=== PATIENT | male | born 1955 | race Caucasian/White ===

== ENCOUNTER 2017-02-20 19:20 | Inpatient (IN) | payer BC ==
[~2017-02-20] VITALS: Ht 170.2 cm; Wt 116.8 kg
[~2017-02-20 19:20] MED LIST: ASPI81TA28 PO; DILT-117 PO; LISI-729 PO; LPT10 PO; PANT40TA PO; RIVA1TAB4 PO; ZNTT/150 PO
[2017-02-20] MEDS ORDERED: SODIUM CHLORIDE 0.9% 1000ML 1,000 ML IV STA (19:43)
--- NOTE | 2017-02-20 19:47 | EMERGENCY ROOM VISIT NOTE ---
History Report prepared by Thao: Jimmie Castellano Under the Supervision of: Dr. Juan Wong D.O. 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 The patient's states that the patient had been experiencing shortness of breath for the past two weeks. This shortness of breath became progressively worse today. Tonight, the patient sat down in his chair and became unresponsive. called EMS who performed CPR upon arrival to scene. Per EMS staff, the patient was cardioverted with 50 joules into atrial fibrillation then to sinus rhythm. Patients only complaints now are shortness of breath and chest pain. He denies leg swelling. Patient has a history of atrial fibrillation. 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 A total of 10 systems reviewed and were otherwise negative. Past Medical & Surgical Medical Problems: (1) Arrhythmia (2) Atrial fibrillation (3) COPD (chronic obstructive pulmonary disease) (4) LOC (loss of consciousness) Family History Heart disease Social History Smoking Status: Current Every Day Smoker Marital Status: Housing Status: lives with family Occupation Status: employed Current/Historical Medications Scheduled Aspirin (Aspirin Ec), 81 MG PO QAM Diltiazem Hcl Ext Rel (Tiazac), 300 MG PO QAM Lisinopril (Zestril), 5 MG PO QAM Rivaroxaban (Xarelto), 20 MG PO QAM Allergies Coded Allergies: Penicillins (Verified Adverse Reaction, Mild, HIVES, 02/20/17) Physical Exam Vital Signs Date Time Temp Pulse Resp B/P Pulse Ox O2 Delivery O2 Flow Rate FiO2 02/20/17 22:15 104 139/89 02/20/17 22:10 96 97 02/20/17 22:00 135/90 02/20/17 21:55 97 95 02/20/17 21:45 121/91 02/20/17 21:40 97 100 Room Air 02/20/17 21:30 138/96 02/20/17 21:25 100 91 02/20/17 21:15 130/92 02/20/17 21:10 100 94 02/20/17 21:05 100 24 148/96 94 Nasal Cannula 4.0 02/20/17 21:00 100 133/97 90 Nasal Cannula 2.0 02/20/17 20:59 98 02/20/17 20:57 88 Room Air 02/20/17 20:55 99 134/81 98 02/20/17 20:50 100 132/80 99 02/20/17 20:45 101 124/80 99 02/20/17 20:40 102 133/81 99 02/20/17 20:35 102 138/94 99 02/20/17 20:30 103 137/94 99 02/20/17 20:25 107 133/91 99 02/20/17 20:20 107 24 121/85 98 Non-Rebreather 15.0 02/20/17 20:15 105 117/72 98 02/20/17 20:10 106 108/67 98 02/20/17 20:05 109 123/94 98 02/20/17 20:00 111 109/65 98 02/20/17 19:55 110 22 132/90 98 Non-Rebreather 15.0 02/20/17 19:51 145/79 02/20/17 19:50 110 98 02/20/17 19:45 110 105/80 98 02/20/17 19:40 103 108/81 98 02/20/17 19:35 98 Non-Rebreather 15.0 02/20/17 19:35 102 134/82 98 02/20/17 19:35 98 Non-Rebreather 02/20/17 19:34 118/80 02/20/17 19:34 102 26 118/80 98 Non-Rebreather 15.0 02/20/17 19:30 101 93 02/20/17 19:30 84 Nasal Cannula 4.0 02/20/17 19:25 99 81 02/20/17 19:23 115/79 02/20/17 19:22 102 02/20/17 19:20 36.8 102 26 115/79 83 Room Air Physical Exam GENERAL: Patient is awake, alert, mildly anxious appearing. Does not appear to be experiencing severe pain. EYES: The conjunctivae are clear. The pupils are round and reactive. EARS, NOSE, MOUTH AND THROAT: The nose is without any evidence of any deformity. Mucous membranes are moist tongue is midline NECK: The neck is nontender and supple. RESPIRATORY: Diminished breath sounds throughout with scattered rhonchi, no definite rales appreciated. Mild tachypnea appreciated. No conversational dyspnea noted. CARDIOVASCULAR: Irregular rhythm noted to auscultation. No definite murmur noted. GASTROINTESTINAL: The abdomen is soft. Bowel sounds are present in all quadrants. Abdomen is nontender MUSCULOSKELETAL/EXTREMITIES: There is no evidence of gross deformity full range of motion is noted in the hips and shoulders SKIN: Pedal edema noted bilaterally. There is no obvious evidence of any rash. There are no petechiae, pallor or cyanosis noted. NEUROLOGIC: Patient is awake alert and oriented x3. Medical Decision & Procedures ER Provider Diagnostic Interpretation: X-ray results as stated below per interpretation by me and the radiologist. SINGLE VIEW CHEST CLINICAL HISTORY: Atypical chest pain. FINDINGS: 2 AP, portable, upright chest radiographs are compared to chest x-ray and chest CT dated 04/22/2009. The examination is degraded by portable technique, apical positioning, and patient rotation. A cardiac pads projects over the left lung base. The heart is enlarged and there is atherosclerotic calcification of the thoracic aorta. The pulmonary vasculature is noncongested. Advanced emphysema and chronic interstitial thickening are identified. Bibasilar atelectasis is observed. There is no airspace consolidation or large pleural effusion. No pneumothorax is seen. The skeletal structures are osteopenic. The bony thorax is grossly intact. IMPRESSION: Cardiomegaly and advanced emphysema. No acute cardiopulmonary abnormality is seen. Electronically signed by: Grady Rutledge M.D. 02/20/2017 8:07 PM Dictated Date/Time: 02/20/2017 8:05 PM Laboratory Results 02/20/17 19:29 Red Blood Count 4.93, Mean Corpuscular Volume 93.1, Mean Corpuscular Hemoglobin 32.0, Mean Corpuscular Hemoglobin Concent 34.4, Mean Platelet Volume 10.4, Neutrophils (%) (Auto) 69.7, Lymphocytes (%) (Auto) 21.0, Monocytes (%) (Auto) 5.2, Eosinophils (%) (Auto) 2.4, Basophils (%) (Auto) 0.3, Neutrophils # (Auto) 7.47, Lymphocytes # (Auto) 2.25, Monocytes # (Auto) 0.56, Eosinophils # (Auto) 0.26, Basophils # (Auto) 0.03 02/20/17 19:29 Test 02/20/17 19:29 02/20/17 19:35 02/20/17 19:39 White Blood Count 10.72 K/uL (4.8-10.8) Red Blood Count 4.93 M/uL (4.7-6.1) Hemoglobin 15.8 g/dL (14.0-18.0) Hematocrit 45.9 % (42-52) Mean Corpuscular Volume 93.1 fL (80-100) Mean Corpuscular Hemoglobin 32.0 pg (25-34) Mean Corpuscular Hemoglobin Concent 34.4 g/dl (32-36) Platelet Count 238 K/uL (130-400) Mean Platelet Volume 10.4 fL (7.4-10.4) Neutrophils (%) (Auto) 69.7 % Lymphocytes (%) (Auto) 21.0 % Monocytes (%) (Auto) 5.2 % Eosinophils (%) (Auto) 2.4 % Basophils (%) (Auto) 0.3 % Neutrophils # (Auto) 7.47 K/uL (1.4-6.5) Lymphocytes # (Auto) 2.25 K/uL (1.2-3.4) Monocytes # (Auto) 0.56 K/uL (0.11-0.59) Eosinophils # (Auto) 0.26 K/uL (0-0.5) Basophils # (Auto) 0.03 K/uL (0-0.2) RDW Standard Deviation 46.9 fL (36.4-46.3) RDW Coefficient of Variation 13.8 % (11.5-14.5) Immature Granulocyte % (Auto) 1.4 % Immature Granulocyte # (Auto) 0.15 K/uL (0.00-0.02) Prothrombin Time 11.4 SECONDS (9.0-12.0) Prothromb Time International Ratio 1.1 (0.9-1.1) Activated Partial Thromboplast Time 25.3 SECONDS (21.0-31.0) Partial Thromboplastin Ratio 1.0 Est Creatinine Clear Calc Drug Dose 70.4 ml/min Estimated GFR () 63.3 Estimated GFR (Non- 54.6 BUN/Creatinine Ratio 15.0 (10-20) Calcium Level 8.8 mg/dl (8.5-10.1) Magnesium Level 2.1 mg/dl (1.8-2.4) Total Bilirubin 0.6 mg/dl (0.2-1) Direct Bilirubin 0.2 mg/dl (0-0.2) Aspartate Amino Transf (AST/SGOT) 125 U/L (15-37) Alanine Aminotransferase (ALT/SGPT) 113 U/L (12-78) Alkaline Phosphatase 106 U/L (45-117) Total Creatine Kinase 70 U/L (39-308) Creatine Kinase MB 1.3 ng/ml (0.5-3.6) Creatine Kinase MB Ratio 1.9 (0-3.0) Pro-B-Type Natriuretic Peptide 508 pg/ml (0-900) Total Protein 6.8 gm/dl (6.4-8.2) Albumin 3.4 gm/dl (3.4-5.0) Lipase 112 U/L (73-393) Thyroid Stimulating Hormone (TSH) 5.840 uIu/ml (0.300-4.500) Free Thyroxine 0.89 ng/dl (0.80-1.60) Bedside Lactic Acid Venous 4.59 mmol/L (0.90-1.70) Bedside Hemoglobin 16.7 g/dl (14.0-18.0) Bedside Hematocrit 49 % (42-52) Bedside Sodium 144 mEq/L (135-144) Bedside Potassium 3.4 mEq/L (3.3-5.0) Bedside Chloride 101 mEq/L (101-112) Bedside Total CO2 25 mEq/l (24-31) Anion Gap 22.0 mmol/L (16-25) Bedside Blood Urea Nitrogen 22 mg/dl (7-18) Bedside Creatinine 1.2 mg/dl (0.6-1.3) Bedside Glucose (other) 177 mg/dl (70-99) Bedside Ionized Calcium (Yas) 1.17 mmol/l (1.12-1.32) Laboratory results per my review. Medications Administered Medications (Trade) Dose Ordered Sig/Hilton Route Start Time Stop Time Status Last Admin Dose Admin Sodium Chloride (Nss 1000ml) 1,000 ml @ 999 mls/hr Q1H1M STAT IV 4/14/17 19:43 02/20/17 20:43 DC 02/20/17 19:47 999 MLS/HR Morphine Sulfate (MoRPHine SULFATE INJ) 4 mg Q15M PRN IV 02/20/17 21:30 02/20/17 23:00 DC 02/20/17 21:30 4 MG Ondansetron HCl (Zofran Inj) 4 mg NOW STAT IV 02/20/17 21:24 02/20/17 21:25 DC 02/20/17 21:29 4 MG Procedure Prehospital EKG: Wide complex tachycardia rate of 263. Diffuse ST segment abnormalities. Second EKG status post cardioversion: Atrial Fibrillation rate of 100, RBBB pattern noted. ECG Indication: other (Cardiac Arrest) Rate (beats per minute): 100 Rhythm: normal sinus Findings: no ectopy, other (RBBB pattern noted) Comparison ECG Date: no prior available ED Course 1938: The patient was evaluated in room A1. A complete history and physical examination were performed. 1942: Ordered Sodium Chloride 1,000 ml @ 999 mls/h IV. 2051: Reevaluated the patient. He is resting more comfortably. 2123: Ordered Zofran Injection 4 mg IV. 2129: Ordered Morphine Sulfate 4 mg IV. 2131: I discussed the patient's case with Dr. Brock ([facility] [place]). He will evaluate the patient for further management and care. 2199: I discussed the patient's case with Dr. Solis ([facility] [place] [facility]iology). He states to continue with discussed treatment plan. Medical Decision Differential diagnosis: Etiologies such as cardiac ischemia, aortic dissection, pulmonary embolism, electrolyte abnormality, acidosis, tension pneumothorax, hypothermia, hypovolemia, intracranial event, as well as others were entertained. Nursing notes reviewed. Additional history is obtained from the prehospital personnel. The patient is a 61-year-old male who presented to the emergency department for an evaluation after having a cardiac arrest. The patient was experiencing shortness of breath and difficulty with exertional dyspnea over the last few weeks. His symptoms became acutely worse over the last 24 hours. He was walking upstairs and had an episode where he became very short of breath. Ultimately he had a cardiac arrest. CPR was started. The patient was found to be in a wide- complex tachycardia but he has a history of atrial fibrillation. For this reason he was defibrillated using 50 joules. It is unclear if he had a pulse at this time but he was cardioverted into an atrial fibrillation and then went into a sinus rhythm spontaneously. The patient was treated with IV fluids in the emergency department. I discussed the patient's laboratory and radiographic studies with him. 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 At this time no new antidysrhythmic's will be started. Consults Time Called: 2055 Consulting Physician: Dr. Brock ([facility] [place]) Returned Call: 2129 I discussed the patient's case with Dr. Brock ([facility] [place]). He will evaluate the patient for further management and care. Additional Consults: Time Called: 2149 Consulted Physician: Dr. Solis ([facility] [place] [facility]) Returned Call: 2199 Additional Comments: I discussed the patient's case with Dr. Solis ([facility] [place] [facility]). He states to continue with discussed treatment plan. Impression Primary Impression: Cardiac arrest Additional Impressions: COPD (chronic obstructive pulmonary disease) Hypoxia Chest pain Wide-complex tachycardia Arrhythmia Scribe Attestation The scribe's documentation has been prepared under my direction and personally reviewed by me in its entirety. I confirm that the note above accurately reflects all work, treatment, procedures, and medical decision making performed by me. Departure Information Dispostion Being Evaluated By Hospitalist Referrals Ashish Morales D.O.Int.Med. (PCP) Patient Instructions My [facility] Health Problem Qualifiers Additional Impressions: COPD (chronic obstructive pulmonary disease) COPD type: unspecified COPD Qualified Codes: J44.9 - Chronic obstructive pulmonary disease, unspecified Chest pain Chest pain type: unspecified Qualified Codes: R07.9 - Chest pain, unspecified Arrhythmia Arrhythmia type: unspecified cardiac arrhythmia Qualified Codes: I49.9 - Cardiac arrhythmia, unspecified
[2017-02-20 19:54] LABS: ISTAT CREATININE 1.2 mg/dl (0.6-1.3); ISTAT HEMOGLOBIN 16.7 g/dl (14.0-18.0); ISTAT IONIZED CALCIUM 1.17 mmol/l (1.12-1.32)
[2017-02-20 19:57] LABS: BASO % 0.3 %; BASO ABS # 0.03 K/uL (0-0.2); COMPLETE YES; EOS % 2.4 %; HEMATOCRIT 45.9 % (42-52); IG% 1.4 %; LYMPH ABS # 2.25 K/uL (1.2-3.4); MEAN CELL VOLUME 93.1 fL (80-100); MEAN CORPUSCULAR HGB CONC 34.4 g/dl (32-36); MEAN PLATELET VOLUME 10.4 fL (7.4-10.4); MONO % 5.2 %; NEUT % 69.7 %; PLATELET COUNT 238 K/uL (130-400); RED BLOOD COUNT 4.93 M/uL (4.7-6.1); WHITE BLOOD COUNT 10.72 K/uL (4.8-10.8)
[2017-02-20 20:06] LABS: INR 1.1 (0.9-1.1); PROTHROMBIN TIME (PATIENT) 11.4 SECONDS (9.0-12.0)
--- NOTE | 2017-02-20 20:10 | DIAGNOSTIC IMAGING REPORT ---
SINGLE VIEW CHEST CLINICAL HISTORY: Atypical chest pain. FINDINGS: 2 AP, portable, upright chest radiographs are compared to chest x-ray and chest CT dated 04/22/2009. The examination is degraded by portable technique, apical positioning, and patient rotation. A cardiac pads projects over the left lung base. The heart is enlarged and there is atherosclerotic calcification of the thoracic aorta. The pulmonary vasculature is noncongested. Advanced emphysema and chronic interstitial thickening are identified. Bibasilar atelectasis is observed. There is no airspace consolidation or large pleural effusion. No pneumothorax is seen. The skeletal structures are osteopenic. The bony thorax is grossly intact. IMPRESSION: Cardiomegaly and advanced emphysema. No acute cardiopulmonary abnormality is seen. Electronically signed by: Grady Rutledge M.D. 02/20/2017 8:07 PM Dictated Date/Time: 02/20/2017 8:05 PM
[2017-02-20 20:16] LABS: CALCIUM 8.8 mg/dl (8.5-10.1); CREATININE 1.4 mg/dl (0.60-1.40); MAGNESIUM 2.1 mg/dl (1.8-2.4); POTASSIUM 3.4 mmol/L (3.5-5.1)
[2017-02-20 20:30] LABS: CKMB/CK RATIO 1.9 (0-3.0); THYROID STIMULATING HORMONE 5.84 uIu/ml (0.300-4.500)
[2017-02-20] MEDS ORDERED: ONDANSETRON INJ 2 MG/ML 2 ML VIAL IV STA (21:24)
[2017-02-20] MEDS ORDERED: MoRPHine SULFATE 4 MG/ML 1 ML CARP\\VIAL IV PRN (21:30)
[2017-02-20] MEDS ORDERED: LORAZEPAM 0.5 MG TAB PO PRN (22:15)
[2017-02-20] MEDS ORDERED: ACETAMINOPHEN 325 MG TAB PO PRN (22:15)
[2017-02-20] MEDS ORDERED: POTASSIUM CHLR 20 MEQ / WTR 20 MEQ in PREMIXED WATER 100 ML IV SCH (22:30)
--- NOTE | 2017-02-20 23:03 | History and Physical ---
History & Physical Date & Time of Service: Feb 20, 2017 at 22:33 Chief Complaint: Cardiac Primary Care Physician: Ashish Morales D.O.Int.Med. History of Present Illness Source: patient 61 y/o M Hx AF, COPD, obese, HTN. Pt states he has been SOB x 2 weeks which is most pronounced with exertion. He had not c/o CP, fevers or a productive cough. He had ascended some stairs this evening, developed palpitations and light headedness and was reported to be pale and diaphoretic by his . EMS was contacted. He lost consciousness in the interim and was pulseless when they arrived at the house. CPR was started and he regained a pulse after a few minutes. An EKG was obtained showing a wide complex tachycardia at a rate of 250 was recorded. EMS felt that this may have been aberrant conduction and proceeded to shock the pt with 50 joules. He reverted to a sinus rhythm and was transferred to the hospital in stable condition. He recalls being shocked and denies current CP. His SOB persists at rest however he has not displayed hypoxia. Initial labs are consistent with a period of cardiac arrest as LFTs, creatinine, lactic acid and troponin are elevated without evidence of infection or dehydration. While in the ER he has exhibited periodic rapid AF without concurrent symptoms. 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 Smoking Status: Current Every Day Smoker Marital Status: Occupational Status: employed Allergies Coded Allergies: Penicillins (Verified Adverse Reaction, Mild, HIVES, 02/20/17) Home Medications Scheduled Aspirin (Aspirin Ec), 81 MG PO QAM Diltiazem Hcl Ext Rel (Tiazac), 300 MG PO QAM Lisinopril (Zestril), 5 MG PO QAM Rivaroxaban (Xarelto), 20 MG PO QAM Review of Systems Constitutional: No chills, No fever, No sweats Eyes: No eye pain, No worsening of vision ENT: No hearing loss, No nasal symptoms, No unusual epistaxis Respiratory: + dyspnea at rest, + dyspnea on exertion, + shortness of breath, + wheezing, No cough, No sputum Cardiovascular: + edema, + palpitations, No PND, No chest pain, No claudication , No orthopnea Abdomen: No nausea, No pain, No vomiting Musculoskeletal: No joint pain, No muscle pain Genitourinary - Male: No dysuria, No hematuria, No urinary frequency, No urinary urgency Neurologic: + problem reported (LOC as above), + weakness, No memory loss, No paralysis Psychiatric: No depression symptoms Endocrine: + fatigue Hematologic / Lymphatic: No abnormal bleeding/bruising Integumentary: No rash Physical Exam Vital Signs Date Time Temp Pulse Resp B/P Pulse Ox O2 Delivery O2 Flow Rate FiO2 02/20/17 21:05 100 24 148/96 94 Nasal Cannula 4.0 02/20/17 21:00 100 133/97 90 Nasal Cannula 2.0 02/20/17 20:59 98 02/20/17 20:57 88 Room Air 02/20/17 20:55 99 134/81 98 02/20/17 20:50 100 132/80 99 02/20/17 20:45 101 124/80 99 02/20/17 20:40 102 133/81 99 02/20/17 20:35 102 138/94 99 02/20/17 20:30 103 137/94 99 02/20/17 20:25 107 133/91 99 02/20/17 20:20 107 24 121/85 98 Non-Rebreather 15.0 02/20/17 20:15 105 117/72 98 02/20/17 20:10 106 108/67 98 02/20/17 20:05 109 123/94 98 02/20/17 20:00 111 109/65 98 02/20/17 19:55 110 22 132/90 98 Non-Rebreather 15.0 02/20/17 19:51 145/79 02/20/17 19:50 110 98 02/20/17 19:45 110 105/80 98 02/20/17 19:40 103 108/81 98 02/20/17 19:35 98 Non-Rebreather 15.0 02/20/17 19:35 102 134/82 98 02/20/17 19:35 98 Non-Rebreather 02/20/17 19:34 118/80 02/20/17 19:34 102 26 118/80 98 Non-Rebreather 15.0 02/20/17 19:30 101 93 02/20/17 19:30 84 Nasal Cannula 4.0 02/20/17 19:25 99 81 02/20/17 19:23 115/79 02/20/17 19:22 102 02/20/17 19:20 36.8 102 26 115/79 83 Room Air General Appearance: WD/WN, no apparent distress, + pertinent finding (Slightly disheveled, humorous middle-aged male) Head: normocephalic, atraumatic Eyes: normal inspection, PERRL, EOMI ENT: normal ENT inspection, hearing grossly normal Neck: supple, + pertinent finding (exam limited due to habitus) Respiratory/Chest: chest non-tender, + pertinent finding (Very poor b/l air entry - minimal b/l end expiratory wheezing - no crackles audible) Cardiovascular: regular rate, rhythm, + pertinent finding (very faint heart sounds - borderline tachy - minimal edema present) Abdomen/GI: normal bowel sounds, non tender, soft Back: normal inspection, no CVA tenderness Extremities/Musculoskelatal: no calf tenderness, + pedal edema Neurologic/Psych: ui ux developer II-XII nml as tested, no motor/sensory deficits, alert, normal mood/affect, normal reflexes, oriented x 3 Skin: normal color, warm/dry, no rash Diagnostics Laboratory Results Results Past 24 Hours Test 02/20/17 19:29 02/20/17 19:35 02/20/17 19:39 Range/Units White Blood Count 10.72 4.8-10.8 K/uL Red Blood Count 4.93 4.7-6.1 M/uL Hemoglobin 15.8 14.0-18.0 g/dL Hematocrit 45.9 42-52 % Mean Corpuscular Volume 93.1 80-100 fL Mean Corpuscular Hemoglobin 32.0 25-34 pg Mean Corpuscular Hemoglobin Concent 34.4 32-36 g/dl Platelet Count 238 130-400 K/uL Mean Platelet Volume 10.4 7.4-10.4 fL Neutrophils (%) (Auto) 69.7 % Lymphocytes (%) (Auto) 21.0 % Monocytes (%) (Auto) 5.2 % Eosinophils (%) (Auto) 2.4 % Basophils (%) (Auto) 0.3 % Neutrophils # (Auto) 7.47 1.4-6.5 K/uL Lymphocytes # (Auto) 2.25 1.2-3.4 K/uL Monocytes # (Auto) 0.56 0.11-0.59 K/uL Eosinophils # (Auto) 0.26 0-0.5 K/uL Basophils # (Auto) 0.03 0-0.2 K/uL RDW Standard Deviation 46.9 36.4-46.3 fL RDW Coefficient of Variation 13.8 11.5-14.5 % Immature Granulocyte % (Auto) 1.4 % Immature Granulocyte # (Auto) 0.15 0.00-0.02 K/uL Prothrombin Time 11.4 9.0-12.0 SECONDS Prothromb Time International Ratio 1.1 0.9-1.1 Activated Partial Thromboplast Time 25.3 21.0-31.0 SECONDS Partial Thromboplastin Ratio 1.0 Sodium Level 145 136-145 mmol/L Potassium Level 3.4 3.5-5.1 mmol/L Chloride Level 106 98-107 mmol/L Carbon Dioxide Level 29 21-32 mmol/L Anion Gap 10.0 22.0 16-25 mmol/L Blood Urea Nitrogen 21 7-18 mg/dl Creatinine 1.40 0.60-1.40 mg/dl Est Creatinine Clear Calc Drug Dose 70.4 ml/min Estimated GFR () 63.3 Estimated GFR (Non- 54.6 BUN/Creatinine Ratio 15.0 10-20 Random Glucose 184 70-99 mg/dl Calcium Level 8.8 8.5-10.1 mg/dl Magnesium Level 2.1 1.8-2.4 mg/dl Total Bilirubin 0.6 0.2-1 mg/dl Direct Bilirubin 0.2 0-0.2 mg/dl Aspartate Amino Transf (AST/SGOT) 125 15-37 U/L Alanine Aminotransferase (ALT/SGPT) 113 12-78 U/L Alkaline Phosphatase 106 45-117 U/L Total Creatine Kinase 70 39-308 U/L Creatine Kinase MB 1.3 0.5-3.6 ng/ml Creatine Kinase MB Ratio 1.9 0-3.0 Troponin I 0.064 0-0.045 ng/ml Pro-B-Type Natriuretic Peptide 508 0-900 pg/ml Total Protein 6.8 6.4-8.2 gm/dl Albumin 3.4 3.4-5.0 gm/dl Lipase 112 73-393 U/L Thyroid Stimulating Hormone (TSH) 5.840 0.300-4.500 uIu/ml Free Thyroxine 0.89 0.80-1.60 ng/dl Bedside Lactic Acid Venous 4.59 0.90-1.70 mmol/L Bedside Hemoglobin 16.7 14.0-18.0 g/dl Bedside Hematocrit 49 42-52 % Bedside Sodium 144 135-144 mEq/L Bedside Potassium 3.4 3.3-5.0 mEq/L Bedside Chloride 101 101-112 mEq/L Bedside Total CO2 25 24-31 mEq/l Bedside Blood Urea Nitrogen 22 7-18 mg/dl Bedside Creatinine 1.2 0.6-1.3 mg/dl Bedside Glucose (other) 177 70-99 mg/dl Bedside Ionized Calcium (Yas) 1.17 1.12-1.32 mmol/l Diagnostic Radiology Cardiomegaly and advanced emphysema. No acute cardiopulmonary abnormality is seen. EKG 1st EKG - wide complex tachycardia at ~ 250/min 2nd EKG - sinus, RBBB, inf Q wvs - no evidence of acute ischemia 3rd EKG - unchanged from initial Impression Assessment and Plan 61 y/o M Hx AF, COPD, obese, HTN. Pt states he has been SOB x 2 weeks which is most pronounced with exertion. He had not c/o CP, fevers or a productive cough. He had ascended some stairs this evening, developed palpitations and light headedness and was reported to be pale and diaphoretic by his . EMS was contacted. He lost consciousness in the interim and was pulseless when they arrived at the house. CPR was started and he regained a pulse after a few minutes. An EKG was obtained showing a wide complex tachycardia at a rate of 250 was recorded. EMS felt that this may have been aberrant conduction and proceeded to shock the pt with 50 joules. He reverted to a sinus rhythm and was transferred to the hospital in stable condition. He recalls being shocked and denies current CP. His SOB persists at rest however he has not displayed hypoxia. Initial labs are consistent with a period of cardiac arrest as LFTs, creatinine, lactic acid and troponin are elevated without evidence of infection or dehydration. While in the ER he has exhibited periodic rapid AF without concurrent symptoms. 1) Cardiac arrest - Pt currently stable - will be transferred to the ICU - discussed case with cardio and we will provide Amio loading dose and drip. Defib pads applied. Echo is pending and he may need further evaluation with a cath and placement of an ICD. Serial troponins ordered although we will not provide additional anticoagulation due to Xarelto use. 2) AF - paroxysmal - pt is on Xarelto but skipped his dose today - this may be serendipitous as he required CPR. We have placed him on Amio and will hold his AM Cardizem in light of this. 3) COPD - advanced on CXR - we will keep him on 02 - he has not exhibited desaturation however this is the most likely cause of his persistent SOB. We will avoid breathing treatments as possible initially due to proarrhythmic qualities although he will need full treatment prior to D/C. He is comfortable currently with supplemental 02. 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 Y/N: Yes Risk Level: Moderate Given or contraindicated: Other Anticoagulation
[2017-02-20 23:12] VITALS: BP 136/96; PULSE 95; TEMP 36.8; O2SAT 90; Ht 170.2 cm; Wt 116.8 kg
[2017-02-20] MEDS ORDERED: AMIODARONE IV BOLUS / DRIP IV STA (23:13)
[2017-02-20] MEDS ORDERED: AMIODARONE / D5W 200 ML IV SCH (23:30)
[2017-02-20] MEDS: POTASSIUM CHLR 10MEQ / WTR IV SCH (23:31)
[2017-02-20] MEDS ORDERED: AMIODARONE / D5W 100 ML IV SCH (23:45)
[2017-02-21] VITALS (40 sets, daily range): BP systolic 117–161; BP diastolic 73–95; PULSE 65–98; TEMP 36.2–37.3; O2SAT 84–95
[2017-02-21] MEDS: POTASSIUM CHLR 10MEQ / WTR IV SCH ×3 (00:37→02:58)
[2017-02-21] MEDS: MoRPHine SULFATE 2 MG/ML CARP IV PRN ×3 (02:08→11:26)
[2017-02-21 05:48] LABS: BASO % 0.1 %; BASO ABS # 0.02 K/uL (0-0.2); COMPLETE YES; EOS % 0.1 %; HEMATOCRIT 47.2 % (42-52); IG% 0.8 %; LYMPH ABS # 1.31 K/uL (1.2-3.4); MEAN CELL VOLUME 97.3 fL (80-100); MEAN CORPUSCULAR HEMOGLOBIN 32.6 pg (25-34); MEAN CORPUSCULAR HGB CONC 33.5 g/dl (32-36); MEAN PLATELET VOLUME 10.1 fL (7.4-10.4); MONO % 7.3 %; NEUT % 82.7 %; PLATELET COUNT 245 K/uL (130-400); RED BLOOD COUNT 4.85 M/uL (4.7-6.1); WHITE BLOOD COUNT 14.56 K/uL (4.8-10.8)
[2017-02-21 06:11] LABS: BUN/CREATININE RATIO 19.8 (10-20); CALCIUM 8.4 mg/dl (8.5-10.1); CREATININE 0.99 mg/dl (0.60-1.40); MAGNESIUM 2.2 mg/dl (1.8-2.4); POTASSIUM 5.5 mmol/L (3.5-5.1)
[2017-02-21] MEDS: AMIODARONE / D5W 200 ML IV SCH ×2 (06:14→17:08)
[2017-02-21] MEDS: ALBUT/IPRATROP 3MG/0.5MG NEB 3 ML VIAL INH SCH ×4 (07:52→19:32)
--- NOTE | 2017-02-21 08:50 | Cardiology Consultation ---
Cardiology Consultation Date of Consultation: Feb 21, 2017. Requesting Physician: Dr. Brock Reason for Consultation: Cardiac arrhythmia Pt evaluation today including: conversation w/ patient, physical exam, lab review, review of studies, conversation w/ outside solar sales consultant, review of inpatient medication list History of Present Illness This is a 61-year-old male who has a history of shortness of breath for several weeks, he has a background history of long-standing lung disease but apparently does not see physicians (according to him today although he seems to be a poor historian). It sounds as though he has a history of atrial fibrillation, or at least he recognized the term at sounds like that may go back for 5 or 6 years. He is supposed to be taking diltiazem and Xarelto but I don't know if he does, he doesn't seem to be very confident that he was taking medications. His symptoms of shortness of breath got much worse on 02/20/2017 and rescue was contacted. When they arrived they found him to be very tachycardic. Review of rhythm strips from rescue shows that the initial rhythm was a wide complex tachycardia at nearly 300 bpm, it is very wide but is suggestive of aberrancy (he has underlying right bundle branch block), although it certainly could be a ventricular arrhythmia. A 50 J shock was delivered during this arrhythmia which converted to ventricular fibrillation, a second 360 J shock was used to convert the ventricular fibrillation to a period of severe bradycardia followed by return of sinus rhythm. In the emergency room he was in sinus rhythm and then developed an episode of supraventricular tachycardia at around 20-20, this lasted approximately 5 minutes at a heart rate of around 145 bpm although slightly irregular. Does not appear to be atrial fibrillation. The mechanism is somewhat unclear, likely atrial flutter with 21 AV conduction but I can't determine that precisely. At the time of my evaluation he appears to be doing well, he does answer questions but does not elaborate. It is little bit difficult to obtain a history. He is awake and alert however. He has no specific complaints today. Past Medical/Surgical History (1) Atrial fibrillation (2) COPD (chronic obstructive pulmonary disease) Family History Heart disease Social History Smoking Status: Current Every Day Smoker History of Alcohol Use: Yes (1-2 per day can of beer ) Review of Systems Constitutional: No fever, No weakness, No weight loss Respiratory: + see HPI, + shortness of breath, No cough, No dyspnea on exertion , No wheezing Cardiac: + see HPI, No PND, No chest pain, No edema, No orthopnea, No palpitations Abdomen: No GI bleeding, No diarrhea, No nausea, No pain, No vomiting Male : No nocturia more than once/night, No sexual dysfunction, No slowing stream, No urinary frequency Neurologic: No balance problems, No numbness/tingling, No paralysis, No weakness Heme: No abnormal bleeding/bruising, No clotting problems Endo: No fatigue Skin: No problem reported All Other Systems: Reviewed and Negative Allergies Coded Allergies: Penicillins (Verified Adverse Reaction, Mild, HIVES, 02/20/17) Medications Current Inpatient Medications Medications (Trade) Dose Ordered Sig/[place] Route Start Time Stop Time Status Last Admin Dose Admin Acetaminophen (Tylenol Tab) 650 mg Q4H PRN PO 02/20/17 22:15 03/22/17 22:14 Lorazepam (Ativan Tab) 0.5 mg Q4H PRN PO 02/20/17 22:15 03/22/17 22:14 Aspirin (Ecotrin Tab) 81 mg QAM PO 02/21/17 09:00 03/23/17 08:59 Morphine Sulfate (MoRPHine SULFATE INJ) 2 mg Q2H PRN IV 02/20/17 22:15 03/06/17 22:14 02/21/17 04:20 2 MG Lisinopril (Zestril Tab) 5 mg QAM PO 02/21/17 09:00 03/23/17 08:59 Diltiazem HCl 300 mg 300 mg QAM PO 02/21/17 09:00 03/23/17 08:59 Amiodarone HCL/ Dextrose (Nexterone / D5w) 200 ml @ 16.7 mls/hr [id number] IV 02/21/17 05:30 03/23/17 05:29 02/21/17 06:14 16.7 MLS/HR Albuterol/ Ipratropium (Duoneb) 3 ml QIDR INH 02/21/17 08:00 03/23/17 07:59 02/21/17 07:52 3 ML Physical Exam Vital Signs Past 12 Hours Date Time Temp Pulse Resp B/P Pulse Ox O2 Delivery O2 Flow Rate FiO2 02/21/17 07:53 87 22 89 Venturi Mask 15.0 50 4/15/17 06:00 87 22 146/85 91 02/21/17 05:00 90 20 146/92 93 02/21/17 04:00 36.2 88 24 135/90 95 02/21/17 04:00 92 Nasal Cannula 5.0 02/21/17 03:30 89 24 139/90 92 02/21/17 03:00 87 23 145/89 92 02/21/17 02:00 88 23 126/80 91 02/21/17 01:30 90 24 123/83 91 02/21/17 01:00 88 21 126/87 92 02/21/17 00:00 92 Nasal Cannula 5.0 02/21/17 00:00 87 22 127/82 93 02/20/17 23:12 36.8 95 17 136/96 90 Nasal Cannula 5.0 02/20/17 22:44 94 22 135/89 98 02/20/17 22:30 94 22 135/89 100 Room Air 02/20/17 22:25 140 02/20/17 22:15 104 139/89 02/20/17 22:10 96 97 02/20/17 22:00 135/90 02/20/17 21:55 97 95 02/20/17 21:45 121/91 02/20/17 21:40 97 100 Room Air 02/20/17 21:30 138/96 02/20/17 21:25 100 91 02/20/17 21:15 130/92 02/20/17 21:10 100 94 02/20/17 21:05 100 24 148/96 94 Nasal Cannula 4.0 02/20/17 21:00 100 133/97 90 Nasal Cannula 2.0 02/20/17 20:59 98 02/20/17 20:57 88 Room Air 02/20/17 20:55 99 134/81 98 02/20/17 20:50 100 132/80 99 02/20/17 20:45 101 124/80 99 02/20/17 20:40 102 133/81 99 02/20/17 20:35 102 138/94 99 02/20/17 20:30 103 137/94 99 02/20/17 20:25 107 133/91 99 02/20/17 20:20 107 24 121/85 98 Non-Rebreather 15.0 02/20/17 20:15 105 117/72 98 02/20/17 20:10 106 108/67 98 Constitutional: General Apperance: heathly-appearing Level of Distress: NAD Psychiatric: Mental Status: active & alert Head: normocephalic Eyes: EOM: EOMI ENMT: normal ENT inspection, hearing grossly normal Neck: supple, no masses Lungs: Respiratory effort: no dyspnea, good air movement Auscultation: decreased breath sounds, expiratory wheezing Cardiovascular: Heart Auscultation: RRR, no murmurs, no rubs, no gallops Peripheral Pulses: Bruits: none appreciated Abdomen: Bowel Sounds: normal Inspection & Palpation: soft, no tenderness, guarding & rebound, no masses Musculoskeletal: normal strength (5/5 throughout) Extremities: no edema Neurologic: Cranial Nerves: grossly intact Sensation: grossly intact Data Laboratory Results: Last 24 Hours Test 02/20/17 19:29 02/20/17 19:35 02/20/17 19:39 02/20/17 23:13 White Blood Count 10.72 K/uL Red Blood Count 4.93 M/uL Hemoglobin 15.8 g/dL Hematocrit 45.9 % Mean Corpuscular Volume 93.1 fL Mean Corpuscular Hemoglobin 32.0 pg Mean Corpuscular Hemoglobin Concent 34.4 g/dl Platelet Count 238 K/uL Mean Platelet Volume 10.4 fL Neutrophils (%) (Auto) 69.7 % Lymphocytes (%) (Auto) 21.0 % Monocytes (%) (Auto) 5.2 % Eosinophils (%) (Auto) 2.4 % Basophils (%) (Auto) 0.3 % Neutrophils # (Auto) 7.47 K/uL Lymphocytes # (Auto) 2.25 K/uL Monocytes # (Auto) 0.56 K/uL Eosinophils # (Auto) 0.26 K/uL Basophils # (Auto) 0.03 K/uL RDW Standard Deviation 46.9 fL RDW Coefficient of Variation 13.8 % Immature Granulocyte % (Auto) 1.4 % Immature Granulocyte # (Auto) 0.15 K/uL Prothrombin Time 11.4 SECONDS Prothromb Time International Ratio 1.1 Activated Partial Thromboplast Time 25.3 SECONDS Partial Thromboplastin Ratio 1.0 Sodium Level 145 mmol/L Potassium Level 3.4 mmol/L Chloride Level 106 mmol/L Carbon Dioxide Level 29 mmol/L Anion Gap 10.0 mmol/L 22.0 mmol/L Blood Urea Nitrogen 21 mg/dl Creatinine 1.40 mg/dl Est Creatinine Clear Calc Drug Dose 70.4 ml/min Estimated GFR () 63.3 Estimated GFR (Non- 54.6 BUN/Creatinine Ratio 15.0 Random Glucose 184 mg/dl Calcium Level 8.8 mg/dl Magnesium Level 2.1 mg/dl Total Bilirubin 0.6 mg/dl Direct Bilirubin 0.2 mg/dl Aspartate Amino Transf (AST/SGOT) 125 U/L Alanine Aminotransferase (ALT/SGPT) 113 U/L Alkaline Phosphatase 106 U/L Total Creatine Kinase 70 U/L Creatine Kinase MB 1.3 ng/ml Creatine Kinase MB Ratio 1.9 Troponin I 0.064 ng/ml 0.628 ng/ml Pro-B-Type Natriuretic Peptide 508 pg/ml Total Protein 6.8 gm/dl Albumin 3.4 gm/dl Lipase 112 U/L Thyroid Stimulating Hormone (TSH) 5.840 uIu/ml Free Thyroxine 0.89 ng/dl Bedside Lactic Acid Venous 4.59 mmol/L Bedside Hemoglobin 16.7 g/dl Bedside Hematocrit 49 % Bedside Sodium 144 mEq/L Bedside Potassium 3.4 mEq/L Bedside Chloride 101 mEq/L Bedside Total CO2 25 mEq/l Bedside Blood Urea Nitrogen 22 mg/dl Bedside Creatinine 1.2 mg/dl Bedside Glucose (other) 177 mg/dl Bedside Ionized Calcium (Yas) 1.17 mmol/l Test 02/21/17 05:28 02/21/17 08:03 White Blood Count 14.56 K/uL Red Blood Count 4.85 M/uL Hemoglobin 15.8 g/dL Hematocrit 47.2 % Mean Corpuscular Volume 97.3 fL Mean Corpuscular Hemoglobin 32.6 pg Mean Corpuscular Hemoglobin Concent 33.5 g/dl Platelet Count 245 K/uL Mean Platelet Volume 10.1 fL Neutrophils (%) (Auto) 82.7 % Lymphocytes (%) (Auto) 9.0 % Monocytes (%) (Auto) 7.3 % Eosinophils (%) (Auto) 0.1 % Basophils (%) (Auto) 0.1 % Neutrophils # (Auto) 12.04 K/uL Lymphocytes # (Auto) 1.31 K/uL Monocytes # (Auto) 1.07 K/uL Eosinophils # (Auto) 0.01 K/uL Basophils # (Auto) 0.02 K/uL RDW Standard Deviation 50.2 fL RDW Coefficient of Variation 14.1 % Immature Granulocyte % (Auto) 0.8 % Immature Granulocyte # (Auto) 0.11 K/uL Sodium Level 143 mmol/L Potassium Level 5.5 mmol/L Chloride Level 106 mmol/L Carbon Dioxide Level 36 mmol/L Anion Gap 1.0 mmol/L Blood Urea Nitrogen 20 mg/dl Creatinine 0.99 mg/dl Est Creatinine Clear Calc Drug Dose 97.4 ml/min Estimated GFR () 96.2 Estimated GFR (Non- 83.0 BUN/Creatinine Ratio 19.8 Random Glucose 134 mg/dl Calcium Level 8.4 mg/dl Magnesium Level 2.2 mg/dl Troponin I 0.611 ng/ml Imaging: No acute findings EKG: Sinus tachycardia with right bundle branch block, no acute changes Telemetry reviewed: Predominantly sinus rhythm and sinus tachycardia, one episode of supraventricular arrhythmia as noted in the history of present illness lasting about 5 minutes. Assessment & Plan #1. Wide complex arrhythmia: There is a good recording of his wide complex tachycardia prior to cardioversion, that shows what is probably a right bundle branch block pattern but the rate is close to 300 bpm. The complex is actually very similar to his twelve-lead following cardioversion, I suspect it is atrial flutter with one-to-one conduction at that point. He does have a history of atrial fibrillation and very possibly atrial flutter as well. I'm not convinced he was taking his medications and he was feeling very short of breath which could result in a high catecholamine drive and rapid AV conduction. He was treated for SVT at that point (although it is a very wide complex and could be ventricular tachycardia I think it was appropriately identified as supraventricular in origin). Unfortunately a 50 J shock was used which converted him to ventricular fibrillation, that was subsequently inverted with a 360 J shock to initially sinus bradycardia and then sinus rhythm. I believe this is all consistent with his history and I think it primarily represents undertreated atrial arrhythmias. I would recommend continuing amiodarone for now , however we will probably want to switch him to his diltiazem and possibly digoxin to help control his arrhythmia. #2. COPD: On exam he has considerable expiratory wheezing and outflow obstruction, he was probably suffering from an exacerbation of his COPD which triggered this sequence of events. #3. Elevated troponin: His enzyme trend suggests demand ischemia not an acute coronary event. Thank you for allowing me to participate in his care.
[2017-02-21] MEDS ORDERED: PERFLUTREN LIPID MICROSPHERE (DEFINITY) IV ONE (09:11)
[2017-02-21] MEDS: ASPIRIN 81 MG ECTAB PO SCH (09:16)
[2017-02-21] MEDS: DILTIAZEM HCL 300 MG CAPCR PO SCH (09:17)
[2017-02-21] MEDS: LISINOPRIL 5 MG TAB PO SCH (09:17)
--- NOTE | 2017-02-21 10:22 | Critical Care Consultation ---
Critical Care Consultation Date of Consultation: Feb 21, 2017. Attending Physician: Constantin Marquez MD, PhD Reason for Consultation: ICU Mx History of Present Illness Mr Chavarria is a 61 yo M with COPD & atrial fibrillation, who is questionably noncompliant with his medications, who presents to the ICU after a presumed cardiac arrest in the field. Currently, the patient is awake and alert and would not provide much of a history. On review of records, it seems he had a syncopal event at home, EMS was called, he had unsynchronized cardioversion with 50J for a wide complex tachycardia. This then caused ventricular fibrillation, and he was shocked again with 360J, and went back into NSR. Apparently while in the ED he had periodic rapid AFib without concurrent symptoms, so was started on an amiodarone drip. He had a mild troponin elevation and these decreased when trended down. He currently smokes 1PPD and is not interested in quitting. He has mild chest discomfort currently. Past Medical/Surgical History PMHx: - Atrial fibrillation - COPD - Hypertension - Hyperlipidemia - Smoking use - Obesity PSHx: None Family History Heart disease Social History Smoking Status: Current Every Day Smoker (1 pack per day, 40 y) Marital Status: Housing Status: lives with family Occupation Status: employed Allergies Coded Allergies: Penicillins (Verified Adverse Reaction, Mild, HIVES, 02/20/17) Home Medications Scheduled Aspirin (Aspirin Ec), 81 MG PO QAM Diltiazem Hcl Ext Rel (Tiazac), 300 MG PO QAM Lisinopril (Zestril), 5 MG PO QAM Rivaroxaban (Xarelto), 20 MG PO QAM Current Inpatient Medications Current Inpatient Medications Medications (Trade) Dose Ordered Sig/H[place] Route Start Time Stop Time Status Last Admin Dose Admin Acetaminophen (Tylenol Tab) 650 mg Q4H PRN PO 02/20/17 22:15 03/22/17 22:14 Lorazepam (Ativan Tab) 0.5 mg Q4H PRN PO 02/20/17 22:15 03/22/17 22:14 Aspirin (Ecotrin Tab) 81 mg QAM PO 02/21/17 09:00 03/23/17 08:59 02/21/17 09:16 81 MG Morphine Sulfate (MoRPHine SULFATE INJ) 2 mg Q2H PRN IV 02/20/17 22:15 03/06/17 22:14 02/21/17 04:20 2 MG Lisinopril (Zestril Tab) 5 mg QAM PO 02/21/17 09:00 03/23/17 08:59 02/21/17 09:17 5 MG Diltiazem HCl 300 mg 300 mg QAM PO 02/21/17 09:00 03/23/17 08:59 02/21/17 09:17 300 MG Amiodarone HCL/ Dextrose (Nexterone / D5w) 200 ml @ 16.7 mls/hr [id number] IV 02/21/17 05:30 03/23/17 05:29 02/21/17 06:14 16.7 MLS/HR Albuterol/ Ipratropium (Duoneb) 3 ml QIDR INH 02/21/17 08:00 03/23/17 07:59 02/21/17 07:52 3 ML Review of Systems See HPI for pertinent positives & negatives. A total of 10 systems reviewed and were otherwise negative. Physical Exam Date Time Temp Pulse Resp B/P Pulse Ox O2 Delivery O2 Flow Rate FiO2 02/21/17 09:26 36.9 82 22 131/81 92 Nasal Cannula 50 Venturi Mask 02/21/17 07:53 87 22 89 Venturi Mask 15.0 50 02/21/17 07:30 Venturi Mask 50 02/21/17 07:30 36.9 98 22 127/78 88 Nasal Cannula 50 Venturi Mask 02/21/17 06:00 87 22 146/85 91 02/21/17 05:00 90 20 146/92 93 02/21/17 04:00 36.2 88 24 135/90 95 02/21/17 04:00 92 Nasal Cannula 5.0 02/21/17 03:30 89 24 139/90 92 02/21/17 03:00 87 23 145/89 92 02/21/17 02:00 88 23 126/80 91 02/21/17 01:30 90 24 123/83 91 02/21/17 01:00 88 21 126/87 92 02/21/17 00:00 92 Nasal Cannula 5.0 02/21/17 00:00 87 22 127/82 93 02/20/17 23:12 36.8 95 17 136/96 90 Nasal Cannula 5.0 02/20/17 22:44 94 22 135/89 98 02/20/17 22:30 94 22 135/89 100 Room Air 02/20/17 22:25 140 02/20/17 22:15 104 139/89 02/20/17 22:10 96 97 02/20/17 22:00 135/90 02/20/17 21:55 97 95 02/20/17 21:45 121/91 02/20/17 21:40 97 100 Room Air 02/20/17 21:30 138/96 02/20/17 21:25 100 91 02/20/17 21:15 130/92 02/20/17 21:10 100 94 02/20/17 21:05 100 24 148/96 94 Nasal Cannula 4.0 02/20/17 21:00 100 133/97 90 Nasal Cannula 2.0 02/20/17 20:59 98 02/20/17 20:57 88 Room Air 02/20/17 20:55 99 134/81 98 02/20/17 20:50 100 132/80 99 02/20/17 20:45 101 124/80 99 02/20/17 20:40 102 133/81 99 02/20/17 20:35 102 138/94 99 02/20/17 20:30 103 137/94 99 02/20/17 20:25 107 133/91 99 02/20/17 20:20 107 24 121/85 98 Non-Rebreather 15.0 02/20/17 20:15 105 117/72 98 02/20/17 20:10 106 108/67 98 02/20/17 20:05 109 123/94 98 02/20/17 20:00 111 109/65 98 02/20/17 19:55 110 22 132/90 98 Non-Rebreather 15.0 02/20/17 19:51 145/79 02/20/17 19:50 110 98 02/20/17 19:45 110 105/80 98 02/20/17 19:40 103 108/81 98 02/20/17 19:35 98 Non-Rebreather 15.0 02/20/17 19:35 102 134/82 98 02/20/17 19:35 98 Non-Rebreather 02/20/17 19:34 118/80 02/20/17 19:34 102 26 118/80 98 Non-Rebreather 15.0 02/20/17 19:30 101 93 02/20/17 19:30 84 Nasal Cannula 4.0 02/20/17 19:25 99 81 02/20/17 19:23 115/79 02/20/17 19:22 102 02/20/17 19:20 36.8 102 26 115/79 83 Room Air GENERAL: Awake, alert, well-appearing, in no acute distress HENT: Normocephalic, atraumatic. Oropharynx unremarkable. EYES: Normal conjunctiva. Sclera non-icteric. NECK: Supple. No nuchal rigidity. FROM. No JVD. RESPIRATORY: Clear to auscultation. CARDIAC: Regular rate, normal rhythm. Extremities warm and well perfused. Pulses equal. ABDOMEN: Soft, non-distended. No tenderness to palpation. No rebound or guarding. No masses. MUSCULOSKELETAL: Chest examination reveals mild tenderness. The back is symmetrical on inspection without obvious abnormality. There is no CVA tenderness to palpation. No joint edema. LOWER EXTREMITIES: Calves are equal size bilaterally and non-tender. No edema. No discoloration. NEURO: RASS 0. CAM negative. SKIN: No rash or jaundice noted. Laboratory Results Last 24 Hours Test 02/20/17 19:29 02/20/17 19:35 02/20/17 19:39 02/20/17 23:13 White Blood Count 10.72 K/uL Red Blood Count 4.93 M/uL Hemoglobin 15.8 g/dL Hematocrit 45.9 % Mean Corpuscular Volume 93.1 fL Mean Corpuscular Hemoglobin 32.0 pg Mean Corpuscular Hemoglobin Concent 34.4 g/dl Platelet Count 238 K/uL Mean Platelet Volume 10.4 fL Neutrophils (%) (Auto) 69.7 % Lymphocytes (%) (Auto) 21.0 % Monocytes (%) (Auto) 5.2 % Eosinophils (%) (Auto) 2.4 % Basophils (%) (Auto) 0.3 % Neutrophils # (Auto) 7.47 K/uL Lymphocytes # (Auto) 2.25 K/uL Monocytes # (Auto) 0.56 K/uL Eosinophils # (Auto) 0.26 K/uL Basophils # (Auto) 0.03 K/uL RDW Standard Deviation 46.9 fL RDW Coefficient of Variation 13.8 % Immature Granulocyte % (Auto) 1.4 % Immature Granulocyte # (Auto) 0.15 K/uL Prothrombin Time 11.4 SECONDS Prothromb Time International Ratio 1.1 Activated Partial Thromboplast Time 25.3 SECONDS Partial Thromboplastin Ratio 1.0 Sodium Level 145 mmol/L Potassium Level 3.4 mmol/L Chloride Level 106 mmol/L Carbon Dioxide Level 29 mmol/L Anion Gap 10.0 mmol/L 22.0 mmol/L Blood Urea Nitrogen 21 mg/dl Creatinine 1.40 mg/dl Est Creatinine Clear Calc Drug Dose 70.4 ml/min Estimated GFR () 63.3 Estimated GFR (Non- 54.6 BUN/Creatinine Ratio 15.0 Random Glucose 184 mg/dl Calcium Level 8.8 mg/dl Magnesium Level 2.1 mg/dl Total Bilirubin 0.6 mg/dl Direct Bilirubin 0.2 mg/dl Aspartate Amino Transf (AST/SGOT) 125 U/L Alanine Aminotransferase (ALT/SGPT) 113 U/L Alkaline Phosphatase 106 U/L Total Creatine Kinase 70 U/L Creatine Kinase MB 1.3 ng/ml Creatine Kinase MB Ratio 1.9 Troponin I 0.064 ng/ml 0.628 ng/ml Pro-B-Type Natriuretic Peptide 508 pg/ml Total Protein 6.8 gm/dl Albumin 3.4 gm/dl Lipase 112 U/L Thyroid Stimulating Hormone (TSH) 5.840 uIu/ml Free Thyroxine 0.89 ng/dl Bedside Lactic Acid Venous 4.59 mmol/L Bedside Hemoglobin 16.7 g/dl Bedside Hematocrit 49 % Bedside Sodium 144 mEq/L Bedside Potassium 3.4 mEq/L Bedside Chloride 101 mEq/L Bedside Total CO2 25 mEq/l Bedside Blood Urea Nitrogen 22 mg/dl Bedside Creatinine 1.2 mg/dl Bedside Glucose (other) 177 mg/dl Bedside Ionized Calcium (Yas) 1.17 mmol/l Test 02/21/17 05:28 02/21/17 08:19 White Blood Count 14.56 K/uL Red Blood Count 4.85 M/uL Hemoglobin 15.8 g/dL Hematocrit 47.2 % Mean Corpuscular Volume 97.3 fL Mean Corpuscular Hemoglobin 32.6 pg Mean Corpuscular Hemoglobin Concent 33.5 g/dl Platelet Count 245 K/uL Mean Platelet Volume 10.1 fL Neutrophils (%) (Auto) 82.7 % Lymphocytes (%) (Auto) 9.0 % Monocytes (%) (Auto) 7.3 % Eosinophils (%) (Auto) 0.1 % Basophils (%) (Auto) 0.1 % Neutrophils # (Auto) 12.04 K/uL Lymphocytes # (Auto) 1.31 K/uL Monocytes # (Auto) 1.07 K/uL Eosinophils # (Auto) 0.01 K/uL Basophils # (Auto) 0.02 K/uL RDW Standard Deviation 50.2 fL RDW Coefficient of Variation 14.1 % Immature Granulocyte % (Auto) 0.8 % Immature Granulocyte # (Auto) 0.11 K/uL Sodium Level 143 mmol/L Potassium Level 5.5 mmol/L 5.3 mmol/L Chloride Level 106 mmol/L Carbon Dioxide Level 36 mmol/L Anion Gap 1.0 mmol/L Blood Urea Nitrogen 20 mg/dl Creatinine 0.99 mg/dl Est Creatinine Clear Calc Drug Dose 97.4 ml/min Estimated GFR () 96.2 Estimated GFR (Non- 83.0 BUN/Creatinine Ratio 19.8 Random Glucose 134 mg/dl Calcium Level 8.4 mg/dl Magnesium Level 2.2 mg/dl Troponin I 0.611 ng/ml Diagnostic Results CT OF THE CHEST WITH IV CONTRAST CLINICAL HISTORY: Rib fracture. COMPARISON STUDY: CT April 22, 2009 and chest radiograph performed earlier today. TECHNIQUE: Following IV administration of 116 mL of [id number]-[id number], helical axial images of the chest were obtained. Images were viewed in the axial, sagittal and coronal planes. IV contrast was administered without complication. CT DOSE: 1124.07 mGy.cm FINDINGS: There is an acute nondisplaced fracture of the anterior left third rib and a minimally displaced acute fracture of the anterior left fourth rib. There is no pneumothorax. There are trace bilateral pleural effusions. There is extensive right lower lobe airspace opacity with volume loss. There is mild left lower lobe airspace opacity. There is moderate emphysema. Moderate cardiomegaly is noted. There is no thoracic lymphadenopathy. There is no evidence of traumatic injury to the thoracic aorta. There is a nondisplaced acute fracture through the mid aspect of the sternum. No abnormalities are identified within visual portions of the upper abdomen. No acute thoracic spine fracture is identified. IMPRESSION: 1. Acute minimally displaced fracture of the anterior left fourth rib and acute nondisplaced left third rib fracture. No pneumothorax. 2. Acute nondisplaced sternal fracture. 3. Extensive right lower lobe airspace opacity with volume loss. This may reflect pneumonia or atelectasis. Mild left basilar opacity favors atelectasis. 4. Moderate emphysema. 5. Moderate cardiomegaly. Electronically signed by: Barrington Olsen M.D. 02/21/2017 3:16 PM Assessment & Plan PROBLEM LIST: 1. Wide complex tachycardia 2. Atrial fibrillation with RVR 3. COPD exacerbation 4. Elevated troponin, now decreasing 5. 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: GCS: 14 Focal Signs: None Restraints: Bilateral soft wrist Neurologic prophylaxis: Not indicated Respiratory: On Nasal cannula / venturi mask Duoneb q6h Started on methylprednisolone 125mg q8h Cardiovascular: CV drips: Amiodarone Restarted diltiazem today Continued Lisinopril mg daily Rhythm: Sinus, RBBB EKG: HR 944, QTc 447 ECHO: 02/21: Normal biventricular systolic function, EF 55-60% Fluids/Renal: IV Fluids: Net Urine: +1301mL Ortez: Present GI/Nutrition: Feeding: Advance diet as tolerated Prophylaxis: On PPI Bowel movements: None Stool softeners: None Endocrine: Last 24 hour glucose: 119. Will check an HbA1c Insulin protocol: No; Drip: No Hematology: Hemoglobin 15.8, Hct 47.2 DVT prophylaxis: Heparin 5000 3 times a day Infectious Disease/Immunology: Tmax: 37.0 CV Lines: None Antimicrobials: None Cultures: MRSA negative Resident Physician Supervision Note: Dr. Billings was resident physician during care of patient. I separately evaluated patient and did history and exam. I discussed the case with the resident and generally agree with the findings and plan. I discussed the case with Dr. Leary together, it appears the patient likely had a respiratory event leading to atrial fibrillation with rapid ventricular response with a a Wilkinson C. On the patient's EKG he has a pre-existing right bundle branch block. We suspect that the patient appeared to be in extremis and was cardioverted with 50 J and likely had an R on T phenomenon and proceeded into ventricular fibrillation. He was given one round of epinephrine and CPR and was shocked out of the ventricular fibrillation. At this time it appears he has a COPD exacerbation, he also has chest wall pain likely secondary from the CPR. We'll be obtaining a contrasted CT scan to exclude rib fracture I have advised the patient that he needs to cough and deep breathe, this is a set up for pneumonia if he is splinting and not taking deep breaths. I have personally spent 60 minutes of critical care time in the direct management of this patient. This is a life/limb threatening event. This includes time spent evaluating patient, direct bedside care, chart review, placing orders, interpretation of diagnostic studies, discussion with consultants, patient, and family members, as well as other required patient management activities. This time is exclusive of all separately billable procedures, and teaching time and separate from and in addition to any other critical care service time. CT scan results were reviewed the patient has 2 rib fractures of the third and fourth anterior left ribs, we have already applied lidocaine patches to the area. He'll be given an incentive spirometer. We started him on Zithromax for empiric coverage of a COPD exacerbation. Patient is stable for downgraded out of the ICU to telemetry status. I have personally spent 45 minutes of critical care time in the direct management of this patient. This is a life/limb threatening event. This includes time spent evaluating patient, direct bedside care, chart review, placing orders, interpretation of diagnostic studies, discussion with consultants, patient, and family members, as well as other required patient management activities. This time is exclusive of all separately billable procedures, and teaching time and separate from and in addition to any other critical care service time. Documented By: Yosi Lundberg DO Resident Tracking Resident Involvement: Resident Care Provided Care Provided: Adult Hospital Medicine (ICU)
[2017-02-21] MEDS ORDERED: METHYLPREDNISOLONE 125 MG VIAL IV SCH (10:30)
[2017-02-21] MEDS ORDERED: METHYLPREDNISOLONE IV 125 MG in SYRINGE 0 ML IV STA (11:14)
[2017-02-21] MEDS ORDERED: KETAMINE HCL INJ 50 MG/ML 10 ML VIAL IV STA (11:25)
[2017-02-21] MEDS ORDERED: PANTOprazole SOD 40 MG TAB PO STA (11:28)
--- NOTE | 2017-02-21 11:31 | Progress Note ---
Subjective Date of Service: Feb 21, 2017. Subjective Pt evaluation today including: conversation w/ patient, conversation w/ family , physical exam, chart review, lab review, review of studies, conversation w/ surgery consultant, review of inpatient medication list on Venturi mask, FiO2 50%, temp patient continue have mild respiratory distress , spoke broken sentence, has diffuse wheezing bull lungs Problem List Medical Problems: (1) Cardiac arrest Status: Acute (2) Chest pain Status: Acute (3) COPD (chronic obstructive pulmonary disease) Status: Chronic (4) Hypoxia Status: Acute (5) Wide-complex tachycardia Status: Acute Review of Systems Constitutional: + problem reported (wheezing cough and difficulty breathing), No chills, No fatigue, No fever, No sweats, No weakness, No weight loss Eyes: No diplopia, No discharge, No eye pain, No redness, No worsening of vision ENT: No dental problems, No hearing loss, No nasal symptoms, No sore throat, No tinnitus, No trouble swallowing, No unusual epistaxis Respiratory: + dyspnea on exertion, + see HPI, + shortness of breath, + wheezing Cardiac: No PND, No chest pain, No claudication, No edema, No orthopnea, No palpitations Abdomen: No constipation, No diarrhea, No nausea, No pain, No vomiting Musculoskeletal: No calf pain, No joint pain, No muscle pain, No swelling Male : No dysuria, No hematuria, No incontinence, No nocturia more than once/ night, No slowing stream, No urinary frequency Neurologic: No balance problems, No memory loss, No numbness/tingling, No paralysis, No vertigo, No weakness Psychiatric: No anhedonism, No anxiety, No depression symptoms, No insomnia, No substance abuse Heme: No abnormal bleeding/bruising, No clotting problems, No night sweats, No swollen lymph nodes Endo: No excessive thirst, No excessive urination, No fatigue Skin: No bleeding, No color change, No itch, No new/changing skin lesions, No rash Objective Vital Signs Date Time Temp Pulse Resp B/P Pulse Ox O2 Delivery O2 Flow Rate FiO2 02/21/17 09:26 36.9 82 22 131/81 92 Nasal Cannula 50 Venturi Mask 02/21/17 07:53 87 22 89 Venturi Mask 15.0 50 02/21/17 07:30 Venturi Mask 50 02/21/17 07:30 36.9 98 22 127/78 88 Nasal Cannula 50 Venturi Mask 02/21/17 06:00 87 22 146/85 91 02/21/17 05:00 90 20 146/92 93 02/21/17 04:00 36.2 88 24 135/90 95 02/21/17 04:00 92 Nasal Cannula 5.0 02/21/17 03:30 89 24 139/90 92 02/21/17 03:00 87 23 145/89 92 02/21/17 02:00 88 23 126/80 91 02/21/17 01:30 90 24 123/83 91 02/21/17 01:00 88 21 126/87 92 02/21/17 00:00 92 Nasal Cannula 5.0 02/21/17 00:00 87 22 127/82 93 02/20/17 23:12 36.8 95 17 136/96 90 Nasal Cannula 5.0 02/20/17 22:44 94 22 135/89 98 02/20/17 22:30 94 22 135/89 100 Room Air 02/20/17 22:25 140 02/20/17 22:15 104 139/89 02/20/17 22:10 96 97 02/20/17 22:00 135/90 02/20/17 21:55 97 95 02/20/17 21:45 121/91 02/20/17 21:40 97 100 Room Air 02/20/17 21:30 138/96 02/20/17 21:25 100 91 02/20/17 21:15 130/92 02/20/17 21:10 100 94 02/20/17 21:05 100 24 148/96 94 Nasal Cannula 4.0 02/20/17 21:00 100 133/97 90 Nasal Cannula 2.0 02/20/17 20:59 98 02/20/17 20:57 88 Room Air 02/20/17 20:55 99 134/81 98 02/20/17 20:50 100 132/80 99 02/20/17 20:45 101 124/80 99 02/20/17 20:40 102 133/81 99 02/20/17 20:35 102 138/94 99 02/20/17 20:30 103 137/94 99 02/20/17 20:25 107 133/91 99 02/20/17 20:20 107 24 121/85 98 Non-Rebreather 15.0 02/20/17 20:15 105 117/72 98 02/20/17 20:10 106 108/67 98 02/20/17 20:05 109 123/94 98 02/20/17 20:00 111 109/65 98 02/20/17 19:55 110 22 132/90 98 Non-Rebreather 15.0 02/20/17 19:51 145/79 02/20/17 19:50 110 98 02/20/17 19:45 110 105/80 98 02/20/17 19:40 103 108/81 98 02/20/17 19:35 98 Non-Rebreather 15.0 02/20/17 19:35 102 134/82 98 02/20/17 19:35 98 Non-Rebreather 02/20/17 19:34 118/80 02/20/17 19:34 102 26 118/80 98 Non-Rebreather 15.0 02/20/17 19:30 101 93 02/20/17 19:30 84 Nasal Cannula 4.0 02/20/17 19:25 99 81 02/20/17 19:23 115/79 02/20/17 19:22 102 02/20/17 19:20 36.8 102 26 115/79 83 Room Air Physical Exam General Appearance: WD/WN, no apparent distress, + obese Eyes: normal inspection, PERRL, EOMI, sclerae normal ENT: normal ENT inspection, hearing grossly normal, pharynx normal Neck: supple, no adenopathy, thyroid normal, no JVD, no carotid bruits, trachea midline Respiratory/Chest: chest non-tender, normal breath sounds, no respiratory distress, no accessory muscle use, + decreased breath sounds, + wheezing ( diffuse bilateral) Cardiovascular: regular rate, rhythm, no gallop, no JVD, no murmur, + pertinent finding (mild edema trace) Abdomen: normal bowel sounds, non tender, soft, no organomegaly, no pulsatile mass Extremities: normal range of motion, non-tender, normal inspection, no pedal edema, no calf tenderness, normal capillary refill, pelvis stable Neurologic/Psychiatric: residential treatment counselor II-XII nml as tested, no motor/sensory deficits, alert, normal mood/affect, oriented x 3 Skin: normal color, warm/dry, no rash Lymphatic: no adenopathy Laboratory Results Last 24 Hours Test 02/20/17 19:29 02/20/17 19:35 02/20/17 19:39 02/20/17 23:13 White Blood Count 10.72 K/uL Red Blood Count 4.93 M/uL Hemoglobin 15.8 g/dL Hematocrit 45.9 % Mean Corpuscular Volume 93.1 fL Mean Corpuscular Hemoglobin 32.0 pg Mean Corpuscular Hemoglobin Concent 34.4 g/dl Platelet Count 238 K/uL Mean Platelet Volume 10.4 fL Neutrophils (%) (Auto) 69.7 % Lymphocytes (%) (Auto) 21.0 % Monocytes (%) (Auto) 5.2 % Eosinophils (%) (Auto) 2.4 % Basophils (%) (Auto) 0.3 % Neutrophils # (Auto) 7.47 K/uL Lymphocytes # (Auto) 2.25 K/uL Monocytes # (Auto) 0.56 K/uL Eosinophils # (Auto) 0.26 K/uL Basophils # (Auto) 0.03 K/uL RDW Standard Deviation 46.9 fL RDW Coefficient of Variation 13.8 % Immature Granulocyte % (Auto) 1.4 % Immature Granulocyte # (Auto) 0.15 K/uL Prothrombin Time 11.4 SECONDS Prothromb Time International Ratio 1.1 Activated Partial Thromboplast Time 25.3 SECONDS Partial Thromboplastin Ratio 1.0 Sodium Level 145 mmol/L Potassium Level 3.4 mmol/L Chloride Level 106 mmol/L Carbon Dioxide Level 29 mmol/L Anion Gap 10.0 mmol/L 22.0 mmol/L Blood Urea Nitrogen 21 mg/dl Creatinine 1.40 mg/dl Est Creatinine Clear Calc Drug Dose 70.4 ml/min Estimated GFR () 63.3 Estimated GFR (Non- 54.6 BUN/Creatinine Ratio 15.0 Random Glucose 184 mg/dl Calcium Level 8.8 mg/dl Magnesium Level 2.1 mg/dl Total Bilirubin 0.6 mg/dl Direct Bilirubin 0.2 mg/dl Aspartate Amino Transf (AST/SGOT) 125 U/L Alanine Aminotransferase (ALT/SGPT) 113 U/L Alkaline Phosphatase 106 U/L Total Creatine Kinase 70 U/L Creatine Kinase MB 1.3 ng/ml Creatine Kinase MB Ratio 1.9 Troponin I 0.064 ng/ml 0.628 ng/ml Pro-B-Type Natriuretic Peptide 508 pg/ml Total Protein 6.8 gm/dl Albumin 3.4 gm/dl Lipase 112 U/L Thyroid Stimulating Hormone (TSH) 5.840 uIu/ml Free Thyroxine 0.89 ng/dl Bedside Lactic Acid Venous 4.59 mmol/L Bedside Hemoglobin 16.7 g/dl Bedside Hematocrit 49 % Bedside Sodium 144 mEq/L Bedside Potassium 3.4 mEq/L Bedside Chloride 101 mEq/L Bedside Total CO2 25 mEq/l Bedside Blood Urea Nitrogen 22 mg/dl Bedside Creatinine 1.2 mg/dl Bedside Glucose (other) 177 mg/dl Bedside Ionized Calcium (Yas) 1.17 mmol/l Test 02/21/17 05:28 02/21/17 08:19 02/21/17 10:56 White Blood Count 14.56 K/uL Red Blood Count 4.85 M/uL Hemoglobin 15.8 g/dL Hematocrit 47.2 % Mean Corpuscular Volume 97.3 fL Mean Corpuscular Hemoglobin 32.6 pg Mean Corpuscular Hemoglobin Concent 33.5 g/dl Platelet Count 245 K/uL Mean Platelet Volume 10.1 fL Neutrophils (%) (Auto) 82.7 % Lymphocytes (%) (Auto) 9.0 % Monocytes (%) (Auto) 7.3 % Eosinophils (%) (Auto) 0.1 % Basophils (%) (Auto) 0.1 % Neutrophils # (Auto) 12.04 K/uL Lymphocytes # (Auto) 1.31 K/uL Monocytes # (Auto) 1.07 K/uL Eosinophils # (Auto) 0.01 K/uL Basophils # (Auto) 0.02 K/uL RDW Standard Deviation 50.2 fL RDW Coefficient of Variation 14.1 % Immature Granulocyte % (Auto) 0.8 % Immature Granulocyte # (Auto) 0.11 K/uL Sodium Level 143 mmol/L Potassium Level 5.5 mmol/L 5.3 mmol/L Chloride Level 106 mmol/L Carbon Dioxide Level 36 mmol/L Anion Gap 1.0 mmol/L Blood Urea Nitrogen 20 mg/dl Creatinine 0.99 mg/dl Est Creatinine Clear Calc Drug Dose 97.4 ml/min Estimated GFR () 96.2 Estimated GFR (Non- 83.0 BUN/Creatinine Ratio 19.8 Random Glucose 134 mg/dl Calcium Level 8.4 mg/dl Magnesium Level 2.2 mg/dl Troponin I 0.611 ng/ml Bedside Glucose 119 mg/dl Assessment and Plan 61-year-old male admitted on 02/20/2017 because of A. fib,. arrhythmia, CPR and shock , acute respiratory distress with COPD exacerbation per report patient has shortness of breath for several weeks, with a background history of long-standing lung disease and continued tobacco abuse disorder one pack per day Has history of atrial fibrillation, he was having shortness of breath, he was found very tachycardic., Per report by welder gas tungsten arc, he was having wide complex tachycardia at nearly 300 bpm, A 50 J shock was delivered during this arrhythmia which converted to ventricular fibrillation, a second 360 J shock was used to convert the ventricular fibrillation to a period of severe bradycardia followed by return of sinus rhythm. In the emergency room he was in sinus rhythm and then developed an episode of supraventricular tachycardia at around 20-20, this lasted approximately 5 minutes at a heart rate of around 145 bpm although slightly irregular. Does not appear to be atrial fibrillation. The mechanism is somewhat unclear, likely atrial flutter with 2:1 AV conduction Episodes of complex tachycardia, S/P shocks prior to admission, currently is A. fib rate controlled, continue telemetry cardiology input appreciated Mild elevated troponin likely from shock will trend cont Amio loading dose and drip. Xarelto is on hold Echo is pending Acute respiratory distress with COPD exacerbation Significant history of tobacco abuse disorder Treated Solu-Medrol 125 mg one dose now and the milligram every 8 hour Continue nebulizer treatment, supportive care Nicotine patch is ordered Continue oxygen support, talk to stone grader Was hypokinemia upon admission, then hyperkalemia at 5.5 to 5.3 Repeat potassium level Has consult above quit smoking Full code VT prophylaxis is on Xarelto Protonix for GI prophylaxis Discussed with nurse, stone grader Continued [facility] stay due to: multiple IV medications needed Discharge planning: uncertain
[2017-02-21] MEDS ORDERED: NURSING VERBAL MED ORDER ONE (11:45)
[2017-02-21] MEDS ORDERED: METHYLPREDNISOLONE 125 MG in SYRINGE 0 ML IV SCH (12:00)
--- NOTE | 2017-02-21 12:06 | DIAGNOSTIC IMAGING REPORT ---
CHEST ONE VIEW PORTABLE HISTORY: Atypical chest pain COMPARISON: Chest 02/20/2017. FINDINGS: The heart remains mildly enlarged. Patchy density within the right medial lung base has progressed. No pneumothorax. No evidence for pulmonary edema. Slight prominence of interstitial markings. IMPRESSION: 1. Progressive patchy density within the right medial lung base. This could represent atelectasis or pneumonia. 2. Stable mild cardiomegaly. Electronically signed by: Benigno Ordoñez M.D. 02/21/2017 12:03 PM Dictated Date/Time: 02/21/2017 12:02 PM
[2017-02-21] MEDS ORDERED: LIDODERM (LIDOCAINE) PATCH 5% TD ONE (12:30)
[2017-02-21] MEDS ORDERED: LACTATED RINGER'S 1000ML 1,000 ML IV SCH (13:00)
--- NOTE | 2017-02-21 13:42 | ECHOCARDIOGRAM REPORT ---
*NOTICE TO RECEIVING [employer] This information is strictly Confidential and protected under [place] law. [place] law prohibits you from making any further disclosure of this information unless further disclosure is expressly permitted by the written consent of the person to whom it pertains or is authorized by law. A general authorization for the release of medical or other information is not sufficient for this purpose. Hospital accepts no responsibility if the information is made available to any other person, INCLUDING THE PATIENT. Interpretation Summary * Name: JAMILA URIBE Study Date: 02/21/2017 09:00 AM BP: 135/90 mmHg * [facility]\S\1 HR: 83 * : 1955 (M/d/yyyy) Gender: Male Height: 67 in * Age: 61 yrs Ethnicity: CA Weight: 263 lb * Ordering Physician: Hayden Brock * Performed By: Mechelle Shelton * * Reason For Study: PALPITATIONS, CARDIAC ARREST * BSA: 2.3 m2 * Normal biventricular systolic function. * Mild concentric left ventricular hypertrophy. * Normal chmaber dimensions. * No significant valvular abnormalities. * The study was technically difficult. Procedure Details * A complete two-dimensional transthoracic echocardiogram was performed (2D, M-mode, Doppler and color flow Doppler). * The study was technically difficult. * Limited views were obtained. * There were technical limitations due to patient'sinability to cooperate * A contrast injection of Definity was performed to improve assessment of LV function. * Contrast was injected into an intravenous site in the left arm. * One vial of Definity ultrasound contrast was diluted in normal saline to a total volume of 10 ml. A total of '3' ml of solution was administered during imaging. * Lot # [id number] of Definity utilized for procedure. * Expiration date 02/24. * The attending nurse who injected the contrast agent was JOCELINE AU RN. Left Ventricle * The left ventricle is normal in size. * There is mild concentric left ventricular hypertrophy. * Ejection Fraction = 55-60%. * Left ventricular systolic function is normal. * The left ventricular wall motion is normal. Right Ventricle * The right ventricle is normal in size and function. * The right ventricular systolic function is normal as assessed by tricuspid annular plane systolic excursion (TAPSE) (normal >1.5 cm). Atria * The left atrial size is normal. * Right atrial size is normal. Mitral Valve * The mitral valve is grossly normal. * There is no mitral valve stenosis. * Significant mitral regurgitation is absent. Tricuspid Valve * The tricuspid valve is not well visualized. * Tricuspid stenosis is absent. * Significant tricuspid regurgitation is absent. Aortic Valve * The aortic valve is not well visualized. * Aortic stenosis is absent. * There is no significant aortic regurgitation. Pulmonic Valve * The pulmonic valve is not well visualized. * There is no pulmonic valvular stenosis. * There is no significant pulmonary regurgitation. Great Vessels * Borderline aortic root dilatation. Pericardium/Pleural * There is no pericardial effusion. Great Vessels * Normal inferior vena cava diameter and respiratory variation suggests normal central venous pressure. MMode 2D Measurements and Calculations IVSd 1.2 cm IVSs 2.1 cm LVIDd 5.1 cm LVIDs 3.5 cm LVPWd 1.2 cm LVPWs 2.6 cm IVS/LVPW 0.94 FS 32.1 % EDV(Teich) 126.2 ml ESV(Teich) 50.5 ml EF(Teich) 60.0 % EDV(cubed) 136.0 ml ESV(cubed) 42.5 ml EF(cubed) 68.8 % % IVS thick 82.3 % % LVPW thick 109.1 % LV mass(C)d 247.5 grams LV mass(C)dI 108.9 grams/m\S\2 LV mass(C)s 430.3 grams LV mass(C)sI 189.4 grams/m\S\2 CO(Teich) 6.3 l/min CI(Teich) 2.8 l/min/m\S\2 SV(Teich) 75.7 ml SI(Teich) 33.3 ml/m\S\2 CO(cubed) 7.8 l/min CI(cubed) 3.4 l/min/m\S\2 SV(cubed) 93.5 ml SI(cubed) 41.1 ml/m\S\2 Ao root diam 4.0 cm Ao root area 12.7 cm\S\2 ACS 1.4 cm LA dimension 3.6 cm LA/Ao 0.89 LVOT diam 2.2 cm LVOT area 3.7 cm\S\2 LVAd ap4 42.4 cm\S\2 LVLd ap4 9.8 cm EDV(MOD-sp4) 147.0 ml LVAs ap4 27.0 cm\S\2 LVLs ap4 9.3 cm ESV(MOD-sp4) 65.0 ml EF(MOD-sp4) 55.8 % LVAd ap2 30.2 cm\S\2 LVLd ap2 9.3 cm EDV(MOD-sp2) 78.0 ml LVAs ap2 18.9 cm\S\2 LVLs ap2 8.2 cm ESV(MOD-sp2) 35.0 ml EF(MOD-sp2) 55.1 % CO(MOD-sp4) 6.8 l/min CI(MOD-sp4) 3.0 l/min/m\S\2 SV(MOD-sp4) 82.0 ml SI(MOD-sp4) 36.1 ml/m\S\2 CO(MOD-sp2) 3.6 l/min CI(MOD-sp2) 1.6 l/min/m\S\2 SV(MOD-sp2) 43.0 ml SI(MOD-sp2) 18.9 ml/m\S\2 Doppler Measurements and Calculations MV E max kathy 87.9 cm/sec MV dec time 0.25 sec Ao V2 max 92.3 cm/sec Ao max PG 3.4 mmHg Ao max PG (full) 1.1 mmHg JARROD(V,A) 3.1 cm\S\2 JARROD(V,D) 3.1 cm\S\2 LV V1 max PG 2.3 mmHg LV V1 max 76.0 cm/sec PA V2 max 48.4 cm/sec PA max PG 0.94 mmHg
[2017-02-21] MEDS ORDERED: OPTIRAY 320 IV PRN (15:00)
--- NOTE | 2017-02-21 15:18 | DIAGNOSTIC IMAGING REPORT ---
CT OF THE CHEST WITH IV CONTRAST CLINICAL HISTORY: Rib fracture. COMPARISON STUDY: CT April 22, 2009 and chest radiograph performed earlier today. TECHNIQUE: Following IV administration of 116 mL of Optiray-320, helical axial images of the chest were obtained. Images were viewed in the axial, sagittal and coronal planes. IV contrast was administered without complication. CT DOSE: 1124.07 mGy.cm FINDINGS: There is an acute nondisplaced fracture of the anterior left third rib and a minimally displaced acute fracture of the anterior left fourth rib. There is no pneumothorax. There are trace bilateral pleural effusions. There is extensive right lower lobe airspace opacity with volume loss. There is mild left lower lobe airspace opacity. There is moderate emphysema. Moderate cardiomegaly is noted. There is no thoracic lymphadenopathy. There is no evidence of traumatic injury to the thoracic aorta. There is a nondisplaced acute fracture through the mid aspect of the sternum. No abnormalities are identified within visual portions of the upper abdomen. No acute thoracic spine fracture is identified. IMPRESSION: 1. Acute minimally displaced fracture of the anterior left fourth rib and acute nondisplaced left third rib fracture. No pneumothorax. 2. Acute nondisplaced sternal fracture. 3. Extensive right lower lobe airspace opacity with volume loss. This may reflect pneumonia or atelectasis. Mild left basilar opacity favors atelectasis. 4. Moderate emphysema. 5. Moderate cardiomegaly. Electronically signed by: Barrington Olsen M.D. 02/21/2017 3:16 PM Dictated Date/Time: 02/21/2017 3:07 PM
[2017-02-21] MEDS ORDERED: AZITHROMYCIN 250 MG TAB PO ONE (16:00)
[2017-02-21] MEDS: OXYCODONE/ACETAMINOPHEN 5-325 TAB PO PRN ×2 (16:22→19:59)
[2017-02-21] MEDS: METHYLPREDNISOLONE IV 80 MG in SYRINGE 0 ML IV SCH (20:01)
[2017-02-21] MEDS: HEPARIN SOD 5000 UNIT/0.5 ML CARP SQ SCH (20:04)
[2017-02-21] MEDS ORDERED: AMIODARONE / D5W 100 ML IV SCH (23:15)
[2017-02-22] VITALS (14 sets, daily range): BP systolic 126–150; BP diastolic 68–90; PULSE 56–85; TEMP 36.4–36.9; O2SAT 86–93
[2017-02-22] MEDS: METHYLPREDNISOLONE IV 80 MG in SYRINGE 0 ML IV SCH ×3 (04:01→20:24)
[2017-02-22] MEDS: AMIODARONE / D5W 200 ML IV SCH (04:01)
[2017-02-22] MEDS: HEPARIN SOD 5000 UNIT/0.5 ML CARP SQ SCH ×3 (05:32→20:28)
[2017-02-22 06:24] LABS: COMPLETE YES; HEMATOCRIT 44.3 % (42-52); IG% 0.6 %; LYMPH % 4.5 %; LYMPH ABS # 0.65 K/uL (1.2-3.4); MEAN CELL VOLUME 96.1 fL (80-100); MEAN CORPUSCULAR HEMOGLOBIN 30.8 pg (25-34); MEAN CORPUSCULAR HGB CONC 32.1 g/dl (32-36); MEAN PLATELET VOLUME 9.9 fL (7.4-10.4); MONO % 2.5 %; NEUT % 92.4 %; PLATELET COUNT 207 K/uL (130-400); RED BLOOD COUNT 4.61 M/uL (4.7-6.1); WHITE BLOOD COUNT 14.38 K/uL (4.8-10.8)
[2017-02-22 06:55] LABS: BUN/CREATININE RATIO 20.6 (10-20); CALCIUM 8.7 mg/dl (8.5-10.1); CREATININE 0.86 mg/dl (0.60-1.40); MAGNESIUM 2.1 mg/dl (1.8-2.4); POTASSIUM 5.2 mmol/L (3.5-5.1)
[2017-02-22] MEDS: ALBUT/IPRATROP 3MG/0.5MG NEB 3 ML VIAL INH SCH ×4 (07:11→19:43)
[2017-02-22] MEDS: LIDODERM (LIDOCAINE) PATCH 5% TD SCH (07:48)
[2017-02-22] MEDS: PANTOprazole SOD 40 MG TAB PO SCH (07:51)
[2017-02-22] MEDS: AZITHROMYCIN 250 MG TAB PO SCH (07:51)
[2017-02-22] MEDS: DILTIAZEM HCL 300 MG CAPCR PO SCH (07:51)
[2017-02-22] MEDS: LISINOPRIL 5 MG TAB PO SCH (07:53)
[2017-02-22] MEDS: NICOTINE 14 MG/24 HR TDSY TD SCH (07:54)
[2017-02-22] MEDS: ASPIRIN 81 MG ECTAB PO SCH (07:54)
--- NOTE | 2017-02-22 11:05 | Cardiology Follow-Up ---
Subjective Date of Service: Feb 22, 2017. Pt evaluation today including: conversation w/ patient, conversation w/ family , physical exam, lab review, review of studies, review of inpatient medication list History of Present Illness This is a 61-year-old male who has a history of shortness of breath for several weeks, he has a background history of long-standing lung disease but apparently does not see physicians (according to him today although he seems to be a poor historian). It sounds as though he has a history of atrial fibrillation, or at least he recognized the term at sounds like that may go back for 5 or 6 years. He is supposed to be taking diltiazem and Xarelto but I don't know if he does, he doesn't seem to be very confident that he was taking medications. His symptoms of shortness of breath got much worse on 02/20/2017 and rescue was contacted. When they arrived they found him to be very tachycardic. Review of rhythm strips from rescue shows that the initial rhythm was a wide complex tachycardia at nearly 300 bpm, it is very wide but is suggestive of aberrancy (he has underlying right bundle branch block), although it certainly could be a ventricular arrhythmia. A 50 J shock was delivered during this arrhythmia which converted to ventricular fibrillation, a second 360 J shock was used to convert the ventricular fibrillation to a period of severe bradycardia followed by return of sinus rhythm. In the emergency room he was in sinus rhythm and then developed an episode of supraventricular tachycardia at around 20-20, this lasted approximately 5 minutes at a heart rate of around 145 bpm although slightly irregular. Does not appear to be atrial fibrillation. The mechanism is somewhat unclear, likely atrial flutter with 21 AV conduction but I can't determine that precisely. He is awake and alert and sitting at bedside. He has no specific complaints today. Social History Smoking Status: Current Every Day Smoker (1 pack per day, 40 y) History of Alcohol Use: Yes (1-2 per day can of beer ) Review of Systems Respiratory: + dyspnea on exertion, + see HPI, + shortness of breath, + wheezing Cardiac: No PND, No chest pain, No claudication, No edema, No orthopnea, No palpitations Medications Cardiovascular; Item Value Date Time Aspirin 81 mg 02/21/17 0900 (Ecotrin Tab) QAM/PO 02/22/17 0754 Lisinopril 5 mg 02/21/17 0900 (Zestril Tab) QAM/PO 02/22/17 0753 Diltiazem HCl 300 mg 02/21/17 09 (Cardizem Cd Cap) QAM/PO 02/22/17 0751 Objective Vital Signs Past 12 Hours Date Time Temp Pulse Resp B/P Pulse Ox O2 Delivery O2 Flow Rate FiO2 02/22/17 08:47 67 92 02/22/17 08:00 93 Non-Rebreather 15.0 02/22/17 07:33 36.5 61 28 150/81 90 Non-Rebreather 15.0 100 02/22/17 07:11 56 20 87 Venturi Mask 15.0 02/22/17 04:02 36.6 67 22 143/82 86 Venturi Mask 15.0 02/22/17 04:00 Venturi Mask 02/22/17 00:01 Venturi Mask 02/21/17 23:17 36.5 79 21 134/82 92 Venturi Mask 15.0 Last Recorded Weight-Kilograms: 116.500 Intake & Output 8-Hour Column 02/21/17 02/22/17 02/22/17 16:00 00:00 08:00 Intake Total 1056 ml 1093 ml 442 ml Output Total 0 ml 1100 ml 400 ml Balance 1056 ml -7 ml 42 ml 24-Hour Column 02/22/17 08:00 Intake Total 2591 ml Output Total 1500 ml Balance 1091 ml Physical Exam Constitutional: General Apperance: heathly-appearing Level of Distress: NAD Lungs: Respiratory effort: no dyspnea, good air movement Auscultation: decreased breath sounds, expiratory wheezing Cardiovascular: Heart Auscultation: RRR, no murmurs, no rubs, no gallops Peripheral Pulses: Bruits: none appreciated Extremities: no edema Data Laboratory Results: Last 24 Hours Test 02/21/17 15:02 02/21/17 15:12 02/22/17 05:57 Bedside Glucose 124 mg/dl White Blood Count 14.38 K/uL Red Blood Count 4.61 M/uL Hemoglobin 14.2 g/dL Hematocrit 44.3 % Mean Corpuscular Volume 96.1 fL Mean Corpuscular Hemoglobin 30.8 pg Mean Corpuscular Hemoglobin Concent 32.1 g/dl Platelet Count 207 K/uL Mean Platelet Volume 9.9 fL Neutrophils (%) (Auto) 92.4 % Lymphocytes (%) (Auto) 4.5 % Monocytes (%) (Auto) 2.5 % Eosinophils (%) (Auto) 0.0 % Basophils (%) (Auto) 0.0 % Neutrophils # (Auto) 13.29 K/uL Lymphocytes # (Auto) 0.65 K/uL Monocytes # (Auto) 0.36 K/uL Eosinophils # (Auto) 0.00 K/uL Basophils # (Auto) 0.00 K/uL RDW Standard Deviation 48.3 fL RDW Coefficient of Variation 13.7 % Immature Granulocyte % (Auto) 0.6 % Immature Granulocyte # (Auto) 0.08 K/uL Sodium Level 139 mmol/L Potassium Level 5.2 mmol/L Chloride Level 105 mmol/L Carbon Dioxide Level 30 mmol/L Anion Gap 4.0 mmol/L Blood Urea Nitrogen 18 mg/dl Creatinine 0.86 mg/dl Est Creatinine Clear Calc Drug Dose 112.9 ml/min Estimated GFR () 110.0 Estimated GFR (Non- 94.9 BUN/Creatinine Ratio 20.6 Random Glucose 176 mg/dl Calcium Level 8.7 mg/dl Magnesium Level 2.1 mg/dl Telemetry reviewed: Sinus rhythm, one very brief run of what appears to be aberrancy, no atrial arrhythmia. Assessment and Plan #1. Wide complex arrhythmia: There is a good recording of his wide complex tachycardia prior to cardioversion, that shows what is probably a right bundle branch block pattern but the rate is close to 300 bpm. The complex is actually very similar to his twelve-lead following cardioversion, I suspect it is atrial flutter with one-to-one conduction at that point. He does have a history of atrial fibrillation and very possibly atrial flutter as well. I'm not convinced he was taking his medications and he was feeling very short of breath which could result in a high catecholamine drive and rapid AV conduction. He was treated for SVT at that point (although it is a very wide complex and could be ventricular tachycardia I think it was appropriately identified as supraventricular in origin). Unfortunately a 50 J shock was used which converted him to ventricular fibrillation, that was subsequently inverted with a 360 J shock to initially sinus bradycardia and then sinus rhythm. I believe this is all consistent with his history and I think it primarily represents undertreated atrial arrhythmias. He is on diltiazem, although for his size he is on a relatively low dose. Additionally I might use something little longer acting like digoxin in case he misses a dose or 2. I will start that. #2. COPD: On exam he has considerable expiratory wheezing and outflow obstruction, he was probably suffering from an exacerbation of his COPD which triggered this sequence of events. #3. Elevated troponin: His enzyme trend suggests demand ischemia not an acute coronary event. Thank you for allowing me to participate in his care.
--- NOTE | 2017-02-22 16:03 | Progress Note ---
Subjective Date of Service: Feb 22, 2017. Subjective Pt evaluation today including: conversation w/ patient, physical exam, chart review, lab review, review of studies, conversation w/ security consultant, review of inpatient medication list Sitting up in chair, conversational, pleasant, complaining about ribs pain and sternal pain from shock and CPR, the pain is better controlled Problem List Medical Problems: (1) Cardiac arrest Status: Acute (2) Chest pain Status: Acute (3) COPD (chronic obstructive pulmonary disease) Status: Chronic (4) Hypoxia Status: Acute (5) Wide-complex tachycardia Status: Acute Review of Systems Constitutional: No chills, No fatigue, No fever, No problem reported, No sweats , No weakness, No weight loss Eyes: No diplopia, No discharge, No eye pain, No redness, No worsening of vision ENT: No dental problems, No hearing loss, No nasal symptoms, No sore throat, No tinnitus, No trouble swallowing, No unusual epistaxis Respiratory: + cough, + shortness of breath, + wheezing, No dyspnea at rest, No dyspnea on exertion, No hemoptysis, No sputum Cardiac: No PND, No chest pain, No claudication, No edema, No orthopnea, No palpitations Abdomen: No constipation, No diarrhea, No nausea, No pain, No vomiting Musculoskeletal: No calf pain, No joint pain, No muscle pain, No swelling Male : No dysuria, No hematuria, No incontinence, No nocturia more than once/ night, No slowing stream, No urinary frequency Neurologic: No balance problems, No memory loss, No numbness/tingling, No paralysis, No vertigo, No weakness Psychiatric: No anhedonism, No anxiety, No depression symptoms, No insomnia, No substance abuse Heme: No abnormal bleeding/bruising, No clotting problems, No night sweats, No swollen lymph nodes Endo: No excessive thirst, No excessive urination, No fatigue Skin: No bleeding, No color change, No itch, No new/changing skin lesions, No rash Objective Vital Signs Date Time Temp Pulse Resp B/P Pulse Ox O2 Delivery O2 Flow Rate FiO2 02/22/17 15:38 36.7 72 20 126/68 90 Nasal Cannula 6.0 02/22/17 15:20 69 20 92 Nasal Cannula 6.0 02/22/17 12:00 90 Nasal Cannula 6.0 02/22/17 11:57 60 20 89 Venturi Mask 15.0 50 02/22/17 11:32 36.4 64 28 147/90 88 High Flow Oxygen 15.0 50 02/22/17 08:47 67 92 02/22/17 08:00 93 Non-Rebreather 15.0 02/22/17 07:33 36.5 61 28 150/81 90 Non-Rebreather 15.0 100 02/22/17 07:11 56 20 87 Venturi Mask 15.0 02/22/17 04:02 36.6 67 22 143/82 86 Venturi Mask 15.0 02/22/17 04:00 Venturi Mask 02/22/17 00:01 Venturi Mask 02/21/17 23:17 36.5 79 21 134/82 92 Venturi Mask 15.0 02/21/17 20:00 Venturi Mask 02/21/17 19:50 36.9 65 24 151/81 92 Venturi Mask 15.0 02/21/17 19:32 80 20 84 Nasal Cannula 6.0 02/21/17 17:00 37.0 82 22 147/89 92 Venturi Mask 15.0 50 02/21/17 16:56 37.3 81 22 91 15.0 02/21/17 16:30 81 22 151/85 91 02/21/17 16:01 85 21 159/86 89 02/21/17 16:00 Venturi Mask 50 02/21/17 16:00 37.3 86 24 145/86 90 Venturi Mask 50 02/21/17 16:00 83 21 88 Physical Exam General Appearance: WD/WN, no apparent distress Eyes: normal inspection, PERRL, EOMI, sclerae normal ENT: normal ENT inspection, hearing grossly normal, pharynx normal Neck: supple, no adenopathy, thyroid normal, no JVD, no carotid bruits, trachea midline Respiratory/Chest: chest non-tender, normal breath sounds, no respiratory distress, no accessory muscle use, + decreased breath sounds Cardiovascular: regular rate, rhythm, no gallop, no JVD, no murmur, + irregularly irregular Abdomen: normal bowel sounds, non tender, soft, no organomegaly, no pulsatile mass Extremities: normal range of motion, non-tender, normal inspection, no pedal edema, no calf tenderness, normal capillary refill, pelvis stable, + swelling ( trace edema) Neurologic/Psychiatric: security and compliance project manager II-XII nml as tested, no motor/sensory deficits, alert, normal mood/affect, oriented x 3 Skin: normal color, warm/dry, no rash Lymphatic: no adenopathy Laboratory Results Last 24 Hours Test 02/22/17 05:57 White Blood Count 14.38 K/uL Red Blood Count 4.61 M/uL Hemoglobin 14.2 g/dL Hematocrit 44.3 % Mean Corpuscular Volume 96.1 fL Mean Corpuscular Hemoglobin 30.8 pg Mean Corpuscular Hemoglobin Concent 32.1 g/dl Platelet Count 207 K/uL Mean Platelet Volume 9.9 fL Neutrophils (%) (Auto) 92.4 % Lymphocytes (%) (Auto) 4.5 % Monocytes (%) (Auto) 2.5 % Eosinophils (%) (Auto) 0.0 % Basophils (%) (Auto) 0.0 % Neutrophils # (Auto) 13.29 K/uL Lymphocytes # (Auto) 0.65 K/uL Monocytes # (Auto) 0.36 K/uL Eosinophils # (Auto) 0.00 K/uL Basophils # (Auto) 0.00 K/uL RDW Standard Deviation 48.3 fL RDW Coefficient of Variation 13.7 % Immature Granulocyte % (Auto) 0.6 % Immature Granulocyte # (Auto) 0.08 K/uL Sodium Level 139 mmol/L Potassium Level 5.2 mmol/L Chloride Level 105 mmol/L Carbon Dioxide Level 30 mmol/L Anion Gap 4.0 mmol/L Blood Urea Nitrogen 18 mg/dl Creatinine 0.86 mg/dl Est Creatinine Clear Calc Drug Dose 112.9 ml/min Estimated GFR () 110.0 Estimated GFR (Non- 94.9 BUN/Creatinine Ratio 20.6 Random Glucose 176 mg/dl Calcium Level 8.7 mg/dl Magnesium Level 2.1 mg/dl Assessment and Plan 61-year-old male admitted on 02/20/2017 because of A. fib,. arrhythmia, CPR and shock , acute respiratory distress with COPD exacerbation , was on ICU, and transferred to telemetry on 02/21/2017 per report patient has shortness of breath for several weeks, with a background history of long-standing lung disease and continued tobacco abuse disorder one pack per day Has history of atrial fibrillation, he was having shortness of breath, he was found very tachycardic., Per report by health diagnostics teacher, he was having wide complex tachycardia at nearly 300 bpm, A 50 J shock was delivered during this arrhythmia which converted to ventricular fibrillation, a second 360 J shock was used to convert the ventricular fibrillation to a period of severe bradycardia followed by return of sinus rhythm. In the emergency room he was in sinus rhythm and then developed an episode of supraventricular tachycardia at around 20-20, this lasted approximately 5 minutes at a heart rate of around 145 bpm although slightly irregular. Does not appear to be atrial fibrillation. Per health diagnostics teacher , The mechanism of the wide complex tachycardia is somewhat unclear, likely atrial flutter with 2:1 AV conduction. Episodes of wide complex tachycardia, S/P shocks prior to admission, currently is A. fib rate controlled, continue telemetry cardiology input appreciated, continue Cardizem and digoxin Mild elevated troponin likely from shock , likely atypical Was on Amio loading dose and drip, which was discontinued Restart Xarelto, because there is no obvious contraindication, and A. fib need stroke prevention Echo was done on this admission reported see below * Normal biventricular systolic function. * Mild concentric left ventricular hypertrophy. * Normal chmaber dimensions. * No significant valvular abnormalities. * The study was technically difficult. Acute respiratory distress with COPD exacerbation Significant history of tobacco abuse disorder Treated Solu-Medrol 125 mg one dose now and the milligram every 8 hour Significant improving, continue oral antibiotics and current care Continue nebulizer treatment, supportive care Nicotine patch is ordered Continue oxygen support, talk to mailing section clerk Was hypokinemia upon admission, then hyperkalemia at 5.5 to 5.3 Repeat potassium level Has consult above quit smoking Cardiology input appreciated Full code VT prophylaxis is on Xarelto Protonix for GI prophylaxis Discussed with nurse, mailing section clerk, continue treat COPD exacerbation, optimize medication for their A. fib, PTOT and discharge plan in 1-2 days Continued [facility] stay due to: multiple IV medications needed Discharge planning: uncertain
[2017-02-22] MEDS: DIGOXIN 0.25 MG TAB PO SCH (16:15)
[2017-02-23] VITALS (10 sets, daily range): BP systolic 144–175; BP diastolic 81–101; PULSE 65–87; TEMP 36.4–36.5; O2SAT 89–93
[2017-02-23] MEDS: OXYCODONE/ACETAMINOPHEN 5-325 TAB PO PRN ×2 (01:15→09:17)
[2017-02-23] MEDS: METHYLPREDNISOLONE IV 80 MG in SYRINGE 0 ML IV SCH ×2 (04:21→11:42)
[2017-02-23] MEDS: ALBUT/IPRATROP 3MG/0.5MG NEB 3 ML VIAL INH SCH ×4 (07:13→19:34)
[2017-02-23 07:37] LABS: BASO % 0.1 %; BASO ABS # 0.01 K/uL (0-0.2); COMPLETE YES; EOS % 0.1 %; HEMATOCRIT 42.4 % (42-52); IG% 0.4 %; LYMPH % 5.2 %; MEAN CELL VOLUME 94.9 fL (80-100); MEAN CORPUSCULAR HGB CONC 33.7 g/dl (32-36); MEAN PLATELET VOLUME 10.1 fL (7.4-10.4); NEUT % 93.2 %; PLATELET COUNT 209 K/uL (130-400); RED BLOOD COUNT 4.47 M/uL (4.7-6.1)
[2017-02-23 07:56] LABS: BUN/CREATININE RATIO 30.1 (10-20); CALCIUM 8.8 mg/dl (8.5-10.1); CREATININE 0.97 mg/dl (0.60-1.40); MAGNESIUM 2.3 mg/dl (1.8-2.4); POTASSIUM 5.3 mmol/L (3.5-5.1)
[2017-02-23 08:11] LABS: ESTIMATED AVERAGE GLUCOSE 114 mg/dl; HA1C FLAG Normal (Normal)
[2017-02-23] MEDS: NICOTINE 14 MG/24 HR TDSY TD SCH (09:00)
[2017-02-23] MEDS ORDERED: ASPIRIN 81 MG ECTAB PO SCH (09:00)
[2017-02-23] MEDS: AZITHROMYCIN 250 MG TAB PO SCH (09:09)
[2017-02-23] MEDS: LISINOPRIL 5 MG TAB PO SCH (09:09)
[2017-02-23] MEDS: PANTOprazole SOD 40 MG TAB PO SCH (09:09)
[2017-02-23] MEDS: RIVAROXABAN 20 MG TAB PO SCH (09:09)
[2017-02-23] MEDS: DILTIAZEM HCL 300 MG CAPCR PO SCH (09:10)
[2017-02-23] MEDS: ASPIRIN 81 MG ECTAB PO SCH (09:10)
[2017-02-23] MEDS: LIDODERM (LIDOCAINE) PATCH 5% TD SCH (09:13)
--- NOTE | 2017-02-23 12:51 | Progress Note ---
Subjective Date of Service: Feb 23, 2017. Subjective Pt evaluation today including: conversation w/ patient, conversation w/ family Pt is feeling improved with O2, but still SOB at times with ambulation. Has pain related to rib fractures, but no other chest pain. No further lightheadedness or palpitations. Pt denies fever, abd pain, n/v/c/d, LE pain or swelling. Tolerating PO without issue. ROS as noted above, otherwise neg. Problem List Medical Problems: (1) Cardiac arrest Status: Acute (2) Chest pain Status: Acute (3) COPD (chronic obstructive pulmonary disease) Status: Chronic (4) Hypoxia Status: Acute (5) Wide-complex tachycardia Status: Acute Objective Vital Signs Date Time Temp Pulse Resp B/P Pulse Ox O2 Delivery O2 Flow Rate FiO2 02/23/17 12:00 Nasal Cannula 6.0 02/23/17 11:58 36.5 75 26 175/101 89 Nasal Cannula 6.0 02/23/17 11:39 87 18 90 Nasal Cannula 6.0 02/23/17 08:00 Nasal Cannula 6.0 02/23/17 07:31 36.4 65 22 157/83 93 Nasal Cannula 6.0 02/23/17 07:13 71 18 93 Nasal Cannula 6.0 02/23/17 04:23 Nasal Cannula 5.0 02/23/17 03:14 36.5 71 20 159/91 93 Nasal Cannula 6.0 02/23/17 00:48 Nasal Cannula 5.0 02/22/17 23:25 36.6 67 20 143/75 91 Nasal Cannula 6.0 02/22/17 20:37 Nasal Cannula 5.0 02/22/17 19:50 36.9 85 22 138/77 93 Nasal Cannula 6.0 02/22/17 19:44 71 18 92 Nasal Cannula 6.0 02/22/17 16:15 71 02/22/17 16:00 92 Nasal Cannula 5.0 02/22/17 15:38 36.7 72 20 126/68 90 Nasal Cannula 6.0 02/22/17 15:20 69 20 92 Nasal Cannula 6.0 Physical Exam General Appearance: no apparent distress, + obese Respiratory/Chest: no respiratory distress, + decreased breath sounds, + wheezing (scant) Cardiovascular: regular rate, rhythm, no edema Abdomen: non tender, soft Extremities: non-tender, no pedal edema Neurologic/Psychiatric: alert, oriented x 3 Skin: normal color, warm/dry Laboratory Results Last 24 Hours Test 02/23/17 07:20 White Blood Count 19.20 K/uL Red Blood Count 4.47 M/uL Hemoglobin 14.3 g/dL Hematocrit 42.4 % Mean Corpuscular Volume 94.9 fL Mean Corpuscular Hemoglobin 32.0 pg Mean Corpuscular Hemoglobin Concent 33.7 g/dl Platelet Count 209 K/uL Mean Platelet Volume 10.1 fL Neutrophils (%) (Auto) 93.2 % Lymphocytes (%) (Auto) 5.2 % Monocytes (%) (Auto) 1.0 % Eosinophils (%) (Auto) 0.1 % Basophils (%) (Auto) 0.1 % Neutrophils # (Auto) 17.92 K/uL Lymphocytes # (Auto) 1.00 K/uL Monocytes # (Auto) 0.19 K/uL Eosinophils # (Auto) 0.01 K/uL Basophils # (Auto) 0.01 K/uL RDW Standard Deviation 47.7 fL RDW Coefficient of Variation 13.7 % Immature Granulocyte % (Auto) 0.4 % Immature Granulocyte # (Auto) 0.07 K/uL Sodium Level 142 mmol/L Potassium Level 5.3 mmol/L Chloride Level 105 mmol/L Carbon Dioxide Level 33 mmol/L Anion Gap 4.0 mmol/L Blood Urea Nitrogen 29 mg/dl Creatinine 0.97 mg/dl Est Creatinine Clear Calc Drug Dose 100.2 ml/min Estimated GFR () 98.6 Estimated GFR (Non- 85.1 BUN/Creatinine Ratio 30.1 Random Glucose 129 mg/dl Calcium Level 8.8 mg/dl Magnesium Level 2.3 mg/dl Assessment and Plan 61 y/o Madmitted on 02/20/2017 for A. fib, arrhythmia, s/p CPR, acute respiratory distress with COPD exacerbation. Initially admitted to the ICU and stable on tele since transfer. per report patient has shortness of breath for several weeks, with a background history of long-standing lung disease and continued tobacco abuse disorder at one pack per day Has history of atrial fibrillation, he was having shortness of breath, he was found very tachycardic and with LOC., Per report by motorcycle racer, he was having wide complex tachycardia at nearly 300 bpm, A 50 J shock was delivered during this arrhythmia which converted to ventricular fibrillation, a second 360 J shock was used to convert the ventricular fibrillation to a period of severe bradycardia followed by return of sinus rhythm. In the emergency room he was in sinus rhythm and then developed an episode of supraventricular tachycardia that lasted approximately 5 minutes at a heart rate of around 145 bpm although slightly irregular. Does not appear to be atrial fibrillation. Per motorcycle racer, mechanism of the wide complex tachycardia is somewhat unclear , likely atrial flutter with 2:1 AV conduction. Episodes of wide complex tachycardia, S/P CPR and shocks prior to admission, currently is A. fib rate controlled, continue telemetry cardiology input appreciated, continue Cardizem and digoxin Mild elevated troponin likely from shock and CPR, likely atypical Was on Amio loading dose and drip, which was discontinued Restart Xarelto for stroke prevention, no obvious contraindication Echo was done on this admission reported see below * Normal biventricular systolic function. * Mild concentric left ventricular hypertrophy. * Normal chmaber dimensions. * No significant valvular abnormalities. * The study was technically difficult. Acute respiratory distress with COPD exacerbation Significant history of tobacco abuse disorder Steroid taper, decreased 02/23 Significant improving, continue oral antibiotics and current care Continue nebulizer treatment, supportive care Nicotine patch is ordered Continue oxygen support, may need home O2 on d/c Was hypokinemia upon admission, then hyperkalemia at 5.5 to 5.3 Repeat potassium level Has consult above quit smoking Cardiology input appreciated Rib fractures: L 4th, R 3rd, sternal fracture likely the result of CPR, PRN pain meds Full code VT prophylaxis is on Xarelto Protonix for GI prophylaxis Continued [facility] stay due to: multiple IV medications needed Discharge planning: uncertain
[2017-02-23] MEDS: DIGOXIN 0.25 MG TAB PO SCH (15:21)
[2017-02-23] MEDS ORDERED: HYDROCHLOROTHIAZIDE 25 MG TAB PO STA (16:25)
--- NOTE | 2017-02-23 16:38 | CARDIOLOGY PROGRESS NOTE ---
DATE: 02/23/2017 TIME: 1557 a.m. SUBJECTIVE: Mr. Chavarria states that his breathing is better than usual as he is now on oxygen. He does not use oxygen at home; however, he appears to be very interested in obtaining such if he qualifies. He has chest discomfort from CPR along his sternum when he takes a deep breath, coughs, or if he palpates that area. He otherwise denies angina. He denies syncope, near syncope, or palpitations. He has chronic but stable mild lower extremity edema. He reports that upon presentation, he was very short of breath after walking up a flight of stairs and could not catch his breath. This prompted him to ask his to call 911. They then found him to be in the arrhythmia as Dr. Solis as outlined. OBJECTIVE: VITAL SIGNS: Temperature 36.5 degrees, heart rate 75 beats per minute, respiration rate 26, blood pressure 175/101 mmHg, oxygen saturation is 89% on 6 liters per nasal cannula. Weight 116.9 kg. I's and O's positive 345 mL yesterday. GENERAL: No acute distress. NECK: Thick. CARDIAC: Distant heart sounds. Normal S1, S2. No audible murmurs, rubs, or gallops were auscultated. No ventricular heave. LUNGS: Decreased breath sounds throughout, otherwise clear. ABDOMEN: Soft, nontender, nondistended. Normoactive bowel sounds. EXTREMITIES: Trace bilateral lower extremity edema. No cyanosis. PSYCHIATRIC: Affect appears appropriate. MEDICATIONS: Include aspirin 81 mg daily, digoxin 0.25 mg daily, diltiazem 300 mg daily, lisinopril 5 mg daily, azithromycin 250 mg p.o. daily, methylprednisolone 60 mg IV b.i.d., Protonix 40 mg daily, and Xarelto 20 mg daily. DATA: Telemetry personally reviewed. Sinus rhythm. No further atrial arrhythmia. LABORATORY DATA: White blood cell count is 19.2, hemoglobin 14.3, platelets 209. Sodium 142, potassium 5.3, BUN 29, creatinine 0.97, magnesium 2.3. Peak troponin 0.628. TSH 5.84. Telemetry personally reviewed. Sinus rhythm. CT scan of the chest 02/21/2017 - acute minimally displaced fracture of the anterior left 4th rib and acute nondisplaced left 3rd rib fracture. Acute nondisplaced sternal fracture. Extensive right lower lobe airspace opacity with volume loss. Mild left basilar opacity. Moderate emphysema. Cardiomegaly. Echocardiogram report reviewed, normal biventricular systolic function reported. Mild LVH. No significant valvular abnormalities. ASSESSMENT AND PLAN: 1. Wide complex tachycardia: Rhythm strips were reviewed by electrophysiology. It is felt that this represented atrial flutter, possibly with 1:1 conduction, possibly due to his pulmonary issues with underlying atrial arrhythmias. Attempts at cardioversion lead to ventricular fibrillation. He is in sinus rhythm now. Electrophysiology has recommended diltiazem and digoxin. Monitor digoxin level periodically. 2. Atrial fibrillation: He has a history of atrial fibrillation but has been in sinus rhythm ever since cardioversion/defibrillation. Continue anticoagulation for stroke risk reduction if no contraindications. Continue rate-controlling medications as per electrophysiology. 3. Elevated troponin: Likely secondary to demand ischemia in the setting of acute respiratory distress and the arrhythmia requiring cardiopulmonary resuscitation. Consider outpatient stress testing. He is currently being treated for pneumonia and chronic obstructive pulmonary disease exacerbation. No urgent indication for cardiac catheterization. He denies any angina. 4. Hypertension: Blood pressure remains elevated. Continue diltiazem and lisinopril for now. Monitor potassium levels closely. He became hyperkalemic after the initiation of lisinopril. HCTZ will be initiated at this time. Would not further titrate lisinopril given his potassium levels. If his potassium levels do not improve, would recommend discontinuation of BETTY inhibitor and replace with another antihypertensive agent. 5. Disposition: Cardiology will continue to follow. The patient's care has been communicated with Dr. Edwards of the primary hospitalist service.
[2017-02-23] MEDS: METHYLPREDNISOLONE IV 60 MG in SYRINGE 0 ML IV SCH (21:14)
[2017-02-24] VITALS (10 sets, daily range): BP systolic 146–179; BP diastolic 79–94; PULSE 68–92; TEMP 36.4–36.9; O2SAT 87–93
[2017-02-24] MEDS: MoRPHine SULFATE 2 MG/ML CARP IV PRN ×2 (02:55→05:10)
--- NOTE | 2017-02-24 06:56 | Clinical Documentation Query ---
Dr. TANNER ADELFO : CLINICAL DOCUMENTATION QUERY Patient is a 61 year old male admitted s/p cardiac arrest. Cardioversion was attempted in the field for a wide complex tachycardia which resulted in ventricular fibrillation which was subsequently defibrillated with 360J shock, ultimately converting back to a sinus rhythm. CPR was performed. Patient was admitted to ICU, has been seen in consultation by cardiology, and has been further evaluated by echocardiogram and treated with Digoxin, Xarelto, Lisinopril, and Cardizem. As appropriate, consider explicit documentation as suggested below so as to avoid police aide uncertainty at time of discharge. Thank you. In your clinical opinion is this patient being managed for: ( x ) Postprocedural ventricular fibrillation s/p cardioversion requiring defibrillation and CPR, a complication of care ( ) Other explanation of clinical findings (Please Explain) ( ) Unable to determine (Please Define) ( ) Need to Discuss ( ) Not Agree The medical record reflects the following clinical findings, treatment, and risk factors. Clinical Indicators: Ventricular fibrillation sustained s/p cardioversion attempt, requiring CPR and defibrillation. Treatment: CPR, defibrillation Risk Factors: Cardioversion Please clarify and document your clinical opinion in the progress notes and discharge summary. Terms such as "probable", "suspected", "likely", "questionable", "possible", or "still to be ruled out" are acceptable. IF IN AGREEMENT, YOU MUST DOCUMENT ABOVE DIAGNOSTIC STATEMENT IN DAILY PROGRESS NOTES AND DISCHARGE SUMMARY. This document is not part of the patient's record. Thank You, Yosi Ruiz, NAHID [phone]
--- NOTE | 2017-02-24 07:43 | DIAGNOSTIC IMAGING REPORT ---
CHEST ONE VIEW PORTABLE CLINICAL HISTORY: hemoptysis dyspnea COMPARISON STUDY: 02/21/2017 FINDINGS: Improving parenchymal infiltrate medial right base. Minimal residual. Mild stable cardiomegaly. Lungs appear clear other than that noted. IMPRESSION: Improving/near completely resolved infiltrate medial right base. Electronically signed by: Ivan Huertas M.D. 02/24/2017 7:41 AM Dictated Date/Time: 02/24/2017 7:40 AM
[2017-02-24 07:46] LABS: BASO % 0.1 %; BASO ABS # 0.01 K/uL (0-0.2); COMPLETE YES; HEMATOCRIT 42.8 % (42-52); IG% 0.4 %; LYMPH ABS # 0.85 K/uL (1.2-3.4); MEAN CELL VOLUME 94.3 fL (80-100); MEAN CORPUSCULAR HEMOGLOBIN 31.7 pg (25-34); MEAN CORPUSCULAR HGB CONC 33.6 g/dl (32-36); MEAN PLATELET VOLUME 10.4 fL (7.4-10.4); MONO % 0.9 %; NEUT % 93.6 %; PLATELET COUNT 219 K/uL (130-400); RED BLOOD COUNT 4.54 M/uL (4.7-6.1); WHITE BLOOD COUNT 16.85 K/uL (4.8-10.8)
[2017-02-24] MEDS: ALBUT/IPRATROP 3MG/0.5MG NEB 3 ML VIAL INH SCH ×4 (08:02→20:41)
[2017-02-24 08:06] LABS: BUN/CREATININE RATIO 30.6 (10-20); CALCIUM 8.9 mg/dl (8.5-10.1); CREATININE 0.95 mg/dl (0.60-1.40); MAGNESIUM 2.2 mg/dl (1.8-2.4); POTASSIUM 4.7 mmol/L (3.5-5.1)
[2017-02-24] MEDS: ASPIRIN 81 MG ECTAB PO SCH (08:42)
[2017-02-24] MEDS: HYDROCHLOROTHIAZIDE 25 MG TAB PO SCH (08:42)
[2017-02-24] MEDS: LIDODERM (LIDOCAINE) PATCH 5% TD SCH (08:42)
[2017-02-24] MEDS: METHYLPREDNISOLONE IV 60 MG in SYRINGE 0 ML IV SCH ×2 (08:42→20:45)
[2017-02-24] MEDS: LISINOPRIL 5 MG TAB PO SCH (08:43)
[2017-02-24] MEDS: DILTIAZEM HCL 300 MG CAPCR PO SCH (08:43)
[2017-02-24] MEDS: AZITHROMYCIN 250 MG TAB PO SCH (08:43)
[2017-02-24] MEDS: RIVAROXABAN 20 MG TAB PO SCH (08:43)
[2017-02-24] MEDS: PANTOprazole SOD 40 MG TAB PO SCH (08:43)
[2017-02-24] MEDS: NICOTINE 14 MG/24 HR TDSY TD SCH (08:44)
--- NOTE | 2017-02-24 14:10 | Progress Note ---
Subjective Date of Service: Feb 24, 2017. Subjective Pt evaluation today including: conversation w/ patient Pt is still SOB, but improved. He has been coughing up mucous that has dark red blood in it. He states that he has been coughing up blood for about 2 weeks and that this is much less than he was bringing up prior. Still with chest wall pain that is specific to his fractures. No other chest pain. Pt denies fever, abd pain, n/v/c/d, LE pain or swelling. ROS as noted above, otherwise neg. Problem List Medical Problems: (1) Cardiac arrest Status: Acute (2) Chest pain Status: Acute (3) COPD (chronic obstructive pulmonary disease) Status: Chronic (4) Hypoxia Status: Acute (5) Wide-complex tachycardia Status: Acute Objective Vital Signs Date Time Temp Pulse Resp B/P Pulse Ox O2 Delivery O2 Flow Rate FiO2 02/24/17 12:14 36.4 73 28 172/93 93 Nasal Cannula 6.0 02/24/17 12:00 Nasal Cannula 5.5 02/24/17 11:20 92 20 88 Nasal Cannula 5.0 02/24/17 08:03 71 20 88 Nasal Cannula 5.0 02/24/17 08:00 Nasal Cannula 5.5 02/24/17 07:45 36.5 70 22 179/94 88 Nasal Cannula 6.0 02/24/17 04:00 Nasal Cannula 5.5 02/24/17 04:00 36.5 75 24 161/85 91 Nasal Cannula 5.5 02/23/17 23:40 Nasal Cannula 5.5 02/23/17 23:28 36.4 71 22 163/86 91 Nasal Cannula 5.5 02/23/17 20:00 Nasal Cannula 6.0 02/23/17 19:34 84 18 93 Nasal Cannula 5.0 02/23/17 18:55 36.5 72 20 153/81 92 Nasal Cannula 5.0 02/23/17 16:31 85 18 93 Nasal Cannula 6.0 02/23/17 16:09 36.5 69 20 144/83 91 Nasal Cannula 5.0 02/23/17 16:00 Nasal Cannula 6.0 02/23/17 15:21 73 Physical Exam Comments: General Appearance: no apparent distress, + obese, spitting into a cup with thick mucous that has dark tinged blood in it Respiratory/Chest: no respiratory distress, + decreased breath sounds-- improving, + wheezing (scant) Cardiovascular: regular rate, rhythm, no edema Abdomen: non tender, soft Extremities: non-tender, no pedal edema Neurologic/Psychiatric: alert, oriented x 3 Skin: normal color, warm/dry Laboratory Results Last 24 Hours Test 02/24/17 07:25 White Blood Count 16.85 K/uL Red Blood Count 4.54 M/uL Hemoglobin 14.4 g/dL Hematocrit 42.8 % Mean Corpuscular Volume 94.3 fL Mean Corpuscular Hemoglobin 31.7 pg Mean Corpuscular Hemoglobin Concent 33.6 g/dl Platelet Count 219 K/uL Mean Platelet Volume 10.4 fL Neutrophils (%) (Auto) 93.6 % Lymphocytes (%) (Auto) 5.0 % Monocytes (%) (Auto) 0.9 % Eosinophils (%) (Auto) 0.0 % Basophils (%) (Auto) 0.1 % Neutrophils # (Auto) 15.77 K/uL Lymphocytes # (Auto) 0.85 K/uL Monocytes # (Auto) 0.15 K/uL Eosinophils # (Auto) 0.00 K/uL Basophils # (Auto) 0.01 K/uL RDW Standard Deviation 47.8 fL RDW Coefficient of Variation 13.9 % Immature Granulocyte % (Auto) 0.4 % Immature Granulocyte # (Auto) 0.07 K/uL Sodium Level 141 mmol/L Potassium Level 4.7 mmol/L Chloride Level 103 mmol/L Carbon Dioxide Level 35 mmol/L Anion Gap 3.0 mmol/L Blood Urea Nitrogen 29 mg/dl Creatinine 0.95 mg/dl Est Creatinine Clear Calc Drug Dose 102.6 ml/min Estimated GFR () 101.1 Estimated GFR (Non- 87.3 BUN/Creatinine Ratio 30.6 Random Glucose 129 mg/dl Calcium Level 8.9 mg/dl Magnesium Level 2.2 mg/dl Assessment and Plan 61 y/o M admitted on 02/20/2017 for A. fib, arrhythmia, s/p CPR, acute respiratory distress with COPD exacerbation. Initially admitted to the ICU and stable on tele since transfer. per report patient has shortness of breath for several weeks, with a background history of long-standing lung disease and continued tobacco abuse disorder at one pack per day Has history of atrial fibrillation, he was having shortness of breath, he was found very tachycardic and with LOC., Per report by program planner, he was having wide complex tachycardia at nearly 300 bpm, A 50 J shock was delivered during this arrhythmia which converted to ventricular fibrillation, a second 360 J shock was used to convert the ventricular fibrillation to a period of severe bradycardia followed by return of sinus rhythm. In the emergency room he was in sinus rhythm and then developed an episode of supraventricular tachycardia that lasted approximately 5 minutes at a heart rate of around 145 bpm although slightly irregular. Does not appear to be atrial fibrillation. Per program planner, mechanism of the wide complex tachycardia is somewhat unclear , likely atrial flutter with 2:1 AV conduction. V fib s/p cardioversion requiring defibrillation and CPR Episodes of wide complex tachycardia, S/P CPR and shocks prior to admission, currently is A. fib rate controlled, continue telemetry cardiology input appreciated, continue Cardizem and digoxin Mild elevated troponin likely from shock and CPR, likely atypical Was on Amio loading dose and drip, which was discontinued Restart Xarelto for stroke prevention, need to monitor given blood in sputum Discussed risks of xarelto continuation vs d/c and pt states "I would rather than have a stroke". Hb is stable and given reported decrease in hemoptysis , can monitor on xarelto for now. Echo was done on this admission reported see below * Normal biventricular systolic function. * Mild concentric left ventricular hypertrophy. * Normal chmaber dimensions. * No significant valvular abnormalities. * The study was technically difficult. Acute respiratory distress with COPD exacerbation Significant history of tobacco abuse disorder Steroid taper, decreased 02/23 Significant improving, continue oral antibiotics and current care Continue nebulizer treatment, supportive care Nicotine patch is ordered Continue oxygen support, may need home O2 on d/c Repeat CXR noted for mostly resolved RML PNA Was hypokinemia upon admission, then hyperkalemia at 5.5 to 5.3 Repeat potassium level Tobacco use: nicotine patch PRN Cardiology input appreciated Rib fractures: L 4th, R 3rd, sternal fracture likely the result of CPR, PRN pain meds Full code VT prophylaxis is on Xarelto Protonix for GI prophylaxis Continued [facility] stay due to: multiple IV medications needed Discharge planning: uncertain
[2017-02-24] MEDS: DIGOXIN 0.25 MG TAB PO SCH (15:36)
--- NOTE | 2017-02-24 17:31 | CARDIOLOGY PROGRESS NOTE ---
DATE: 02/24/2017 TIME: 16:51 p.m. SUBJECTIVE: Mr. Chavarria states that his breathing is stable. He now today mentions that he has been having hemoptysis for approximately 2 weeks. He believes it is improving, but continues to have hemoptysis. Dr. Edwards personally contacted me earlier today about this as well. He denies angina but does have chest pain from CPR/chest compressions. He denies edema, melena, hematochezia, or syncope. He denies palpitations. OBJECTIVE: VITAL SIGNS: Temperature is 36.9 degrees, heart rate 82 beats per minute, respiration rate 20, blood pressure 151/80 mmHg, oxygen saturation 91% on 6 liters per nasal cannula. I's and O's negative 1.5 liters today. Weight is 117.5 kg. I's and O's yesterday positive 10 mL. GENERAL: No acute distress. He is alert. NECK: Thick and bearded, cannot assess JVD. CARDIAC EXAM: No ventricular heaves. Soft S1 and S2. Distant heart sounds. No audible murmurs, rubs or gallops. LUNGS: Decreased breath sounds throughout, otherwise clear. ABDOMEN: Soft, nontender, nondistended. Normoactive bowel sounds. EXTREMITIES: Trace bilateral lower extremity edema. No cyanosis. Telemetry personally reviewed. He had a short run of atrial fibrillation, only a few seconds, yesterday but otherwise sinus rhythm. MEDICATIONS: Include aspirin 81 mg daily, digoxin 0.25 mg daily, azithromycin 250 mg daily, diltiazem 300 mg daily, lisinopril 5 mg daily, methylprednisolone 60 mg IV b.i.d., Protonix 40 mg daily, Xarelto 20 mg daily. LABORATORY DATA: White blood cell count is 16.85, hemoglobin 14.4, platelets 219. Sodium 141, potassium 4.7, BUN 29, creatinine 0.95, magnesium 2.2. Chest x-ray performed today report reviewed. Improving infiltrate medial right base as per radiology. ASSESSMENT AND PLAN: 1. Paroxysmal atrial fibrillation: Remain in sinus rhythm. Continue rate control strategy as outlined by electrophysiology. He is on anticoagulation therapy. If hemoptysis fails to resolve or worsens, would recommend pulmonology consultation and may need to hold Xarelto. He is informed Dr. Edwards earlier today that he would rather than have a stroke and his hemoglobin is stable and he believes overall things are improving so therefore can continue anticoagulation for now. 2. Wide-complex tachycardia: Electrophysiology believes that this was atrial flutter, possibly with 1:1 conduction. This may have been due to his acute respiratory issues. No further events while hospitalized. Continue to monitor. 3. Elevated troponin: Likely secondary to demand ischemia given acute respiratory distress and tachycardia. Outpatient stress testing can be performed once he improves. 4. Hypertension: He is diuresing well today. May need to further adjust medications. HCTZ was started yesterday afternoon. Could potentially further titrate lisinopril now that potassium has improved on HCTZ, but will have to monitor closely. 5. Disposition: Cardiology will continue to follow.
[2017-02-24] MEDS: OXYCODONE/ACETAMINOPHEN 5-325 TAB PO PRN (20:48)
[2017-02-25] VITALS (14 sets, daily range): BP systolic 132–169; BP diastolic 76–105; PULSE 61–79; TEMP 36.4–36.5; O2SAT 87–95
[2017-02-25] MEDS: OXYCODONE/ACETAMINOPHEN 5-325 TAB PO PRN ×4 (03:09→21:18)
[2017-02-25 06:28] LABS: BASO % 0.1 %; BASO ABS # 0.01 K/uL (0-0.2); COMPLETE YES; HEMATOCRIT 44.5 % (42-52); IG% 0.9 %; LYMPH % 2.6 %; MEAN CELL VOLUME 96.7 fL (80-100); MEAN CORPUSCULAR HEMOGLOBIN 31.7 pg (25-34); MEAN CORPUSCULAR HGB CONC 32.8 g/dl (32-36); MEAN PLATELET VOLUME 10.4 fL (7.4-10.4); MONO % 4.2 %; NEUT % 92.2 %; PLATELET COUNT 219 K/uL (130-400); WHITE BLOOD COUNT 15.26 K/uL (4.8-10.8)
[2017-02-25] MEDS: MoRPHine SULFATE 2 MG/ML CARP IV PRN (06:33)
[2017-02-25 07:35] LABS: BUN/CREATININE RATIO 33.5 (10-20); CALCIUM 8.9 mg/dl (8.5-10.1); CREATININE 0.95 mg/dl (0.60-1.40); MAGNESIUM 2.2 mg/dl (1.8-2.4); POTASSIUM 4.4 mmol/L (3.5-5.1)
[2017-02-25] MEDS: ALBUT/IPRATROP 3MG/0.5MG NEB 3 ML VIAL INH SCH ×2 (07:42→11:30)
[2017-02-25] MEDS: AZITHROMYCIN 250 MG TAB PO SCH (07:54)
[2017-02-25] MEDS: ASPIRIN 81 MG ECTAB PO SCH (07:55)
[2017-02-25] MEDS: PANTOprazole SOD 40 MG TAB PO SCH (07:55)
[2017-02-25] MEDS: HYDROCHLOROTHIAZIDE 25 MG TAB PO SCH (07:55)
[2017-02-25] MEDS: LIDODERM (LIDOCAINE) PATCH 5% TD SCH (07:55)
[2017-02-25] MEDS: LISINOPRIL 5 MG TAB PO SCH (07:55)
[2017-02-25] MEDS: RIVAROXABAN 20 MG TAB PO SCH (07:56)
[2017-02-25] MEDS: DILTIAZEM HCL 300 MG CAPCR PO SCH (07:56)
[2017-02-25] MEDS: NICOTINE 14 MG/24 HR TDSY TD SCH (07:56)
[2017-02-25] MEDS: METHYLPREDNISOLONE IV 60 MG in SYRINGE 0 ML IV SCH ×2 (09:46→21:19)
--- NOTE | 2017-02-25 13:28 | Progress Note ---
Subjective Date of Service: Feb 25, 2017. Subjective Pt evaluation today including: conversation w/ patient Pt is feeling overall improved, however still with desats with any activity or even with prolonged conversation. Nursing states unable to wean off of 6L O2 via NC. There has been little blood in his mucous today. Ongoing chest pain related to fractures. Tolerating PO, but getting SOB with prolonged eating. Pt denies fever, abd pain, n/v/c/d, LE pain or swelling. ROS as noted above, otherwise neg. 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 He also states that he is not going to return to smoking on d/c. "If I do, I'm ." Pt states he quit cold turkey in the past, but resumed later "because it didn't seem to bother me". Problem List Medical Problems: (1) Cardiac arrest Status: Acute (2) Chest pain Status: Acute (3) COPD (chronic obstructive pulmonary disease) Status: Chronic (4) Hypoxia Status: Acute (5) Wide-complex tachycardia Status: Acute Objective Vital Signs Date Time Temp Pulse Resp B/P Pulse Ox O2 Delivery O2 Flow Rate FiO2 02/25/17 12:00 90 Nasal Cannula 6.0 02/25/17 11:44 75 18 94 Nasal Cannula 4.0 02/25/17 11:35 77 14 93 Nasal Cannula 6.0 02/25/17 11:22 36.5 79 22 149/87 87 Nasal Cannula 4.0 02/25/17 08:00 90 Nasal Cannula 6.0 02/25/17 07:42 77 20 93 Nasal Cannula 6.0 02/25/17 07:36 36.5 61 22 157/90 89 Nasal Cannula 6.0 02/25/17 03:00 36.5 66 22 169/105 91 Nasal Cannula 6.0 02/25/17 03:00 91 Nasal Cannula 6.0 02/25/17 00:00 93 Nasal Cannula 6.0 02/24/17 23:29 36.5 72 20 169/92 93 Nasal Cannula 6.0 02/24/17 20:41 68 20 92 Nasal Cannula 6.0 02/24/17 20:00 Nasal Cannula 6.0 02/24/17 19:40 36.8 73 20 146/79 89 Nasal Cannula 6.0 02/24/17 16:00 Nasal Cannula 6.0 02/24/17 15:56 82 20 91 Nasal Cannula 6.0 02/24/17 15:41 36.9 77 22 151/80 87 Nasal Cannula 6.0 02/24/17 15:36 81 Physical Exam Comments: General Appearance: no apparent distress, + obese Respiratory/Chest: no respiratory distress, + decreased breath sounds-- improving, wheezing--resolved Cardiovascular: regular rate, rhythm, no edema Abdomen: non tender, soft Extremities: non-tender, no pedal edema Neurologic/Psychiatric: alert, oriented x 3 Skin: normal color, warm/dry Laboratory Results Last 24 Hours Test 02/25/17 06:09 White Blood Count 15.26 K/uL Red Blood Count 4.60 M/uL Hemoglobin 14.6 g/dL Hematocrit 44.5 % Mean Corpuscular Volume 96.7 fL Mean Corpuscular Hemoglobin 31.7 pg Mean Corpuscular Hemoglobin Concent 32.8 g/dl Platelet Count 219 K/uL Mean Platelet Volume 10.4 fL Neutrophils (%) (Auto) 92.2 % Lymphocytes (%) (Auto) 2.6 % Monocytes (%) (Auto) 4.2 % Eosinophils (%) (Auto) 0.0 % Basophils (%) (Auto) 0.1 % Neutrophils # (Auto) 14.08 K/uL Lymphocytes # (Auto) 0.40 K/uL Monocytes # (Auto) 0.64 K/uL Eosinophils # (Auto) 0.00 K/uL Basophils # (Auto) 0.01 K/uL RDW Standard Deviation 49.6 fL RDW Coefficient of Variation 14.0 % Immature Granulocyte % (Auto) 0.9 % Immature Granulocyte # (Auto) 0.13 K/uL Sodium Level 141 mmol/L Potassium Level 4.4 mmol/L Chloride Level 101 mmol/L Carbon Dioxide Level 35 mmol/L Anion Gap 5.0 mmol/L Blood Urea Nitrogen 32 mg/dl Creatinine 0.95 mg/dl Est Creatinine Clear Calc Drug Dose 102.3 ml/min Estimated GFR () 101.1 Estimated GFR (Non- 87.3 BUN/Creatinine Ratio 33.5 Random Glucose 138 mg/dl Calcium Level 8.9 mg/dl Magnesium Level 2.2 mg/dl Assessment and Plan 61 y/o M admitted on 02/20/2017 for A. fib, arrhythmia, s/p CPR, acute respiratory distress with COPD exacerbation. Initially admitted to the ICU and stable on tele since transfer. per report patient has shortness of breath for several weeks, with a background history of long-standing lung disease and continued tobacco abuse disorder at one pack per day Has history of atrial fibrillation, he was having shortness of breath, he was found very tachycardic and with LOC., Per report by physician coding specialist, he was having wide complex tachycardia at nearly 300 bpm, A 50 J shock was delivered during this arrhythmia which converted to ventricular fibrillation, a second 360 J shock was used to convert the ventricular fibrillation to a period of severe bradycardia followed by return of sinus rhythm. In the emergency room he was in sinus rhythm and then developed an episode of supraventricular tachycardia that lasted approximately 5 minutes at a heart rate of around 145 bpm although slightly irregular. Does not appear to be atrial fibrillation. Per physician coding specialist, mechanism of the wide complex tachycardia is somewhat unclear , likely atrial flutter with 2:1 AV conduction. Postprocedureal V fib s/p cardioversion requiring defibrillation and CPR Episodes of wide complex tachycardia, S/P CPR and shocks prior to admission, currently is A. fib rate controlled cardiology feels afib is stable on current meds Mild elevated troponin likely from shock and CPR, likely atypical Continue Xarelto for stroke prevention, need to monitor given blood in sputum Discussed risks of xarelto continuation vs d/c and pt states "I would rather than have a stroke". Hb is stable and given reported decrease in hemoptysis, can monitor on xarelto for now. Echo was done on this admission reported see below * Normal biventricular systolic function. * Mild concentric left ventricular hypertrophy. * Normal chmaber dimensions. * No significant valvular abnormalities. * The study was technically difficult. 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 Steroid taper, decreased 02/23 Initially with significant improvement, however now unable to wean from 6L O2 and having desats with conversation continue oral antibiotics Continue nebulizer treatment, supportive care Nicotine patch is ordered Continue oxygen support, may need home O2 on d/c Repeat CXR noted for mostly resolved RML PNA and CT chest without contrast on admission without other obvious lung path CT chest with contrast pending and t/c pulm eval Was hypokalemic upon admission, then became hyperkalemia, now WNL Monitor Tobacco use: nicotine patch PRN Cardiology input appreciated Rib fractures: L 4th, R 3rd, sternal fracture likely the result of CPR, PRN pain meds Full code VT prophylaxis is on Xarelto Stable for transfer to floor Continued [facility] stay due to: multiple IV medications needed Discharge planning: uncertain
[2017-02-25] MEDS ORDERED: OPTIRAY 320 IV PRN (13:30)
[2017-02-25] MEDS ORDERED: ALBUT/IPRATROP 3MG/0.5MG NEB 3 ML VIAL INH PRN (14:00)
--- NOTE | 2017-02-25 14:24 | DIAGNOSTIC IMAGING REPORT ---
CT SCAN OF THE CHEST WITH IV CONTRAST CLINICAL HISTORY: Hypoxia. Arrhythmia. COMPARISON STUDY: Chest CT scans dated 02/21/2017 and 04/22/2009. TECHNIQUE: Following the IV administration of 119 cc of Optiray 320, CT scan of the thorax was performed from the thoracic inlet to the upper abdomen. Images are reviewed in the axial, sagittal, and coronal planes. IV contrast was administered without complication. The examination is degraded by streak artifact the patient's arms which could not be elevated above the chest. The Examination is also degraded by motion artifact. CT DOSE: 1431.34 mGy.cm FINDINGS: Thyroid: Imaged portions of the thyroid gland are normal in size and attenuation. Thoracic aorta: There is mild atherosclerotic calcification of the thoracic aorta , which is normal in caliber and demonstrates standard 3-vessel arch anatomy. No dissection is seen. Pulmonary vasculature: The pulmonary trunk is normal in caliber. There are no filling defects identified in the central pulmonary vessels to indicate pulmonary embolus. Note that this examination was not protocoled for evaluation of the pulmonary arteries. Heart: The heart is enlarged and without pericardial effusion. Lungs and pleural spaces: Evaluation of the lung parenchyma is degraded by respiratory motion artifact. Advanced emphysema is again noted. Segmental atelectasis is present at both lung bases. Patchy airspace consolidation is identified in the right middle lobe. The upper lobes appear clear. No pleural effusion is identified. The trachea and central airways are clear. No pneumothorax is seen. Mediastinum: There is no mediastinal lymphadenopathy. Lexie: Clear. Axillae: There is no axillary lymphadenopathy. Upper abdomen: Partially visualized upper abdominal viscera is within normal limits. Skeletal structures: No lytic or blastic bony lesions are seen. Again seen are acute left anterior second through fourth rib fractures, as well as a nondistracted sternal fracture is again noted. There is chronic posttraumatic deformity of the distal left clavicle. IMPRESSION: 1. Streak and motion artifact degraded examination. 2. Cardiomegaly and advanced emphysema. 3. Segmental atelectasis is present at both lung bases. This has modestly improved from 02/21/2017. 4. Mild patchy airspace consolidation is identified in the right middle lobe. This could represent a mild infectious/inflammatory pneumonitis and clinical correlation will be required. A 3 month follow-up chest CT is recommended to document resolution. 4. No pleural effusion is identified. 5. Again seen are acute left-sided rib fractures findings sternal fracture as detailed above. 6. Additional findings as above. Electronically signed by: Grady Ruteldge M.D. 02/25/2017 2:22 PM Dictated Date/Time: 02/25/2017 2:09 PM
[2017-02-25] MEDS: IPRATROPIUM BROMIDE/ALBUTEROL respimat INH INH SCH ×3 (14:43→21:17)
--- NOTE | 2017-02-25 15:16 | CARDIOLOGY PROGRESS NOTE ---
DATE: 02/25/2017 TIME: 1453 p.m. SUBJECTIVE: Breathing feels a little bit better but not significantly improved and not yet back to baseline. He is still sore from chest compressions, but no angina. Denies syncope, near syncope, palpitations or edema. He has not had any melena or hematochezia. Hemoptysis continues to improve and was very mild today. OBJECTIVE: VITAL SIGNS: Temperature 36.5 degrees, heart rate 75 beats per minute, respiration rate 18, blood pressure 132/76 mmHg, oxygen saturation is 91% on 6 liters per nasal cannula. I's and O's negative 925 mL yesterday. Weight is 116.8 kg. GENERAL: No acute distress. He is alert. NECK: Thick. CARDIAC: No ventricular heave. Regular, normal S1, S2. No audible murmurs, rubs or gallops. LUNGS: Decreased breath sounds throughout, otherwise clear. ABDOMEN: Obese, soft, nontender, nondistended, normoactive bowel sounds, no bruits noted. EXTREMITIES: Trace bilateral lower extremity edema. No cyanosis. PSYCHIATRIC: Affect appears appropriate. MEDICATIONS: Include aspirin 81 mg daily, digoxin 0.25 mg daily, azithromycin 250 mg daily, HCTZ 25 mg daily, lisinopril 5 mg daily, methylprednisolone 60 mg IV b.i.d., Protonix 40 mg daily, Xarelto 20 mg daily. LABORATORY AND IMAGING DATA: Sodium 141, potassium 4.4, BUN 32, creatinine 0.95, magnesium 2.2. White blood cell count is 15.26, hemoglobin 14.6, platelets 219. Telemetry was personally reviewed before he moved off the telemetry unit. He remained in sinus rhythm. CT scan of the chest report from today reviewed. Advanced emphysema. Cardiomegaly. Improved segmental atelectasis. Mild patchy airspace consolidation in the right middle lobe. Left-sided rib fractures, sternal fracture. Chart reviewed. ASSESSMENT AND PLAN: 1. Paroxysmal atrial fibrillation: Remain in sinus rhythm. Continue rate control strategy which has been outlined by Dr. Solis. Digoxin level ordered to be done before his next dose. Continue anticoagulation if no contraindications. His hemoptysis is improving and may be related to his pulmonary issues. 2. Wide complex tachycardia: Dr. Solis believes possible atrial flutter with 1:1 conduction. He is recommended rate control strategy. Continue current regimen. Keep digoxin level less than 1. 3. Elevated troponin: Likely secondary to demand ischemia given his tachycardia and acute respiratory distress. Outpatient stress testing can be performed after he recovers from acute illness. 4. Hypertension: Most recent blood pressure was better; however, he has been otherwise hypertensive. If blood pressure does not remain well controlled like his last value, can further titrate medications. 5. Disposition: Please call for any further concerns from a cardiology perspective. Cardiology will sign off at this time. He can follow up in the office in the outpatient setting for continued management of his paroxysmal atrial arrhythmia. ABI
[2017-02-25] MEDS: DIGOXIN 0.25 MG TAB PO SCH (18:04)
[2017-02-26] MEDS: MoRPHine SULFATE 2 MG/ML CARP IV PRN ×4 (00:06→18:27)
[2017-02-26] MEDS: OXYCODONE/ACETAMINOPHEN 5-325 TAB PO PRN ×2 (05:59→20:21)
[2017-02-26 08:00] VITALS: O2SAT 95
[2017-02-26 08:01] VITALS: BP 157/90; PULSE 62; TEMP 36.6; O2SAT 94
[2017-02-26] MEDS: ASPIRIN 81 MG ECTAB PO SCH (08:10)
[2017-02-26] MEDS: AZITHROMYCIN 250 MG TAB PO SCH (08:11)
[2017-02-26] MEDS: LISINOPRIL 5 MG TAB PO SCH (08:11)
[2017-02-26] MEDS: PANTOprazole SOD 40 MG TAB PO SCH (08:12)
[2017-02-26] MEDS: IPRATROPIUM BROMIDE/ALBUTEROL respimat INH INH SCH ×4 (08:12→20:26)
[2017-02-26] MEDS: HYDROCHLOROTHIAZIDE 25 MG TAB PO SCH (08:12)
[2017-02-26] MEDS: DILTIAZEM HCL 300 MG CAPCR PO SCH (08:13)
[2017-02-26] MEDS: RIVAROXABAN 20 MG TAB PO SCH (08:13)
[2017-02-26] MEDS: NICOTINE 14 MG/24 HR TDSY TD SCH (08:14)
[2017-02-26] MEDS: LIDODERM (LIDOCAINE) PATCH 5% TD SCH (08:14)
--- NOTE | 2017-02-26 10:42 | Progress Note ---
Subjective Date of Service: Feb 26, 2017. Subjective Pt evaluation today including: conversation w/ patient Pt is feeling better today. No SOB at rest, but has not been OOB much. Still with ongoing rib pain 2/2 fractures. Tolerating PO well. Sputum is more brown now, no further red blood noted. Pt states he was a bit constipated yesterday afternoon. He had prunes in butter and did have a small bowel movement. Would like to hold off on further bowel support for now as he feels like he will have another soon. Pt denies fever, abd pain, n/v, LE pain or swelling. ROS as noted above, otherwise neg. Problem List Medical Problems: (1) Cardiac arrest Status: Acute (2) Chest pain Status: Acute (3) COPD (chronic obstructive pulmonary disease) Status: Chronic (4) Hypoxia Status: Acute (5) Wide-complex tachycardia Status: Acute Objective Vital Signs Date Time Temp Pulse Resp B/P Pulse Ox O2 Delivery O2 Flow Rate FiO2 02/26/17 08:01 36.6 62 20 157/90 94 5.0 02/26/17 00:00 Nasal Cannula 6.0 02/25/17 23:14 36.5 64 20 163/92 94 Nasal Cannula 5.0 02/25/17 18:04 88 02/25/17 16:28 95 Nasal Cannula 6.0 02/25/17 15:13 36.4 62 16 147/85 95 Nasal Cannula 6.0 02/25/17 14:18 36.5 75 18 90 6.0 02/25/17 14:15 36.5 66 20 132/76 91 6.0 02/25/17 12:00 90 Nasal Cannula 6.0 02/25/17 11:44 75 18 94 Nasal Cannula 4.0 02/25/17 11:35 77 14 93 Nasal Cannula 6.0 02/25/17 11:22 36.5 79 22 149/87 87 Nasal Cannula 4.0 Physical Exam Comments: General Appearance: no apparent distress, + obese Respiratory/Chest: no respiratory distress, + decreased breath sounds-- improving, wheezing--resolved Cardiovascular: regular rate, rhythm, no edema Abdomen: non tender, soft Extremities: non-tender, no pedal edema Neurologic/Psychiatric: alert, oriented x 3 Skin: normal color, warm/dry Laboratory Results Last 24 Hours Test 02/25/17 15:07 02/26/17 07:43 Digoxin Level 0.6 ng/ml Bedside Glucose 115 mg/dl Assessment and Plan 61 y/o M admitted on 02/20/2017 for A. fib, arrhythmia, s/p CPR, acute respiratory distress with COPD exacerbation. Initially admitted to the ICU and stable on tele since transfer. 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 In the emergency room he was in sinus rhythm and then developed an episode of supraventricular tachycardia that lasted approximately 5 minutes at a heart rate of around 145 bpm although slightly irregular. Does not appear to be atrial fibrillation. Per assembler [employer], mechanism of the wide complex tachycardia is somewhat unclear , likely atrial flutter with 2:1 AV conduction. Postprocedureal V fib s/p cardioversion requiring defibrillation and CPR Episodes of wide complex tachycardia, S/P CPR and shocks prior to admission, currently is A. fib rate controlled cardiology feels afib is stable on current meds Mild elevated troponin likely from shock and CPR, likely atypical Continue Xarelto for stroke prevention, need to monitor given blood in sputum Discussed risks of xarelto continuation if there is bleeding vs d/c and pt states "I would rather than have a stroke". Hb is stable and given reported decrease in hemoptysis, can monitor on xarelto for now. Echo was done on this admission reported see below * Normal biventricular systolic function. * Mild concentric left ventricular hypertrophy. * Normal chmaber dimensions. * No significant valvular abnormalities. * The study was technically difficult. 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 Steroid taper, decreased 02/23 Initially with significant improvement, however now unable to wean from 6L O2 and having desats with conversation continue oral antibiotics Continue nebulizer treatment, supportive care Nicotine patch is ordered Continue oxygen support, may need home O2 on d/c Repeat CXR noted for mostly resolved RML PNA and CT chest without contrast on admission without other obvious lung path CT chest with contrast noted for RML PNA, will continue weaning efforts and have pulm eliz Was hypokalemic upon admission, then became hyperkalemia, now WNL Monitor Tobacco use: nicotine patch PRN Rib fractures: L 4th, R 3rd, sternal fracture likely the result of CPR, PRN pain meds Full code VT prophylaxis is on Xarelto Continued [facility] stay due to: multiple IV medications needed Discharge planning: uncertain
[2017-02-26] MEDS: METHYLPREDNISOLONE IV 60 MG in SYRINGE 0 ML IV SCH (10:51)
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
[2017-02-26 14:20] LABS: ALLEN TEST POS (POS); ARTERIAL BLD GAS O2 SATURATION 84.8 % (90-95); ARTERIAL BLOOD GAS BASE EXCESS 9.5 mEq/L (-9-1.8); ARTERIAL BLOOD GAS HCO3 37 mmol/L (19-24); ARTERIAL BLOOD GAS PO2 52 mm/Hg (80-95); ARTERIAL BLOOD GAS pH 7.41 (7.35-7.45); O2 ADMINISTRATION RA
[2017-02-26 15:22] VITALS: BP 150/92; PULSE 62; TEMP 36.5; O2SAT 95
[2017-02-26] MEDS: DIGOXIN 0.25 MG TAB PO SCH (15:51)
[2017-02-26 16:00] VITALS: O2SAT 91
[2017-02-26] MEDS: METHYLPREDNISOLONE IV 30 MG in SYRINGE 0 ML IV SCH (20:25)
[2017-02-26 23:17] VITALS: BP 173/98; PULSE 68; TEMP 36.5; O2SAT 88
[2017-02-27] VITALS (7 sets, daily range): BP systolic 138–161; BP diastolic 80–93; PULSE 58–67; TEMP 36.3–36.4; O2SAT 9–95
[2017-02-27] MEDS: OXYCODONE/ACETAMINOPHEN 5-325 TAB PO PRN ×5 (04:28→22:34)
[2017-02-27] MEDS: PANTOprazole SOD 40 MG TAB PO SCH (08:39)
[2017-02-27] MEDS: HYDROCHLOROTHIAZIDE 25 MG TAB PO SCH (08:39)
[2017-02-27] MEDS: LIDODERM (LIDOCAINE) PATCH 5% TD SCH (08:39)
[2017-02-27] MEDS: ASPIRIN 81 MG ECTAB PO SCH (08:39)
[2017-02-27] MEDS: DILTIAZEM HCL 300 MG CAPCR PO SCH (08:40)
[2017-02-27] MEDS: LISINOPRIL 5 MG TAB PO SCH (08:40)
[2017-02-27] MEDS: RIVAROXABAN 20 MG TAB PO SCH (08:40)
[2017-02-27] MEDS: NICOTINE 14 MG/24 HR TDSY TD SCH (08:41)
[2017-02-27] MEDS: AZITHROMYCIN 250 MG TAB PO SCH (08:41)
[2017-02-27] MEDS: IPRATROPIUM BROMIDE/ALBUTEROL respimat INH INH SCH ×4 (08:42→22:33)
[2017-02-27] MEDS: METHYLPREDNISOLONE IV 30 MG in SYRINGE 0 ML IV SCH (11:28)
--- NOTE | 2017-02-27 11:53 | PULMONARY PROGRESS NOTE ---
DATE: 02/27/2017 TIME: 11:30 a.m. SUBJECTIVE: The patient feels better. He is not complaining of shortness of breath. He has not had any hemoptysis since yesterday. His cough is decreased. The patient did have an overnight pulse oximetry study done. This is severely abnormal showing saturations as low as 71% and there is a significant amount of a night less than 88%. He actually has more than 1 hour with saturations less than 80% and this is despite being on 2-liter nasal cannula. The patient also had an arterial blood gas done. This showed a pH of 7.41 with a pCO2 of 59 and a pO2 of 52 on room air. Thus, it appears the patient would qualify for home BiPAP. OBJECTIVE: GENERAL: The patient appears comfortable. He was cooperative, alert and oriented. Temperature 36.4. EARS, NOSE, THROAT: Unchanged. VITAL SIGNS: Heart rate was 62 per minute. Blood pressure 138/92. LUNGS: Lung monique revealed diminished breath sounds. No active wheezing was heard. ABDOMEN: Obese. It was soft and nontender. EXTREMITIES: Reveal +2 edema. IMPRESSIONS: 1. Respiratory failure with hypoxia and hypercarbia. 2. Chronic obstructive pulmonary disease/emphysema. 3. Hemoptysis. 4. Right middle lobe and right lower lobe consolidation. 5. Obstructive sleep apnea. 6. Status post cardiac arrest. COMMENTS: I strongly suspect the patient has severe sleep apnea. His blood gases and overnight pulse ox appear to qualify him for a home BiPAP. This would help us because we would not need to delay and set up a sleep study. I have spoken with the patient and his about this. The patient admits to being somewhat claustrophobic. We are going to give him a trial for a couple of hours this afternoon. If he indeed does qualify, I am happy to write the prescription for the BiPAP and I will follow up with him. I am going to change his steroids to oral. I would continue with his other medicines.
[2017-02-27] MEDS: MoRPHine SULFATE 2 MG/ML CARP IV PRN (16:05)
[2017-02-27] MEDS: DIGOXIN 0.25 MG TAB PO SCH (16:08)
--- NOTE | 2017-02-27 23:27 | Progress Note ---
Subjective Date of Service: Feb 27, 2017. Subjective Pt evaluation today including: conversation w/ patient, physical exam, chart review, lab review, review of studies (overnight oximetry study), conversation w / care consultant (pulmonary (Dr. Garcia)) Pain: left chest wall, pleuritic PO Intake: normal Voiding: no voiding problems finally had bowel movement today he overall feels good; anxious to get home denies any significant cough willing to try the BIPAP for suspected MARTÍNEZ Problem List Medical Problems: (1) Cardiac arrest Status: Acute (2) Chest pain Status: Acute (3) COPD (chronic obstructive pulmonary disease) Status: Chronic (4) Hypoxia Status: Acute (5) Wide-complex tachycardia Status: Acute Review of Systems Constitutional: No fever Respiratory: No cough, No sputum Cardiac: + chest pain, + see HPI, No orthopnea Abdomen: No pain Objective Vital Signs Date Time Temp Pulse Resp B/P Pulse Ox O2 Delivery O2 Flow Rate FiO2 02/27/17 22:59 58 94 2.0 02/27/17 22:52 36.4 60 16 161/93 94 Room Air 02/27/17 16:08 63 02/27/17 16:00 9 Room Air 2.0 02/27/17 15:06 36.3 67 16 139/88 90 Nasal Cannula 2.0 02/27/17 08:11 36.4 62 16 138/92 95 Nasal Cannula 2.0 02/27/17 08:00 Nasal Cannula 2.0 02/27/17 04:00 144/80 02/27/17 00:00 88 Nasal Cannula 2.0 02/26/17 23:17 36.5 68 20 173/98 88 Nasal Cannula 2.0 Physical Exam General Appearance: no apparent distress, + obese ENT: pharynx normal Neck: no JVD Respiratory/Chest: no respiratory distress, no accessory muscle use, + wheezing , + pertinent finding (chest tender over anterior upper chest w/ palpation) Cardiovascular: regular rate, rhythm, no gallop, no murmur Abdomen: normal bowel sounds, non tender, soft, no organomegaly Extremities: + pedal edema (trace b/l ) Neurologic/Psychiatric: alert, normal mood/affect, oriented x 3 Laboratory Results Last 24 Hours Test 02/27/17 07:49 Bedside Glucose 112 mg/dl Assessment and Plan 61yo male: 1. acute hypoxic & hypercarbic respiratory failure - likely 2nd to underlying/ undiagnosed COPD. Cont steroids but wean to PO prednisone. Cont nebs and supportive care. Quit smoking. 2. suspected MARTÍNEZ - begin BIPAP 12/[address] Garcia. He qualifies for home BIPAP based on overnight oximetry study and his ABG showing CO2 retention. He will need a formal sleep study after discharge. 3. PAF - in NSR. Cont AV theresa agents along with xarelto. 4. wide-complex tachycardia - was thought to have been a. flutter. Same management as in #3. 5. HTN - controlled w/ current regimen of meds. 6. s/p cardiac arrest 7. rib fractures, sternal fracture - pain control. was 2nd to #6 above. 8. +troponin - 2nd to myocardial demand ischemia at admission. ECHO w/o wall motion abnormalities. 9. abnormal AST/ALT - repeat in AM. 10. DVT proph - xarelto. 11. acute kidney injury - likely 2nd to cardiac arrest. Resolved. 12. tobacco dependence - counseled to quit; he seems motivated spoke with social work - preparations being made for home BIPAP as well as home o2 will need formal two-step prior to d/c home d/c home - hopefully Thursday Discharge planning: home
[2017-02-28] MEDS: OXYCODONE/ACETAMINOPHEN 5-325 TAB PO PRN ×3 (02:27→10:53)
[2017-02-28] MEDS: MoRPHine SULFATE 2 MG/ML CARP IV PRN ×3 (02:28→10:49)
[2017-02-28 07:22] LABS: BUN/CREATININE RATIO 31.2 (10-20); CALCIUM 8.5 mg/dl (8.5-10.1); CREATININE 0.99 mg/dl (0.60-1.40); POTASSIUM 4.2 mmol/L (3.5-5.1)
[2017-02-28 07:41] VITALS: BP 151/95; PULSE 63; TEMP 36.3; O2SAT 93
[2017-02-28] MEDS: IPRATROPIUM BROMIDE/ALBUTEROL respimat INH INH SCH ×2 (07:54→12:19)
[2017-02-28] MEDS: PANTOprazole SOD 40 MG TAB PO SCH (07:55)
[2017-02-28] MEDS: ASPIRIN 81 MG ECTAB PO SCH (07:55)
[2017-02-28] MEDS: HYDROCHLOROTHIAZIDE 25 MG TAB PO SCH (07:55)
[2017-02-28] MEDS: LISINOPRIL 5 MG TAB PO SCH (07:55)
[2017-02-28] MEDS: LIDODERM (LIDOCAINE) PATCH 5% TD SCH (07:58)
[2017-02-28] MEDS: NICOTINE 14 MG/24 HR TDSY TD SCH (07:58)
[2017-02-28] MEDS: RIVAROXABAN 20 MG TAB PO SCH (07:59)
[2017-02-28 08:00] VITALS: O2SAT 93
[2017-02-28] MEDS: DILTIAZEM HCL 300 MG CAPCR PO SCH (08:01)
--- NOTE | 2017-02-28 09:10 | PULMONARY PROGRESS NOTE ---
DATE: 02/28/2017 DATE: 02/28/2017. TIME: 8:35 a.m. SUBJECTIVE: The patient states he feels great. He is not having shortness of breath. The only chest pain is that related to his fractures of the sternum and the ribs. He did wear BiPAP yesterday afternoon for an hour without difficulty. He then put it on last night approximately 10:40 p.m. He states he fell asleep readily. However, he awakened about 1:00 a.m. with severe shortness of breath and panic. He took his CPAP mask off and would not put it back on. OBJECTIVE: GENERAL: The patient appears comfortable. He was in no distress. VITAL SIGNS: Temperature is 36.3. EARS, NOSE, THROAT EXAMINATION: Unchanged. HEART: Heart rate is 63 per minute. Blood pressure is 151/95. LUNGS: Panchal were clear to auscultation. The breath sounds were diminished, perhaps related to obesity. Oxygen saturation was 93% on 2 liters. ABDOMEN: Obese and nontender. EXTREMITIES: Remain edematous at +1 to +2. IMPRESSIONS: 1. Respiratory failure with hypoxia and hypercarbia. 2. Chronic obstructive pulmonary disease/emphysema. 3. Hemoptysis -- none for 48 hours. 4. Right middle and lower lobe consolidation. 5. Obstructive sleep apnea. 6. Rib fractures on the left 3rd and 4th ribs as well as the sternum. 7. Status post cardiac arrest. Arrangements are being made for the patient to have a home BiPAP. I believe he will also need home oxygen. The patient states the machine is being obtained from [facility]. He needs a followup with me in approximately 6-8 weeks. He will likely ultimately need a sleep study. I am just hopeful that he will tolerate the BiPAP and stay with it and not give up. I invited him to call me to be seen sooner if he was having problems with BiPAP. It was noted that his ALT today was elevated at 194. This will likely need followup.
[2017-02-28] MEDS ORDERED: IPRASOL4 INH (12:27)
[2017-02-28] MEDS ORDERED: LDDP5 TD (12:27)
[2017-02-28] MEDS ORDERED: NEBMAC (12:27)
[2017-02-28] MEDS ORDERED: IPRA1AER2 INH (12:27)
[2017-02-28] MEDS ORDERED: LISI10TA PO (12:27)
[2017-02-28] MEDS ORDERED: RXC5 PO (12:27)
[2017-02-28] MEDS ORDERED: HYDR25TA5 PO (12:27)
[2017-02-28] MEDS ORDERED: LNX25 PO (12:27)
[2017-02-28] MEDS ORDERED: PRED10TA PO (12:27)
--- NOTE | 2017-02-28 12:49 | Discharge Instructions ---
Discharge Instructions Date of Service Feb 28, 2017. Admission Reason for Admission: loss of consciousness, cardiac arrest and CPR given Discharge Discharge Diagnosis / Problem: 1. COPD. 2. abnormal heart rhythm -- NOW BACK IN NORMAL RHYTHM Discharge Goals Goal(s): Learn about illness, Diagnostic testing, Therapeutic intervention Activity Recommendations Activity Limitations: as noted below Lifting Limitations: no more than 10 pounds Exercise/Sports Limitations: until after follow-up appointment May Resume Sexual Activity: after follow-up appointment Shower/Bathe: no limitations Driving or Machine Use: can resume driving when you are no longer taking oxycodone for pain and you have minimal to NO pain in the left chest/breastbone with moving your arms . Instructions / Follow-Up Instructions / Follow-Up From Dr. Cisneros - 1. The medical team suspects you have COPD from the years of smoking. At this time the following are recommended: * nasal cannula oxygen 2 liters at rest and with sleep; 4 liters with activity * do not smoke when on oxygen and do NOT let any one smoke in your home due to risk of fire * BIPAP (the mask that goes over your mouth/nose) - with long naps and at bedtime as tolerated * prednisone taper - start this TOMORROW on 03/01/17; take for 7 days; take the prednisone with food * combivent inhaler 1 puff four times a day for your breathing * duonebs - this is the same medication that is in the combivent inhaler but it is given via your nebulizer machine * the duonebs can be used every 4 hours as needed for cough, wheezing, and/or shortness of breath * the nebulizer machine will be delivered to your home from [facility] * the duoneb medication can be obtained from [facility] 2. Please stop smoking if possible! 3. For your heart conditions and high blood pressure - * please start digoxin 0.25mg once daily; new prescription sent to [facility] * please INCREASE your lisinopril 10mg once daily; new prescription sent to [facility] * please start hydrochlorothiazide ("HCTZ") 25mg once daily; take this every morning; new prescription sent to [facility] Your other heart medications (xarelto, etc) have not changed. 4. rib fractures on the left and sternum ("Breastbone") fracture - these will take about 6 weeks to heal. You may take the following for pain - * oxycodone 5mg every 4 hours as needed * pain pills can cause drowsiness; do not drive alcohol or drive while taking pain pills * pain pills can cause constipation; you may need a stool softener while taking them * lidoderm patches - up to 3 may be applied to the chest wall for 12 hours and removed for 12 hours 5. You likely had a right-sided pneumonia. You completed your antibiotics in the hospital for it. 6. Return to [facility] with any of the following - * worsening breathing, shortness of breath, etc despite your oxygen * worsening cough * pain not controlled with your pain medications * blood in your stool 7. Follow-up appointments - * see Dr. Morales within 5 days. Please call his office Thursday to schedule this appointment. * see Dr. Shemar Garcia - lung doctor - within 2 months. See below for office information, phone #, etc. Current Hospital Diet Patient's current hospital diet: AHA Diet (Heart Healthy) Discharge Diet Recommended Diet: AHA Diet (Heart Healthy) Procedures Procedures Performed: CAT scan of your lungs (twice) -- right-sided pneumonia, left-sided rib fractures, and breastbone fractures. Pending Studies Studies pending at discharge: no Laboratory Results Hemoglobin A1c Test 02/21/17 15:02 Range/Units Estimated Average Glucose 114 mg/dl Hemoglobin A1c 5.6 4.5-5.6 % Medical Emergencies . Who to Call and When: Medical Emergencies: If at any time you feel your situation is an emergency, please call 911 immediately. . Non-Emergent Contact Non-Emergency issues call your: Primary Care Provider Call Non-Emergent contact if: temperature is above 100.5, your pain is not controlled, your pain is worsening, your pain is unusual for you, your pain is concerning you, you have any medication questions . . "Provider Documentation" section prepared by Mathew Cisneros. . VTE Core Measure Inpt VTE Proph given/why not?: Other Anticoagulation
[2017-02-28 13:39] VITALS: BP 151/95; PULSE 63; TEMP 36.3; O2SAT 93
--- NOTE | 2017-02-28 23:22 | Discharge Summary ---
Discharge Summary Date of Service Feb 28, 2017. Discharge Summary Admission Date: Feb 20, 2017 at 22:20 Discharge Date: Feb 28, 2017 Discharge Disposition: Home Principal Diagnosis: s/p cardiac arrest Problems/Secondary Diagnoses: 1. acute/chronic hypoxic/hypercarbic respiratory failure 2. COPD with exacerbation 3. suspected MARTÍNEZ 4. HTN 5. atrial fibrillation/flutter 6. morbid obesity with BMI 40 7. chronic tobacco dependence 8. abnormal LFTs, likely 2nd to cardiac arrest - need repeat AST/ALT as outpatient to ensure normalization 9. acute kidney injury - resolved 10. positive troponin likely due to myocardial demand ischemia 11. multiple left-sided rib fractures 12. sternal fracture 13. RBBB 14. possible RML pneumonia vs other process - needs follow-up CT scan in 2 months to ensure resolution Procedures: 1. echocardiogram: * Normal biventricular systolic function. EF 55-60%. * Mild concentric left ventricular hypertrophy. * Normal chmaber dimensions. * No significant valvular abnormalities. * The study was technically difficult. 2. Chest CT #1: IMPRESSION: 1. Acute minimally displaced fracture of the anterior left fourth rib and acute nondisplaced left third rib fracture. No pneumothorax. 2. Acute nondisplaced sternal fracture. 3. Extensive right lower lobe airspace opacity with volume loss. This may reflect pneumonia or atelectasis. Mild left basilar opacity favors atelectasis. 4. Moderate emphysema. 5. Moderate cardiomegaly. 3. Chest CT #2: IMPRESSION: 1. Streak and motion artifact degraded examination. 2. Cardiomegaly and advanced emphysema. 3. Segmental atelectasis is present at both lung bases. This has modestly improved from 02/21/2017. 4. Mild patchy airspace consolidation is identified in the right middle lobe. This could represent a mild infectious/inflammatory pneumonitis and clinical correlation will be required. A 3 month follow-up chest CT is recommended to document resolution. 5. No pleural effusion is identified. 6. Again seen are acute left-sided rib fractures findings sternal fracture as detailed above. 4. overnight oximetry study showing significant nocturnal hypoxia/desaturation events Consultations: 1. critical care - Yosi Lundberg DO 2. cardiology - Gagandeep Solis MD 3. pulmonary - Shemar Garcia DO 4. PT, OT Medication Reconciliation New Medications: Nebulizer Machine (Home Use) (Nebulizer Machine (Home Use) ) Mis 1 EA N/A UD, #1 0 Refills Oxycodone HCl (Oxycodone HCl) 5 Mg Tab 5 MG PO Q4H PRN for Pain, #20 0 Refills Digoxin (Digoxin) 0.25 Mg Tab 0.25 MG PO DAILY@16, #30 TAB 5 Refills for your heart Hydrochlorothiazide (Hydrochlorothiazide) 25 Mg Tab 25 MG PO QAM, #30 TAB 5 Refills for high blood pressure Ipratropium-Albuterol (Combivent Respimat) 1 Aer Aer 1 PUFFS INH QID, #1 INHALER 5 Refills Ipratropium-Albuterol (Duoneb) 3 Ml Nebu 3 ML INH Q4H PRN for SOB/wheezing/cough, #1 BOX 2 Refills Lidocaine (Lidocaine) 1 Patch Tdsy 3 PATCH TD QAM, #60 PATCH 0 Refills apply up to 3 patches at sites of pain on chest wall, leave on for 12 hrs, remove for 12 hrs Prednisone Tab (Prednisone) 10 Mg Tab 10 MG PO DIRECTED, #12 TAB 0 Refills start 03/01/17: take 3 tabs day #1, 2 tabs days 2-4, 1 tab days 5-7. Changed Medications: Lisinopril (Prinivil) 10 Mg Tab 1 TAB PO DAILY for 30 Days, #30 TAB 5 Refills (Changed from: Lisinopril (Zestril ) 5 Mg Tab 5 Mg PO QAM) Continued Medications: Aspirin (Aspirin Ec) 81 Mg Tab 81 MG PO QAM Diltiazem Hcl Ext Rel (Tiazac) 300 Mg Capcr 300 MG PO QAM, CAP Rivaroxaban (Xarelto) 20 Mg Tab 20 MG PO QAM, TAB Referrals At Discharge Follow up Referrals: Bleach Machine Operator Referral - Please Call For Appointment with Shemar Garcia, DO Discharge Exam Physical Exam: General Appearance: no apparent distress, + obese ENT: pharynx normal Neck: no JVD Respiratory/Chest: no respiratory distress, no accessory muscle use, + wheezing (mild, b/l ), + pertinent finding (tender to left upper chest with palpation (rib fractures)) Cardiovascular: regular rate, rhythm, no gallop, no murmur, normal peripheral pulses Abdomen / GI: normal bowel sounds, non tender, soft, no organomegaly Extremities: + pedal edema (1+ b/l ) Neurologic/Psychiatric: alert, oriented x 3 Skin: no rash Hospital Course HISTORY OF PRESENT ILLNESS: Mr. Chavarria is a 61yo male with history of atrial fibrillation, COPD, obesity, HTN, and tobacco dependence. Patient stated he had been SOB x 2 weeks which was most pronounced with exertion. He had no recent chest pain, fevers or a productive cough. He had ascended some stairs on the evening of admission, developed palpitations and lightheadedness and was reported to be pale and diaphoretic by his . EMS was contacted. He lost consciousness in the interim and was pulseless when they arrived at the house. CPR was started and he regained a pulse after a few minutes. An EKG was obtained showing a wide complex tachycardia at a rate of 250-300 BPM. EMS felt that this may have been aberrant conduction and proceeded to shock the patient with 50 joules. The rhythm then converted to ventricular fibrillation and a second 360 J shock was used to convert the ventricular fibrillation to a period of severe bradycardia followed by return of sinus rhythm. In the emergency room he was in sinus rhythm and then developed an episode of supraventricular tachycardia thought to be either a. fib or a. flutter. Initial labs were consistent with a period of cardiac arrest as LFTs, creatinine , lactic acid and troponin were elevated without evidence of infection or dehydration. HOSPITAL COURSE: 1. s/p cardiac arrest as noted in the history of present illness - At time of admission he was briefly treated in the ICU. He was seen by Dr. Gagandeep Solis, cardiology, who felt that the underlying wide complex tachycardia he had had that prompted cardioversion at his home was likely a. flutter with 1:1 conduction. Ventricular tachycardia was possible but felt to be less likely. He was initially maintained on amiodarone, but ultimately transitioned over to digoxin and diltiazem. He remained in NSR for the remainder of his stay. His xarelto was continued. Unfortunately the patient suffered multiple left-sided rib fractures and a sternal fracture from his pre-hospital CPR. His pain at time of discharge was under good control, however. Follow-up with [facility] is advised due to the complexity of his hospitalization. 2. acute hypoxic & hypercarbic respiratory failure, now with chronic respiratory failure - the patient was treated for COPD exacerbation with steroids, narrow-spectrum antibiotics, nebulizer treatments, and supportive care. His pulmonary symptoms improved while here and he was transitioned over to oral prednisone. A 7-day taper of such will be used after discharge. He was seen in consult by Dr. Shemar Garcia, pulmonary, who will follow the patient in clinic. The patient underwent two CT scans of the chest demonstrating a RML infiltrate, rib fractures, emphysema, and a sternal fracture. The exact etiology of the RML infiltrate was unclear. He had intermittent hemoptysis while hospitalized but this fully resolved before discharge. Both radiology and pulmonary recommended a repeat CT chest in 2 months to ensure the RML process fully resolves. If this abnormality persists or worsens then bronchoscopy may be needed. The patient's two-step oxygen test demonstrated a need for home O2; he will employ 2 liters [place] O2 at rest and 4 liters with activity. He was counseled to quit smoking and to now allow any smoking around his home oxygen. Prescriptions for nebulizer supplies, a machine, and duonebs were given at discharge. 3. suspected MARTÍNEZ - nocturnal O2 study and ABG were highly suggestive of MARTÍNEZ. His also reported significant snoring and visible apneas. He will discharge home on BIPAP / with 2 liters of O2 blended. He will need a formal sleep study after discharge to ensure adequate pressures. 4. tobacco dependence - he was counseled by numerous physicians to quit smoking. 5. HTN - controlled with HCTZ, diltiazem, and lisinopril. 6. +troponin - 2nd to myocardial demand ischemia in the setting of his COPD exacerbation and cardiac arrest. ECHO showed no wall motion abnormalities. Type 1 UT / ACS was NOT suspected. 7. abnormal AST/ALT - these improved while hospitalized. The high LFTs were thought to be from his cardiac arrest. Repeat transaminases after discharge are recommended to ensure normalization. 8. acute kidney injury - creatinine at presentation was 1.4, improving to 0.9 at discharge. JESSICA was 2nd to cardiac arrest. The patient was seen by PT/OT and felt to be appropriate for discharge to his home. Total Time Spent: Greater than 30 minutes This includes examination of the patient, discharge planning, medication reconciliation, and communication with other providers. Discharge Instructions Please refer to the electronic Patient Visit Report (Discharge Instructions) for additional information. Follow-Up 1. see Dr. Morales, PCP, within [address] Shemar Garcia, pulmonary, within 3-4 weeks 3. recommend follow-up with [facility] cardiology - Dr. Solis or one of his associates - in 1-2 weeks Additional Copies To Shemar Garcia, DO; Ashish Morales D.O.Int.Med.; Gagandeep Solis M.D.
--- NOTE | 2017-04-28 10:47 | EDITING REQUIRED CODING QUERY ---
CODING QUERY To promote full compliance with coding requirements relating to patient care, provider participation is requested in all cases of advanced practice nurse uncertainty. Please assist us with the question(s) below: Coding Question(s): Clarification is needed as to whether the Ventricular fibrillation s/p cardioversion requiring defibrillation and CPR was: __x___Postprocedural ventricular fibrillation s/p cardioversion requiring defibrillation and CPR was a complication of care---MANUFACTURING JOB TITLES at [facility] post-procedure ventricular fibrillation s/p cardioversion requiring defibrillation and CPR was not a complication of care other please specifiy unable to determine Physician's Response(s): Thank you She Moore CCS Principal Diagnosis: "_that condition established after study, to be chiefly responsible for occasioning the admission of the patient to the hospital for care." Co-Existing Principal Diagnosis: "_when two or more diagnoses equally meet the criteria for principal diagnosis as determined by the circumstances of admission, diagnostic work up, and/or therapy provided, and the Alphabetic Index, Tabular List, or another coding guideline does not provide sequencing direction, any one of the diagnoses may be sequenced first." "When the physician has documented what appears to be a current diagnosis in the body of the record, but has not included the diagnosis in the final diagnostic statement, the physician should be asked whether the diagnosis should be added." (Source Coding [facility] 2 QTR90. p3-4)
== END 2017-02-28 14:10 | disposition home or self-care (01) | DRG 308 ==
LOC: ENRESERVTM → ENRESERVDT → EDBD 19:20 → C.ED 19:21 → C.MSICU 22:20 → C.2T 02-21 16:54 → C.MS2W 02-25 14:07
PROVIDERS: ADMIT Internal Medicine; ATTEND Internal Medicine
DX: I48.92 Unspecified atrial flutter (principal); J96.21 Acute and chronic respiratory failure with hypoxia; J18.9 Pneumonia, unspecified organism; J96.22 Acute and chronic respiratory failure with hypercapnia; I97.89 Other postprocedural complications and disorders of the circulatory system, not elsewhere classified; J44.1 Chronic obstructive pulmonary disease with (acute) exacerbation; N17.9 Acute kidney failure, unspecified; R04.2 Hemoptysis; Z68.41 Body mass index [BMI] 40.0-44.9, adult; I24.8 Other forms of acute ischemic heart disease; S22.42XA Multiple fractures of ribs, left side, initial encounter for closed fracture; S22.20XA Unspecified fracture of sternum, initial encounter for closed fracture; I48.0 Paroxysmal atrial fibrillation; I46.9 Cardiac arrest, cause unspecified; I49.01 Ventricular fibrillation; I47.1 Supraventricular tachycardia; I47.2 Ventricular tachycardia; E87.5 Hyperkalemia; G47.33 Obstructive sleep apnea (adult) (pediatric); I45.10 Unspecified right bundle-branch block; E66.01 Morbid (severe) obesity due to excess calories; F17.210 Nicotine dependence, cigarettes, uncomplicated; E87.6 Hypokalemia; E78.5 Hyperlipidemia, unspecified; R60.0 Localized edema; R79.89 Other specified abnormal findings of blood chemistry; R94.5 Abnormal results of liver function studies; I10 Essential (primary) hypertension; R55 Syncope and collapse; R07.9 Chest pain, unspecified; Z79.82 Long term (current) use of aspirin; Z99.81 Dependence on supplemental oxygen; Z79.899 Other long term (current) drug therapy; Z82.49 Family history of ischemic heart disease and other diseases of the circulatory system; Z79.01 Long term (current) use of anticoagulants; X58.XXXA Exposure to other specified factors, initial encounter; Y84.8 Other medical procedures as the cause of abnormal reaction of the patient, or of later complication, without mention of misadventure at the time of the procedure; Y92.009 Unspecified place in unspecified non-institutional (private) residence as the place of occurrence of the external cause

== ENCOUNTER → 2017-03-09 | Outpatient (CLI) | payer BC ==
[~2017-03-09] MED LIST changes: +HYDR25TA5 PO; +IPRA1AER2 INH; +IPRASOL4 INH; +LDDP5 TD; -LISI-729 PO; +LISI10TA PO; +LNX25 PO; -LPT10 PO; +NEBMAC; -PANT40TA PO; +PRED10TA PO; +RXC5 PO; -ZNTT/150 PO
[2017-03-09 17:04] LABS: BASO % 0.1 %; BASO ABS # 0.02 K/uL (0-0.2); COMPLETE YES; EOS % 1.2 %; HEMATOCRIT 43.5 % (42-52); IG% 1.4 %; LYMPH % 11.9 %; LYMPH ABS # 1.81 K/uL (1.2-3.4); MEAN CELL VOLUME 97.5 fL (80-100); MEAN CORPUSCULAR HEMOGLOBIN 32.1 pg (25-34); MEAN CORPUSCULAR HGB CONC 32.9 g/dl (32-36); MEAN PLATELET VOLUME 9.9 fL (7.4-10.4); MONO % 9.5 %; NEUT % 75.9 %; PLATELET COUNT 242 K/uL (130-400); RED BLOOD COUNT 4.46 M/uL (4.7-6.1); WHITE BLOOD COUNT 15.26 K/uL (4.8-10.8)
[2017-03-09 17:11] LABS: ALT/SGPT 56 U/L (12-78); AST/SGOT 15 U/L (15-37); BLOOD UREA NITROGEN 25 mg/dl (7-18); BUN/CREATININE RATIO 17.8 (10-20); CALCIUM 8.9 mg/dl (8.5-10.1); CARBON DIOXIDE 33 mmol/L (21-32); CHLORIDE 101 mmol/L (98-107); GLUCOSE 89 mg/dl (70-99); POTASSIUM 4.3 mmol/L (3.5-5.1); SODIUM 140 mmol/L (136-145)
[2017-03-09 17:22] LABS: ALB/GLOB RATIO 0.8 (0.9-2); ALKALINE PHOSPHATASE 105 U/L (45-117)
== END | disposition home or self-care (01) ==
LOC: C.LABBC 13:46
PROVIDERS: ATTEND Physician Assistant
DX: R94.5 Abnormal results of liver function studies (principal); D72.829 Elevated white blood cell count, unspecified

== ENCOUNTER → 2017-03-16 | Outpatient (CLI) | payer BC ==
--- NOTE | 2017-03-16 10:08 | DIAGNOSTIC IMAGING REPORT ---
CHEST 2 VIEWS ROUTINE CLINICAL HISTORY: Cough COMPARISON STUDY: 02/24/2017 FINDINGS: The cardiac and mediastinal contours are normal. There is no evidence of focal pulmonary consolidation. There is no evidence of failure. No pleural effusions are visualized.[ There is minor basilar atelectatic change. IMPRESSION: No active disease in the chest. Electronically signed by: Med Almanzar M.D. 03/16/2017 10:06 AM Dictated Date/Time: 03/16/2017 10:05 AM
== END | disposition home or self-care (01) ==
LOC: C.RAD1850 09:29
PROVIDERS: ATTEND Physician Assistant Medical
DX: R05 Cough (principal)

== ENCOUNTER → 2017-03-24 | Outpatient (CLI) | payer BC ==
[~2017-03-24] MED LIST changes: +OPTIRAY 320 IV PRN
--- NOTE | 2017-03-24 08:50 | DIAGNOSTIC IMAGING REPORT ---
CHEST CT WITH CONTRAST CT DOSE: 865.15 mGy.cm HISTORY: Abnormal CT exam R93.8 Abnormal chest [id number] TECHNIQUE: Multiaxial CT images of the chest were performed following the intravenous administration of contrast. COMPARISON: 02/25/2017 FINDINGS: Lungs are now considered clear. Emphysematous changes unaltered. Healing fracture left second rib. Healing fracture left third and fourth ribs. Remaining osseous structures are unremarkable. IMPRESSION: 1. Lungs are now considered clear. 2. Several upper left healing rib fractures. 3. Emphysematous change. Electronically signed by: Ivan Huertas M.D. 03/24/2017 8:49 AM Dictated Date/Time: 03/24/2017 8:47 AM
== END | disposition home or self-care (01) ==
LOC: C.CTS 08:04
PROVIDERS: ATTEND Physician Assistant Medical
DX: R93.8 Abnormal findings on diagnostic imaging of other specified body structures (principal); S22.42XD Multiple fractures of ribs, left side, subsequent encounter for fracture with routine healing; X58.XXXD Exposure to other specified factors, subsequent encounter

== ENCOUNTER → 2017-04-08 | Outpatient (CLI) | payer BC ==
[~2017-04-08] MED LIST changes: -OPTIRAY 320 IV PRN
--- NOTE | 2017-04-09 06:20 | SPLIT NIGHT TECHNICIAN REPORT ---
[facility] Split Night Polysomnogram - Airplane Flight Attendant Report Study date: 04/08/2017 Referring Physician: Arlin Juares PA-C Name: JAMILA CHAVARRIA Airplane Flight Attendant: Yolanda Mera [facility]. Date of : 1955 Height: 61 years, Height 5' 7" Sex: Male Weight: 253 lbs Age: 61 Neck Circum: 19.5 in BMI: Medications: 39.62 ASPIRIN 81 MG, DIGOXIN 250 MCG, DILTIAZEM 300 MG, DOXYCYCLINE 100 MG, HYDROCHLOROTHIAZIDE 25 MG, IPRATROPIUM-ALBUTEROL, LIDOCAINE EX PATCH, LISINOPRIL 10 MG, OXYCODONE 5 MG, PREDNISONE 10 MG, SYMBICORT, XARELTO 20 MG Patient History 61 yr-old male here for a baseline/split study. He has a history of COPD and respiratory failure. HE was placed on BiPAP in the hospital and sent home with a BiPAP machine. He is having trouble tolerating the pressure. He stated that he does not like the feeling of BiPAP when it changes pressures. The test was started on room air. ETCO2 testing is included in this study. Room 1 Parameters Monitored NPSG: E1-M2, E2-M1, Fp1-M2, Fp2-M1, F3-M2, F4-M2, F4-M1, C3-M2, C4-M2, C4-M1, O1-M2, O2-M2, O2-M1, T3-M2, T4-M1, P3-M2, P4-M1, CHIN1, CHIN2, HR, EKG, Legs, PFLOW, SNOR, FLOW, CFLOW, Tidal Volume, THOR, ABDO, SpO2, PLTH, CPRESS, ETCO2 Wave, ETCO2, pH SLEEP SUMMARY DATA DIAGNOSTIC TREATMENT Lights Out: 10:16:08 PM 12:48:08 AM Lights On: 12:39:38 AM 5:47:08 AM Total Recording Time (TRT): 143.5 min. 299.0 min. Total Sleep Time (TST): 133.0 min. 284.5 min. NREM Time: 104.0 min. 169.0 min. REM Time: 29.0 min. 115.5 min. Sleep Period Time (SPT): 141.0 min. 296.0 min. Sleep Efficiency (SE): 93 % 95 % Sleep Latency: 2.5 min. 3.0 min. Arousal Index: 24.8 7.4 PAP Treatment Levels: 4, 6, 8, 9 * Optimal Pressure(s) SLEEP STAGING DATA DIAGNOSTIC TREATMENT Duration (min) TST % Duration (min) TST % Stage Wake: 10.5 min. -- 14.5 min. -- WASO: 8.0 min. -- 11.5 min. -- NREM: 104.0 min. 78 % 169.0 min. 59 % Stage N1: 14.5 min. 11 % 16.0 min. 6 % Stage N2: 89.5 min. 67 % 137.5 min. 48 % Stage N3: 0.0 min. 0 % 15.5 min. 5 % REM: 29.0 min. 22 % 115.5 min. 41 % POSITIONAL DATA Event Count Index Event Count Index Supine: 2 80.0 21 30.4 Supine NREM: 2 80.0 21 30.4 Supine REM: N/A N/A N/A N/A Non-Supine: 115 50.6 38 9.2 Non-Supine NREM: 84 46.8 34 15.5 Non-Supine REM: 31 64.1 4 2.1 AROUSAL SUMMARY DATA: Event Count Index Event Count Index Apnea Arousals: 23 18.0 2 7.6 Hypopnea Arousals: 17 7.7 3 0.6 Snore Arousals: 11 5.0 7 1.5 PLM Arousals: 1 0.5 10 2.1 Non-Specific Arousals: 3 1.4 7 1.5 Total Arousals: 55 24.8 35 7.4 MYOCLONUS (PLM) Event Count Index Event Count Index PLM: 18 8.1 34 7.2 PLM AROUSAL: 1 0.5 10 2.1 PLM W/O AROUSAL 18 8.1 24 5.1 PLM W/RESP EVENT 0 0.0 2 0.0 MYOCLONUS (PLM) Event Count Index Event Count Index LM: 2 25.3 45 9.5 LM AROUSAL: 2 0.9 5 1.1 LM W/O AROUSAL LM W/RESP EVENT LM NON SPECIFIC 52 23.5 61 12.9 HEART RATE DATA DIAGNOSTIC TREATMENT Sleep (bpm): 67 71 REM (bpm): 86 86 NREM (bpm): 86 88 Tachycardia Count: 0 0 Tachycardia Duration: 0.00 0 Bradycardia Count: 0 0 Bradycardia Duration: 0.00 0 DIAGNOSTIC PORTION TREATMENT PORTION RESPIRATORY DATA Event Count Index Event Count Index AHI: -- 51.0 -- 12.0 RDI: -- 52.8 -- 12 Obstructive Apnea: 29 13.1 0 0.0 Central Apnea: 4 1.8 35 7.4 Mixed Apnea: 7 3.2 1 0.2 Hypopnea: 73 32.9 21 4.4 RERA: 4 1.8 2 0.4 Total Apneas: 40 18.0 36 7.6 RESPIRATORY DATA REM NREM SLEEP REM NREM SLEEP Supine Position: Obstructive Apneas: N/A 1 1 N/A 0 0 Central Apneas: N/A 0 0 N/A 8 8 Mixed Apneas: N/A 1 1 N/A 0 0 Hypopneas: N/A 0 0 N/A 11 11 RERA N/A 0 0 N/A 2 2 Total Supine Events: N/A 2 2 N/A 21 21 Supine AHI: N/A 80.0 80.0 N/A 30.4 30.4 Supine RDI: N/A 80.0 80.0 N/A 33.6 33.6 REM NREM SLEEP REM NREM SLEEP Non-Supine Position: Obstructive Apneas: 16 12 28 0 0 0 Central Apneas: 0 4 4 0 27 27 Mixed Apneas: 1 5 6 0 1 1 Hypopneas: 14 59 73 4 6 10 RERA 0 4 4 0 0 0 Total Supine Events: 31 84 115 4 34 38 Supine AHI: 64.1 46.8 50.6 2.1 15.5 9.2 Supine RDI: 64.1 49.2 52.5 2.1 15.5 9.2 OXYGEN DESTAURATION DATA: Event Count Index Event Count Index REM Desaturations: 29 60.0 4 2.1 NREM Desaturations: 91 52.5 60 21.3 SNORE DATA DIAGNOSTIC TREATMENT Snore Time: 23.9 12:51:08 AM Snore TST%: 7 5 Snore Arousal Count: 11 7 Snore Arousal Index: 5.0 1.5 Desaturation Event Summary: Minimum %SpO2 Event Count Mean/Min/Max Duration(sec.) Desaturation Index % Time In Bed > 90 120 23.2 / 9.5 / 60.0 197.2 8.3 86 - 90 140 25.8 / 8.0 / 60.0 29.5 64.7 81 - 85 9 28.1 / 10.0 / 44.3 5.0 24.4 76 - 80 1 37.5 / 37.5 / 37.5 6.0 2.3 71 - 75 0 N/A 0.0 0.3 66 - 70 0 N/A 0.0 0.0 61 - 65 0 N/A 0.0 0.0 56 - 60 0 N/A 0.0 0.0 51 - 55 0 N/A 0.0 0.0 < 50 0 N/A 0.0 0.0 OXYGEN SATURATION DATA DIAGNOSTIC TREATMENT SpO2 Mean Sleep: 86 % 87 % SpO2 Mean REM: 86 % 86 % SpO2 Mean NREM: 86 % 88 % SpO2 Minimum Sleep: 72 % 74 % SpO2 Minimum REM: 72 % 74 % SpO2 Minimum NREM: 73 % 83 % Time Below 90% (TST): 108.9 246.2 Time Below 88% (TST): 85.0 170.7 Total REM NREM Awake <50% 0.0 min. 0.0 min. 0.0 min. 0.0 min. 51 - 60% 0.0 min. 0.0 min. 0.0 min. 0.0 min. 61 - 70% 0.1 min. 0.0 min. 0.0 min. 0.1 min. 71 - 80% 11.2 min. 8.5 min. 2.6 min. 0.2 min. 81 - 90% 392.3 min. 130.6 min. 245.1 min. 16.6 min. 91 - 100% 36.5 min. 5.3 min. 24.9 min. 6.3 min. Average 87 86 87 89 Minimum SpO2 66 72 73 66 Desaturation Event Index 26.7 13.7 33.2 33.6 # Desat. Events below 89% 176 33 134 9 Time(%) with Saturation below 89% 72.3 28.5 41.4 2.4 Time(min.) with Saturation below 89% 318.1 125.5 182.2 10.4 Recording Airplane Flight Attendant Comments: Mr. Chavarria slept in the left and supine positions. No cardiac arrhythmias were noted. No bruxism noted. Snoring was noted and scored as a 3 on a scale of 1 through 5. (0=no snoring, 5=snoring loud enough to be heard through a closed door or down the rodriguez way) At 12:47 am, he met specific Split-Night criteria during the diagnostic portion of this study. CPAP was initiated at +4 CMH2O and up-titrated to a level of +9 CMH2O, Cflex 3. A Simplus full face mask size medium from [employer] was used during titration. He did not wake up to use the restroom during the night. Mr. Chavarria stated that he slept a little better than usual. The final report will be interpreted and signed by a sleep physician. The completed physician report will then be placed in the patient medical record. Therapy Event: Therapy (cm H20) 0 4 6 8 9 Total Time at Pressure (min.) 143.5 49.8 61.0 111.2 77.0 TST at Pressure (min.) 133.0 46.8 57.0 110.2 70.5 # Periods 1 1 1 1 1 Sleep Onset (min.) 2.5 3.0 0.0 0.0 1.5 REM Onset (min.) 11.0 35.5 0.0 47.7 67.5 Sleep Efficiency % 92 94 93 99 91 Wakefulness (%) 7.3 6.0 6.6 0.9 8.4 Wakefulness (min.) 10.5 3.0 4.0 1.0 6.5 NREM 1 (%) 10.1 5.0 8.2 1.3 9.1 NREM 1 (min.) 14.5 2.5 5.0 1.5 7.0 NREM 2 (%) 62.4 57.2 24.3 39.7 65.0 NREM 2 (min.) 89.5 28.5 14.8 44.2 50.0 NREM 3 (%) 0.0 3.0 0.0 9.0 5.2 NREM 3 (min.) 0.0 1.5 0.0 10.0 4.0 REM (%) 20.2 28.8 60.9 49.0 12.3 REM (min.) 29.0 14.3 37.2 54.5 9.5 # Arousals 55 4 13 4 14 Arousal Index 24.8 5.1 13.7 2.2 11.9 # Snore 1,005 96 82 404 71 Snore Index 453.4 123.0 86.3 220.0 60.4 AHI 51.0 10.3 20.0 4.9 17.9 AHI Supine 80.0 N/A 99.0 6.5 N/A AHI Non-Supine 50.6 10.3 3.8 4.4 17.9 NREM AHI 47.3 11.1 54.4 8.6 20.7 REM AHI 64.1 8.4 1.6 1.1 0.0 RDI 52.8 10.3 21.0 5.4 17.9 # Obstructive 29 0 0 0 0 # Central Ap 4 6 7 6 16 # Mixed 7 0 0 0 1 # Hypopneas 73 2 12 3 4 RERAS 4 0 1 1 0 Total Respiratory Events 117 8 20 10 21 Time Below SpO2 89.00% (min.) 97.1 45.2 46.1 73.7 45.5 Mean NREM SpO2 (%) 86 86 89 88 88 Mean REM SpO2 (%) 86 82 85 87 87 Mean Sleep SpO2 (%) 86 85 87 88 88 Min NREM SpO2 (%) 73 83 85 85 85 Min REM SpO2 (%) 72 74 81 83 85 Position Supine (min.) 1.5 0.0 9.7 27.9 0.0 Position Non-supine (min.) 131.5 46.8 47.3 82.3 70.5 LM Index Sleep 33.4 10.3 24.2 11.4 23.0 LM Index NREM 28.8 1.8 36.3 11.9 25.6 LM Index REM 49.7 29.3 17.8 11.0 6.3 Mean Heart Rate (bpm) 67 72 74 69 69 Min Heart Rate (bpm) 45 56 58 57 57
--- NOTE | 2017-04-12 19:58 | POLYSOMNOGRAPH REPORT ---
CLINICAL DATA: The patient is a 61-year-old male, who recently was hospitalized with respiratory failure and COPD exacerbation. He had very poor arterial blood gases. He was felt to likely have obstructive sleep apnea. He qualified for home BiPAP at the time of discharge. He is not tolerating BiPAP well. He is not wearing it. He comes to the sleep disorder center for a diagnostic sleep study to determine if he has sleep apnea. A split study was performed. The patient has a BMI of 39.62. SLEEP ARCHITECTURE: During the diagnostic portion of the study, the sleep period time was 141 minutes and the total sleep time was 133 minutes. The sleep efficiency was normal at 93%. The sleep latency was 2.5 minutes. Sleep consisted of stage N1 11%, stage N2 67%, stage N3 0%, and stage, REM 22%. During the therapeutic portion of the study, he was treated with nasal CPAP. The sleep period time was 296 minutes. The total sleep time was 284.5 minutes. Sleep efficiency was normal at 95%. Sleep latency was 3 minutes. Sleep consisted of stage N1 6%, stage N2 48%, stage N3 5%, and stage REM 41%. AROUSAL DATA: During the diagnostic portion of the study, the patient had 55 arousals for an index of 24.8. He had 23 apnea arousals, 17 hypopnea arousals, and 11 snoring arousals, 1 PLM arousal, 3 nonspecific arousal. During the therapeutic portion of the study, the patient had 35 arousals for an index of 7.4. He had 2 apnea arousals, 3 hypopnea arousals, 7 snoring arousals, 10 PLM arousals, and 7 nonspecific arousals. EKG: The cardiac rhythm was normal sinus. The cardiac rates ranged from 67-88 beats per minute. There were relatively small number of extrasystoles. PERIODIC LIMB MOVEMENTS DATA: During the diagnostic portion of the study, the patient had 18 periodic limb movements for an index of 8.1. The PLM arousal index was only 0.5. During the therapeutic portion, he had 24 PLMs for an index of 5.1. The PLM arousal index was 2.1. RESPIRATORY DATA: During the diagnostic portion of the study, the patient had a total of 113 respiratory events including 29 obstructive apneas, 4 central apneas, 7 mixed apneas, and 73 hypopneas. Hypopneas were scored according to the 4% desaturation rule. The apnea hypopnea index was severely elevated at 51, and was compatible with severe obstructive sleep apnea. During the treatment portion of the study, the patient had a total of 57 respiratory events including 35 central apneas, 1 mixed apnea, and 21 hypopneas. The apnea hypopnea index was 12.0. The majority of the events were central apneas. OXIMETRY DATA: During the diagnostic portion of the study, the mean saturation was 86% with a minimum saturation of 72%. He had a total of 85 minutes with saturations less than 88%. During the treatment portion of the study, the mean saturation was 87%. The minimum saturation was 74%. He had 170.7 minutes with saturations less than 88%. SOLAR PROCESS ENGINEER COMMENTS: Mr. Chavarria slept in the left and supine positions. No bruxism noted. Snoring was noted and scored as a 3 on a scale of 1 through 5. At 12:47 a.m., he met specific split night criteria during the diagnostic portion of the study. CPAP was initiated at 4 cm and up titrated to a level of 9 cm with C-Flex 3. A Simplus full face mask, size medium made by [employer] was used during the titration. The patient stated he slept a little better than usual. IMPRESSIONS: 1. Obstructive sleep apnea-severe. 2. Complex sleep apnea noted during CPAP titration. 3. Recent history of respiratory failure. COMMENTS: The patient had severe sleep apnea as noted. He was treated with nasal CPAP and generally did well. There was significant improvement in the sleep architecture. He had REM rebound. The arousal index was much improved. He remained hypoxic; however. He developed a moderate number of central apneas, particularly at the final pressure of 9 cm. He then, however, went quite a few minutes without any further centrals. He does have some degree of complex sleep apnea. In light of this, it is difficult to determine at present, an optimum pressure for him. RECOMMENDATIONS: 1. The patient will be started on auto CPAP with a minimum pressure of 6 and a maximum of 15. 2. He is to have an overnight pulse oximetry study done wearing auto CPAP in approximately 1 week. This will help verify his needs for nocturnal oxygen to be instilled into the CPAP. 3. The patient is strongly advised to initiate a weight reduction program in light of his significant elevation a BMI of 39.62. 4. If possible, the patient should avoid sleeping in the supine position. 5. The patient will need to be seen between day 31 and day 90 and he will need compliance data.
== END | disposition home or self-care (01) ==
LOC: C.NEUR 20:00
PROVIDERS: ATTEND Physician Assistant Medical
DX: G47.34 Idiopathic sleep related nonobstructive alveolar hypoventilation (principal); J44.9 Chronic obstructive pulmonary disease, unspecified; R04.2 Hemoptysis; R93.8 Abnormal findings on diagnostic imaging of other specified body structures; S22.49XA Multiple fractures of ribs, unspecified side, initial encounter for closed fracture; X58.XXXA Exposure to other specified factors, initial encounter

== ENCOUNTER → 2017-04-20 | Outpatient (CLI) | payer BC ==
[2017-04-20 10:17] LABS: CHOLESTEROL/HDL RATIO 6.3
== END | disposition home or self-care (01) ==
LOC: C.LAB1850 09:02
PROVIDERS: ATTEND Physician Assistant
DX: E78.5 Hyperlipidemia, unspecified (principal)

== ENCOUNTER → 2017-04-27 | Outpatient (CLI) | payer BC ==
[2017-04-27 11:34] LABS: ALT/SGPT 34 U/L (12-78); AST/SGOT 16 U/L (15-37); BLOOD UREA NITROGEN 20 mg/dl (7-18); BUN/CREATININE RATIO 21.4 (10-20); CALCIUM 8.7 mg/dl (8.5-10.1); CARBON DIOXIDE 29 mmol/L (21-32); CHLORIDE 107 mmol/L (98-107); CREATININE 0.94 mg/dl (0.60-1.40); GLUCOSE 114 mg/dl (70-99); POTASSIUM 3.9 mmol/L (3.5-5.1); SODIUM 142 mmol/L (136-145)
[2017-04-27 11:37] LABS: ALB/GLOB RATIO 0.9 (0.9-2); ALKALINE PHOSPHATASE 100 U/L (45-117)
[2017-04-27 11:59] LABS: BASO % 0.5 %; BASO ABS # 0.05 K/uL (0-0.2); EOS % 2.6 %; HEMATOCRIT 41.4 % (42-52); IG% 0.8 %; LYMPH % 22.7 %; MEAN CELL VOLUME 92.8 fL (80-100); MEAN CORPUSCULAR HEMOGLOBIN 30.9 pg (25-34); MEAN CORPUSCULAR HGB CONC 33.3 g/dl (32-36); MEAN PLATELET VOLUME 9.9 fL (7.4-10.4); MONO % 5.8 %; NEUT % 67.6 %; PLATELET COUNT 357 K/uL (130-400); RED BLOOD COUNT 4.46 M/uL (4.7-6.1); WHITE BLOOD COUNT 9.25 K/uL (4.8-10.8)
[2017-04-27 13:32] LABS: COMPLETE YES
[2017-04-27 16:58] LABS: LYME DISEASE AB IGG NEG (NEG); LYME DISEASE AB IGM NEG (NEG)
== END | disposition home or self-care (01) ==
LOC: C.LABBC 08:58
PROVIDERS: ATTEND Family Medicine
DX: M79.1 Myalgia (principal); D72.829 Elevated white blood cell count, unspecified; I25.10 Atherosclerotic heart disease of native coronary artery without angina pectoris

== ENCOUNTER → 2017-05-01 | Outpatient (CLI) | payer BC ==
[~2017-05-01] MED LIST changes: +REGADENOSON 0.4 MG/5 ML SYR ONE
--- NOTE | 2017-05-02 01:22 | MYOCARDIAL PERFUSION SCAN ---
ONE-DAY NUCLEAR MEDICINE TECHNETIUM-99M CARDIOLITE MYOCARDIAL PERFUSION SCAN STUDY REQUESTED BY: Felicita Alford PA-C. PRIMARY CARE PHYSICIAN: Dr. Ashish Morales. EKG: Baseline EKG showed right bundle-branch block at a ventricular rate of 62. There were no significant ST abnormalities. STRESS EKG: Heart rate lópez from 64 to 78, representing 48% maximum predicted heart rate. Blood pressure lópez from 145/73 to 161/80. There were no Lexiscan-induced ST changes or arrhythmias. TECHNIQUE: For the stress portion of the study, 33 mCi of technetium-99m Cardiolite IV was injected at 11:15 on 05/01/2017. Thirty minutes following the injection, imaging of the heart was performed in multiple projections. For the rest portion of the study, 10.8 mCi of technetium-99m Cardiolite was injected IV at 9:40 a.m. One hour following the injection, imaging of the heart was performed in the same projections. FINDINGS: Rotating raw images were reviewed in detail. There was mild vertical motion in the rest images. There was notable diaphragmatic attenuation in both stress and rest images. There was minimal gut uptake impacting the inferior imaging border of the heart. There was no significant extracardiac pathologic uptake. The short axis, long axis, and vertical long axis images were reviewed in detail. There was no visual TID. There was a subtle, mild, primarily fixed perfusion defect in the base to the mid inferior wall which I suspect is likely artifact in the setting of diaphragm. There was also questionable mild apical thinning. Otherwise, there was normal perfusion throughout. LV size was borderline with end-diastolic volume of 136 mL. EF was 59% with no regional wall motion abnormalities. IMPRESSION: 1. Essentially normal myocardial perfusion scan with no significant Lexiscan-induced ischemia/infarct. 2. Borderline left ventricular size with normal left ventricular function, EF 59%, no regional wall motion abnormalities. 3. Nondiagnostic Lexiscan EKG due to inability to achieve target heart rate.
== END | disposition home or self-care (01) ==
LOC: C.NUCL 09:14
PROVIDERS: ATTEND Physician Assistant
DX: E78.5 Hyperlipidemia, unspecified (principal); I10 Essential (primary) hypertension; R74.8 Abnormal levels of other serum enzymes

== ENCOUNTER → 2017-09-23 | Outpatient (CLI) | payer BC ==
[~2017-09-23] MED LIST changes: -REGADENOSON 0.4 MG/5 ML SYR ONE
[2017-09-23 14:37] LABS: HEMATOCRIT 43.6 % (42-52); MEAN CELL VOLUME 91.8 fL (80-100); MEAN CORPUSCULAR HEMOGLOBIN 31.6 pg (25-34); MEAN CORPUSCULAR HGB CONC 34.4 g/dl (32-36); MEAN PLATELET VOLUME 10.1 fL (7.4-10.4); PLATELET COUNT 268 K/uL (130-400); RED BLOOD COUNT 4.75 M/uL (4.7-6.1); WHITE BLOOD COUNT 11.28 K/uL (4.8-10.8)
[2017-09-23 15:03] LABS: ALT/SGPT 40 U/L (12-78); AST/SGOT 17 U/L (15-37); BLOOD UREA NITROGEN 19 mg/dl (7-18); BUN/CREATININE RATIO 16.2 (10-20); CALCIUM 8.9 mg/dl (8.5-10.1); CARBON DIOXIDE 25 mmol/L (21-32); CHLORIDE 106 mmol/L (98-107); CREATININE 1.16 mg/dl (0.60-1.40); GLUCOSE 95 mg/dl (70-99); POTASSIUM 3.5 mmol/L (3.5-5.1); SODIUM 139 mmol/L (136-145)
[2017-09-23 15:05] LABS: ALKALINE PHOSPHATASE 96 U/L (45-117)
== END | disposition home or self-care (01) ==
LOC: C.LAB1850 13:53
PROVIDERS: ATTEND Physician Assistant
DX: I48.91 Unspecified atrial fibrillation (principal)

== ENCOUNTER 2018-11-28 | Inpatient (IN) ==
[2018-11-28] MEDS ORDERED: ALBUT/IPRATROP 3MG/0.5MG NEB 3 ML VIAL NEB ONE (00:08)
[2018-11-28] MEDS ORDERED: SODIUM CHLORIDE 0.9% 1000ML 1,000 ML IV ONE (00:09)
[2018-11-28 00:27] LABS: Basophils # (auto) 0.02 K/uL (0-0.2); Basophils % (auto) 0.1 %; Hematocrit (blood only) 46.5 % (42-52); Hemoglobin 16.6 g/dL (14.0-18.0); Immature Granulocytes # (auto) 0.04 K/uL (0.00-0.02); Immature Granulocytes % (auto) 0.3 %; Lymphocytes # (auto) 1.79 K/uL (1.2-3.4); Lymphocytes % (auto) 13.3 %; Mean Corpuscular Hgb Conc 35.7 g/dL (32-36); Mean Corpuscular Volume 90.6 fL (80-100); Mean Platelet Volume 10.7 fL (7.4-10.4); Monocytes # (auto) 0.95 K/uL (0.11-0.59); Monocytes % (auto) 7.1 %; Neutrophils # (auto) 10.66 K/uL (1.4-6.5); Neutrophils % (auto) 79.2 %; Platelet Count 237 K/uL (130-400); RDW Coefficient of Variation 13.6 % (11.5-14.5); RDW Standard Deviation 45.3 fL (36.4-46.3); Red Blood Count 5.13 M/uL (4.7-6.1); White Blood Count 13.46 K/uL (4.8-10.8)
[2018-11-28 00:34] LABS: Albumin Level 3.6 gm/dl (3.4-5.0); BUN Creatinine Ratio 23.7 (10-20); Calcium 8.6 mg/dl (8.5-10.1); Creatinine Clr Calc Pharmacy 80.8 ml/min; Est GFR (African American) 79.2; Est GFR (Non-African American) 68.3; Magnesium 1.5 mg/dl (1.8-2.4); Potassium 3.3 mmol/L (3.5-5.1)
[2018-11-28] MEDS ORDERED: MAGNESIUM SULFATE / D5W 1 GM/100 ML BAG IV ONE (00:36)
[2018-11-28 00:37] LABS: Albumin Globulin Ratio 0.9 (0.9-2); Bilirubin,Total 0.6 mg/dl (0.2-1); Globulin 4.1 gm/dl (2.5-4.0); INR 1.2 (0.9-1.1); Partial Thromboplastin Ratio 1.2; Partial Thromboplastin Time 32.2 Seconds (21.0-31.0); Total Protein 7.7 gm/dl (6.4-8.2)
--- NOTE | 2018-11-28 00:42 | Emergency Department Note ---
History of Present Illness General Chief complaint: Shortness of Breath/Dyspnea Stated complaint: sob History of Present Illness This 63-year-old presents to the ER complaining of cough and shortness of breath with flu symptoms Location: Generalized Quality: Aching Severity: Moderate Duration: 1 week Timing: A week ago Context: Symptoms got much worse and patient came in Modifying factors: better with nebulizer; worse with activity Patient saw the family doctor the other day was placed on steroids and Tamiflu. Symptoms are gotten worse. He tested positive for flu. He is on oxygen at night. Patient denies chest pain, abdominal pain, vomiting, diarrhea, leg swelling. No history of CHF. Home Medications Home Medications Medication Instructions Recorded Confirmed Type chlorthalidone 25 mg PO DAILY 07/25/18 11/28/18 History digoxin 0.25 mcg PO PM 07/25/18 07/25/18 History diltiazem HCl 300 mg PO DAILY 07/25/18 07/25/18 History ipratropium-albuterol 3 ml INHALATION BID 07/25/18 11/28/18 History lisinopril 10 mg PO DAILY 07/25/18 07/25/18 History lovastatin 10 mg PO DAILY 07/25/18 07/25/18 History mometasone-formoterol 2 puff INHALATION BID 07/25/18 11/28/18 History rivaroxaban 20 mg PO PM 07/25/18 07/25/18 History oseltamivir 75 mg PO DAILY 11/28/18 11/28/18 History prednisone 20 mg PO DAILY 11/28/18 11/28/18 History Allergies Allergy/AdvReac Type Severity Reaction Status Date / Time Penicillins Allergy Mild HIVES Verified 11/28/18 00:45 Past Med/Surg History Medical History Atrial fibrillation (Chronic) Arrhythmia COPD (chronic obstructive pulmonary disease) HTN (hypertension) Hemorrhoids Hyperlipidemia Kidney stones Family History Father Heart attack Social History Current Living Situation: Spouse Feels Safe at Home: Yes Smoking Status: Former smoker Cigarettes per Day: 1 cig per day on some days, other days none Hx Alcohol Use: Yes (occasional beer. Last use was about 2 weeks ago) Alcohol type: beer Alcohol Intake Frequency: 0-2 drinks per day Hx Substance Use: No Beliefs That Will Affect Care: None Preferred Language: Wallisian Review of Systems All systems reviewed & are unremarkable except as noted in HPI & below Physical Exam Vital Signs Vital Signs - 24 hr 11/28/18 00:04 11/28/18 00:10 11/28/18 00:28 Temperature 37.5 C Temperature Source Oral Sepsis Recent Fever Within 48 Hours Yes Sepsis Action Taken by Nursing Adv Provider Notified Pulse Rate 114 H Pulse Rate [Right Radial] 110 H Respiratory Rate 28 H 26 H Respiratory Effort / Characteristics Labored Respiratory Depth Shallow Respiratory Pattern Regular Blood Pressure 135/85 Blood Pressure [Right Arm] Blood Pressure Mean 101 Blood Pressure Mean [Right Arm] Blood Pressure Position Lying Blood Pressure Position [Right Arm] Pulse Oximetry 96 96 96 Oxygen Delivery Method Non-rebreather Non-rebreather Non-rebreather Oxygen Flow Rate 15 15 15 11/28/18 01:11 Temperature Temperature Source Sepsis Recent Fever Within 48 Hours Sepsis Action Taken by Nursing Pulse Rate Pulse Rate [Right Radial] 117 H Respiratory Rate 22 Respiratory Effort / Characteristics Non-Labored Spontaneous Respiratory Depth Normal Respiratory Pattern Regular Blood Pressure Blood Pressure [Right Arm] 107/68 Blood Pressure Mean Blood Pressure Mean [Right Arm] 81 Blood Pressure Position Blood Pressure Position [Right Arm] Sitting Pulse Oximetry 95 Oxygen Delivery Method Nebulizer Oxygen Flow Rate 7 VITALS: Vitals are noted on the nurse's note and reviewed by myself. Vital signs hypoxic. GENERAL: White male on nonrebreather working to breathe, in acute distress. SKIN: The skin was without rashes, erythema, edema, or bruising. There is no tenting of the skin. Capillary reflex less than 2 seconds. HEAD: Normocephalic atraumatic. EARS: External auditory canals clear, tympanic membranes pearly anne without erythema or effusion bilaterally. EYES: Pupils equal round and reactive to light and accommodation. Conjunctivae without injection, sclerae without icterus. Extraocular movements intact. NOSE: Patent, turbinates without inflammation or discharge. No sinus tenderness. MOUTH: Mucous membranes mildly. Pharynx without erythema or exudate. Uvula midline. Airway patent. Tongue does not deviate. NECK: Supple without nuchal rigidity. No lymphadenopathy. No thyromegaly. Cervical spine is nontender. No JVD. HEART: Tachycardic irregularly irregular LUNGS: Diffuse inspiratory and end expiratory wheezes, + retractions + accessory muscle use. ABDOMEN: Positive bowel sounds x 4. Normal tympanic percussion. Soft, nontender, without masses or organomegaly. Reich sign negative. No guarding or rebound tenderness. No CVA tenderness MUSCULOSKELETAL: No muscle atrophy, erythema, or edema noted. NEURO: Patient was alert and oriented to person place and time. Normal sensation to light and sharp touch. No focal neurological deficits. Course Administered Medications Levofloxacin/Dextrose (Levaquin/D5w) 750 mg in 150 mls @ 100 mls/hr IV NOW STA Stop: 11/28/18 02:13 Last Admin: 11/28/18 01:01 Dose: 100 mls/hr Discontinued Medications Albuterol (Duoneb) 12 ml NEB ONE ONE Stop: 11/28/18 00:09 Last Admin: 11/28/18 00:24 Dose: 12 ml Sodium Chloride (Nss 1000ml) 1,000 mls @ 999 mls/hr IV .Q1H1M ONE Stop: 11/28/18 01:09 Last Infusion: 11/28/18 01:22 Dose: Admin: 11/28/18 00:26 Dose: 999 mls/hr Magnesium Sulfate/Dextrose (Magnesium Sulfate / D5w) 1 gm in 100 mls @ 100 mls/ hr IV ONE ONE Stop: 11/28/18 01:35 Last Admin: 11/28/18 01:01 Dose: 100 mls/hr Medical Decision Making Medical Records Attestation: I reviewed the patient's medical records. Home Medications Current Medication List: was personally reviewed by me Laboratory Data Attestation: I reviewed the patient's lab results. Result diagrams: 11/27/18 23:37 11/27/18 23:37 Lab Results 11/27/18 11/27/18 11/27/18 Range/Units 23:37 23:37 23:37 WBC 13.46 H (4.8-10.8) K/uL RBC 5.13 (4.7-6.1) M/uL Hgb 16.6 (14.0-18.0) g/dL Hct 46.5 (42-52) % MCV 90.6 (80-100) fL MCH 32.4 (25-34) pg MCHC 35.7 (32-36) g/dL RDW Std Deviation 45.3 (36.4-46.3) fL RDW Coeff of Dimple 13.6 (11.5-14.5) % Plt Count 237 (130-400) K/uL MPV 10.7 H (7.4-10.4) fL Immature Gran % (Auto) 0.3 % Neut % (Auto) 79.2 % Lymph % (Auto) 13.3 % [place] % (Auto) 7.1 % Eos % (Auto) 0.0 % Baso % (Auto) 0.1 % Immature Gran # (Auto) 0.04 H (0.00-0.02) K/uL Neut # (Auto) 10.66 H (1.4-6.5) K/uL Lymph # (Auto) 1.79 (1.2-3.4) K/uL [place] # (Auto) 0.95 H (0.11-0.59) K/uL Eos # (Auto) 0.00 (0-0.5) K/uL Baso # (Auto) 0.02 (0-0.2) K/uL PT 12.0 (9.0-12.0) Seconds INR 1.2 H (0.9-1.1) APTT 32.2 H (21.0-31.0) Seconds PTT Ratio 1.2 ABG pH (7.35-7.45) ABG pCO2 (35-46) mmHg ABG pO2 (80-95) mm/Hg ABG HCO3 (19-24) mmol/L ABG O2 Saturation (90-95) % ABG Base Excess (-9-1.8) mEq/L Bao Test (Pos) Barometric Pressure mm/Hg Oxygen Given Sodium 134 L (136-145) mmol/L Potassium 3.3 L (3.5-5.1) mmol/L Chloride 100 (98-107) mmol/L Carbon Dioxide 24 (21-32) mmol/L Anion Gap 11.0 (3-11) BUN 27 H (7-18) mg/dl Creatinine 1.15 (0.6-1.4) mg/dl Est Cr Clr Drug Dosing 80.8 ml/min Est GFR ( Amer) 79.2 Est GFR (Non-Af Amer) 68.3 BUN/Creatinine Ratio 23.7 H (10-20) Glucose 101 H (70-99) mg/dl POC Lactic Acid Wenceslao (0.90-1.70) mmol/L Lactate (0.4-2.0) mmol/L Calcium 8.6 (8.5-10.1) mg/dl Magnesium 1.5 L (1.8-2.4) mg/dl Total Bilirubin 0.6 (0.2-1) mg/dl AST 55 H (15-37) U/L ALT 107 H (12-78) U/L Alkaline Phosphatase 94 (45-117) U/L POC Troponin I (0-0.045) ng/ml Total Protein 7.7 (6.4-8.2) gm/dl Albumin 3.6 (3.4-5.0) gm/dl Globulin 4.1 H (2.5-4.0) gm/dl Albumin/Globulin Ratio 0.9 (0.9-2) Digoxin (0.8-2.0) ng/ml Influenza Type A (PCR) (Neg) Influenza Type B (PCR) (Neg) 11/27/18 11/28/18 11/28/18 Range/Units 23:37 00:22 00:25 WBC (4.8-10.8) K/uL RBC (4.7-6.1) M/uL Hgb (14.0-18.0) g/dL Hct (42-52) % MCV (80-100) fL MCH (25-34) pg MCHC (32-36) g/dL RDW Std Deviation (36.4-46.3) fL RDW Coeff of Dimple (11.5-14.5) % Plt Count (130-400) K/uL MPV (7.4-10.4) fL Immature Gran % (Auto) % Neut % (Auto) % Lymph % (Auto) % [place] % (Auto) % Eos % (Auto) % Baso % (Auto) % Immature Gran # (Auto) (0.00-0.02) K/uL Neut # (Auto) (1.4-6.5) K/uL Lymph # (Auto) (1.2-3.4) K/uL [place] # (Auto) (0.11-0.59) K/uL Eos # (Auto) (0-0.5) K/uL Baso # (Auto) (0-0.2) K/uL PT (9.0-12.0) Seconds INR (0.9-1.1) APTT (21.0-31.0) Seconds PTT Ratio ABG pH (7.35-7.45) ABG pCO2 (35-46) mmHg ABG pO2 (80-95) mm/Hg ABG HCO3 (19-24) mmol/L ABG O2 Saturation (90-95) % ABG Base Excess (-9-1.8) mEq/L Bao Test (Pos) Barometric Pressure mm/Hg Oxygen Given Sodium (136-145) mmol/L Potassium (3.5-5.1) mmol/L Chloride (98-107) mmol/L Carbon Dioxide (21-32) mmol/L Anion Gap (3-11) BUN (7-18) mg/dl Creatinine (0.6-1.4) mg/dl Est Cr Clr Drug Dosing ml/min Est GFR ( Amer) Est GFR (Non-Af Amer) BUN/Creatinine Ratio (10-20) Glucose (70-99) mg/dl POC Lactic Acid Wenceslao 1.48 (0.90-1.70) mmol/L Lactate (0.4-2.0) mmol/L Calcium (8.5-10.1) mg/dl Magnesium (1.8-2.4) mg/dl Total Bilirubin (0.2-1) mg/dl AST (15-37) U/L ALT (12-78) U/L Alkaline Phosphatase (45-117) U/L POC Troponin I (0-0.045) ng/ml Total Protein (6.4-8.2) gm/dl Albumin (3.4-5.0) gm/dl Globulin (2.5-4.0) gm/dl Albumin/Globulin Ratio (0.9-2) Digoxin 0.8 (0.8-2.0) ng/ml Influenza Type A (PCR) Pos for Influ A A* (Neg) Influenza Type B (PCR) Neg for Influ B (Neg) 11/28/18 11/28/18 11/28/18 Range/Units 00:27 00:36 00:36 WBC (4.8-10.8) K/uL RBC (4.7-6.1) M/uL Hgb (14.0-18.0) g/dL Hct (42-52) % MCV (80-100) fL MCH (25-34) pg MCHC (32-36) g/dL RDW Std Deviation (36.4-46.3) fL RDW Coeff of Dimple (11.5-14.5) % Plt Count (130-400) K/uL MPV (7.4-10.4) fL Immature Gran % (Auto) % Neut % (Auto) % Lymph % (Auto) % [place] % (Auto) % Eos % (Auto) % Baso % (Auto) % Immature Gran # (Auto) (0.00-0.02) K/uL Neut # (Auto) (1.4-6.5) K/uL Lymph # (Auto) (1.2-3.4) K/uL [place] # (Auto) (0.11-0.59) K/uL Eos # (Auto) (0-0.5) K/uL Baso # (Auto) (0-0.2) K/uL PT (9.0-12.0) Seconds INR (0.9-1.1) APTT (21.0-31.0) Seconds PTT Ratio ABG pH 7.47 H (7.35-7.45) ABG pCO2 36 (35-46) mmHg ABG pO2 98 H (80-95) mm/Hg ABG HCO3 25 H (19-24) mmol/L ABG O2 Saturation 97.8 H (90-95) % ABG Base Excess 1.7 (-9-1.8) mEq/L Bao Test POS (Pos) Barometric Pressure 721.0 mm/Hg Oxygen Given 15 L Sodium (136-145) mmol/L Potassium (3.5-5.1) mmol/L Chloride (98-107) mmol/L Carbon Dioxide (21-32) mmol/L Anion Gap (3-11) BUN (7-18) mg/dl Creatinine (0.6-1.4) mg/dl Est Cr Clr Drug Dosing ml/min Est GFR ( Amer) Est GFR (Non-Af Amer) BUN/Creatinine Ratio (10-20) Glucose (70-99) mg/dl POC Lactic Acid Wenceslao (0.90-1.70) mmol/L Lactate 1.0 (0.4-2.0) mmol/L Calcium (8.5-10.1) mg/dl Magnesium (1.8-2.4) mg/dl Total Bilirubin (0.2-1) mg/dl AST (15-37) U/L ALT (12-78) U/L Alkaline Phosphatase (45-117) U/L POC Troponin I 0.05 H (0-0.045) ng/ml Total Protein (6.4-8.2) gm/dl Albumin (3.4-5.0) gm/dl Globulin (2.5-4.0) gm/dl Albumin/Globulin Ratio (0.9-2) Digoxin (0.8-2.0) ng/ml Influenza Type A (PCR) (Neg) Influenza Type B (PCR) (Neg) MDM Narrative Prior records/ancillary studies reviewed. Triage Nursing notes reviewed. Additional history obtained from the EMS. The patient's history was concerning for respiratory difficulties. Differential diagnosis: Etiologies such as infections, reactive airway disease, pneumonia, pneumothorax , COPD, CHF, cardiac ischemia, pulmonary embolism, musculoskeletal, gastrointestinal, as well as others were entertained. Physical examination: As above. ER treatment provided: Hour-long nebulizer. EMS are to give the patient Solu-Medrol and nebulizer. IV fluids, magnesium IV On reassessment the patient felt better. Diagnostic interpretation by me: The electrocardiogram was negative irregularly irregular with a right bundle branch block with no acute ST-T wave changes with ventricular rate of 113. Impression atrial fibrillation with RVR with a right bundle branch block. Unchanged from prior. The labs revealed positive flu a Hypomagnesia Imaging studies: Chest x-ray concerning for right lower lobe pneumonia per my interpretation without free air or pneumothorax. Consultation: A consultation was placed with Dr. Gardner, hospitalist. The case was discussed and diagnostics were reviewed. The patient was evaluated in the ER for further treatment. This appears to be consistent with pneumonia with influenza A with hypoxemia and COPD exacerbation. Medicine was consulted. Patient is agreeable treatment plan of admission. He is given antibiotics. He has been on Tamiflu. He was given steroids in the field. He was hydrated as above. He is agreeable treatment plan of admission. By the evaluation outlined above emergent etiologies such as CHF, cardiac ischemia, pulmonary embolism, reactive airway disease, pneumonia, pneumothorax, musculoskeletal, serious bacterial infections , as well as others were deemed relatively unlikely. Curb score is 2. Patient is hypoxic on room air. CURB Score: Confusion: 0 Urea (BUN > 19): 1 Respiratory Rate (>30/min): 1 Blood Pressure: Diastolic <60 or Systolic <90 0 Age (>= 65) 0 Total (0-1 low risk, 2-5 high risk): 2 The pt informed about the findings as listed above. All questions were answered and pleased with the treatment. Case reviewed with my attending The chart was completed utilizing [employer] Speech voice recognition software. Grammatical errors, random word insertions, pronoun errors, and incomplete sentences are an occassional consequence of this system due to software limitations, ambient noise, and hardware issues. Any formal questions or concerns about the content, text, or information contained within the body of this dictation should be directly addressed to the physician desk assistant for clarification. Impression & Plan Pneumonia, Influenza, Hypoxemia, COPD with acute exacerbation Discharge Plan Visit Data Chief Complaint: Shortness of Breath/Dyspnea Stated Complaint: sob ED Provider: Oly Mack ED Midlevel Provider: Imani Ruiz Discharge Problem: Pneumonia, Influenza, Hypoxemia, COPD with acute exacerbation Patient Disposition: Admitted As Inpatient Condition: Fair Forms Stand Alone Forms: My [facility] Prescriptions Prescriptions: No Action ipratropium-albuterol 0.5 mg-3 mg(2.5 mg base)/3 mL solution for nebulization 3 ml Inhalation BID RF: 0 diltiazem HCl 300 mg capsule,extended release 24 hr 300 mg PO DAILY RF: 0 chlorthalidone 25 mg tablet 25 mg PO DAILY RF: 0 digoxin 250 mcg tablet 0.25 mcg PO PM RF: 0 lovastatin 10 mg tablet 10 mg PO DAILY RF: 0 lisinopril 10 mg tablet 10 mg PO DAILY RF: 0 mometasone-formoterol 200-5 mcg/actuation HFA aerosol inhaler 2 puff Inhalation BID RF: 0 rivaroxaban 20 mg tablet 20 mg PO PM RF: 0 prednisone 20 mg Tablet 20 mg PO DAILY RF: 0 oseltamivir 75 mg Capsule 75 mg PO DAILY RF: 0 Referrals Referrals: Felicita Hernández CRNP [Primary Care Provider] -
[2018-11-28] MEDS ORDERED: LEVOFLOXACIN/D5W 750 MG/150 ML BAG IV STA (00:44)
[2018-11-28 00:53] LABS: HCO3 ABG 25 mmol/L (19-24); Oxygen Saturation ABG 97.8 % (90-95); PCO2 ABG 36 mmHg (35-46); PO2 ABG 98 mm/Hg (80-95); pH ABG 7.47 (7.35-7.45)
[2018-11-28 00:57] LABS: Allen Test POS (Pos)
[2018-11-28 01:07] LABS: Influenza B virus by PCR Neg for Influ B (Neg)
[2018-11-28] MEDS ORDERED: dilTIAZem HCl 5 MG/ML 5 ML VIAL IV STA (02:01)
[2018-11-28] MEDS ORDERED: methylPREDNISolone 125 MG/2 ML VIAL IV STA (02:05)
--- NOTE | 2018-11-28 02:10 | History & Physical Report ---
Date of Service November 28, 2018 Assessment & Plan (1) COPD with acute exacerbation: Valentin Chavarria is a 63 y.o male with history of COPD, HTN, A-fib, Pneumonia found to have hypoxia on admission, being admitted for treatment of Pneumonia and COPD exacerbation. 1. Community Acquired Pneumonia -History of recurrent pneumonia with last infection > 1 year ago -Cough and sputum production on clinical findings -portable CXR with interstitial infiltrates in right lower lobe -WBC 13.46 -O2 saturation improved to > 92% since arrival to ED and patient is sitting near edge of bed with productive cough -sputum gm stain/culture pending -Blood cultures obtained -CXR A/P ordered for AM --Levaquin started for CAP, due to allergy to penicillins with not start Ceftriaxone. Patient is expected to improve with assistance of antibiotic treatment 2. COPD Exacerbation -Secondary to CAP infection -Mild/Moderate exacerbation with sputum production and increased O2 needs -Baseline of 4L O2 per NC at night now requiring 7L O2 per NC -Goal sat of 88-92% - CXR shows moderate flattening of diaphragm -AB.47/36/98/25/97.8 indicating mild respiratory alkalosis -Patient is currently working harder to breath and is dyspneic -125mg Methlyprednisolone given en route, will continue with 40mg Methylpred IV TID x 4 days and switch to PO prednisone -Will plan to admit to PCU and provide pulmonary treatment with duonebs, xopenex as needed, and humidified O2. 3. A-fib Tachycardia secondary to nebulized treatments -A-fib findings on PE and EKG -diltiazem IVP given with plan to continue home regimen of Diltiazem -Continue tele monitoring -Continue home regimen of Xarelto and Digoxin 4. HTN -BP is 106-130s/60s-80s -Continue home regimen of Chlorthalidone and Lisinopril 5. Influenza A positive -On day 4/5 of Tamiflu -Complete course of Tamiflu 6. Hypomagnesemia -Likely secondary to loose stools -Mag of 1.5 given 1gm of Mag for replacement -f/u on Mag levels 7. Hypokalemia -likely secondary to mild respiratory alkalosis -K+ of 3.3, given 40meq K+ -F/u on K+ levels, should improve as respiratory status improves FEN/GI Fluids: 0.9Ns at 150cc/hr Electrolytes: monitor and replace Nutrition: NPO until respiratory status improves Activity: bed rest GI PPX: Protonix DVT PPX: Xarelto Code: Full Code Dispo: Inpatient admission in PCU with tele. Dispo to home when at baseline. (2) Pneumonia: (3) Influenza: (4) Hypoxemia: (5) Atrial fibrillation: History of Present Illness Chief Complaint: "I couldn't catch my breath." Primary Care Provider: BASILIO Almaraz Valentin Chavarria is a 63 y.o male with history of COPD, HTN, A-fib, Pneumonia who presents to the ED with complaint that he could not catch his breath. History per patient. He reports symptoms of shortness of breath with activity and rest that have been present x 1 week with worsening of sob on 11/26 and 11/27. States that he should have come to the ED on 11/26 and that he had pneumonia twice in the past. Has been administering nebulizer treatments throughout the day but not finding any relief. Associated symptoms of cough, congestion, subjective fever/chills, muscle/joint aches x 1week with influenza positive testing on . Mucinex taken TID for congestion but did not improve symptoms. Has completed day 4/5 of Tamiflu. Congestion has resolved over the past couple of days and states that since he has been in the ED his cough has become productive. Additionally reports decreased PO intake, nausea, and loose stools on 11/27. History of COPD: normally is on 4L O2 per NC at night. Intermittent cough that is not usually productive. Sick contacts: with Influenza ED Course: Methyl pred given en route, Hypoxic on arrival to ED, given duoneb, Levaquin, and Magnesium. IVF 1L fluid bolus. PMHx: 1.COPD 2. A-fib 3.HTN FHx: Father age 54 due to [place] Social Hx: Unemployed. Lives with in [place]. History of 60pack year with smoking cessation in September of 2018. Denies drug use. Rarely will have a beer. Allergies Allergy/AdvReac Type Severity Reaction Status Date / Time Penicillins Allergy Mild HIVES Verified 11/28/18 00:45 Home Medications Home Medications Medication Instructions Recorded Confirmed Type chlorthalidone 25 mg PO DAILY 07/25/18 11/28/18 History digoxin 0.25 mcg PO PM 07/25/18 07/25/18 History diltiazem HCl 300 mg PO DAILY 07/25/18 07/25/18 History ipratropium-albuterol 3 ml INHALATION BID 07/25/18 11/28/18 History lisinopril 10 mg PO DAILY 07/25/18 07/25/18 History lovastatin 10 mg PO DAILY 07/25/18 07/25/18 History mometasone-formoterol 2 puff INHALATION BID 07/25/18 11/28/18 History rivaroxaban 20 mg PO PM 07/25/18 07/25/18 History oseltamivir 75 mg PO BID 11/28/18 11/28/18 History prednisone 20 mg PO DAILY 11/28/18 11/28/18 History Past Med/Surg History Medical History Atrial fibrillation (Chronic) Arrhythmia COPD (chronic obstructive pulmonary disease) HTN (hypertension) Hemorrhoids Hyperlipidemia Kidney stones Family History Father Heart attack Social History Current Living Situation: Spouse Other Information That Helps Us Care for You: No Feels Safe at Home: Yes Safety Concerns: Feels Safe At This Time Smoking Status: Former smoker Do You Dip or Chew Tobacco: No Hx Alcohol Use: No Hx Substance Use: No Beliefs That Will Affect Care: None Communication Ability: Effective Dispatcher Relay Required: No Review of Systems Constitutional: + fever, + chills, + body aches and + fatigue Eyes: no discharge and no worsening vision Ear, Nose, Mouth, Throat: no dizziness, no sinus pain/pressure, no sore throat and no pain with swallowing Respiratory: + cough, + sputum production (thick and brown) and + wheezing; no chest congestion, no dyspnea and no pain with cough Cardiovascular: + dyspnea on exertion; no chest pain, no chest pain at rest, no palpitations and no syncope Gastrointestinal: + nausea; no heartburn, no vomiting and no constipation Genitourinary (Male): no dysuria and no hematuria Musculoskeletal: no back pain and no neck pain Integumentary: no rash and no lesions Neurologic: no tingling, no numbness and no paresthesia Psychiatric: no depression Physical Exam 2 Vital Signs (Past 24 Hours): Last Vital Signs Temp 37.5 C 11/28/18 00:10 Pulse 117 H 11/28/18 01:11 Resp 22 11/28/18 01:11 BP 107/68 11/28/18 01:11 Pulse Ox 95 11/28/18 01:11 Constitutional: well developed, + acute distress, + ill appearing, + morbidly obese and cooperative; not diaphoretic Eyes: + anicteric sclerae, PERRL and EOM intact bilaterally ENMT: external ear and nose normal. Absent upper and lower teeth. pharynx mild erythema, tonsils 1+ without exudates Neck: supple, nttp, negative LAD Respiratory: + respiratory distress, + labored breathing, + uses accessory muscles, + cough (with production of brown thick sputum), able to speak in complete sentences, + tachypneic and + pursed lip breathing Auscultation: + diminished lung sounds (left base), + rhonchi (bilateral upper lobes) and + wheezes (expiratory wheezes bilateral upper and lower lung monique); no rales Cardiovascular: Rate/Rhythm: + tachycardic Heart Sounds: no murmur Vessels: normal peripheral pulses and dorsalis pedis pulses present irregular rhythm Gastrointestinal (Abdomen): normal bowel sounds, soft, nontender, no hepatosplenomegaly Inspection/Auscultation: no abdominal edema Musculoskeletal: no cyanosis or clubbing, extremities motor strength 5/5 Skin: no rashes, warm and dry normal turgor; no rashes hemosiderin deposition on anterior surface of bilateral lower leg Neurologic: PERRL, EOMI, accommodation nl, no face palsy, no dysarthria CN' s II-XI intact bilaterally Psychiatric: A+Ox3, euthymic affect Results & Data Laboratory Results WBC 13.46 INR 1.2 blood gas: 7.47/36/98/25 Na 134 K+ 3.3 Lactate 1.0 Mg 1.5 Trop 0.005 Influenza A positive Diagnostic Findings CXR: interstitial infiltrates right lung base, no effusion or consolidation identified Medications Administered Methyl prednisolone en route Magnesium 1 gm Duoneb NS IVF ECG Additional Comments: A fib with RVR Rate of 113 Code Status & VTE Plan Code Status Full code VTE Prophylaxis Plan VTE Prophylaxis will be ordered: No Supervising Physician Co-Signing Physician Notes Patient seen and examined, chart reviewed, case discussed with Dr. Morin and I agree with her assessment and plan as documented above. Briefly, patient is a 63yo male with history of COPD on 4L O2 qHS, AF on Xarelto, HTN presenting with progressive dyspnea. Patient was diagnosed with influenza on 11/24/18 and started on Tamiflu and steroid taper. he reports 1 week of progressively worsening SOB with acute worsening today. Minimal relief with home inhalers. Denies fevers, chills. He has a productive cough. On exam he is afebrile, tachycardic, BP stable, tachypneic saturating 96% on 15L O2 (was 87% on room air on arrival). Gen: appears uncomfortable, in mild respiratory distress Skin: warm, dry, intact HEENT: NC/AT, PERRL, dry MM, neck supple, no JVD Heart: +S1/S2, irregularly irregular, no m/r/g, distant heart sounds Lungs: diminished breath sounds, faint end-expiratory wheezing Abd: obese, soft, NT/ND, no masses Ext: no edema, clubbing or cyanosis Labs and images reviewed. WBC=13.46, Ub=213, K=3.3, VBG=7.47/36/48 on 15L. CXR with possible infiltrate. EKG with RBBB, AF at 113bpm. No ischemia Assessment/Plan: Hypoxic respiratory failure secondary to acute exacerbation of COPD, influenza -Admit to PCU -Supplemental O2 as needed, goal saturation 88-92% -Levaquin for possible PNA -Nebs scheduled and PRN -IV Solumedrol -Continue Tamiflu to completion (1 additional day) -Continue Diltiazem, digoxin, Xarelto - will give bolus of digoxin Remainder of plan as above _ (1) Atrial fibrillation Atrial fibrillation type: chronic Qualified Code(s): I48.2 - Chronic atrial fibrillation (2) Pneumonia Aspiration pneumonia type: Laterality: right Lung location: lower lobe of lung Pneumonia type: due to influenza A virus Qualified Code(s): J11.00 - Influenza due to unidentified influenza virus with unspecified type of pneumonia
[2018-11-28] MEDS ORDERED: POLYETHYLENE (MIRALAX) 17 GM PACK PO PRN (03:37)
[2018-11-28] MEDS ORDERED: ACETAMINOPHEN 325 MG TAB PO PRN (03:37)
[2018-11-28] MEDS ORDERED: ONDANSETRON INJ 2 MG/ML 2 ML VIAL IV PRN (03:37)
[2018-11-28] MEDS ORDERED: MAGNESIUM HYDROXIDE SUSP 30 ML UDC PO PRN (03:37)
[2018-11-28] MEDS ORDERED: ALUMINUM/MAGNESIUM SUSP 30 ML UDC PO PRN (03:37)
[2018-11-28] MEDS ORDERED: LEVALBUTEROL 1.25MG/0.5ML NEB NEB PRN (03:37)
[2018-11-28 04:48] LABS: BUN Creatinine Ratio 21.1 (10-20); Calcium 8.2 mg/dl (8.5-10.1); Creatinine Clr Calc Pharmacy 80.8 ml/min; Est GFR (African American) 79.2; Est GFR (Non-African American) 68.3; Potassium 3.2 mmol/L (3.5-5.1)
[2018-11-28] MEDS: methylPREDNISolone 40 MG in SYRINGE 0 ML IV SCH ×3 (04:52→20:17)
[2018-11-28] MEDS: POTASSIUM CHLORIDE / WTR 10 MEQ/100 ML PLCT IV SCH ×4 (04:53→09:07)
[2018-11-28] MEDS: SODIUM CHLORIDE 0.9% 1000ML 1,000 ML IV SCH ×4 (04:54→23:54)
[2018-11-28] MEDS: ALBUT/IPRATROP 3MG/0.5MG NEB 3 ML VIAL INH SCH ×6 (04:58→23:07)
[2018-11-28] MEDS ORDERED: PNEUMOCOCCAL ADMINISTRATION CHARGE ONE (07:45)
[2018-11-28] MEDS ORDERED: PNEUMOCOCCAL POLYSACCHARIDES 25 MCG/0.5 ML VIAL/SYR IM ONE (07:45)
[2018-11-28] MEDS: CHLORTHALIDONE 25 MG TAB PO SCH (07:51)
[2018-11-28] MEDS: OSELTAMIVIR PHOSPHATE 75 MG CAP PO SCH ×2 (07:52→20:17)
[2018-11-28] MEDS: dilTIAZem HCL 300 MG CAPCR PO SCH (07:52)
[2018-11-28] MEDS: LOVASTATIN 20 MG TAB PO SCH (07:53)
[2018-11-28] MEDS: LISINOPRIL 10 MG TAB PO SCH (07:53)
--- NOTE | 2018-11-28 07:59 | XRay Report ---
XR chest 1V portable HISTORY: Sepsis COMPARISON: Chest 11/24/2018. FINDINGS: Emphysema. No pneumothorax. Old, healed left clavicle and left rib fractures. The heart is normal in size. There are new patchy bibasilar airspace opacities. The upper lung zones remain clear. No pleural effusions. IMPRESSION: There are new patchy bibasilar airspace opacities. This likely represents a pneumonia and could be se condary to aspiration. Electronically signed by: Benigno Ordoñez M.D. 11/28/2018 7:58 AM
[2018-11-28] MEDS ORDERED: POTASSIUM CHLORIDE 20 MEQ TABCR PO ONE ×2 (08:30)
[2018-11-28] MEDS ORDERED: OSELTAMIVIR PHOSPHATE 75 MG CAP PO SCH (09:00)
--- NOTE | 2018-11-28 09:41 | Family Medicine Progress Note ---
Date of Service November 28, 2018 Assessment & Plan (1) Pneumonia: Valentin Chavarria is a 63 y.o male with history of COPD, HTN, A-fib, Pneumonia found to have hypoxia on admission, being admitted for treatment of Pneumonia and COPD exacerbation. 1. Community Acquired Pneumonia -History of recurrent pneumonia with last infection > 1 year ago -CXR 11/28: There are new patchy bibasilar airspace opacities. This likely represents a pneumonia and could be secondary to aspiration. -WBC 13.46 on admission -Initially started on Levaquin on admission --> Switch to Azithromycin and Rocephin -At home only uses 4L of oxygen with sleep, and baseline during the day is SpO2 95-97% on RA, currently requiring 3.5L at rest -Supplemental Oxygen to Maintain SpO2 > 90% -Sputum Culture pending -Blood cultures pending 2. COPD Exacerbation -Secondary to CAP infection, antibiotics as above -Mild/Moderate exacerbation with sputum production and increased O2 needs -AB.47/36/98/25/97.8 indicating mild respiratory alkalosis -125mg Methlyprednisolone given en route -40mg Methylpred IV TID -Spiriva added this morning (not on home medication list) -Duonebs, Xopenex, and Humidified O2 PRN 3. A-fib -Diltiazem IVP given with plan to continue home regimen of Diltiazem -Monitor on Telemetry -Continue home Xarelto -Continue home Digoxin 4. HTN -Continue home Chlorthalidone and Lisinopril 5. Influenza A positive -On day 4/ of Tamiflu --> Will receive 3 more doses to complete course 6. Hypomagnesemia -Likely secondary to loose stools -Mag of 1.5 given 1gm of Mag for replacement -Repeat Mg level at 4pm with repeat Trop 7. Hypokalemia -likely secondary to mild respiratory alkalosis -K+ of 3.2 this am after 40 meq IV K --> Ordered another 40meq of PO Klor-Con -Monitor with daily BMP 8. Elevated Troponin - Initial 0.05 --> Repeat at 8am was 0.400 - Repeat Trop at 4pm - Most likely secondary to demand ischemia 2/2 COPD exac/hypoxia and tachycardia DVT - Xarelto Code Status - Full Resuscitation (2) Influenza: (3) COPD with acute exacerbation: (4) Atrial fibrillation: (5) Hypokalemia: (6) DVT prophylaxis: Supervising Physician Co-Signing Physician Notes I personally examined the patient and verified all solorio points of history and exam, discussed case, and agree with decision making with Dr Coyle. He is feeling much better than whenever he came in, breathing better. Vitals noted, in general he is awake alert oriented x3 pleasant no acute distress. HEENT normocephalic atraumatic mucous membranes are moist. Lungs are unlabored no accessory muscle use good effort. Skin shows no rashes, no pallor, no icterus. Mental status is intact Acute hypoxiathis appears to be flu with a superimposed pneumonia all contributing to a COPD exacerbationcontinue Tamiflu, Zithromax, Rocephin, steroids, nebs, supportive care. For his baseline COPD we will add Spiriva so he is got a long-acting anticholinergic Elevated troponinappears to be demand ischemia from above. Continue to follow Subjective Patient is resting comfortably in bed this morning in no acute distress. He states that he is feeling significantly better this morning and denies any significant shortness of breath. He usually does not require oxygen at rest and approximately 4L at bedtimes. Currently on 3.5L at rest. Review of Systems See HPI for pertinent positives and negatives. A total of ten systems were reviewed and were otherwise negative. Physical Exam 2 Vital Signs (Past 24 Hours): Last Vital Signs Temp 36.4 C L 11/28/18 07:40 Pulse 90 11/28/18 07:40 Resp 18 11/28/18 07:40 BP 111/72 11/28/18 07:40 Pulse Ox 95 11/28/18 07:40 GENERAL: Awake, al ert, in no distres s HENT: Normocepha lic, atraumatic. EYES: Normal conju nctiva. Sclera non -icteric. NECK: Goldman pple. RESPIRATORY : Crackles at the bases bilaterally and rhonchi on the right lower lobe CARDIAC: Irregular ly irregular heart rate. Extremities warm and well per fused. Pulses equa l. ABDOMEN: Soft, non-distended. No tenderness to palp ation. RECTAL: Def erred. MUSCULOSKEL ETAL: Chest examin ation reveals no t enderness. The pily k is symmetrical o n inspection witho ut obvious abnorma lity. LOWER EXTR EMITIES: Calves ar e equal size bilat erally and non-ten silvana. No edema. No discoloration. NE URO: Normal sensor ium. No sensory or motor deficits no amadou. SKIN: No gaviota h or jaundice note d. Resident Activity Tracking Resident Involvement: Resident Care Provided Care Provided: [facility] Medicine _ (1) Atrial fibrillation Atrial fibrillation type: chronic Qualified Code(s): I48.2 - Chronic atrial fibrillation (2) Pneumonia Aspiration pneumonia type: Laterality: right Lung location: lower lobe of lung Pneumonia type: due to influenza A virus Qualified Code(s): J11.00 - Influenza due to unidentified influenza virus with unspecified type of pneumonia
[2018-11-28] MEDS: cefTRIAXone SODIUM 1,000 MG in DEXTROSE 5% 50 ML IV SCH (09:59)
[2018-11-28] MEDS ORDERED: AZITHROMYCIN 250 MG TAB PO ONE (10:00)
[2018-11-28] MEDS: TIOTROPIUM BROMIDE 5 PUFF/90 MCG INH INH SCH (10:00)
[2018-11-28] MEDS ORDERED: DIGOXIN 0.25 MG TAB PO SCH (16:00)
[2018-11-28 17:26] LABS: Magnesium 2.1 mg/dl (1.8-2.4); Troponin I 0.312 ng/ml (0-0.045)
[2018-11-28] MEDS ORDERED: RIVAROXABAN 20 MG TAB PO SCH (21:00)
[2018-11-29] MEDS ORDERED: LEVOFLOXACIN/D5W 750 MG/150 ML BAG IV SCH (01:00)
[2018-11-29] MEDS: ALBUT/IPRATROP 3MG/0.5MG NEB 3 ML VIAL INH SCH ×3 (03:47→11:14)
[2018-11-29] MEDS: methylPREDNISolone 40 MG in SYRINGE 0 ML IV SCH ×2 (04:29→13:54)
[2018-11-29] MEDS: SODIUM CHLORIDE 0.9% 1000ML 1,000 ML IV SCH (06:26)
[2018-11-29 07:55] LABS: Basophils # (auto) 0.01 K/uL (0-0.2); Basophils % (auto) 0.1 %; Hematocrit (blood only) 41.4 % (42-52); Hemoglobin 13.8 g/dL (14.0-18.0); Immature Granulocytes # (auto) 0.07 K/uL (0.00-0.02); Immature Granulocytes % (auto) 0.4 %; Lymphocytes # (auto) 0.99 K/uL (1.2-3.4); Lymphocytes % (auto) 5.6 %; Mean Corpuscular Volume 92.2 fL (80-100); Monocytes # (auto) 0.53 K/uL (0.11-0.59); Neutrophils % (auto) 90.9 %; Platelet Count 204 K/uL (130-400); RDW Standard Deviation 47.6 fL (36.4-46.3); Red Blood Count 4.49 M/uL (4.7-6.1)
[2018-11-29 07:57] LABS: Mean Corpuscular Hgb Conc 33.3 g/dL (32-36)
[2018-11-29 08:18] LABS: BUN Creatinine Ratio 16.9 (10-20); Calcium 8.1 mg/dl (8.5-10.1); Creatinine Clr Calc Pharmacy 82.5 ml/min; Est GFR (African American) 80.9; Est GFR (Non-African American) 69.8; Potassium 3.5 mmol/L (3.5-5.1)
[2018-11-29] MEDS ORDERED: AZITHROMYCIN 250 MG TAB PO SCH (09:00)
[2018-11-29] MEDS ORDERED: methylPREDNISolone 125 MG/2 ML VIAL IV SCH (09:00)
[2018-11-29] MEDS ORDERED: PERFLUTREN LIPID MICROSPHERE (DEFINITY) IV ONE (09:10)
[2018-11-29] MEDS: LOVASTATIN 20 MG TAB PO SCH (09:39)
[2018-11-29] MEDS: CHLORTHALIDONE 25 MG TAB PO SCH (09:39)
[2018-11-29] MEDS: dilTIAZem HCL 300 MG CAPCR PO SCH (09:39)
[2018-11-29] MEDS: LISINOPRIL 10 MG TAB PO SCH (09:39)
[2018-11-29] MEDS: cefTRIAXone SODIUM 1,000 MG in DEXTROSE 5% 50 ML IV SCH (09:39)
[2018-11-29] MEDS: OSELTAMIVIR PHOSPHATE 75 MG CAP PO SCH (09:40)
[2018-11-29] MEDS: TIOTROPIUM BROMIDE 5 PUFF/90 MCG INH INH SCH (09:40)
[2018-11-29 09:54] LABS: Appearance Urine Clear (Clear); Bilirubin Urine Negative (Negative); Color Urine Yellow; Glucose Urine UA Negative (Negative); Ketones Urine Negative (Negative); Leukocyte Esterase Urine Negative (Negative); Nitrite Urine Negative (Negative); Protein Urine Negative (Negative); Specific Gravity Urine 1.016 (1.000-1.030); Urobilinogen Urine Negative (Negative)
--- NOTE | 2018-11-29 13:42 | Discharge Summary ---
Date of Service November 29, 2018 Admission HPI Per Admitting Provider Valentin Chavarria is a 63 y.o male with history of COPD, HTN, A-fib, Pneumonia who presents to the ED with complaint that he could not catch his breath. History per patient. He reports symptoms of shortness of breath with activity and rest that have been present x 1 week with worsening of sob on 11/26 and 11/27. States that he should have come to the ED on 11/26 and that he had pneumonia twice in the past. Has been administering nebulizer treatments throughout the day but not finding any relief. Associated symptoms of cough, congestion, subjective fever/chills, muscle/joint aches x 1week with influenza positive testing on . Mucinex taken TID for congestion but did not improve symptoms. Has completed day 4/ of Tamiflu. Congestion has resolved over the past couple of days and states that since he has been in the ED his cough has become productive. Additionally reports decreased PO intake, nausea, and loose stools on 11/27. History of COPD: normally is on 4L O2 per NC at night. Intermittent cough that is not usually productive. Sick contacts: with Influenza ED Course: Methyl pred given en route, Hypoxic on arrival to ED, given duoneb, Levaquin, and Magnesium. IVF 1L fluid bolus. PMHx: 1.COPD 2. A-fib 3.HTN FHx: Father age 54 due to PR Social Hx: Unemployed. Lives with in [place]. History of 60pack year with smoking cessation in September of 2018. Denies drug use. Rarely will have a beer. Principal Diagnosis Pneumonia Discharge Exam Constitutional well developed, + acute distress, + ill appearing, + morbidly obese and cooperative; not diaphoretic Eyes + anicteric sclerae, PERRL and EOM intact bilaterally Respiratory + labored breathing, + cough (with production of brown thick sputum) and able to speak in complete sentences Auscultation: + diminished lung sounds (left base), + rhonchi (bilateral upper lobes) and + wheezes (expiratory wheezes bilateral upper and lower lung monique) ; no rales Cardiovascular Rate/Rhythm: + tachycardic Heart Sounds: no murmur Vessels: normal peripheral pulses and dorsalis pedis pulses present Gastrointestinal (Abdomen) normal bowel sounds, soft, nontender, no hepatosplenomegaly Inspection/Auscultation: no abdominal edema Musculoskeletal no cyanosis or clubbing, extremities motor strength 5/5 Skin no rashes, warm and dry normal turgor; no rashes Neurologic PERRL, EOMI, accommodation nl, no face palsy, no dysarthria CN's II-XI intact bilaterally Psychiatric A+Ox3, euthymic affect Discharge Data Allergies Allergy/AdvReac Type Severity Reaction Status Date / Time Penicillins Allergy Mild HIVES Verified 11/28/18 00:45 Consultations 11/28/18 00:49 ED Decision to Admit Stat 11/28/18 03:37 Consult Case Management - Discharge Planning Routine Hospital Course (1) Pneumonia: Valentin Chavarria is a 63 y.o male with history of COPD, HTN, A-fib, Pneumonia found to have hypoxia on admission, admitted for treatment of Pneumonia and COPD exacerbation. 1. Community Acquired Pneumonia -History of recurrent pneumonia with last infection > 1 year ago -CXR 11/28: patchy bibasilar airspace opacities. Likely represents a pneumonia and could be secondary to aspiration. -WBC 13.46 on admission -Initially started on Levaquin on admission --> Switch to Azithromycin and Rocephin -Will be DC'd on 3 days of azith and 8 days of cefdinir. -At home only uses 4L of oxygen with sleep, and baseline during the day is SpO2 95-97% on RA, was able to perform ambulatory testing without oxygen. -Sputum Culture showed no growth -Blood cultures NGTD 2. COPD Exacerbation -Secondary to CAP infection, antibiotics as above -Mild/Moderate exacerbation with sputum production and increased O2 needs -AB.47/36/98/25/97.8 indicating mild respiratory alkalosis -125mg Methlyprednisolone given en route -40mg Methylpred IV TID, converted to 12 day taper starting with 60mg, decreasing by 10mg q2days -Spiriva added to regimen -Continue home meds 3. A-fib -Home cardizem continued -Monitor on Telemetry -Continue home Xarelto -Continue home Digoxin 4. HTN -Continue home Chlorthalidone and Lisinopril -Monitory BMP on PCP f/u 5. Influenza A positive -Completed tamiflu course in hospital 6. Hypomagnesemia -Likely secondary to loose stools -Mag of 1.5, given 1gm of Mag for replacement 7. Hypokalemia -likely secondary to mild respiratory alkalosis -K+ of 3.2 this am after 40 meq IV K --> Ordered another 40meq of PO Klor-Con, K of 3.5 on DC -Monitor BMP 8. Elevated Troponin - Initial 0.05 --> Repeat at 8am was 0.400-->downtrended to 0.3 - Most likely secondary to demand ischemia 2/2 Afib/ Tachycardia DVTProphylaxis - Xarelto Code Status - Full Resuscitation (2) Influenza: (3) COPD with acute exacerbation: (4) Atrial fibrillation: (5) Hypokalemia: (6) DVT prophylaxis: Total Time Total Time Spent Total Time Spent (In Minutes): <30 Discharge Plan Discharge Items Patient Disposition: Home - Self-Care Reason For Visit: COPD EXACERBATION, PNEUMONIA, A-FIB Discharge Diagnosis: Pneumonia Condition: Fair Discharge Goals: Improve disease control, Improve function, Increase independence and Therapeutic intervention Activity: Per 'Additional Instructions' section Non-emergency contact: Primary Care Provider Call non-emergency contact if: you have any medication questions, your symptoms worsen and your temperature is above 101.5 Follow-up/Referrals: Felicita Hernández CRNP [Primary Care Provider] - 12/03/18 11:00 am (Please, follow up with Felicita RICHMOND on ThursdayDecember 03 at 11:00 am. *If you need to change this appointment, call her office at [phone].) Diet: Heart Healthy Add Provider Instructions: During this admission, you were evaluated and treated for shortness of breath. You were found to have a pneumonia which likely exacerbated your COPD. Going home, you should continue with a course of antibiotics. --THREE more days of AZITHROMYCIN --EIGHT days of CEFDINIR, twice daily You will also need a tapered course of prednisone going home --Take 60 mg x 2 days, 50 x 2 days, 40x 2 days, 30 x 2 days, 20 x 2 days, and 10 x 2 days. --This will take 12 days to complete. You are also being sent a prescription for potassium supplement. Take one daily. Your PCP will recheck your level at your follow up appointment and determine if you need to continue to take the supplement. Continue taking your home meds as usual. You are being started on a new inhaler going home for your COPD. Take this in addition to your usual medications. Please follow up with your PCP within the next week as noted in your paperwork. You will need to have your INR checked per your usual schedule and will need some labwork when you visit your PCP to check your electrolytes. Prescriptions: New azithromycin 250 mg tablet 250 mg PO DAILY 3 Days Qty: 3 RF: 0 tiotropium bromide [Spiriva with HandiHaler] 18 mcg Capsule, W/Inhalation Device 1 puff Inhalation QAM 30 Days Qty: 30 RF: 0 prednisone 10 mg tablet 10 mg PO DAILY Qty: 42 RF: 0 cefdinir 300 mg capsule 300 mg PO BID 8 Days Qty: 16 RF: 0 potassium chloride 10 mEq capsule, extended release 10 meq PO DAILY Qty: 7 RF: 0 Continue ipratropium-albuterol 0.5 mg-3 mg(2.5 mg base)/3 mL solution for nebulization 3 ml Inhalation BID RF: 0 diltiazem HCl 300 mg capsule,extended release 24 hr 300 mg PO DAILY RF: 0 chlorthalidone 25 mg tablet 25 mg PO DAILY RF: 0 digoxin 250 mcg tablet 0.25 mcg PO PM RF: 0 lovastatin 10 mg tablet 10 mg PO DAILY RF: 0 lisinopril 10 mg tablet 10 mg PO DAILY RF: 0 mometasone-formoterol 200-5 mcg/actuation HFA aerosol inhaler 2 puff Inhalation BID RF: 0 rivaroxaban 20 mg tablet 20 mg PO PM RF: 0 Discontinued prednisone 20 mg Tablet 20 mg PO DAILY RF: 0 oseltamivir 75 mg Capsule 75 mg PO BID RF: 0 Visit Report Forms: My [facility] Portal Stand-Alone Forms: My [facility] Discharge Orders: Discharge Order (Routine); Ordered 11/29/18 Ordered By: Yesica Holcomb Admission Data Admit Date/Time: 11/28/18 02:01 Attending Provider: Otis Rausch Admit Provider: Raphael Morin Primary Care Provider: Felicita Hernández I Other Providers: Kavita Gardner Service: Telemetry Other Interventions: Discharge Summary Assessment (RN) Last Done: 11/29/18 13:58 DC Date/Time DO NOT enter until pt leaves facility: 11/29/18 14:38 Supervising Physician Co-Signing Physician Notes I personally examined the patient and verified all solorio points of history and exam, discussed case, and agree with decision making with Dr Velazquez. Feeling better, breathing well on room air, surprisingly 93% with 2 step pulse ox, and wants to go home. Vitals noted, in general he is awake alert oriented x3 pleasant no acute distress. HEENT normal cephalic atraumatic mucous members are moist. Breathing is unlabored no accessory muscles diminished air entry but does little to no adventitious sounds COPD exacerbation caused by flu complicated by superimposed community-acquired bacterial pneumoniahe is improving nicely, his hypoxia is actually improved faster than expected. He is safe to go home. He is finished his Tamiflu. Finish out a course of antibiotics for the pneumonia tapering steroids. For his COPD will add Spiriva as a long-acting anticholinergic. Close PCP follow- up. Resident Activity Tracking Resident Involvement: Resident Care Provided Care Provided: Adult Hospital Medicine
--- NOTE | 2018-12-01 16:08 | Coding Query ---
CODING QUERY To promote full compliance with coding requirements relating to patient care, provider participation is requested in all cases of redeye gunner uncertainty. Please assist us with the question(s) below: Coding Question(s): Patient admitted with positive Influenza A, COPD exacerbation. Progress notes / Discharge Summary mention pneumonia: aspiration , Influenza Pneumonia and Community Acquired Pneumonia. Please check below the type of Pneumonia that was treated during this Inpatient stay. Thank you ! Rory Machado [facility] Physician's Response(s): Aspiration Pneumonia Influenza A Pneumonia ___x___ Community Acquired Pneumonia vs less likely aspiration but cannot be 100% ruled out Cannot Clinically Correlate Other: Please document Principal Diagnosis: "that condition established after study, to be chiefly responsible for occasioning the admission of the patient to the hospital for care." Co-Existing Principal Diagnosis: "when two or more diagnoses equally meet the criteria for principal diagnosis as determined by the circumstances of admission , diagnostic work up, and/or therapy provided, and the Alphabetic Index, Tabular List, or another coding guideline does not provide sequencing direction , any one of the diagnoses may be sequenced first." "When the physician has documented what appears to be a current diagnosis in the body of the record, but has not included the diagnosis in the final diagnostic statement, the physician should be asked whether the diagnosis should be added." (Source Coding [facility] 2 QTR90. p3-4) ABI
== END 2018-11-29 14:38 | disposition home or self-care (01) | DRG 194 ==
LOC: ED → SUATTDRO 02:01 → 2S 02:01

== ENCOUNTER 2018-12-07 07:14 | Inpatient (IN) ==
[2018-12-07] MEDS ORDERED: METOPROLOL TARTRATE 1 MG/ML VIAL IV PRN (07:35)
[2018-12-07 07:43] LABS: Hemoglobin 15.3 g/dL (14.0-18.0); Mean Corpuscular Hgb Conc 33.3 g/dL (32-36); Mean Corpuscular Volume 94.1 fL (80-100); Mean Platelet Volume 9.5 fL (7.4-10.4); Platelet Count 368 K/uL (130-400); RDW Coefficient of Variation 14.5 % (11.5-14.5); RDW Standard Deviation 49.6 fL (36.4-46.3); Red Blood Count 4.89 M/uL (4.7-6.1); White Blood Count 26.04 K/uL (4.8-10.8)
--- NOTE | 2018-12-07 07:45 | XRay Report ---
XR chest 1V portable CLINICAL HISTORY: hemoptysis COMPARISON STUDY: 11/28/2018 FINDINGS: The patient is hyperinflated. There are old rib deformities. There is been resolution of pr eviously described basilar airspace opacities. There is a new very subtle right upper lung zone airsp ely opacity. IMPRESSION: 1. New very subtle right upper lung zone airspace opacity 2. Resolution of the previous described basilar airspace opacities 3. Emphysema Electronically signed by: Med Almanzar M.D. 12/07/2018 7:44 AM
--- NOTE | 2018-12-07 07:48 | Emergency Department Note ---
History of Present Illness General Chief complaint: Respiratory Problems Stated complaint: CAN'T BREATHE,BLOOD IN LUNGS Time Seen by Provider: 12/07/18 07:24 History of Present Illness Maximum Pain Intensity: 5 This is a 63-year-old male who presents to the emergency department via private vehicle with complaints of "cannot breathe, blood in lungs". The patient notes that he was recently admitted on here on November 28 and was discharged. This was for COPD exacerbation and he was feeling better. He notes that yesterday he began with a little gurgling in the chest and when he coughed there was some blood. He notes it came out of his mouth and nose but then subsided. He was doing well until about 2 AM this evening when he awoke and was gurgling again and when he coughed there was blood coming from his mouth and nose. He notes that he had a scope performed 3 years ago and he has no bleeding ulcers that he is aware of. No abdominal pain. He can eat without difficulty. He notes that when he breathes he continues to feel his gurgling in his chest. At this time he denies any chest pain. He notes that he is anxious. He stopped taking the Xarelto yesterday. He takes this for A. fib. Home Medications Home Medications Medication Instructions Recorded Confirmed Type chlorthalidone 25 mg PO DAILY 07/25/18 12/07/18 History digoxin 0.25 mcg PO PM 07/25/18 12/07/18 History diltiazem HCl 300 mg PO DAILY 07/25/18 12/07/18 History ipratropium-albuterol 3 ml INHALATION BID 07/25/18 12/07/18 History lisinopril 10 mg PO DAILY 07/25/18 12/07/18 History lovastatin 10 mg PO DAILY 07/25/18 12/07/18 History mometasone-formoterol 2 puff INHALATION BID 07/25/18 12/07/18 History rivaroxaban 20 mg PO PM 07/25/18 12/07/18 History potassium chloride 10 meq PO DAILY #7 cap 11/29/18 12/07/18 Rx prednisone 10 mg PO DAILY #42 tab 11/29/18 12/07/18 Rx tiotropium bromide [Spiriva with 1 puff INHALATION QAM 30 Days #30 11/29/18 Rx HandiHaler] inha Allergies Allergy/AdvReac Type Severity Reaction Status Date / Time Penicillins Allergy Mild HIVES Verified 12/07/18 07:38 Past Med/Surg History Medical History Atrial fibrillation (Chronic) Arrhythmia COPD (chronic obstructive pulmonary disease) HTN (hypertension) Hemorrhoids Hyperlipidemia Kidney stones Family History Father Heart attack Social History Current Living Situation: Spouse Feels Safe at Home: Yes Smoking Status: Former smoker Cigarettes per Day: 1 cig per day on some days, other days none Hx Alcohol Use: No Hx Substance Use: No Beliefs That Will Affect Care: None Preferred Language: Belarusian Review of Systems A total of 10 systems reviewed and were otherwise negative Physical Exam Vital Signs Vital Signs - 24 hr 12/07/18 07:17 12/07/18 07:32 12/07/18 07:36 Temperature 36.6 C Temperature Source Oral Sepsis Recent Fever Within 48 Hours No Sepsis New/Unexplained Change in Mental Status No Sepsis Action Taken by Nursing No Action Required Pulse Rate 102 H 117 H Pulse Rate [Right Finger] Pulse Rhythm Regular Pulse Rhythm [Right Finger] Pulse Strength [Right Finger] Respiratory Rate 32 H 26 H Respiratory Depth Normal Blood Pressure 142/89 H Blood Pressure [Right Arm] Blood Pressure Mean 106 Blood Pressure Mean [Right Arm] Blood Pressure Position [Right Arm] Pulse Oximetry 92 92 97 Oxygen Delivery Method Room Air Oxymask Oxymask Oxygen Flow Rate 0 15 Fraction of Inspired Oxygen 12/07/18 07:45 12/07/18 07:52 12/07/18 08:04 Temperature Temperature Source Sepsis Recent Fever Within 48 Hours Sepsis New/Unexplained Change in Mental Status Sepsis Action Taken by Nursing Pulse Rate 108 H Pulse Rate [Right Finger] 102 H 91 H Pulse Rhythm Pulse Rhythm [Right Finger] Regular Regular Pulse Strength [Right Finger] Normal Normal Respiratory Rate 17 16 Respiratory Depth Normal Blood Pressure 142/90 H Blood Pressure [Right Arm] 154/111 H 103/89 Blood Pressure Mean Blood Pressure Mean [Right Arm] 125 93 Blood Pressure Position [Right Arm] Sitting Sitting Pulse Oximetry 95 97 Oxygen Delivery Method Oxymask Room Air Oxygen Flow Rate 15 Fraction of Inspired Oxygen 12/07/18 09:02 12/07/18 09:09 12/07/18 09:37 Temperature Temperature Source Sepsis Recent Fever Within 48 Hours Sepsis New/Unexplained Change in Mental Status Sepsis Action Taken by Nursing Pulse Rate 100 H 97 H 113 H Pulse Rate [Right Finger] 108 H Pulse Rhythm Pulse Rhythm [Right Finger] Pulse Strength [Right Finger] Respiratory Rate 20 18 27 H Respiratory Depth Blood Pressure 118/79 137/90 Blood Pressure [Right Arm] 137/90 Blood Pressure Mean 92 105 Blood Pressure Mean [Right Arm] 105 Blood Pressure Position [Right Arm] Pulse Oximetry 97 97 92 Oxygen Delivery Method Nasal Cannula Oxygen Flow Rate 5 Fraction of Inspired Oxygen 12/07/18 09:51 12/07/18 09:56 12/07/18 10:01 Temperature Temperature Source Sepsis Recent Fever Within 48 Hours Sepsis New/Unexplained Change in Mental Status Sepsis Action Taken by Nursing Pulse Rate 111 H 117 H 106 H Pulse Rate [Right Finger] Pulse Rhythm Pulse Rhythm [Right Finger] Pulse Strength [Right Finger] Respiratory Rate 23 24 30 H Respiratory Depth Blood Pressure 126/101 H 155/112 H 150/86 H Blood Pressure [Right Arm] Blood Pressure Mean 109 126 107 Blood Pressure Mean [Right Arm] Blood Pressure Position [Right Arm] Pulse Oximetry 94 97 93 Oxygen Delivery Method Oxygen Flow Rate Fraction of Inspired Oxygen 12/07/18 10:06 12/07/18 10:09 12/07/18 10:12 Temperature Temperature Source Sepsis Recent Fever Within 48 Hours Sepsis New/Unexplained Change in Mental Status Sepsis Action Taken by Nursing Pulse Rate 107 H 103 H 111 H Pulse Rate [Right Finger] Pulse Rhythm Pulse Rhythm [Right Finger] Pulse Strength [Right Finger] Respiratory Rate 30 H 22 33 H Respiratory Depth Blood Pressure 176/82 H 157/109 H Blood Pressure [Right Arm] Blood Pressure Mean 113 125 Blood Pressure Mean [Right Arm] Blood Pressure Position [Right Arm] Pulse Oximetry 95 97 95 Oxygen Delivery Method Oxygen Flow Rate Fraction of Inspired Oxygen 12/07/18 10:16 12/07/18 10:21 12/07/18 10:27 Temperature Temperature Source Sepsis Recent Fever Within 48 Hours Sepsis New/Unexplained Change in Mental Status Sepsis Action Taken by Nursing Pulse Rate 111 H 104 H 112 H Pulse Rate [Right Finger] Pulse Rhythm Pulse Rhythm [Right Finger] Pulse Strength [Right Finger] Respiratory Rate 21 31 H 28 H Respiratory Depth Blood Pressure 128/92 155/87 H 141/100 H Blood Pressure [Right Arm] Blood Pressure Mean 104 109 113 Blood Pressure Mean [Right Arm] Blood Pressure Position [Right Arm] Pulse Oximetry 88 L 96 94 Oxygen Delivery Method Oxygen Flow Rate Fraction of Inspired Oxygen 12/07/18 10:31 12/07/18 10:39 12/07/18 10:41 Temperature Temperature Source Sepsis Recent Fever Within 48 Hours Sepsis New/Unexplained Change in Mental Status Sepsis Action Taken by Nursing Pulse Rate 116 H 96 H 91 H Pulse Rate [Right Finger] Pulse Rhythm Pulse Rhythm [Right Finger] Pulse Strength [Right Finger] Respiratory Rate 23 Respiratory Depth Blood Pressure 133/91 141/77 H 134/99 Blood Pressure [Right Arm] Blood Pressure Mean 105 98 110 Blood Pressure Mean [Right Arm] Blood Pressure Position [Right Arm] Pulse Oximetry 96 95 82 L Oxygen Delivery Method Oxygen Flow Rate Fraction of Inspired Oxygen 12/07/18 10:47 12/07/18 10:51 12/07/18 10:55 Temperature Temperature Source Sepsis Recent Fever Within 48 Hours Sepsis New/Unexplained Change in Mental Status Sepsis Action Taken by Nursing Pulse Rate 89 97 H 100 H Pulse Rate [Right Finger] Pulse Rhythm Pulse Rhythm [Right Finger] Pulse Strength [Right Finger] Respiratory Rate 14 Respiratory Depth Blood Pressure 159/91 H 134/83 Blood Pressure [Right Arm] Blood Pressure Mean 113 100 Blood Pressure Mean [Right Arm] Blood Pressure Position [Right Arm] Pulse Oximetry 91 92 98 Oxygen Delivery Method Oxygen Flow Rate Fraction of Inspired Oxygen 100 12/07/18 10:57 12/07/18 11:01 12/07/18 11:06 Temperature Temperature Source Sepsis Recent Fever Within 48 Hours Sepsis New/Unexplained Change in Mental Status Sepsis Action Taken by Nursing Pulse Rate 104 H 110 H 115 H Pulse Rate [Right Finger] Pulse Rhythm Pulse Rhythm [Right Finger] Pulse Strength [Right Finger] Respiratory Rate Respiratory Depth Blood Pressure 159/118 H 171/97 H 159/99 H Blood Pressure [Right Arm] Blood Pressure Mean 131 121 119 Blood Pressure Mean [Right Arm] Blood Pressure Position [Right Arm] Pulse Oximetry 95 97 98 Oxygen Delivery Method Oxygen Flow Rate Fraction of Inspired Oxygen 12/07/18 11:11 12/07/18 11:16 12/07/18 11:18 Temperature Temperature Source Sepsis Recent Fever Within 48 Hours Sepsis New/Unexplained Change in Mental Status Sepsis Action Taken by Nursing Pulse Rate 108 H 104 H 97 H Pulse Rate [Right Finger] Pulse Rhythm Pulse Rhythm [Right Finger] Pulse Strength [Right Finger] Respiratory Rate Respiratory Depth Blood Pressure 137/101 H 148/72 H Blood Pressure [Right Arm] Blood Pressure Mean 113 97 Blood Pressure Mean [Right Arm] Blood Pressure Position [Right Arm] Pulse Oximetry 95 Oxygen Delivery Method Oxygen Flow Rate Fraction of Inspired Oxygen 12/07/18 11:20 12/07/18 12:06 Temperature Temperature Source Sepsis Recent Fever Within 48 Hours Sepsis New/Unexplained Change in Mental Status Sepsis Action Taken by Nursing Pulse Rate 101 H 96 H Pulse Rate [Right Finger] Pulse Rhythm Pulse Rhythm [Right Finger] Pulse Strength [Right Finger] Respiratory Rate Respiratory Depth Blood Pressure 164/83 H Blood Pressure [Right Arm] Blood Pressure Mean Blood Pressure Mean [Right Arm] Blood Pressure Position [Right Arm] Pulse Oximetry 99 Oxygen Delivery Method Mechanical Vent Oxygen Flow Rate Fraction of Inspired Oxygen VITAL SIGNS - Vital signs and nursing notes were reviewed. Stable. GENERAL - 63-year-old male appearing his stated age who is sitting upright in the examination bed, with visible increased work of breathing. Communicates well with provider and answers questions appropriately. There is blood noted around the patient's mouth and nose. SKIN - Without rashes. HEAD - NC/AT. EYES - PERRL with EOMI bilaterally. Sclera anicteric. EARS - No deformities of external structures noted on gross examination bilaterally. NOSE - Midline and without cyanosis. There is blood in the mouth and nose. MOUTH/OROPHARYNX - Without perioral cyanosis. Buccal mucosa pink and moist and without leukoplakia. Tongue midline with equal elevation of palate bilaterally. No tonsillar hypertrophy, erythema, or exudates noted. There is blood in the posterior pharynx noted. Fair dentition noted. NECK - Neck with FROM. Supple to palpation. No lymphadenopathy noted. No nuchal rigidity. LUNGS -chest wall expansion symmetric with inspiration, with increased respiratory rate. There is wheezing noted bilaterally. CARDIAC -irregular rate and rhythm with S1/S2. No murmur, rubs, or gallops appreciated. ABDOMEN - Abdominal contour normal without pulsations or visible masses. BS normoactive all four quadrants. No tenderness, palpable masses, hepatosplenomegaly, or ascites noted. EXTREMITIES - No clubbing or peripheral cyanosis. No pretibial edema present. +5 /5 strength noted in UE/LE bilaterally. NEUROLOGIC - Cranial nerves II through XII grossly intact. Sensory intact to light touch throughout. PSYCH - A&Ox3 and cooperates fully with examiner. Pt is very pleasant and interacts well with examiner. Course Administered Medications Fentanyl Citrate (Fentanyl Drip) 1,250 mcg in 250 mls @ 5 mls/hr IV .Q24H ARTUR; Protocol Stop: 12/21/18 10:44 Last Admin: 12/07/18 10:56 Dose: 25 mcg/hr, 5 mls/hr Ioversol (Optiray 320 100ml) 93 ml IV ONCE PRN PRN Reason: Interaction Checking Stop: 12/11/18 12:11 Last Admin: 12/07/18 12:13 Dose: 93 ml Metoprolol Tartrate (Lopressor) 5 mg IV Q5M PRN PRN Reason: Tachycardia Stop: 01/06/19 07:34 Last Admin: 12/07/18 07:45 Dose: 5 mg Discontinued Medications Fentanyl Citrate (Fentanyl Citrate) Confirm Administered Dose 100 mcg .ROUTE .STK-MED ONE Stop: 12/07/18 10:38 Last Increment: 12/07/18 10:38 Dose: 50 mcg Midazolam HCl (Versed) Confirm Administered Dose 2 mg .ROUTE .STK-MED ONE Stop: 12/07/18 09:56 Last Increment: 12/07/18 10:12 Dose: 1 mg Increment: 12/07/18 09:56 Dose: 1 mg Miscellaneous () Confirm Administered Dose 1 ea .ROUTE .STK-MED ONE Stop: 12/07/18 09:32 Last Admin: 12/07/18 09:45 Dose: 1 ea Propofol (Diprivan) Confirm Administered Dose 1,000 mg IV .STK-MED ONE Stop: 12/07/18 10:35 Last Admin: 12/07/18 11:06 Dose: 50 mg Medical Decision Making Laboratory Data Result diagrams: 12/07/18 07:25 12/07/18 07:25 Lab Results 12/07/18 12/07/18 12/07/18 Range/Units 07:25 07:25 07:25 WBC 26.04 H (4.8-10.8) K/uL RBC 4.89 (4.7-6.1) M/uL Hgb 15.3 (14.0-18.0) g/dL Hct 46.0 (42-52) % MCV 94.1 (80-100) fL MCH 31.3 (25-34) pg MCHC 33.3 (32-36) g/dL RDW Std Deviation 49.6 H (36.4-46.3) fL RDW Coeff of Dimple 14.5 (11.5-14.5) % Plt Count 368 (130-400) K/uL MPV 9.5 (7.4-10.4) fL Neutrophils % (Manual) 72.4 % Band Neutrophils % 0.0 % Lymphocytes % (Manual) 19.3 % Reactive Lymphs % (Man) 0.0 % Monocytes % (Manual) 8.3 % Neutrophils # (Manual) 18.85 H (1.4-6.5) K/uL Total Absolute Neuts 18.85 H (1.4-6.5) K/uL Lymphocytes # (Manual) 5.03 H (1.2-3.4) K/uL Total Abs Lymphocytes 5.03 H (1.2-3.4) K/uL Monocytes # (Manual) 2.16 H (0.11-0.59) K/uL Large Granular Lymphs 0.0 % Blood Smear Review RBC Morphology Unremarkable PT 10.7 (9.0-12.0) Seconds INR 1.1 (0.9-1.1) APTT 23.8 (21.0-31.0) Seconds PTT Ratio 0.9 VBG pH (7.36-7.41) VBG pCO2 (38-50) mmHg VBG pO2 mmHg VBG HCO3 mmol/L VBG O2 Saturation % VBG Base Excess mEq/L Barometric Pressure mm/Hg Sodium 138 (136-145) mmol/L Potassium 3.9 (3.5-5.1) mmol/L Chloride 103 (98-107) mmol/L Carbon Dioxide 27 (21-32) mmol/L Anion Gap 9.0 (3-11) BUN 42 H (7-18) mg/dl Creatinine 1.19 (0.6-1.4) mg/dl Est Cr Clr Drug Dosing 79.0 ml/min Est GFR ( Amer) 76.0 Est GFR (Non-Af Amer) 65.5 BUN/Creatinine Ratio 35.0 H (10-20) Glucose 89 (70-99) mg/dl Calcium 8.4 L (8.5-10.1) mg/dl Magnesium 1.6 L (1.8-2.4) mg/dl Total Bilirubin 0.5 (0.2-1) mg/dl AST 10 L (15-37) U/L ALT 60 (12-78) U/L Alkaline Phosphatase 76 (45-117) U/L Troponin I 0.015 (0-0.045) ng/ml Total Protein 6.7 (6.4-8.2) gm/dl Albumin 2.9 L (3.4-5.0) gm/dl Globulin 3.8 (2.5-4.0) gm/dl Albumin/Globulin Ratio 0.8 L (0.9-2) Digoxin (0.8-2.0) ng/ml Blood Type Antibody Screen Crossmatch 12/07/18 12/07/18 12/07/18 Range/Units 07:54 07:54 11:48 WBC (4.8-10.8) K/uL RBC (4.7-6.1) M/uL Hgb (14.0-18.0) g/dL Hct (42-52) % MCV (80-100) fL MCH (25-34) pg MCHC (32-36) g/dL RDW Std Deviation (36.4-46.3) fL RDW Coeff of Dimple (11.5-14.5) % Plt Count (130-400) K/uL MPV (7.4-10.4) fL Neutrophils % (Manual) % Band Neutrophils % % Lymphocytes % (Manual) % Reactive Lymphs % (Man) % Monocytes % (Manual) % Neutrophils # (Manual) (1.4-6.5) K/uL Total Absolute Neuts (1.4-6.5) K/uL Lymphocytes # (Manual) (1.2-3.4) K/uL Total Abs Lymphocytes (1.2-3.4) K/uL Monocytes # (Manual) (0.11-0.59) K/uL Large Granular Lymphs % Blood Smear Review RBC Morphology PT (9.0-12.0) Seconds INR (0.9-1.1) APTT (21.0-31.0) Seconds PTT Ratio VBG pH 7.43 H (7.36-7.41) VBG pCO2 45 (38-50) mmHg VBG pO2 39 mmHg VBG HCO3 29 mmol/L VBG O2 Saturation 73.7 % VBG Base Excess 4.0 mEq/L Barometric Pressure 726.7 mm/Hg Sodium (136-145) mmol/L Potassium (3.5-5.1) mmol/L Chloride (98-107) mmol/L Carbon Dioxide (21-32) mmol/L Anion Gap (3-11) BUN (7-18) mg/dl Creatinine (0.6-1.4) mg/dl Est Cr Clr Drug Dosing ml/min Est GFR ( Amer) Est GFR (Non-Af Amer) BUN/Creatinine Ratio (10-20) Glucose (70-99) mg/dl Calcium (8.5-10.1) mg/dl Magnesium (1.8-2.4) mg/dl Total Bilirubin (0.2-1) mg/dl AST (15-37) U/L ALT (12-78) U/L Alkaline Phosphatase (45-117) U/L Troponin I (0-0.045) ng/ml Total Protein (6.4-8.2) gm/dl Albumin (3.4-5.0) gm/dl Globulin (2.5-4.0) gm/dl Albumin/Globulin Ratio (0.9-2) Digoxin 1.0 (0.8-2.0) ng/ml Blood Type O Positive Antibody Screen NEGATIVE Crossmatch See Detail Imaging Data Radiologist's Impression: XR chest 1V portable CLINICAL HISTORY: hemoptysis COMPARISON STUDY: 11/28/2018 FINDINGS: The patient is hyperinflated. There are old rib deformities. There is been resolution of previously described basilar airspace opacities. There is a new very subtle right upper lung zone airspace opacity. IMPRESSION: 1. New very subtle right upper lung zone airspace opacity 2. Resolution of the previous described basilar airspace opacities 3. Emphysema Electronically signed by: Med Almanzar M.D. 12/07/2018 7:[address] chest w con CT DOSE: 3271.96 mGy.cm HISTORY: Dyspnea hemoptysis TECHNIQUE: Multiaxial CT images of the chest were performed following the intravenous administration of contrast. A dose lowering technique was utilized adhering to the principles of ALARA. COMPARISON: 03/24/2017 FINDINGS: Endotracheal tube is located in the left mainstem bronchus. This should be pulled back several centimeters. . Immediate and developing parenchymal infiltrative changes of the left base which are potentially postobstructive. Pre-existing infiltrative changes in the right midlung are present. There are also early developing parenchymal infiltrative changes right lower lobe. Thoracic aorta is normal in course and caliber. IMPRESSION: 1. Endotracheal tube positioned within the left mainstem bronchus. This should be pulled back several centimeters 2. Parenchymal infiltrate right midlung and right lower lobe. 3. Potential postobstructive infiltrative change left lower lobe. The above report was generated using voice recognition software. It may contain grammatical, syntax or spelling errors. Electronically signed by: Ivan Huertas M.D. 12/07/2018 12:[address] abd pelvis IV con only CLINICAL HISTORY: 63 years-old Male presenting with Hemoptysis, dyspnea. TECHNIQUE: Multidetector CT of the abdomen and pelvis was performed after the administration of intravenous contrast. IV contrast: 93 mL of Optiray 320. One or more dose lowering techniques were used consistent with the principles of ALARA (as low as reasonably achievable), including automatic exposure control, mA or kV adjustment to individual patient size, and/or use of iterative reconstruction. COMPARISON: 07/25/2018. CT DOSE (mGy.cm): The estimated cumulative dose is 3271.96. FINDINGS: Social Work Program Coordinator topogram: Left mainstem bronchus intubation. Cardiomegaly. Lung bases: Extensive dependent predominant patchy groundglass and solid nodular consolidation at the lung bases. This is on a background of moderate to severe centrilobular emphysema. Multichamber enlargement of the heart. Coronary artery calcification. No pericardial or pleural effusion. Liver: Normal morphology. No liver lesion. Patent hepatic vasculature. Biliary: No intrahepatic or extrahepatic biliary ductal dilatation. Layering high density in the gallbladder may indicate sludge. Pancreas: Mild parenchymal atrophy. Spleen: Normal. Adrenal glands: Normal. Kidneys and ureters: Multiple punctate nonobstructing renal calculi at the lower poles of the kidneys. Either prior infarct or a small cyst is suggested at the anterior aspect of the interpolar region of the right kidney (series 7 image 233). Exophytic high density subcentimeter lesion at the upper pole the right kidney unchanged in size (series 7 image 181). No hydronephrosis. Ureters nondistended. Bladder: Circumferential bladder wall thickening. Pelvic organs: Prostate enlargement likely secondary to benign prostatic hyperplasia. Bowel: Interval resolution of perianal and ischioanal fossa inflammatory change. No fluid collection along the anus. Normal appendix. No bowel obstruction. Duodenal diverticulum noted. Peritoneal cavity: No free fluid or intraperitoneal gas. Lymph nodes: No enlarged lymph nodes in the abdomen or pelvis. Vasculature: Atherosclerosis of the normal caliber abdominal aorta. IVC patent. Abdominal wall: Fat-containing inguinal hernias. Small umbilical hernia. Musculoskeletal: Degenerative changes of the spine. Lipoma noted in the left gluteus piedad muscle. IMPRESSION: 1. Extensive dependent consolidation most compatible with aspiration/ aspiration pneumonitis. 2. Left mainstem bronchus intubation. Repositioning recommended unless this is intentional. 3. Bilateral nonobstructing nephrolithiasis. 4. Subcentimeter high density right upper pole renal lesion concerning for a solid enhancing lesion. Attention on follow-up. 5. No acute intra-abdominal pathology. Electronically signed by: Anshul Hurt M.D. 12/07/2018 12:29 PM [facility] Narrative Patient was seen and evaluated as above. Review was performed of nursing notes and vital signs. After obtaining a thorough history and physical examination the above work up was performed. He presents to us today with hemoptysis. He last took his Xarelto yesterday morning. Patient is in the tripod position and initially upon my entrance into the examination room however after talking with the patient he was able to become calm and was resting comfortably in the upright position. Attending physician was notified who also came to bedside to evaluate the patient. CBC reveals leukocytosis of 26.04, no significant anemia , no metabolic emergency. PH 7.43 on VBG. BUN at 42. Calcium and magnesium are low. Troponin negative. Type and screen as well as 2 units were ordered to be held. This was secondary to the patient's persistent bleeding. Chest x- ray was obtained. Results as above. There is note of a very subtle right upper lung zone airspace opacity. An EKG was performed at bedside and reveals atrial fibrillation with RVR. This was similar to compared to previous. Given his heart rate of 120 Lopressor was given. He had a good response to this. Troponin is negative. The decision was then made to send the patient to CT to better evaluate the chest and abdomen as his vital signs were stable. I was emergently called by CT as the patient could not breathe while lying supine. I immediately went down to patient bedside in the CT scanner, and gurgling sound was heard in the airway and he was immediately sat up and was able to breathe better. Decision was made then to contact the ICU attending who came down and was able to perform visual inspection via camera. Patient was then intubated. He was able to be successfully scanned down at the CT suite. I also discussed this with the on-call thoracic surgeon, Dr. Santana. I also notified the not any hospitalist, Dr. Shelton. He will be taken to the ICU for further evaluation management. Please refer to further documentation regarding his stay. Case was discussed with the attending physician. I attest that I have personally reviewed the patient medication list. I attest that I have reviewed the patient's blood pressure and it was found to be elevated likely secondary to presentation. In the evaluation and treatment of this patient the following differential diagnoses were entertained: Hemoptysis, mass, supratherapeutic anticoagulation, GI bleed, posterior nosebleed, among others. Impression & Plan Hemoptysis, Atrial fibrillation Discharge Plan Visit Data Chief Complaint: Respiratory Problems Stated Complaint: CAN'T BREATHE,BLOOD IN LUNGS ED Provider: Purnima Matias ED Midlevel Provider: Saul Aguirre Discharge Problem: Hemoptysis, Atrial fibrillation Patient Disposition: Admitted As Inpatient Condition: Fair Discharge Instructions Interventions: ED Discharge Assessment Last Done: 12/07/18 12:06
[2018-12-07 07:56] LABS: INR 1.1 (0.9-1.1); Partial Thromboplastin Ratio 0.9; Partial Thromboplastin Time 23.8 Seconds (21.0-31.0); Prothrombin Time 10.7 Seconds (9.0-12.0)
[2018-12-07 07:58] LABS: Albumin Level 2.9 gm/dl (3.4-5.0); Calcium 8.4 mg/dl (8.5-10.1); Est GFR (Non-African American) 65.5; Magnesium 1.6 mg/dl (1.8-2.4); Potassium 3.9 mmol/L (3.5-5.1)
[2018-12-07 08:03] LABS: Albumin Globulin Ratio 0.8 (0.9-2); Bilirubin,Total 0.5 mg/dl (0.2-1); Globulin 3.8 gm/dl (2.5-4.0); Total Protein 6.7 gm/dl (6.4-8.2); Troponin I 0.015 ng/ml (0-0.045)
[2018-12-07 08:06] LABS: Oxygen Saturation VBG 73.7 %; pH VBG 7.43 (7.36-7.41)
[2018-12-07 08:18] LABS: ALC (manual) 5.03 K/uL (1.2-3.4); Lymphocytes # (manual) 5.03 K/uL (1.2-3.4); Lymphocytes % (manual) 19.3 %; Monocytes # (manual) 2.16 K/uL (0.11-0.59); Monocytes % (manual) 8.3 %; Neutrophils % (manual) 72.4 %; RBC Morphology Unremarkable
[2018-12-07] MEDS ORDERED: RAPID SEQUENCE INDUCTION BAG ONE (09:31)
[2018-12-07] MEDS ORDERED: MIDAZOLAM HCL 1 MG/ML 2ML VIAL ONE (09:55)
[2018-12-07] MEDS ORDERED: fentaNYL citrate 100 MCG/2 ML VIAL IV PRN ×3 (10:32→12:54)
[2018-12-07] MEDS ORDERED: PROPOFOL IV EMULSION 10 MG/ML 100 ML VIAL IV ONE (10:34)
[2018-12-07] MEDS ORDERED: fentaNYL citrate 100 MCG/2 ML VIAL ONE (10:37)
[2018-12-07] MEDS ORDERED: MIDAZOLAM HCL 125 MG/250 ML BAG IV SCH (10:45)
[2018-12-07] MEDS: fentaNYL DRIP 1,250 MCG/250 ML BAG IV SCH (10:56)
--- NOTE | 2018-12-07 11:08 | XRay Report ---
XR chest 1V portable CLINICAL HISTORY: 63 years-old Male presenting with Post intubation. TECHNIQUE: Portable upright AP view of the chest was obtained. COMPARISON: 12/07/2018 at 7:21 AM. FINDINGS: Interval intubation with the endotracheal tube over 2 cm from the fritz. Cardiac silhouette mildly e nlarged. Mild pulmonary vascular prominence. Increasing vague opacity in the right upper lung. Left l moon clear. No pleural effusion or pneumothorax. Degenerative changes of the thoracic spine. IMPRESSION: 1. Appropriately positioned endotracheal tube. 2. Increasing subtle right upper lung infiltrate. 3. Mild volume overload. Electronically signed by: Anshul Hurt M.D. 12/07/2018 11:07 AM
[2018-12-07] MEDS ORDERED: IOVERSOL 100ml IV PRN (12:12)
--- NOTE | 2018-12-07 12:26 | CT Scan Report ---
ADDENDUM The endotracheal tube is a double lumen tube and the left side extends into the left mainstem bronchu s. The right side is located at the distal trachea. Therefore, this does not need to be repositioned. Electronically signed by: Benigno Ordoñez M.D. 12/07/2018 3:[address] chest w con CT DOSE: 3271.96 mGy.cm HISTORY: Dyspnea hemoptysis TECHNIQUE: Multiaxial CT images of the chest were performed following the intravenous administration of contrast. A dose lowering technique was utilized adhering to the principles of ALARA. COMPARISON: 03/24/2017 FINDINGS: Endotracheal tube is located in the left mainstem bronchus. This should be pulled back luciana ral centimeters. . Immediate and developing parenchymal infiltrative changes of the left base which are potentially po stobstructive. Pre-existing infiltrative changes in the right midlung are present. There are also early developing p arenchymal infiltrative changes right lower lobe. Thoracic aorta is normal in course and caliber. IMPRESSION: 1. Endotracheal tube positioned within the left mainstem bronchus. This should be pulled back several centimeters 2. Parenchymal infiltrate right midlung and right lower lobe. 3. Potential postobstructive infiltrative change left lower lobe. The above report was generated using voice recognition software. It may contain grammatical, syntax or spelling errors. Electronically signed by: Ivan Huertas M.D. 12/07/2018 12:25 PM
--- NOTE | 2018-12-07 12:30 | CT Scan Report ---
CT abd pelvis IV con only CLINICAL HISTORY: 63 years-old Male presenting with Hemoptysis, dyspnea. TECHNIQUE: Multidetector CT of the abdomen and pelvis was performed after the administration of intra venous contrast. IV contrast: 93 mL of Optiray 320. One or more dose lowering techniques were used co nsistent with the principles of ALARA (as low as reasonably achievable), including automatic exposure control, mA or kV adjustment to individual patient size, and/or use of iterative reconstruction. COMPARISON: 07/25/2018. CT DOSE (mGy.cm): The estimated cumulative dose is 3271.96. FINDINGS: Flat[place] Presser topogram: Left mainstem bronchus intubation. Cardiomegaly. Lung bases: Extensive dependent predominant patchy groundglass and solid nodular consolidation at the lung bases. This is on a background of moderate to severe centrilobular emphysema. Multichamber enla rgement of the heart. Coronary artery calcification. No pericardial or pleural effusion. Liver: Normal morphology. No liver lesion. Patent hepatic vasculature. Biliary: No intrahepatic or extrahepatic biliary ductal dilatation. Layering high density in the gall bladder may indicate sludge. Pancreas: Mild parenchymal atrophy. Spleen: Normal. Adrenal glands: Normal. Kidneys and ureters: Multiple punctate nonobstructing renal calculi at the lower poles of the kidneys . Either prior infarct or a small cyst is suggested at the anterior aspect of the interpolar region o f the right kidney (series 7 image 233). Exophytic high density subcentimeter lesion at the upper cole e the right kidney unchanged in size (series 7 image 181). No hydronephrosis. Ureters nondistended. Bladder: Circumferential bladder wall thickening. Pelvic organs: Prostate enlargement likely secondary to benign prostatic hyperplasia. Bowel: Interval resolution of perianal and ischioanal fossa inflammatory change. No fluid collection along the anus. Normal appendix. No bowel obstruction. Duodenal diverticulum noted. Peritoneal cavity: No free fluid or intraperitoneal gas. Lymph nodes: No enlarged lymph nodes in the abdomen or pelvis. Vasculature: Atherosclerosis of the normal caliber abdominal aorta. IVC patent. Abdominal wall: Fat-containing inguinal hernias. Small umbilical hernia. Musculoskeletal: Degenerative changes of the spine. Lipoma noted in the left gluteus piedad muscle. IMPRESSION: 1. Extensive dependent consolidation most compatible with aspiration/aspiration pneumonitis. 2. Left mainstem bronchus intubation. Repositioning recommended unless this is intentional. 3. Bilateral nonobstructing nephrolithiasis. 4. Subcentimeter high density right upper pole renal lesion concerning for a solid enhancing lesion. Attention on follow-up. 5. No acute intra-abdominal pathology. Electronically signed by: Anshul Hurt M.D. 12/07/2018 12:29 PM
--- NOTE | 2018-12-07 12:53 | Critical Care Consultation ---
Date of Consultation December 07, 2018 Assessment & Plan (1) Hemoptysis: 63-year-old male was admitted on 07 December 2018 for hemoptysis. 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 No known acute issues. On propofol and fentanyl for sedation. Pulm: Admitted for hemoptysis, underwent emergent dual lumen intubation and bronchoscopy. Recent hospitalization for COPD exacerbation (home on steroid taper) and right-sided pneumonia (home on PO antibiotics). CT chest notes right -sided parenchymal infiltrate and potential LLL post-obstructive issue. Underwent VATS and biopsy with thoracic surgery, concern for LLL mass, see related notes. Has albuterol prn available. CVS: PMH permanent A. fib, on diltiazem, digoxin, and Xarelto. PMH HTN and HLD , on lisinopril and lovastatin as well. ID: Diagnosed with CAP during -29 Nov 2018 hospitalization, discharged on azithromycin and cefdinir. Also was influenza A positive, completed Tamiflu course. Repeat flu negative. Presently afebrile with WBC 26. Negative procalcitonin. Checking for legionella. BCx and bronchial Cx pending. On vancomycin, cefepime, and levaquin here. Endo: No known DM or thyroid issues. On ICU hyperglycemia protocol. Renal/Lytes: Cr around 1.1s. Hypocalcemia and hypomagnesemia. Nephrolithiasis on CT a/p. - Needs right upper pole renal lesion followed up on. GI: No known acute issues. NPO while intubated. On protonix. Heme: Admit Hb 15.3, though had hemoptysis. Normal platelet count. INR 1.1. DVT prophy: Held home Xarelto due to hemoptysis. SCDs. Lines: NGT, PIV Code status: Full code. PT/OT: Deferred. Disposition: Critically ill. Admit to ICU. - has been at bedside. (2) COPD (chronic obstructive pulmonary disease): (3) Pneumonia: (4) Lung mass: (5) Atrial fibrillation: (6) Hypertension: (7) Hyperlipemia: (8) Hypocalcemia: (9) Hypomagnesemia: Supervising Physician Co-Signing Physician Notes Reason Critically Ill: 63-year-old male with acute hypoxic respiratory failure with hypercapnia and massive hemoptysis PLAN: Neuro: Anxiety -Propofol for sedation, fentanyl for analgesia Resp: Acute hypoxic respiratory failure with hypercarbia -Likely secondary to VQ mismatch Massive hemoptysis -Large thrombus removed from right upper lobe -Await pathology as well as microbiology studies Recent influenza A -Concern for secondary bacterial infection -Empiric coverage for staph aureus despite MRSA swab negative 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 fib -Will require chronic anticoagulation at some point in the near future Hypertension Fluids/Renal: Supplemental IV fluids ID: Cefepime Levaquin vancomycin -Await blood and bronchoscopy cultures GI/Nutrition: N.p.o. Heme: Long-term anticoagulation use -Holding anticoagulants at this time DVT prophylaxis: Mechanical prophylaxis as chemical prophylaxis contraindicated Endocrine: ICU hyperglycemia protocol Vascular access: Peripheral IVs Code Status: Full code I have personally spent 105 minutes of critical care time in the direct management of this patient. This is a life/limb threatening event. This includes time spent evaluating patient, direct bedside care, chart review, placing orders, interpretation of diagnostic studies, discussion with consultants, patient, and/or family members regarding treatment decisions, as well as other required patient management activities. This time is exclusive of all separately billable procedures, and teaching time and separate from and in addition to any other critical care service time. History of Present Illness Attending Physician: Jason Shelton MD History of Present Illness 63-year-old male presented to emergency department with acute hemoptysis around 2 am on day of admission. Patient is on Xarelto for his permanent A. fib (last dose day prior to admit). Of note, he was recently discharged from the hospital on November 29 for a COPD exacerbation and pneumonia. He denies any other emergent concerns to include chest pain, abdominal pain, or vomiting. Patient was attempted to undergo CT scan of the chest and he was unable to lay flat secondary to hypoxemia. I evaluated the patient at the bedside in the emergency department I first evaluated the nose for any evidence of epistaxis, I was able to pass a nasal trumpet and successfully able to pass the bronchoscope through this and withdrawing both the bronchoscope and the nasal trumpet I did not visualize any evidence of epistaxis in the right nare I was unable to pass anything through the left nare. Patient was obviously coughing up large amounts of blood. Given the emergent nature and the continued hypoxemia I proceeded with a awake bronchoscopy to further elucidate the etiology of the patient's hemoptysis. During bronchoscopy there appeared to be mass protruding from the right upper lobe acting as a ball valve obstruction and possibly the source of the bleeding. The left size was examined and relative hemostasis the further bronchoscopy was discontinued and the decision was made to secure the airway because the hemoptysis did appear to be coming from the lungs. The patient was successfully intubated with a double-lumen tube and thoracic surgery was contacted for further evaluation of the possible right upper lobe mass. This right upper lobe mass was ultimately removed by cryoprobe by thoracic surgery and felt to most likely represent significant clot which had casted a large portion of the right upper lobe. The left lung also appeared to be clear. Patient was then sent to CT for further evaluation and ultimately transferred to the ICU. Allergies Allergy/AdvReac Type Severity Reaction Status Date / Time Penicillins Allergy Mild HIVES Verified 12/07/18 07:38 Home Medications Home Medications Medication Instructions Recorded Confirmed Type chlorthalidone 25 mg PO DAILY 07/25/18 12/07/18 History digoxin 0.25 mcg PO PM 07/25/18 12/07/18 History diltiazem HCl 300 mg PO DAILY 07/25/18 12/07/18 History ipratropium-albuterol 3 ml INHALATION BID 07/25/18 12/07/18 History lisinopril 10 mg PO DAILY 07/25/18 12/07/18 History lovastatin 10 mg PO DAILY 07/25/18 12/07/18 History mometasone-formoterol 2 puff INHALATION BID 07/25/18 12/07/18 History rivaroxaban 20 mg PO PM 07/25/18 12/07/18 History potassium chloride 10 meq PO DAILY #7 cap 11/29/18 12/07/18 Rx prednisone 10 mg PO DAILY #42 tab 11/29/18 12/07/18 Rx tiotropium bromide [Spiriva with 1 puff INHALATION QAM 30 Days #30 11/29/18 Rx HandiHaler] inha Patient History Medical History Atrial fibrillation (Chronic) Arrhythmia COPD (chronic obstructive pulmonary disease) HTN (hypertension) Hemorrhoids Hyperlipidemia Kidney stones Family History Father Heart attack Social History Current Living Situation: Spouse Other Information That Helps Us Care for You: No Feels Safe at Home: Yes Smoking Status: Former smoker Do You Dip or Chew Tobacco: No Second Hand Exposure: No Tobacco Cessation Education Requested by Patient: No Hx Alcohol Use: No Hx Substance Use: No Beliefs That Will Affect Care: None Communication Ability: Effective Review of Systems Unable to obtain ROS due to need for emergent bronchoscopy and intubation related to the active hemoptysis. Physical Exam 2 Vital Signs (Past 24 Hours): Last Vital Signs Temp 36.6 C 12/07/18 07:17 Pulse 96 H 12/07/18 12:06 Resp 14 12/07/18 10:55 BP 164/83 H 12/07/18 12:06 Pulse Ox 99 12/07/18 12:06 Physical Exam: Evaluation in ED prior to intubation: General Appearance: Awake, alert & oriented, active hemoptysis in the ED, but still speaking coherently and did not appear in immediate respiratory distress. CV: +S1S2 irregularly irregular, no murmur. Pulm: Clear to auscultation throughout. Abdomen: +BS, soft, non-tender, non-distended. Extremities: No pedal edema or calf tenderness. Moving all extremities naturally and easily. Neuro: No gross neuro deficits. Results & Data Laboratory Results 12/07/18 12/07/18 12/07/18 Range/Units 17:37 14:46 14:30 WBC (4.8-10.8) K/uL RBC (4.7-6.1) M/uL Hgb (14.0-18.0) g/dL Hct (42-52) % MCV (80-100) fL MCH (25-34) pg MCHC (32-36) g/dL RDW Std Deviation (36.4-46.3) fL RDW Coeff of Dimple (11.5-14.5) % Plt Count (130-400) K/uL MPV (7.4-10.4) fL Neutrophils % (Manual) % Band Neutrophils % % Lymphocytes % (Manual) % Reactive Lymphs % (Man) % Monocytes % (Manual) % Neutrophils # (Manual) (1.4-6.5) K/uL Total Absolute Neuts (1.4-6.5) K/uL Lymphocytes # (Manual) (1.2-3.4) K/uL Total Abs Lymphocytes (1.2-3.4) K/uL Monocytes # (Manual) (0.11-0.59) K/uL Large Granular Lymphs % Blood Smear Review RBC Morphology PT (9.0-12.0) Seconds INR (0.9-1.1) APTT (21.0-31.0) Seconds PTT Ratio Sample Site R Radial L Radial POC pH 7.31 L 7.23 L (7.35-7.45) POC pCO2 55 H 68 H (35-46) mmHg POC pO2 120 H 92 (80-95) mmHg POC HCO3 28 H 29 H (19-24) max/L POC Total CO2 29 31 (24-31) mEq/l POC Base Excess 1.0 1.0 (-9-1.8) max/L POC ABG O2 Sat 98.0 H 95.0 (90-95) % Bao Test Pass Pass VBG pH (7.36-7.41) VBG pCO2 (38-50) mmHg VBG pO2 mmHg VBG HCO3 mmol/L VBG O2 Saturation % VBG Base Excess mEq/L Barometric Pressure mm/Hg O2 Delivery Device Ventilator Ventilator POC O2 Rate 22 20 Minute Ventilation 12.8 13.2 POC FiO2 50 60 % Tidal Volume 650 600 PEEP 10 10 Sodium (136-145) mmol/L Potassium (3.5-5.1) mmol/L Chloride (98-107) mmol/L Carbon Dioxide (21-32) mmol/L Anion Gap (3-11) BUN (7-18) mg/dl Creatinine (0.6-1.4) mg/dl Est Cr Clr Drug Dosing ml/min Est GFR ( Amer) Est GFR (Non-Af Amer) BUN/Creatinine Ratio (10-20) Glucose (70-99) mg/dl Calcium (8.5-10.1) mg/dl Magnesium (1.8-2.4) mg/dl Total Bilirubin (0.2-1) mg/dl AST (15-37) U/L ALT (12-78) U/L Alkaline Phosphatase (45-117) U/L Troponin I (0-0.045) ng/ml Total Protein (6.4-8.2) gm/dl Albumin (3.4-5.0) gm/dl Globulin (2.5-4.0) gm/dl Albumin/Globulin Ratio (0.9-2) Procalcitonin (0-0.5) ng/ml Nasal Screen MRSA (PCR) (Negative) Digoxin (0.8-2.0) ng/ml Influenza Type A (PCR) Neg for Influ A (Neg) Influenza Type B (PCR) Neg for Influ B (Neg) Urine Legionella Ag Blood Type Antibody Screen Crossmatch 12/07/18 12/07/18 12/07/18 Range/Units 13:56 13:19 13:19 WBC (4.8-10.8) K/uL RBC (4.7-6.1) M/uL Hgb (14.0-18.0) g/dL Hct (42-52) % MCV (80-100) fL MCH (25-34) pg MCHC (32-36) g/dL RDW Std Deviation (36.4-46.3) fL RDW Coeff of Dimple (11.5-14.5) % Plt Count (130-400) K/uL MPV (7.4-10.4) fL Neutrophils % (Manual) % Band Neutrophils % % Lymphocytes % (Manual) % Reactive Lymphs % (Man) % Monocytes % (Manual) % Neutrophils # (Manual) (1.4-6.5) K/uL Total Absolute Neuts (1.4-6.5) K/uL Lymphocytes # (Manual) (1.2-3.4) K/uL Total Abs Lymphocytes (1.2-3.4) K/uL Monocytes # (Manual) (0.11-0.59) K/uL Large Granular Lymphs % Blood Smear Review RBC Morphology PT (9.0-12.0) Seconds INR (0.9-1.1) APTT (21.0-31.0) Seconds PTT Ratio Sample Site L Radial POC pH 7.16 L* (7.35-7.45) POC pCO2 86 H (35-46) mmHg POC pO2 97 H (80-95) mmHg POC HCO3 31 H (19-24) max/L POC Total CO2 33 H (24-31) mEq/l POC Base Excess 2.0 H (-9-1.8) max/L POC ABG O2 Sat 94.0 (90-95) % Bao Test Pass VBG pH (7.36-7.41) VBG pCO2 (38-50) mmHg VBG pO2 mmHg VBG HCO3 mmol/L VBG O2 Saturation % VBG Base Excess mEq/L Barometric Pressure mm/Hg O2 Delivery Device Ventilator POC O2 Rate 14 Minute Ventilation 11.4 POC FiO2 60 % Tidal Volume 500 PEEP 10 Sodium (136-145) mmol/L Potassium (3.5-5.1) mmol/L Chloride (98-107) mmol/L Carbon Dioxide (21-32) mmol/L Anion Gap (3-11) BUN (7-18) mg/dl Creatinine (0.6-1.4) mg/dl Est Cr Clr Drug Dosing ml/min Est GFR ( Amer) Est GFR (Non-Af Amer) BUN/Creatinine Ratio (10-20) Glucose (70-99) mg/dl Calcium (8.5-10.1) mg/dl Magnesium (1.8-2.4) mg/dl Total Bilirubin (0.2-1) mg/dl AST (15-37) U/L ALT (12-78) U/L Alkaline Phosphatase (45-117) U/L Troponin I (0-0.045) ng/ml Total Protein (6.4-8.2) gm/dl Albumin (3.4-5.0) gm/dl Globulin (2.5-4.0) gm/dl Albumin/Globulin Ratio (0.9-2) Procalcitonin < 0.05 (0-0.5) ng/ml Nasal Screen MRSA (PCR) (Negative) Digoxin (0.8-2.0) ng/ml Influenza Type A (PCR) (Neg) Influenza Type B (PCR) (Neg) Urine Legionella Ag Pending Blood Type Antibody Screen Crossmatch 12/07/18 12/07/18 12/07/18 Range/Units 12:45 11:48 07:54 WBC (4.8-10.8) K/uL RBC (4.7-6.1) M/uL Hgb (14.0-18.0) g/dL Hct (42-52) % MCV (80-100) fL MCH (25-34) pg MCHC (32-36) g/dL RDW Std Deviation (36.4-46.3) fL RDW Coeff of Dimple (11.5-14.5) % Plt Count (130-400) K/uL MPV (7.4-10.4) fL Neutrophils % (Manual) % Band Neutrophils % % Lymphocytes % (Manual) % Reactive Lymphs % (Man) % Monocytes % (Manual) % Neutrophils # (Manual) (1.4-6.5) K/uL Total Absolute Neuts (1.4-6.5) K/uL Lymphocytes # (Manual) (1.2-3.4) K/uL Total Abs Lymphocytes (1.2-3.4) K/uL Monocytes # (Manual) (0.11-0.59) K/uL Large Granular Lymphs % Blood Smear Review RBC Morphology PT (9.0-12.0) Seconds INR (0.9-1.1) APTT (21.0-31.0) Seconds PTT Ratio Sample Site POC pH (7.35-7.45) POC pCO2 (35-46) mmHg POC pO2 (80-95) mmHg POC HCO3 (19-24) max/L POC Total CO2 (24-31) mEq/l POC Base Excess (-9-1.8) max/L POC ABG O2 Sat (90-95) % Bao Test VBG pH (7.36-7.41) VBG pCO2 (38-50) mmHg VBG pO2 mmHg VBG HCO3 mmol/L VBG O2 Saturation % VBG Base Excess mEq/L Barometric Pressure mm/Hg O2 Delivery Device POC O2 Rate Minute Ventilation POC FiO2 % Tidal Volume PEEP Sodium (136-145) mmol/L Potassium (3.5-5.1) mmol/L Chloride (98-107) mmol/L Carbon Dioxide (21-32) mmol/L Anion Gap (3-11) BUN (7-18) mg/dl Creatinine (0.6-1.4) mg/dl Est Cr Clr Drug Dosing ml/min Est GFR ( Amer) Est GFR (Non-Af Amer) BUN/Creatinine Ratio (10-20) Glucose (70-99) mg/dl Calcium (8.5-10.1) mg/dl Magnesium (1.8-2.4) mg/dl Total Bilirubin (0.2-1) mg/dl AST (15-37) U/L ALT (12-78) U/L Alkaline Phosphatase (45-117) U/L Troponin I (0-0.045) ng/ml Total Protein (6.4-8.2) gm/dl Albumin (3.4-5.0) gm/dl Globulin (2.5-4.0) gm/dl Albumin/Globulin Ratio (0.9-2) Procalcitonin (0-0.5) ng/ml Nasal Screen MRSA (PCR) Negative (Negative) Digoxin 1.0 (0.8-2.0) ng/ml Influenza Type A (PCR) (Neg) Influenza Type B (PCR) (Neg) Urine Legionella Ag Blood Type O Positive Antibody Screen NEGATIVE Crossmatch See Detail 12/07/18 12/07/18 12/07/18 Range/Units 07:54 07:25 07:25 WBC (4.8-10.8) K/uL RBC (4.7-6.1) M/uL Hgb (14.0-18.0) g/dL Hct (42-52) % MCV (80-100) fL MCH (25-34) pg MCHC (32-36) g/dL RDW Std Deviation (36.4-46.3) fL RDW Coeff of Dimple (11.5-14.5) % Plt Count (130-400) K/uL MPV (7.4-10.4) fL Neutrophils % (Manual) % Band Neutrophils % % Lymphocytes % (Manual) % Reactive Lymphs % (Man) % Monocytes % (Manual) % Neutrophils # (Manual) (1.4-6.5) K/uL Total Absolute Neuts (1.4-6.5) K/uL Lymphocytes # (Manual) (1.2-3.4) K/uL Total Abs Lymphocytes (1.2-3.4) K/uL Monocytes # (Manual) (0.11-0.59) K/uL Large Granular Lymphs % Blood Smear Review RBC Morphology PT 10.7 (9.0-12.0) Seconds INR 1.1 (0.9-1.1) APTT 23.8 (21.0-31.0) Seconds PTT Ratio 0.9 Sample Site POC pH (7.35-7.45) POC pCO2 (35-46) mmHg POC pO2 (80-95) mmHg POC HCO3 (19-24) max/L POC Total CO2 (24-31) mEq/l POC Base Excess (-9-1.8) max/L POC ABG O2 Sat (90-95) % Bao Test VBG pH 7.43 H (7.36-7.41) VBG pCO2 45 (38-50) mmHg VBG pO2 39 mmHg VBG HCO3 29 mmol/L VBG O2 Saturation 73.7 % VBG Base Excess 4.0 mEq/L Barometric Pressure 726.7 mm/Hg O2 Delivery Device POC O2 Rate Minute Ventilation POC FiO2 % Tidal Volume PEEP Sodium 138 (136-145) mmol/L Potassium 3.9 (3.5-5.1) mmol/L Chloride 103 (98-107) mmol/L Carbon Dioxide 27 (21-32) mmol/L Anion Gap 9.0 (3-11) BUN 42 H (7-18) mg/dl Creatinine 1.19 (0.6-1.4) mg/dl Est Cr Clr Drug Dosing 79.0 ml/min Est GFR ( Amer) 76.0 Est GFR (Non-Af Amer) 65.5 BUN/Creatinine Ratio 35.0 H (10-20) Glucose 89 (70-99) mg/dl Calcium 8.4 L (8.5-10.1) mg/dl Magnesium 1.6 L (1.8-2.4) mg/dl Total Bilirubin 0.5 (0.2-1) mg/dl AST 10 L (15-37) U/L ALT 60 (12-78) U/L Alkaline Phosphatase 76 (45-117) U/L Troponin I 0.015 (0-0.045) ng/ml Total Protein 6.7 (6.4-8.2) gm/dl Albumin 2.9 L (3.4-5.0) gm/dl Globulin 3.8 (2.5-4.0) gm/dl Albumin/Globulin Ratio 0.8 L (0.9-2) Procalcitonin (0-0.5) ng/ml Nasal Screen MRSA (PCR) (Negative) Digoxin (0.8-2.0) ng/ml Influenza Type A (PCR) (Neg) Influenza Type B (PCR) (Neg) Urine Legionella Ag Blood Type Antibody Screen Crossmatch 12/07/18 Range/Units 07:25 WBC 26.04 H (4.8-10.8) K/uL RBC 4.89 (4.7-6.1) M/uL Hgb 15.3 (14.0-18.0) g/dL Hct 46.0 (42-52) % MCV 94.1 (80-100) fL MCH 31.3 (25-34) pg MCHC 33.3 (32-36) g/dL RDW Std Deviation 49.6 H (36.4-46.3) fL RDW Coeff of Dimple 14.5 (11.5-14.5) % Plt Count 368 (130-400) K/uL MPV 9.5 (7.4-10.4) fL Neutrophils % (Manual) 72.4 % Band Neutrophils % 0.0 % Lymphocytes % (Manual) 19.3 % Reactive Lymphs % (Man) 0.0 % Monocytes % (Manual) 8.3 % Neutrophils # (Manual) 18.85 H (1.4-6.5) K/uL Total Absolute Neuts 18.85 H (1.4-6.5) K/uL Lymphocytes # (Manual) 5.03 H (1.2-3.4) K/uL Total Abs Lymphocytes 5.03 H (1.2-3.4) K/uL Monocytes # (Manual) 2.16 H (0.11-0.59) K/uL Large Granular Lymphs 0.0 % Blood Smear Review RBC Morphology Unremarkable PT (9.0-12.0) Seconds INR (0.9-1.1) APTT (21.0-31.0) Seconds PTT Ratio Sample Site POC pH (7.35-7.45) POC pCO2 (35-46) mmHg POC pO2 (80-95) mmHg POC HCO3 (19-24) max/L POC Total CO2 (24-31) mEq/l POC Base Excess (-9-1.8) max/L POC ABG O2 Sat (90-95) % Bao Test VBG pH (7.36-7.41) VBG pCO2 (38-50) mmHg VBG pO2 mmHg VBG HCO3 mmol/L VBG O2 Saturation % VBG Base Excess mEq/L Barometric Pressure mm/Hg O2 Delivery Device POC O2 Rate Minute Ventilation POC FiO2 % Tidal Volume PEEP Sodium (136-145) mmol/L Potassium (3.5-5.1) mmol/L Chloride (98-107) mmol/L Carbon Dioxide (21-32) mmol/L Anion Gap (3-11) BUN (7-18) mg/dl Creatinine (0.6-1.4) mg/dl Est Cr Clr Drug Dosing ml/min Est GFR ( Amer) Est GFR (Non-Af Amer) BUN/Creatinine Ratio (10-20) Glucose (70-99) mg/dl Calcium (8.5-10.1) mg/dl Magnesium (1.8-2.4) mg/dl Total Bilirubin (0.2-1) mg/dl AST (15-37) U/L ALT (12-78) U/L Alkaline Phosphatase (45-117) U/L Troponin I (0-0.045) ng/ml Total Protein (6.4-8.2) gm/dl Albumin (3.4-5.0) gm/dl Globulin (2.5-4.0) gm/dl Albumin/Globulin Ratio (0.9-2) Procalcitonin (0-0.5) ng/ml Nasal Screen MRSA (PCR) (Negative) Digoxin (0.8-2.0) ng/ml Influenza Type A (PCR) (Neg) Influenza Type B (PCR) (Neg) Urine Legionella Ag Blood Type Antibody Screen Crossmatch Diagnostic Findings CT abd pelvis IV con only IMPRESSION: 1. Extensive dependent consolidation most compatible with aspiration/ aspiration pneumonitis. 2. Left mainstem bronchus intubation. Repositioning recommended unless this is intentional. 3. Bilateral nonobstructing nephrolithiasis. 4. Subcentimeter high density right upper pole renal lesion concerning for a solid enhancing lesion. Attention on follow-up. 5. No acute intra-abdominal pathology. CT chest w con IMPRESSION: 1. Endotracheal tube positioned within the left mainstem bronchus. This should be pulled back several centimeters 2. Parenchymal infiltrate right midlung and right lower lobe. 3. Potential postobstructive infiltrative change left lower lobe. ADDENDUM The endotracheal tube is a double lumen tube and the left side extends into the left mainstem bronchus. The right side is located at the distal trachea. Therefore, this does not need to be repositioned. Medications Administered Current Inpatient Medications Albuterol (Duoneb) 3 ml INH Q4H PRN PRN Reason: Dyspnea Stop: 01/06/19 12:53 Digoxin (Lanoxin) 0.25 mg PO PM [facility] Stop: 01/06/19 20:59 Diltiazem HCl (Cardizem Cd) 300 mg PO DAILY [facility] Stop: 01/07/19 08:59 Fentanyl Citrate (Fentanyl Citrate) 50 mcg IV Q2H PRN PRN Reason: Moderate Pain (4,5,6) Stop: 12/21/18 12:53 Fentanyl Citrate (Fentanyl Citrate) 100 mcg IV Q2H PRN PRN Reason: Severe Pain (7,8,9,10) Stop: 12/21/18 12:53 Fentanyl Citrate (Fentanyl Drip) 1,250 mcg in 250 mls @ 5 mls/hr IV .Q24H [facility]; Protocol Stop: 12/21/18 10:44 Last Admin: 12/07/18 10:56 Dose: 25 mcg/hr, 5 mls/hr Parenteral Electrolytes (Normosol-R) 1,000 mls @ 100 mls/hr IV .Q10H [facility] Stop: 01/06/19 12:53 Last Admin: 12/07/18 13:39 Dose: 100 mls/hr Propofol (Diprivan) 1,000 mg in 100 mls @ 31.05 mls/hr IV .Q24H [facility]; Protocol Stop: 12/10/18 12:53 Last Admin: 12/07/18 16:00 Dose: 45 mcg/kg/min, 31.1 mls/hr Pantoprazole Sodium 40 mg/ (Syringe) 10 mls @ 5 mls/min IV DAILY@1100 [facility] Stop: 01/07/19 10:59 Cefepime HCl 2,000 mg/ Syringe 20 mls @ 5.5 mls/min IV Q8H [facility] Stop: 12/14/18 13:59 Last Admin: 12/07/18 15:16 Dose: 5.5 mls/min Levofloxacin/Dextrose (Levaquin/D5w) 750 mg in 150 mls @ 100 mls/hr IV DAILY@ 1300 [facility] Stop: 12/14/18 13:29 Last Infusion: 12/07/18 15:59 Dose: Infused Vancomycin HCl 1,250 mg/ (Sodium Chloride) 275 mls @ 125 mls/hr IV Q12H [facility] Stop: 12/15/18 00:00 Ioversol (Optiray 320 100ml) 93 ml IV ONCE PRN PRN Reason: Interaction Checking Stop: 12/11/18 12:11 Last Admin: 12/07/18 12:13 Dose: 93 ml Lisinopril (Zestril) 10 mg PO DAILY [facility] Stop: 01/07/19 08:59 Lovastatin (Mevacor) 10 mg PO DAILY [facility] Stop: 01/07/19 08:59 Miscellaneous (Icu Protocol For Hyperglycemia) 1 ea N/A PRN PRN; Protocol PRN Reason: Hyperglycemia Protocol Stop: 12/09/18 12:53 Miscellaneous Information (Consult) 1 ea N/A UD PRN PRN Reason: Consult Stop: 01/06/19 13:10 Resident Activity Tracking Resident Involvement: Resident Care Provided Care Provided: [facility] _ (1) Atrial fibrillation Atrial fibrillation type: (2) Pneumonia Aspiration pneumonia type: Laterality: right Lung location: lower lobe of lung Pneumonia type: due to influenza A virus Qualified Code(s): J11.00 - Influenza due to unidentified influenza virus with unspecified type of pneumonia
[2018-12-07] MEDS ORDERED: ALBUT/IPRATROP 3MG/0.5MG NEB 3 ML VIAL INH PRN (12:54)
[2018-12-07] MEDS ORDERED: ICU PROTOCOL FOR HYPERGLYCEMIA PRN (12:54)
[2018-12-07] MEDS ORDERED: fentaNYL DRIP 1,250 MCG/250 ML BAG IV STA (12:54)
--- NOTE | 2018-12-07 12:57 | History & Physical Report ---
Date of Service December 07, 2018 Assessment & Plan (1) Hemoptysis: Possibly due to endobronchial malignancy vs. spontaneous from pneumonia while on anticoagulation. Will remain intubated for airway protection. CT chest on 12/07 shows infiltratative changes in the RML and RLL. - Mechanical ventilation per critical care team - Hold anticoagulation (2) Pneumonia: CT chest on 12/07 showed infiltratative changes in the RML and RLL. Unclear if these represent infection vs. the hemoptysis. - Will get procalcitonin - Discuss with Dr. Lundberg need for abx (3) Atrial fibrillation: Permanent afib. On diltiazem and digoxin for rate control. Xarelto for anticoagulation. - Hold Xarelto - Continue home meds as able during intubation - IV pushes PRN for rate-control (4) COPD (chronic obstructive pulmonary disease): - Will continue home inhalers as able with intubation. - DuoNebs PRN (5) Hypertension: On chlorthalidone and lisinopril as outpatient. - Monitor BP and use IV PRN meds until extubated. (6) DVT prophylaxis: SCDs - Active hemoptysis History of Present Illness Primary Care Provider: BASILIO Almaraz 63yo M w/ hx of COPD and afib who presented this morning to the ED with hemoptysis. Was recently hospitalized for COPD exacerbation / pneumonia and was discharged on levofloxacin and steroid taper. Overnight, per report, the patient had bright red blood hemoptysis and came to the ED. CXR showed RUL infiltrate. He was sent for CT chest, but decompensated while lying flat and was intubated for airway protection. He received a bronch in the ED with Dr. Lundberg, and a repeat bronch with Dr. Santana. Per report, there is a mass vs. large clot burden in the airway. He will remain intubated pending resolution of his hemoptysis. No ROS is able to be completed due to intubation and sedation. Allergies Allergy/AdvReac Type Severity Reaction Status Date / Time Penicillins Allergy Mild HIVES Verified 12/07/18 07:38 Home Medications Home Medications Medication Instructions Recorded Confirmed Type chlorthalidone 25 mg PO DAILY 07/25/18 12/07/18 History digoxin 0.25 mcg PO PM 07/25/18 12/07/18 History diltiazem HCl 300 mg PO DAILY 07/25/18 12/07/18 History ipratropium-albuterol 3 ml INHALATION BID 07/25/18 12/07/18 History lisinopril 10 mg PO DAILY 07/25/18 12/07/18 History lovastatin 10 mg PO DAILY 07/25/18 12/07/18 History mometasone-formoterol 2 puff INHALATION BID 07/25/18 12/07/18 History rivaroxaban 20 mg PO PM 07/25/18 12/07/18 History potassium chloride 10 meq PO DAILY #7 cap 11/29/18 12/07/18 Rx prednisone 10 mg PO DAILY #42 tab 11/29/18 12/07/18 Rx tiotropium bromide [Spiriva with 1 puff INHALATION QAM 30 Days #30 11/29/18 Rx HandiHaler] inha Past Med/Surg History Medical History Atrial fibrillation (Chronic) Arrhythmia COPD (chronic obstructive pulmonary disease) HTN (hypertension) Hemorrhoids Hyperlipidemia Kidney stones Family History Father Heart attack Social History Current Living Situation: Spouse Feels Safe at Home: Yes Smoking Status: Former smoker Cigarettes per Day: 1 cig per day on some days, other days none Hx Alcohol Use: No Hx Substance Use: No Beliefs That Will Affect Care: None Preferred Language: Hungarian Review of Systems Unobtainable due to endotracheal tube Physical Exam 2 Vital Signs (Past 24 Hours): Last Vital Signs Temp 36.6 C 12/07/18 07:17 Pulse 96 H 12/07/18 12:06 Resp 14 12/07/18 10:55 BP 164/83 H 12/07/18 12:06 Pulse Ox 99 12/07/18 12:06 Constitutional: WD/WN, vitals as above Eyes: EOM intact bilaterally; no conjunctival abnormality ENMT: external ear and nose normal, oropharynx normal Intubated Neck: trachea midline, no thyromegaly normal visual inspection Respiratory: normal respiratory effort, lungs clear to auscultation no respiratory distress Cardiovascular: RRR, no murmur, no edema Gastrointestinal (Abdomen): Inspection/Auscultation: abdomen normal to inspection; abdomen not distended Musculoskeletal: no cyanosis or clubbing, extremities motor strength 5/5 Skin: no rashes, warm and dry Neurologic: moves all extremities and awake Psychiatric: Orientation: alert, oriented to person and cooperative _ (1) Pneumonia Aspiration pneumonia type: Laterality: right Lung location: lower lobe of lung Pneumonia type: due to influenza A virus Qualified Code(s): J11.00 - Influenza due to unidentified influenza virus with unspecified type of pneumonia (2) Atrial fibrillation Atrial fibrillation type: chronic Qualified Code(s): I48.2 - Chronic atrial fibrillation
--- NOTE | 2018-12-07 12:57 | Procedure Note ---
Procedure Note: Bronchoscopy Procedure Procedure date: December 07, 2017 Procedure: fiberoptic bronchoscopy Pre-procedure Diagnosis: Massive hemoptysis acute hypoxic respiratory failure Post-procedure Diagnosis: same as above Prior to Procedure: Informed Consent: Emergent consent implied Attending Staff: Dom Lundberg DO Resident/APC: Junior Skin Prep: Not applicable Anesthesia: IV Versed, IV fentanyl, aerosolized lidocaine, topical lidocaine Indications: Patient is a 63-year-old male with massive hemoptysis. The identity of the patient was confirmed and a bedside time out was performed. Description of Procedure: Fiberoptic bronchoscopy was performed via a nasal trumpet in the right nare. During an awake bronchoscopy I was able to visualize the fritz and the right upper lobe, there was excessive dynamic airway collapse greater than 57% of both the trachea as well as the right and left bronchi. In the right upper lobe there was a protruding piece of tissue that appeared to be causing a ball valve-like obstruction. There was no significant bleeding but there was evidence of blood in the distal airways that required suctioning. There was small amounts of oozing around this tissue out of the right upper lobe and cold saline was instilled. Photos were taken which are included in the medical record. There did not appear to be any tissue or other obstruction in the right middle nor right lower lobes. My attention then turned to the left along both the left upper and lower lobes had significant amount of bloody thin discharge which required suctioning. I observed the segmental bronchi to evaluate for any welling of blood, there did not appear to be any welling of blood. I felt that the culprit lesion was from the right upper lobe and had caused significant bleeding to occur into both the right lung and left lung. Given the possible source of hemoptysis the procedure was then terminated and arrangements were made to secure the patient's airway. Complications: None Specimens: None Estimated blood loss: trace
--- NOTE | 2018-12-07 12:58 | Procedure Note ---
Procedure Note Date of Service December 07, 2018 Procedure Date: Noted above Procedure: Endotracheal intubation Pre-procedure Diagnosis: Massive hemoptysis, lesion in right upper lobe, acute hypoxic hypercarbic respiratory failure Post-procedure Diagnosis: same as above Prior to Procedure: Informed Consent: emergent Attending Staff: Dom Lundberg DO Additional staff: Janeth Matias ED physician Medical student: Janeth Patrick Indications: Patient is a 63-year-old male with massive hemoptysis and likely a right upper lobe lesion The identity of the patient was confirmed and a bedside time out was performed. Description of Procedure: Patient was evaluated and required intubation for impending respiratory failure. The patient was prepared in the usual fashion. A glidescope was used. A 41 cm double lumen endotrachial tube was utilized. Utilizing a delayed sequence intubation with ketamine and fentanyl the first look with a glide scope demonstrated mildly edematous laryngeal tissues. I attempted the past the double-lumen tube through the true vocal cords however the tip was unable to cleanly past the vocal cords would routinely be hung up and double over not allowing the tube to pass cleanly into the airway. Bimanual laryngoscopy was attempted during the first look and appropriate angle was unable to be achieved. When the patient's oxygen saturation dropped to 89% he was successfully [id number] back to about 95%. At this time a gum rubber bougie was placed in the double-lumen endotracheal tube. During this attempt adequate visualization was obtained with glide scope utilizing another provider to provide bimanual laryngoscopy and depress the glottic opening a third provider was able to advance the bougie cleanly in to the glottic opening. The double-lumen tube was then able to be easily advanced into the trachea. The tracheal balloon was inflated both lumens were connected via their appropriate connectors to a single ventilator and end-tidal CO2 monitoring was positive. Breath sounds are bilateral without air sounds in the abdomen. Best was noted in the endotracheal tube. Eventually the positioning of the endotracheal tube was confirmed via the bronchoscope as it was able to visualize the right upper lobe through the tracheal tube and visualize the extension of the left bronchial tube extending past the fritz into the left main bronchus. Complications: Desaturation to the mid 80sx1 which was he was successfully recovered with bag valve mask ventilation Findings: Not applicable Specimens: Not applicable Estimated blood loss: Zero
[2018-12-07] MEDS ORDERED: VANCOMYCIN CONSULT ACTIVE PRN ×2 (13:11)
[2018-12-07] MEDS ORDERED: VANCOMYCIN HCL 2,250 MG in SODIUM CHLORIDE 0.9% 500 ML IV ONE (13:30)
[2018-12-07] MEDS: NORMOSOL-R 1,000 ML IV SCH (13:39)
[2018-12-07] MEDS: PROPOFOL 1,000 MG/100 ML VIAL IV SCH ×4 (13:40→23:09)
[2018-12-07] MEDS: LEVOFLOXACIN/D5W 750 MG/150 ML BAG IV SCH (13:47)
[2018-12-07 14:11] LABS: iSTAT Allen Test Pass; iSTAT Arterial Blood Gas HCO3 31 meg/L (19-24); iSTAT Carbon Dioxide 33 mEq/l (24-31); iSTAT FiO2 60 %
[2018-12-07 15:00] LABS: iSTAT Allen Test Pass; iSTAT Arterial Blood Gas HCO3 29 meg/L (19-24); iSTAT Carbon Dioxide 31 mEq/l (24-31); iSTAT FiO2 60 %
--- NOTE | 2018-12-07 15:05 | Post Operative Brief Note ---
Immediate Post Op Note v1 Date of Surgery December 07, 2018 Pre & Post Diagnosis Operation Date: 12/07/18 12:00 Pre-op: Left lower lobe mass Post-op: Organizing Pneumonia Procedure Operation Date: 12/07/18 12:00 Left Vats with LLL biopsy> Surgeon Shemar Santana MD, FACS Hospital Admissions Clerk Dom NARAYANAN Estimated Blood Loss 10 Findings Consistent with Post-Op Diagnosis
[2018-12-07] MEDS: CEFEPIME 2,000 MG in SYRINGE 7.5 ML IV SCH ×2 (15:16→21:37)
--- NOTE | 2018-12-07 15:18 | Emergency Department Note ---
Entered by Vanessa Ruiz acting as a scribe for Purnima Matias MD ED Visit Note The patient was seen and examined by myself in conjunction with SOHAIL Ferguson. Pt continued to cough blood, etiology is unclear. Pt has not taken rivaroxaban in 24 hours. He was unable to tolerate CT scan of the chest d/t positioning. Pt was taken to B1 for likely intubation. Pulmonary medicine Dr Garcia was consulted but as it took too long to speak with him, critical care medicine was in house and contacted. Dr Lundberg brought the endoscopy cart to the bedside and sedated the pt. A double lumen tube was placed under his direction. I was present for airway backup, but did not perform the procedure. I agree with the history, physical and findings as documented. Please see the note for disposition and details. . The scribe's documentation has been prepared under my direction and personally reviewed by me in its entirety. I confirm that the note above accurately reflects all work, treatment, procedures, and medical decision making performed by me.
[2018-12-07 16:54] LABS: Influenza A virus by PCR Neg for Influ A (Neg); Influenza B virus by PCR Neg for Influ B (Neg)
[2018-12-07 17:50] LABS: iSTAT Allen Test Pass; iSTAT Arterial Blood Gas HCO3 28 meg/L (19-24); iSTAT Carbon Dioxide 29 mEq/l (24-31); iSTAT FiO2 50 %
--- NOTE | 2018-12-07 18:20 | Consultation Report ---
DATE OF CONSULTATION: 12/07/2018 REASON FOR CONSULTATION: Massive hemoptysis. HISTORY OF PRESENT ILLNESS: This is an obese 63-year-old male who has a history of atrial fibrillation and is on rivaroxaban. The patient had to be emergently intubated in the Emergency Room by Dr. Yosi Lundberg with a double lumen tube. I was called to the Emergency Room. We were planning to take him to the operating room for rigid bronchoscopy. It was felt there may be a mass in his right upper lobe. When I arrived in the Emergency Room, the patient was intubated. He was stable hemodynamically and did not appear to be actively bleeding. He does have a history of hypertension and chronic obstructive pulmonary disease. I was asked to evaluate him for this hemoptysis. PAST MEDICAL HISTORY: 1. Obesity. 2. Chronic atrial fibrillation. 3. Chronic obstructive pulmonary disease. 4. Hemorrhoids. 5. Hyperlipidemia. 6. Nephrolithiasis. 7. Hypertension. 8. History of cigarette smoking. PAST SURGICAL HISTORY: Noncontributory. MEDICATIONS: 1. Chlorthalidone. 2. Rivaroxaban. 3. Spiriva. 4. Potassium. 5. Prednisone. 6. Inhalers. 7. Lovastatin. 8. Lisinopril. 9. Diltiazem. 10. Digoxin. ALLERGIES: PENICILLIN CAUSES HIVES. SOCIAL HISTORY: The patient still continues to smoke just 1-2 cigarettes a day. He lives at home with his here in [place]. He is independent in his activities of daily living. FAMILY MEDICAL HISTORY: Father suffered from myocardial infarction. REVIEW OF SYSTEMS: Unable to obtain from the patient as he is intubated; however, he arrived to the Emergency Department with his family stating he could not breathe up on his lung. He had an exacerbation of COPD, just several days ago. He had "gurgling" in his chest when he coughed up blood. The 2:00 this morning he started blood coming from his mouth and nose. He denies any GI symptoms. He denied any symptoms. He does have a history of kidney stones. His states he has had no neurologic events. He has had no visual or auditory problems. He has had no wound breakdown. He has had some peripheral edema. PHYSICAL EXAMINATION: GENERAL: This is a large man who stands 5 feet 7 inches tall and weighs about 250 pounds. He is awake and alert. HEENT: His extraocular movements are intact. Pupils are small and really not reactive. His sclerae a bit injected, but anicteric. He has a few lower teeth left. He has no upper teeth. His oral mucosa appeared to be more moist. He is orally intubated with a double lumen tube. NECK: Thick, but I cannot palpate any supraclavicular or cervical lymphadenopathy. He is actually moving air well on both sides. I did not really detect any rales or rhonchi. Apparently, there was wheezing noted earlier, but I do not hear much in the way of wheezing now. HEART: Irregular, irregular rhythm of his heart with a rate of about 90. ABDOMEN: Obese, soft without surgical incisions. I do not detect ascites. EXTREMITIES: He has trace edema of his lower extremities with some mild hemosiderin deposition and has easily palpable pulses. NEUROLOGIC: I am unable to assess him neurologically. According to notes, the patient was moving everything, and talking upon his arrival. ASSESSMENT AND PLAN: Massive hemoptysis. This appears quiescent. He has been bronchoscoped and a questionable right upper lobe lesion is noted. I am going to offer him another bronchoscopy here. As he is not bleeding, I may hold off depending on what we find, we may end up having to take him to the operating room for a rigid bronchoscopy.
--- NOTE | 2018-12-07 18:25 | Operative Report ---
DATE OF OPERATION: 12/07/2018 PROCEDURE: Therapeutic fiberoptic bronchoscopy. SURGEON: Shemar Santana MD METAL GAUGE MAKER: Aydin Menard, Respiratory Therapy. SPECIFICS OF PROCEDURE: This is a 63-year-old obese male presented with massive hemoptysis requiring emergency intubation. Dr. Yosi Lundberg placed a double lumen tube. However, it now appears that he is not bleeding. Saturations are good. His airway pressures are not extremely high. At this point, I decided to perform another flexible bronchoscopy. If he was to continue to bleed, we will take him to the operating room for rigid bronchoscopy. DESCRIPTION OF PROCEDURE: On 12/07/2018, the fiberoptic bronchoscope was prepared. After appropriate timeout had been called, I performed this bronchoscopy. We did not get consent as it was an urgent situation. Fiberoptic bronchoscope was first placed through the bronchial side of the double lumen tube and it could be seen that this was properly placed in the left mainstem bronchus and I saw really no blood down here. Upon coming back, I then went down the right side and the distal trachea and right mainstem bronchus were free of bleeding. He had a scant amount of blood in the orifice of the right middle lobe and the basilar and superior segmental bronchi, which were suctioned free quickly. Upon pulling this back, there was an occlusion of the right upper lobe bronchus. After evaluating this, I felt this may represent a thrombus. I grasped this with forceps, but I was unable to get it out. It broke off in pieces. I then tried a basket, but that did not work. Finally, I used a cryoprobe and froze this rather large clot and removed it, actually formed a cast of the smaller airways. After removing this, there was no bleeding and I saw no masses in any of the airways. I did do washings of the upper lobe and sent it for culture. I also did washings of the left lower lobe and sent it for washings. I slowly removed the bronchoscope. The patient tolerated well. I attest to the content of the Intraoperative Record and any orders documented therein. Any exception s are noted below.
[2018-12-07] MEDS: DIGOXIN 0.25 MG TAB PO SCH (19:59)
[2018-12-07 21:40] LABS: Hematocrit (blood only) 38.9 % (42-52); Hemoglobin 12.5 g/dL (14.0-18.0); Mean Corpuscular Hgb Conc 32.1 g/dL (32-36); Mean Corpuscular Volume 95.6 fL (80-100); Mean Platelet Volume 9.2 fL (7.4-10.4); Platelet Count 284 K/uL (130-400); RDW Coefficient of Variation 14.7 % (11.5-14.5); RDW Standard Deviation 51.6 fL (36.4-46.3); Red Blood Count 4.07 M/uL (4.7-6.1); White Blood Count 27.15 K/uL (4.8-10.8)
[2018-12-07 22:00] LABS: BUN Creatinine Ratio 42.8 (10-20); Calcium 7.4 mg/dl (8.5-10.1); Est GFR (Non-African American) 93.2; Magnesium 1.7 mg/dl (1.8-2.4); Phosphorus 3.2 mg/dl (2.5-4.9)
[2018-12-07 22:13] LABS: Basophils # (auto) 0.02 K/uL (0-0.2); Basophils % (auto) 0.1 %; Eosinophils # (auto) 0.04 K/uL (0-0.5); Eosinophils % (auto) 0.1 %; Immature Granulocytes # (auto) 0.56 K/uL (0.00-0.02); Immature Granulocytes % (auto) 2.1 %; Lymphocytes # (auto) 2.53 K/uL (1.2-3.4); Lymphocytes % (auto) 9.3 %; Monocytes # (auto) 1.39 K/uL (0.11-0.59); Monocytes % (auto) 5.1 %; Neutrophils # (auto) 22.61 K/uL (1.4-6.5); Neutrophils % (auto) 83.3 %
[2018-12-07] MEDS ORDERED: MAGNESIUM SULFATE / D5W 1 GM/100 ML BAG IV ONE (23:15)
[2018-12-08] MEDS: NORMOSOL-R 1,000 ML IV SCH (00:45)
[2018-12-08] MEDS: VANCOMYCIN HCL 1,250 MG in SODIUM CHLORIDE 0.9% 250 ML IV SCH ×3 (00:45→23:53)
[2018-12-08] MEDS: PROPOFOL 1,000 MG/100 ML VIAL IV SCH ×4 (01:52→09:25)
[2018-12-08 05:13] LABS: Basophils # (auto) 0.01 K/uL (0-0.2); Basophils % (auto) 0.1 %; Eosinophils # (auto) 0.05 K/uL (0-0.5); Eosinophils % (auto) 0.3 %; Hematocrit (blood only) 36.7 % (42-52); Hemoglobin 11.8 g/dL (14.0-18.0); Immature Granulocytes # (auto) 0.25 K/uL (0.00-0.02); Immature Granulocytes % (auto) 1.3 %; Lymphocytes # (auto) 2.16 K/uL (1.2-3.4); Lymphocytes % (auto) 11.1 %; Mean Corpuscular Hgb Conc 32.2 g/dL (32-36); Mean Corpuscular Volume 95.3 fL (80-100); Monocytes # (auto) 1.19 K/uL (0.11-0.59); Monocytes % (auto) 6.1 %; Neutrophils # (auto) 15.76 K/uL (1.4-6.5); Neutrophils % (auto) 81.1 %; Platelet Count 241 K/uL (130-400); RDW Coefficient of Variation 14.5 % (11.5-14.5); RDW Standard Deviation 50.7 fL (36.4-46.3); Red Blood Count 3.85 M/uL (4.7-6.1); White Blood Count 19.42 K/uL (4.8-10.8)
[2018-12-08 05:29] LABS: BUN Creatinine Ratio 38.4 (10-20); Calcium 7.4 mg/dl (8.5-10.1); Creatinine Clr Calc Pharmacy 120.5 ml/min; Est GFR (African American) 112.9; Est GFR (Non-African American) 97.4; Potassium 3.5 mmol/L (3.5-5.1)
[2018-12-08] MEDS: CEFEPIME 2,000 MG in SYRINGE 7.5 ML IV SCH ×3 (05:39→22:19)
[2018-12-08 05:53] LABS: Phosphorus 2.4 mg/dl (2.5-4.9); Troponin I 0.018 ng/ml (0-0.045)
[2018-12-08] MEDS: LOVASTATIN 20 MG TAB PO SCH (07:53)
[2018-12-08] MEDS: LISINOPRIL 10 MG TAB PO SCH (07:55)
--- NOTE | 2018-12-08 08:00 | XRay Report ---
XR chest 1V portable HISTORY: intubation COMPARISON: Chest CT 12/07/2018. FINDINGS: Redemonstration of the dual-lumen endotracheal tube with the left side of the lumen extendi ng into the left mainstem bronchus. This is considered to be within the range of normal limits for th is type of endotracheal tube. The right lumen opening terminates 1.8 cm from the fritz. Mild emphyse ma. No pneumothorax. Nasogastric tube terminates below the diaphragm. The tip is not included on this study. The heart remains borderline enlarged. Patchy bilateral lower lobe and right upper lobe airsp ely opacities remain unchanged. IMPRESSION: 1. Satisfactory support line placement as described above. 2. Patchy bilateral airspace opacities, unchanged. This favors a pneumonia. Electronically signed by: Benigno Ordoñez M.D. 12/08/2018 7:58 AM
[2018-12-08] MEDS: fentaNYL DRIP 1,250 MCG/250 ML BAG IV SCH (09:40)
[2018-12-08] MEDS ORDERED: POTASSIUM PHOSPHATE 24 MMOL in SODIUM CHLORIDE 0.9% 500 ML IV ONE (10:30)
[2018-12-08] MEDS ORDERED: PANTOprazole 40 MG in SYRINGE 0 ML IV SCH (11:00)
[2018-12-08] MEDS ORDERED: ENOXAPARIN INJ 40 MG/0.4 ML SYR SQ SCH ×2 (11:00→21:00)
--- NOTE | 2018-12-08 12:08 | Hospitalist Progress Note ---
Date of Service December 08, 2018 Assessment & Plan (1) Hemoptysis: (2) Pneumonia: (3) Atrial fibrillation: (4) COPD (chronic obstructive pulmonary disease): (5) Hypertension: (6) DVT prophylaxis: (7) Acute respiratory failure: (8) Lung mass: 63yo M w/ hx of COPD and afib admitted on December 07, 2018 with hemoptysis, pneumonia and acute respiratory failure. Was intubated and extubated and bronchoscopy was done on the day of admission, currently is on BiPAP machine, Acute respiratory failure, likely secondary to pneumonia Pneumonia, possible healthcare acquired pneumonia Pulmonary mass, Hemoptysis: Possibly due to endobronchial malignancy vs. spontaneous from pneumonia CT chest on 12/07 shows infiltratative changes in the RML and RLL. S/P bronc, Continue current medication include antibiotic, nebulizer treatment, and oxygen support, Chest surgeon and ICU team service input appreciated, Permanent afib. On diltiazem and digoxin for rate control. Xarelto for anticoagulation prior to admission, Hold Xarelto DuoNebs PRN hx fo Hypertension: Stable, Patient is a full code, GI DVT prophylaxis covered Subjective Intubated and extubated, currently is on BiPAP machine, generally feeling okay, afebrile Review of Systems Constitutional: Positive weakness, or fatigue Respiratory: + cough, sputum, wheezing, Cardiac: No chest pain, No orthopnea, Abdomen: No pain, No nausea, No vomiting, No diarrhea, No constipation, No GI bleeding Musculoskeletal: No joint pain, No muscle pain, No swelling, : No dysuria, No urinary frequency, No incontinence, No hematuria Neurologic: No paralysis, No weakness, No numbness/tingling, Psychiatric: No depression symptoms, No anhedonism, No anxiety, Heme: No abnormal bleeding/bruising, No clotting problems, No swollen lymph nodes, No night sweats Skin: No rash, No itch, No new/changing skin lesions, No color change, No bleeding Physical Exam 2 Vital Signs (Past 24 Hours): Last Vital Signs Temp 37.1 C 12/08/18 08:00 Pulse 88 12/08/18 10:10 Resp 16 12/08/18 10:10 BP 103/75 12/08/18 10:01 Pulse Ox 98 12/08/18 10:10 Physical Exam: General Appearance: On BiPAP machine, generally feeling weak, WD/WN, no apparent distress, Eyes: normal inspection, PERRL, EOMI, sclerae normal ENT: normal ENT inspection, hearing grossly normal, pharynx normal Neck: supple, no adenopathy, thyroid normal, no JVD, no carotid bruits, trachea midline Respiratory/Chest: chest non-tender, decreased breath sounds, no respiratory distress, no accessory muscle use, occasional rales, wheezing, no crackle Cardiovascular: regular rate, rhythm, no JVD, no murmur Abdomen: normal bowel sounds, non tender, soft, no organomegaly, Extremities: normal range of motion, non-tender, normal inspection, Trace pedal edema, no calf tenderness, joint has no limited range of motion, capillary refill is normal, no cyanosis clubbing Neurologic/Psychiatric: environmental programs specialist II-XII nml as tested, no motor/sensory deficits, alert, normal mood/affect, oriented x 3 Skin: normal color, warm/dry, no rash Lymphatic: no adenopathy Results & Data Laboratory Results Laboratory Results - last 24 hr 12/07/18 12/07/18 12/07/18 07:54 11:48 12:45 WBC RBC Hgb Hct MCV MCH MCHC RDW Std Deviation RDW Coeff of Dimple Plt Count MPV Immature Gran % (Auto) Neut % (Auto) Lymph % (Auto) [place] % (Auto) Eos % (Auto) Baso % (Auto) Immature Gran # (Auto) Neut # (Auto) Lymph # (Auto) Gaston # (Auto) Eos # (Auto) Baso # (Auto) Sample Site POC pH POC pCO2 POC pO2 POC HCO3 POC Total CO2 POC Base Excess POC ABG O2 Sat Bao Test O2 Delivery Device POC O2 Rate Minute Ventilation POC FiO2 Tidal Volume PEEP Sodium Potassium Chloride Carbon Dioxide Anion Gap BUN Creatinine Est Cr Clr Drug Dosing Est GFR ( Amer) Est GFR (Non-Af Amer) BUN/Creatinine Ratio Glucose POC Glucose Calcium Phosphorus Magnesium Troponin I Procalcitonin Nasal Screen MRSA (PCR) Negative Digoxin 1.0 Influenza Type A (PCR) Influenza Type B (PCR) Urine Legionella Ag Blood Type O Positive Antibody Screen NEGATIVE Crossmatch See Detail 12/07/18 12/07/18 12/07/18 13:19 13:56 14:30 WBC RBC Hgb Hct MCV MCH MCHC RDW Std Deviation RDW Coeff of Dimple Plt Count MPV Immature Gran % (Auto) Neut % (Auto) Lymph % (Auto) [place] % (Auto) Eos % (Auto) Baso % (Auto) Immature Gran # (Auto) Neut # (Auto) Lymph # (Auto) Gaston # (Auto) Eos # (Auto) Baso # (Auto) Sample Site L Radial POC pH 7.16 L* POC pCO2 86 H POC pO2 97 H POC HCO3 31 H POC Total CO2 33 H POC Base Excess 2.0 H POC ABG O2 Sat 94.0 Bao Test Pass O2 Delivery Device Ventilator POC O2 Rate 14 Minute Ventilation 11.4 POC FiO2 60 Tidal Volume 500 PEEP 10 Sodium Potassium Chloride Carbon Dioxide Anion Gap BUN Creatinine Est Cr Clr Drug Dosing Est GFR ( Amer) Est GFR (Non-Af Amer) BUN/Creatinine Ratio Glucose POC Glucose Calcium Phosphorus Magnesium Troponin I Procalcitonin < 0.05 Nasal Screen MRSA (PCR) Digoxin Influenza Type A (PCR) Neg for Influ A Influenza Type B (PCR) Neg for Influ B Urine Legionella Ag Blood Type Antibody Screen Crossmatch 12/07/18 12/07/18 12/07/18 14:46 17:37 21:28 WBC 27.15 H RBC 4.07 L Hgb 12.5 L Hct 38.9 L MCV 95.6 MCH 30.7 MCHC 32.1 RDW Std Deviation 51.6 H RDW Coeff of Dimple 14.7 H Plt Count 284 MPV 9.2 Immature Gran % (Auto) 2.1 Neut % (Auto) 83.3 Lymph % (Auto) 9.3 Gaston % (Auto) 5.1 Eos % (Auto) 0.1 Baso % (Auto) 0.1 Immature Gran # (Auto) 0.56 H Neut # (Auto) 22.61 H Lymph # (Auto) 2.53 Gaston # (Auto) 1.39 H Eos # (Auto) 0.04 Baso # (Auto) 0.02 Sample Site L Radial R Radial POC pH 7.23 L 7.31 L POC pCO2 68 H 55 H POC pO2 92 120 H POC HCO3 29 H 28 H POC Total CO2 31 29 POC Base Excess 1.0 1.0 POC ABG O2 Sat 95.0 98.0 H Bao Test Pass Pass O2 Delivery Device Ventilator Ventilator POC O2 Rate 20 22 Minute Ventilation 13.2 12.8 POC FiO2 60 50 Tidal Volume 600 650 PEEP 10 10 Sodium Potassium Chloride Carbon Dioxide Anion Gap BUN Creatinine Est Cr Clr Drug Dosing Est GFR ( Amer) Est GFR (Non-Af Amer) BUN/Creatinine Ratio Glucose POC Glucose Calcium Phosphorus Magnesium Troponin I Procalcitonin Nasal Screen MRSA (PCR) Digoxin Influenza Type A (PCR) Influenza Type B (PCR) Urine Legionella Ag Blood Type Antibody Screen Crossmatch 12/07/18 12/07/18 12/08/18 21:28 23:36 05:00 WBC RBC Hgb Hct MCV MCH MCHC RDW Std Deviation RDW Coeff of Dimple Plt Count MPV Immature Gran % (Auto) Neut % (Auto) Lymph % (Auto) [place] % (Auto) Eos % (Auto) Baso % (Auto) Immature Gran # (Auto) Neut # (Auto) Lymph # (Auto) [place]aston # (Auto) Eos # (Auto) Baso # (Auto) Sample Site POC pH POC pCO2 POC pO2 POC HCO3 POC Total CO2 POC Base Excess POC ABG O2 Sat Bao Test O2 Delivery Device POC O2 Rate Minute Ventilation POC FiO2 Tidal Volume PEEP Sodium 140 Potassium 4.0 Chloride 104 Carbon Dioxide 30 Anion Gap 6.0 BUN 37 H Creatinine 0.87 D Est Cr Clr Drug Dosing 108.0 Est GFR ( Amer) 108.0 Est GFR (Non-Af Amer) 93.2 BUN/Creatinine Ratio 42.8 H Glucose 92 POC Glucose 90 Calcium 7.4 L Phosphorus 3.2 Magnesium 1.7 L Troponin I Procalcitonin Nasal Screen MRSA (PCR) Digoxin Influenza Type A (PCR) Influenza Type B (PCR) Urine Legionella Ag Cancelled Blood Type Antibody Screen Crossmatch 12/08/18 12/08/18 12/08/18 05:00 05:00 05:52 WBC 19.42 H RBC 3.85 L Hgb 11.8 L Hct 36.7 L MCV 95.3 MCH 30.6 MCHC 32.2 RDW Std Deviation 50.7 H RDW Coeff of Dimple 14.5 Plt Count 241 MPV 9.0 Immature Gran % (Auto) 1.3 Neut % (Auto) 81.1 Lymph % (Auto) 11.1 Gaston % (Auto) 6.1 Eos % (Auto) 0.3 Baso % (Auto) 0.1 Immature Gran # (Auto) 0.25 H Neut # (Auto) 15.76 H Lymph # (Auto) 2.16 Gaston # (Auto) 1.19 H Eos # (Auto) 0.05 Baso # (Auto) 0.01 Sample Site POC pH POC pCO2 POC pO2 POC HCO3 POC Total CO2 POC Base Excess POC ABG O2 Sat Bao Test O2 Delivery Device POC O2 Rate Minute Ventilation POC FiO2 Tidal Volume PEEP Sodium 139 Potassium 3.5 Chloride 104 Carbon Dioxide 32 Anion Gap 3.0 BUN 30 H Creatinine 0.78 Est Cr Clr Drug Dosing 120.5 Est GFR ( Amer) 112.9 Est GFR (Non-Af Amer) 97.4 BUN/Creatinine Ratio 38.4 H Glucose 97 POC Glucose 84 Calcium 7.4 L Phosphorus 2.4 L Magnesium 2.0 Troponin I 0.018 Procalcitonin Nasal Screen MRSA (PCR) Digoxin Influenza Type A (PCR) Influenza Type B (PCR) Urine Legionella Ag Blood Type Antibody Screen Crossmatch 12/08/18 12/08/18 10:39 12:01 WBC RBC Hgb Hct MCV MCH MCHC RDW Std Deviation RDW Coeff of Dimple Plt Count MPV Immature Gran % (Auto) Neut % (Auto) Lymph % (Auto) [place] % (Auto) Eos % (Auto) Baso % (Auto) Immature Gran # (Auto) Neut # (Auto) Lymph # (Auto) [place] # (Auto) Eos # (Auto) Baso # (Auto) Sample Site POC pH POC pCO2 POC pO2 POC HCO3 POC Total CO2 POC Base Excess POC ABG O2 Sat Bao Test O2 Delivery Device POC O2 Rate Minute Ventilation POC FiO2 Tidal Volume PEEP Sodium Potassium Chloride Carbon Dioxide Anion Gap BUN Creatinine Est Cr Clr Drug Dosing Est GFR ( Amer) Est GFR (Non-Af Amer) BUN/Creatinine Ratio Glucose POC Glucose 96 Calcium Phosphorus Magnesium Troponin I 0.032 Procalcitonin Nasal Screen MRSA (PCR) Digoxin Influenza Type A (PCR) Influenza Type B (PCR) Urine Legionella Ag Blood Type Antibody Screen Crossmatch Microbiology 12/07/18 Unknown Bronch Wash,Right Upper Lobe Fungal Smear - Final 12/07/18 Unknown Bronch Wash,Right Upper Lobe Gram Stain - Final _ (1) Pneumonia Aspiration pneumonia type: Laterality: right Lung location: lower lobe of lung Pneumonia type: due to influenza A virus Qualified Code(s): J11.00 - Influenza due to unidentified influenza virus with unspecified type of pneumonia (2) Atrial fibrillation Atrial fibrillation type:
--- NOTE | 2018-12-08 12:09 | Critical Care Progress Note ---
Date of Service December 08, 2018 Assessment & Plan (1) Hemoptysis: 63-year-old male was admitted on 07 December 2018 for hemoptysis. GROUP ROOMS COORDINATOR: CAM-ICU negative. No known acute issues. Off sedation. Pulm: Admitted for hemoptysis, underwent emergent dual lumen intubation and bronchoscopy. Recent hospitalization for COPD exacerbation (home on steroid taper) and right-sided pneumonia (home on PO antibiotics). CT chest notes right -sided parenchymal infiltrate and potential LLL post-obstructive issue. Underwent repeat bronchoscopy with thoracic surgery, concern for LLL mass, see related notes. Has albuterol prn available. 30Nov repeat bronchoscopy noted tracheomalacia with near collapse (see related note). Extubated , on BiPAP. - May benefit from an ENT consult to evaluate his nose as an outpatient. CVS: PMH permanent A. fib, on diltiazem, digoxin, and (at home) Xarelto. PMH HTN and HLD, on lisinopril and lovastatin as well. Does have prolonged QTc at 459. ID: Diagnosed with CAP during -29 Nov 2018 hospitalization, discharged on azithromycin and cefdinir. Also was influenza A positive, completed Tamiflu course. Repeat flu negative. Presently afebrile with WBC 26. Negative procalcitonin and nasal MRSA. Checking for legionella. BCx and bronchial Cx pending. On vancomycin, cefepime, and levaquin (despite QTc) here. Endo: No known DM or thyroid issues. On ICU hyperglycemia protocol. Renal/Lytes: Cr normal. Hypomagnesemia and hypokalemia being corrected. Nephrolithiasis on CT a/p. - Needs right upper pole renal lesion followed up on. Consulted urology now in case this can be intervened upon while he is off of his Xarelto. GI: No known acute issues. On protonix. We will look to advance diet depending on how he tolerates BiPAP versus supplemental oxygen. Heme: Admit Hb 15.3, down to 11.8, though had hemoptysis. Normal platelet count. INR 1.1. DVT prophy: Held home Xarelto due to hemoptysis. SCDs and lovenox. Lines: PIV Code status: Full code. PT/OT: Deferred. Disposition: Critically ill. Admitted to ICU. (2) COPD (chronic obstructive pulmonary disease): (3) Pneumonia: (4) Lung mass: (5) Atrial fibrillation: (6) Hypertension: (7) Hyperlipemia: (8) Hypocalcemia: (9) Hypomagnesemia: Supervising Physician Co-Signing Physician Notes Dr. Pacheco was resident physician during care of patient. I separately evaluated patient for solorio portions of the history and the exam. I was present during the critical portion of medical decision making, and I discussed the case with the resident. I generally agree with the findings and plan. Patient did not appear to have any additional hemoptysis. Was on minimal vent settings and we proceeded with extubation. Patient was extubated to BiPAP and tolerated this well. Later throughout the day were able to remove the BiPAP and the patient has tolerated diet. I am still holding systemic anticoagulation and restarting chemical DVT prophylaxis. Still awaiting culture results from the bronchoscopy I have reviewed pathology results as there does not appear to be any malignant cells and this appears to be all thrombus from the right upper lobe. At this time I believe the patient likely induced some bleeding in the right upper lobe and being on the systemic blood thinners continued to ooze to a point that he had significant VQ mismatch in the setting of also having significant COPD and developed hypoxic hypercarbic respiratory failure. This is since resolved and the patient is improving. Patient was discussed in multidisciplinary rounds. I also discussed the patient with Dr. Santana I have personally spent 40 minutes of critical care time in the direct management of this patient. This is a life/limb threatening event. This includes time spent evaluating patient, direct bedside care, chart review, placing orders, interpretation of diagnostic studies, discussion with consultants, patient, and/or family members regarding treatment decisions, as well as other required patient management activities. This time is exclusive of all separately billable procedures, and teaching time and separate from and in addition to any other critical care service time. Subjective Spoke with patient both prior to and after extubation. Patient is not very conversational but nods his head yes and no when given update on his status. He shook Dr. Karely abrrientos as a thank you and nodded his head no stating he had no particular acute concerns. Physical Exam 2 Vital Signs (Past 24 Hours): Last Vital Signs Temp 37.1 C 12/08/18 08:00 Pulse 88 12/08/18 10:10 Resp 16 12/08/18 10:10 BP 103/75 12/08/18 10:01 Pulse Ox 98 12/08/18 10:10 Physical Exam: General Appearance: Awake, alert & oriented but appears a bit tired after being extubated. Does not appear in acute distress. CV: +S1S2 irregularly irregular, no murmur. Pulm: Clear to auscultation throughout. BiPAP in place. Abdomen: +BS, soft, non-tender, non-distended. Extremities: No pedal edema or calf tenderness. Moving all extremities naturally and easily. Neuro: No gross neuro deficits. Results & Data Laboratory Results 12/08/18 12/08/18 12/08/18 Range/Units 12:01 10:39 05:52 WBC (4.8-10.8) K/uL RBC (4.7-6.1) M/uL Hgb (14.0-18.0) g/dL Hct (42-52) % MCV (80-100) fL MCH (25-34) pg MCHC (32-36) g/dL RDW Std Deviation (36.4-46.3) fL RDW Coeff of Dimple (11.5-14.5) % Plt Count (130-400) K/uL MPV (7.4-10.4) fL Immature Gran % (Auto) % Neut % (Auto) % Lymph % (Auto) % Stanley % (Auto) % Eos % (Auto) % Baso % (Auto) % Immature Gran # (Auto) (0.00-0.02) K/uL Neut # (Auto) (1.4-6.5) K/uL Lymph # (Auto) (1.2-3.4) K/uL Stanley # (Auto) (0.11-0.59) K/uL Eos # (Auto) (0-0.5) K/uL Baso # (Auto) (0-0.2) K/uL Sample Site POC pH (7.35-7.45) POC pCO2 (35-46) mmHg POC pO2 (80-95) mmHg POC HCO3 (19-24) max/L POC Total CO2 (24-31) mEq/l POC Base Excess (-9-1.8) max/L POC ABG O2 Sat (90-95) % Bao Test O2 Delivery Device POC O2 Rate Minute Ventilation POC FiO2 % Tidal Volume PEEP Sodium (136-145) mmol/L Potassium (3.5-5.1) mmol/L Chloride (98-107) mmol/L Carbon Dioxide (21-32) mmol/L Anion Gap (3-11) BUN (7-18) mg/dl Creatinine (0.6-1.4) mg/dl Est Cr Clr Drug Dosing ml/min Est GFR ( Amer) Est GFR (Non-Af Amer) BUN/Creatinine Ratio (10-20) Glucose (70-99) mg/dl POC Glucose 96 84 (70-99) Calcium (8.5-10.1) mg/dl Phosphorus (2.5-4.9) mg/dl Magnesium (1.8-2.4) mg/dl Troponin I 0.032 (0-0.045) ng/ml Procalcitonin (0-0.5) ng/ml Nasal Screen MRSA (PCR) (Negative) Digoxin (0.8-2.0) ng/ml Influenza Type A (PCR) (Neg) Influenza Type B (PCR) (Neg) Urine Legionella Ag Mycoplasma pneumon IgG Mycoplasma pneumon IgM Blood Type Antibody Screen Crossmatch 12/08/18 12/08/18 12/08/18 Range/Units 05:00 05:00 05:00 WBC 19.42 H (4.8-10.8) K/uL RBC 3.85 L (4.7-6.1) M/uL Hgb 11.8 L (14.0-18.0) g/dL Hct 36.7 L (42-52) % MCV 95.3 (80-100) fL MCH 30.6 (25-34) pg MCHC 32.2 (32-36) g/dL RDW Std Deviation 50.7 H (36.4-46.3) fL RDW Coeff of Dimple 14.5 (11.5-14.5) % Plt Count 241 (130-400) K/uL MPV 9.0 (7.4-10.4) fL Immature Gran % (Auto) 1.3 % Neut % (Auto) 81.1 % Lymph % (Auto) 11.1 % Stanley % (Auto) 6.1 % Eos % (Auto) 0.3 % Baso % (Auto) 0.1 % Immature Gran # (Auto) 0.25 H (0.00-0.02) K/uL Neut # (Auto) 15.76 H (1.4-6.5) K/uL Lymph # (Auto) 2.16 (1.2-3.4) K/uL Stanley # (Auto) 1.19 H (0.11-0.59) K/uL Eos # (Auto) 0.05 (0-0.5) K/uL Baso # (Auto) 0.01 (0-0.2) K/uL Sample Site POC pH (7.35-7.45) POC pCO2 (35-46) mmHg POC pO2 (80-95) mmHg POC HCO3 (19-24) max/L POC Total CO2 (24-31) mEq/l POC Base Excess (-9-1.8) max/L POC ABG O2 Sat (90-95) % Bao Test O2 Delivery Device POC O2 Rate Minute Ventilation POC FiO2 % Tidal Volume PEEP Sodium 139 (136-145) mmol/L Potassium 3.5 (3.5-5.1) mmol/L Chloride 104 (98-107) mmol/L Carbon Dioxide 32 (21-32) mmol/L Anion Gap 3.0 (3-11) BUN 30 H (7-18) mg/dl Creatinine 0.78 (0.6-1.4) mg/dl Est Cr Clr Drug Dosing 120.5 ml/min Est GFR ( Amer) 112.9 Est GFR (Non-Af Amer) 97.4 BUN/Creatinine Ratio 38.4 H (10-20) Glucose 97 (70-99) mg/dl POC Glucose (70-99) Calcium 7.4 L (8.5-10.1) mg/dl Phosphorus 2.4 L (2.5-4.9) mg/dl Magnesium 2.0 (1.8-2.4) mg/dl Troponin I 0.018 (0-0.045) ng/ml Procalcitonin (0-0.5) ng/ml Nasal Screen MRSA (PCR) (Negative) Digoxin (0.8-2.0) ng/ml Influenza Type A (PCR) (Neg) Influenza Type B (PCR) (Neg) Urine Legionella Ag Pending Mycoplasma pneumon IgG Mycoplasma pneumon IgM Blood Type Antibody Screen Crossmatch 0112/07/18 12/07/18 Range/Units 05:00 23:36 21:28 WBC (4.8-10.8) K/uL RBC (4.7-6.1) M/uL Hgb (14.0-18.0) g/dL Hct (42-52) % MCV (80-100) fL MCH (25-34) pg MCHC (32-36) g/dL RDW Std Deviation (36.4-46.3) fL RDW Coeff of Dimple (11.5-14.5) % Plt Count (130-400) K/uL MPV (7.4-10.4) fL Immature Gran % (Auto) % Neut % (Auto) % Lymph % (Auto) % Stanley % (Auto) % Eos % (Auto) % Baso % (Auto) % Immature Gran # (Auto) (0.00-0.02) K/uL Neut # (Auto) (1.4-6.5) K/uL Lymph # (Auto) (1.2-3.4) K/uL Stanley # (Auto) (0.11-0.59) K/uL Eos # (Auto) (0-0.5) K/uL Baso # (Auto) (0-0.2) K/uL Sample Site POC pH (7.35-7.45) POC pCO2 (35-46) mmHg POC pO2 (80-95) mmHg POC HCO3 (19-24) max/L POC Total CO2 (24-31) mEq/l POC Base Excess (-9-1.8) max/L POC ABG O2 Sat (90-95) % Bao Test O2 Delivery Device POC O2 Rate Minute Ventilation POC FiO2 % Tidal Volume PEEP Sodium 140 (136-145) mmol/L Potassium 4.0 (3.5-5.1) mmol/L Chloride 104 (98-107) mmol/L Carbon Dioxide 30 (21-32) mmol/L Anion Gap 6.0 (3-11) BUN 37 H (7-18) mg/dl Creatinine 0.87 D (0.6-1.4) mg/dl Est Cr Clr Drug Dosing 108.0 ml/min Est GFR ( Amer) 108.0 Est GFR (Non-Af Amer) 93.2 BUN/Creatinine Ratio 42.8 H (10-20) Glucose 92 (70-99) mg/dl POC Glucose 90 (70-99) Calcium 7.4 L (8.5-10.1) mg/dl Phosphorus 3.2 (2.5-4.9) mg/dl Magnesium 1.7 L (1.8-2.4) mg/dl Troponin I (0-0.045) ng/ml Procalcitonin (0-0.5) ng/ml Nasal Screen MRSA (PCR) (Negative) Digoxin (0.8-2.0) ng/ml Influenza Type A (PCR) (Neg) Influenza Type B (PCR) (Neg) Urine Legionella Ag Cancelled Mycoplasma pneumon IgG Pending Mycoplasma pneumon IgM Pending Blood Type Antibody Screen Crossmatch 12/07/18 12/07/18 12/07/18 Range/Units 21:28 17:37 14:46 WBC 27.15 H (4.8-10.8) K/uL RBC 4.07 L (4.7-6.1) M/uL Hgb 12.5 L (14.0-18.0) g/dL Hct 38.9 L (42-52) % MCV 95.6 (80-100) fL MCH 30.7 (25-34) pg MCHC 32.1 (32-36) g/dL RDW Std Deviation 51.6 H (36.4-46.3) fL RDW Coeff of Dimple 14.7 H (11.5-14.5) % Plt Count 284 (130-400) K/uL MPV 9.2 (7.4-10.4) fL Immature Gran % (Auto) 2.1 % Neut % (Auto) 83.3 % Lymph % (Auto) 9.3 % Stanley % (Auto) 5.1 % Eos % (Auto) 0.1 % Baso % (Auto) 0.1 % Immature Gran # (Auto) 0.56 H (0.00-0.02) K/uL Neut # (Auto) 22.61 H (1.4-6.5) K/uL Lymph # (Auto) 2.53 (1.2-3.4) K/uL Stanley # (Auto) 1.39 H (0.11-0.59) K/uL Eos # (Auto) 0.04 (0-0.5) K/uL Baso # (Auto) 0.02 (0-0.2) K/uL Sample Site R Radial L Radial POC pH 7.31 L 7.23 L (7.35-7.45) POC pCO2 55 H 68 H (35-46) mmHg POC pO2 120 H 92 (80-95) mmHg POC HCO3 28 H 29 H (19-24) max/L POC Total CO2 29 31 (24-31) mEq/l POC Base Excess 1.0 1.0 (-9-1.8) max/L POC ABG O2 Sat 98.0 H 95.0 (90-95) % Bao Test Pass Pass O2 Delivery Device Ventilator Ventilator POC O2 Rate 22 20 Minute Ventilation 12.8 13.2 POC FiO2 50 60 % Tidal Volume 650 600 PEEP 10 10 Sodium (136-145) mmol/L Potassium (3.5-5.1) mmol/L Chloride (98-107) mmol/L Carbon Dioxide (21-32) mmol/L Anion Gap (3-11) BUN (7-18) mg/dl Creatinine (0.6-1.4) mg/dl Est Cr Clr Drug Dosing ml/min Est GFR ( Amer) Est GFR (Non-Af Amer) BUN/Creatinine Ratio (10-20) Glucose (70-99) mg/dl POC Glucose (70-99) Calcium (8.5-10.1) mg/dl Phosphorus (2.5-4.9) mg/dl Magnesium (1.8-2.4) mg/dl Troponin I (0-0.045) ng/ml Procalcitonin (0-0.5) ng/ml Nasal Screen MRSA (PCR) (Negative) Digoxin (0.8-2.0) ng/ml Influenza Type A (PCR) (Neg) Influenza Type B (PCR) (Neg) Urine Legionella Ag Mycoplasma pneumon IgG Mycoplasma pneumon IgM Blood Type Antibody Screen Crossmatch 12/07/18 12/07/18 12/07/18 Range/Units 14:30 13:56 13:19 WBC (4.8-10.8) K/uL RBC (4.7-6.1) M/uL Hgb (14.0-18.0) g/dL Hct (42-52) % MCV (80-100) fL MCH (25-34) pg MCHC (32-36) g/dL RDW Std Deviation (36.4-46.3) fL RDW Coeff of Dimple (11.5-14.5) % Plt Count (130-400) K/uL MPV (7.4-10.4) fL Immature Gran % (Auto) % Neut % (Auto) % Lymph % (Auto) % Stanley % (Auto) % Eos % (Auto) % Baso % (Auto) % Immature Gran # (Auto) (0.00-0.02) K/uL Neut # (Auto) (1.4-6.5) K/uL Lymph # (Auto) (1.2-3.4) K/uL Stanley # (Auto) (0.11-0.59) K/uL Eos # (Auto) (0-0.5) K/uL Baso # (Auto) (0-0.2) K/uL Sample Site L Radial POC pH 7.16 L* (7.35-7.45) POC pCO2 86 H (35-46) mmHg POC pO2 97 H (80-95) mmHg POC HCO3 31 H (19-24) max/L POC Total CO2 33 H (24-31) mEq/l POC Base Excess 2.0 H (-9-1.8) max/L POC ABG O2 Sat 94.0 (90-95) % Bao Test Pass O2 Delivery Device Ventilator POC O2 Rate 14 Minute Ventilation 11.4 POC FiO2 60 % Tidal Volume 500 PEEP 10 Sodium (136-145) mmol/L Potassium (3.5-5.1) mmol/L Chloride (98-107) mmol/L Carbon Dioxide (21-32) mmol/L Anion Gap (3-11) BUN (7-18) mg/dl Creatinine (0.6-1.4) mg/dl Est Cr Clr Drug Dosing ml/min Est GFR ( Amer) Est GFR (Non-Af Amer) BUN/Creatinine Ratio (10-20) Glucose (70-99) mg/dl POC Glucose (70-99) Calcium (8.5-10.1) mg/dl Phosphorus (2.5-4.9) mg/dl Magnesium (1.8-2.4) mg/dl Troponin I (0-0.045) ng/ml Procalcitonin < 0.05 (0-0.5) ng/ml Nasal Screen MRSA (PCR) (Negative) Digoxin (0.8-2.0) ng/ml Influenza Type A (PCR) Neg for Influ A (Neg) Influenza Type B (PCR) Neg for Influ B (Neg) Urine Legionella Ag Mycoplasma pneumon IgG Mycoplasma pneumon IgM Blood Type Antibody Screen Crossmatch 12/07/18 12/07/18 12/07/18 Range/Units 12:45 11:48 07:54 WBC (4.8-10.8) K/uL RBC (4.7-6.1) M/uL Hgb (14.0-18.0) g/dL Hct (42-52) % MCV (80-100) fL MCH (25-34) pg MCHC (32-36) g/dL RDW Std Deviation (36.4-46.3) fL RDW Coeff of Dimple (11.5-14.5) % Plt Count (130-400) K/uL MPV (7.4-10.4) fL Immature Gran % (Auto) % Neut % (Auto) % Lymph % (Auto) % Stanley % (Auto) % Eos % (Auto) % Baso % (Auto) % Immature Gran # (Auto) (0.00-0.02) K/uL Neut # (Auto) (1.4-6.5) K/uL Lymph # (Auto) (1.2-3.4) K/uL Stanley # (Auto) (0.11-0.59) K/uL Eos # (Auto) (0-0.5) K/uL Baso # (Auto) (0-0.2) K/uL Sample Site POC pH (7.35-7.45) POC pCO2 (35-46) mmHg POC pO2 (80-95) mmHg POC HCO3 (19-24) max/L POC Total CO2 (24-31) mEq/l POC Base Excess (-9-1.8) max/L POC ABG O2 Sat (90-95) % Bao Test O2 Delivery Device POC O2 Rate Minute Ventilation POC FiO2 % Tidal Volume PEEP Sodium (136-145) mmol/L Potassium (3.5-5.1) mmol/L Chloride (98-107) mmol/L Carbon Dioxide (21-32) mmol/L Anion Gap (3-11) BUN (7-18) mg/dl Creatinine (0.6-1.4) mg/dl Est Cr Clr Drug Dosing ml/min Est GFR ( Amer) Est GFR (Non-Af Amer) BUN/Creatinine Ratio (10-20) Glucose (70-99) mg/dl POC Glucose (70-99) Calcium (8.5-10.1) mg/dl Phosphorus (2.5-4.9) mg/dl Magnesium (1.8-2.4) mg/dl Troponin I (0-0.045) ng/ml Procalcitonin (0-0.5) ng/ml Nasal Screen MRSA (PCR) Negative (Negative) Digoxin 1.0 (0.8-2.0) ng/ml Influenza Type A (PCR) (Neg) Influenza Type B (PCR) (Neg) Urine Legionella Ag Mycoplasma pneumon IgG Mycoplasma pneumon IgM Blood Type O Positive Antibody Screen NEGATIVE Crossmatch See Detail Medications Administered Current Inpatient Medications Albuterol (Duoneb) 3 ml INH Q4H PRN PRN Reason: Dyspnea Stop: 01/06/19 12:53 Digoxin (Lanoxin) 0.25 mg PO PM [facility] Stop: 01/06/19 20:59 Last Admin: 12/07/18 19:59 Dose: Not Given Diltiazem HCl (Cardizem Cd) 300 mg PO DAILY [facility] Stop: 01/07/19 08:59 Enoxaparin Sodium (Lovenox) 40 mg SQ DAILY [facility] Stop: 01/07/19 10:59 Last Admin: 12/08/18 11:32 Dose: 40 mg Fentanyl Citrate (Fentanyl Citrate) 50 mcg IV Q2H PRN PRN Reason: Moderate Pain (4,5,6) Stop: 12/21/18 12:53 Fentanyl Citrate (Fentanyl Citrate) 100 mcg IV Q2H PRN PRN Reason: Severe Pain (7,8,9,10) Stop: 12/21/18 12:53 Fentanyl Citrate (Fentanyl Drip) 1,250 mcg in 250 mls @ 10 mls/hr IV .Q24H [facility] ; Protocol Stop: 12/21/18 10:44 Last Admin: 12/08/18 09:40 Dose: Not Given Propofol (Diprivan) 1,000 mg in 100 mls @ 34.5 mls/hr IV .Q2H54M [facility]; Protocol Stop: 12/10/18 12:53 Last Admin: 12/08/18 09:25 Dose: 50 mcg/kg/min, 34.5 mls/hr Pantoprazole Sodium 40 mg/ (Syringe) 10 mls @ 5 mls/min IV DAILY@1100 [facility] Stop: 01/07/19 10:59 Last Admin: 12/08/18 11:16 Dose: 5 mls/min Cefepime HCl 2,000 mg/ Syringe 20 mls @ 5.5 mls/min IV Q8H [facility] Stop: 12/14/18 13:59 Last Admin: 12/08/18 05:39 Dose: 5.5 mls/min Levofloxacin/Dextrose (Levaquin/D5w) 750 mg in 150 mls @ 100 mls/hr IV DAILY@ 1300 [facility] Stop: 12/14/18 13:29 Last Infusion: 12/07/18 15:59 Dose: Infused Vancomycin HCl 1,250 mg/ (Sodium Chloride) 275 mls @ 125 mls/hr IV Q12H [facility] Stop: 12/15/18 00:00 Last Admin: 12/08/18 11:36 Dose: 125 mls/hr Potassium Phosphate 24 mmol/ (Sodium Chloride) 508 mls @ 101.6 mls/hr IV NOW ONE Stop: 12/08/18 15:29 Last Admin: 12/08/18 11:14 Dose: 101.6 mls/hr Ioversol (Optiray 320 100ml) 93 ml IV ONCE PRN PRN Reason: Interaction Checking Stop: 12/11/18 12:11 Last Admin: 12/07/18 12:13 Dose: 93 ml Lisinopril (Zestril) 10 mg PO DAILY [facility] Stop: 01/07/19 08:59 Last Admin: 12/08/18 07:55 Dose: 10 mg Lovastatin (Mevacor) 10 mg PO DAILY [facility] Stop: 01/07/19 08:59 Last Admin: 12/08/18 07:53 Dose: 10 mg Miscellaneous (I[facility] Protocol For Hyperglycemia) 1 ea N/A PRN PRN; Protocol PRN Reason: Hyperglycemia Protocol Stop: 12/09/18 12:53 Miscellaneous Information (Consult) 1 ea N/A UD PRN PRN Reason: Consult Stop: 02/28/19 13:10 Resident Activity Tracking Resident Involvement: Resident Care Provided Care Provided: Adult Hospital Medicine _ (1) Atrial fibrillation Atrial fibrillation type: (2) Pneumonia Aspiration pneumonia type: Laterality: right Lung location: lower lobe of lung Pneumonia type: due to influenza A virus Qualified Code(s): J11.00 - Influenza due to unidentified influenza virus with unspecified type of pneumonia
[2018-12-08] MEDS: LEVOFLOXACIN/D5W 750 MG/150 ML BAG IV SCH (12:47)
[2018-12-08] MEDS: dilTIAZem HCL 300 MG CAPCR PO SCH ×2 (14:29→15:44)
--- NOTE | 2018-12-08 14:51 | Progress Note ---
DATE: 12/08/2018 Mr. Chavarria was seen today on 12/08/2018. He has greatly improved. He is off the ventilator. Still a bit lethargic as everything went through yesterday. His chest x-ray is remarkably cleared. He presented with marked hemoptysis, and we performed 2 bronchoscopies on him yesterday, we got everything out, and he has been stable since that time. He is now off the ventilator. I did a thorough evaluation of his airways yesterday when he had the bronchoscope in place and did not see any evidence of fresh bleeding or any other abnormalities. At this point, I am not sure if this came from another cause. I discussed this situation with Dr. Lundberg. I think an ear, nose, and throat evaluation probably for completeness sake should probably be offered to this patient. I am not sure doing another bronchoscopy would be helpful. ABI
--- NOTE | 2018-12-08 15:27 | Pharmacy Report ---
Pharmacy Abx Initial Consult - Date of Service December 08, 2018 - Pharmacy Dosing Scope Date of Consult: 12/08/17 Consultation requested by: Dr. Lundberg Pharmacy is consulted to initiate Vancomycin IV/PO dosing therapy, order appropriate labs and adjust drug dose/frequency. - Subjective The patient is a 63 year old M admitted on 12/07/18 11:35. - Objective Height: 5 ft 7 in Weight: 117.4 kg Vital Signs (Past 12hrs): Vital Signs Temp Pulse Pulse Resp BP BP Pulse Ox 12/08/18 14:34 95 H 19 96 12/08/18 13:30 87 24 97 12/08/18 13:01 83 23 122/67 95 12/08/18 13:00 95 H 21 96 12/08/18 12:30 89 18 12/08/18 12:02 89 18 12/08/18 12:01 79 25 H 126/66 12/08/18 12:00 37.1 C 88 21 93 12/08/18 11:01 90 22 115/76 93 12/08/18 11:00 86 23 93 12/08/18 10:10 88 16 98 12/08/18 10:02 88 90 12/08/18 10:01 82 103/75 90 12/08/18 10:00 95 H 90 12/08/18 09:35 20 12/08/18 09:01 86 104/70 97 12/08/18 09:00 82 96 12/08/18 08:01 83 118/78 96 12/08/18 08:00 37.1 C 88 96 12/08/18 07:10 84 22 96 12/08/18 07:01 83 102/72 96 12/08/18 07:00 85 96 12/08/18 06:56 80 22 97 12/08/18 06:00 86 22 104/64 96 12/08/18 05:00 92 H 22 102/70 96 12/08/18 04:00 36.8 C 82 22 102/69 97 Lab Results (24hrs): Laboratory Tests (24 Hours) 12/08/18 12/08/18 12/07/18 05:00 05:00 21:28 WBC 19.42 H Neut # (Auto) 15.76 H Creatinine 0.78 0.87 D Est Cr Clr Drug Dosing 120.5 108.0 Procalcitonin 12/07/18 12/07/18 21:28 13:19 WBC 27.15 H Neut # (Auto) 22.61 H Creatinine Est Cr Clr Drug Dosing Procalcitonin < 0.05 Micro Results: 12/07/18 Unknown Gram Stain - Final Bronch Wash,Right Upper Lobe 12/07/18 Unknown Fungal Smear - Final Bronch Wash,Right Upper Lobe Fungal Culture - Pending 12/07/18 13:26 Blood Culture - Pending Blood 12/07/18 13:19 Blood Culture - Pending Blood 12/07/18 07:57 Blood Culture - Pending Blood 12/07/18 Unknown Acid Fast Bacilli Smear - Pending Bronch Wash,Right Upper Lobe Acid Fast Bacilli Culture - Pending - Risk Factors for Resistance * Hospitalization for 48 hours or more within the past 90 days * - Assessment & Plan Assessment 63 year old M admitted with hemoptysis requiring intubation and bronch 12/07. Patient presented with leukocytosis, WBC 26, left shift. Started empirically on vancomycin, levofloxacin, cefepime. MRSA swab negative, however patient with recently influenza positive, concern for superinfection with MRSA, therefore continuing vancomycin. Patient improved extubated/today. Waiting for bronchoscopy results for possible deescalation. Currently prelim with moderate normal nic. Plan Vancomycin IV * Patient's Scr improved today, however expect overestimation of renal function given patient's weight * Patient received 2250 mg loading dose * Maintenance dose: 1250 mg q12H * Goal trough level 15-20 mcg/mL * Trough ordered for 12/09 @ 1130 * A less than traditional dose and/or extended dosing interval has/have been selected due to likelihood of drug accumulation in obese patient Pharmacy will continue to follow and will adjust dose/frequency as necessary. Thank you.
--- NOTE | 2018-12-08 20:53 | Procedure Note ---
Procedure Note: Bronchoscopy Procedure Procedure date: December 08, 2018 Procedure: fiberoptic bronchoscopy Pre-procedure Diagnosis: Massive hemoptysis, intubation with double-lumen tube Post-procedure Diagnosis: same as above Attending Staff: Dom Lundberg DO Resident/APC: Ayesha Pacheco Skin Prep: Not applicable Anesthesia: Continuous propofol, IV fentanyl Indications: Patient is a 63-year-old male who underwent cryoprobe removal of thrombus from right upper lobe secondary to massive hemoptysis and had subsequent hypoxic hypercarbic respiratory failure. The identity of the patient was confirmed and a bedside time out was performed. Description of Procedure: Fiberoptic bronchoscopy was performed via endotracheal tube. Bronchioalveolar lavage was performed. Findings included: No new evidence of bleeding nor any active oozing noted in either the right lung nor right upper lobe nor left lung. Complications: None Specimens: None Estimated blood loss: Zero
[2018-12-08] MEDS: DIGOXIN 0.25 MG TAB PO SCH (20:54)
[2018-12-09 04:47] LABS: Basophils # (auto) 0.01 K/uL (0-0.2); Basophils % (auto) 0.1 %; Eosinophils # (auto) 0.12 K/uL (0-0.5); Eosinophils % (auto) 0.8 %; Hemoglobin 11.2 g/dL (14.0-18.0); Immature Granulocytes # (auto) 0.23 K/uL (0.00-0.02); Immature Granulocytes % (auto) 1.4 %; Lymphocytes % (auto) 14.4 %; Mean Corpuscular Hgb Conc 32.9 g/dL (32-36); Mean Corpuscular Volume 93.9 fL (80-100); Monocytes % (auto) 7.5 %; Neutrophils # (auto) 12.06 K/uL (1.4-6.5); Neutrophils % (auto) 75.8 %; Platelet Count 217 K/uL (130-400); RDW Coefficient of Variation 14.2 % (11.5-14.5); RDW Standard Deviation 48.3 fL (36.4-46.3); Red Blood Count 3.62 M/uL (4.7-6.1); White Blood Count 15.92 K/uL (4.8-10.8)
[2018-12-09 05:21] LABS: Calcium 7.9 mg/dl (8.5-10.1); Creatinine Clr Calc Pharmacy 126.7 ml/min; Est GFR (African American) 114.8; Magnesium 2.1 mg/dl (1.8-2.4); Phosphorus 1.7 mg/dl (2.5-4.9); Potassium 3.4 mmol/L (3.5-5.1)
[2018-12-09] MEDS: CEFEPIME 2,000 MG in SYRINGE 7.5 ML IV SCH (05:27)
[2018-12-09] MEDS: POTASSIUM CHLORIDE / WTR 10 MEQ/100 ML PLCT IV SCH ×2 (06:47→08:01)
--- NOTE | 2018-12-09 07:03 | XRay Report ---
XR chest 1V portable HISTORY: 63 years-old Male f/u follow-up study in a patient with history of recent respiratory failu re COMPARISON: Chest radiograph 12/08/2018, chest CT 12/07/2018 TECHNIQUE: Portable AP view of the chest FINDINGS: Cardiac silhouette appears unchanged. Status post extubation. No pneumothorax, pleural effusion or ov ert pulmonary edema. Patchy bilateral alveolar opacities redemonstrated. Moderate emphysema with chronometer assembler merary reticular opacities. Bones of the chest appear grossly intact. Healed remote left-sided rib fract ures. IMPRESSION: 1. Status post extubation. 2. Persistent patchy bilateral alveolar opacities suggestive of multifocal pneumonia. 3. Moderate emphysema with chronic interstitial coarsening. The above report was generated using voice recognition software. It may contain grammatical, syntax o r spelling errors. Electronically signed by: Brain Urrutia M.D. 12/09/2018 7:02 AM
[2018-12-09] MEDS: PROPOFOL 1,000 MG/100 ML VIAL IV SCH ×2 (07:20→07:21)
[2018-12-09] MEDS: fentaNYL DRIP 1,250 MCG/250 ML BAG IV SCH (07:21)
[2018-12-09] MEDS: NORMOSOL-R 1,000 ML IV SCH (07:37)
--- NOTE | 2018-12-09 07:38 | Urology Consultation ---
Date of Consultation December 09, 2018 Assessment & Plan (1) Lesion of right [place] kidney: 63yo M with acute respiratory compromise, seems to be progression well. Abnormal renal imaging noted. CT imaging reviewed by Dr. Yost, unable to determine if lesions of concern are solid vs fluid filled. Recommend renal ultrasound today or tomorrow, whenever patient able to tolerate to better assess. Will allow critical care/pulmonology to lead care and will further evaluate renal lesions/cysts on outpatient basis. No surgical intervention needed at this time. Thank you for the consultation. We will continue to follow until renal u/s available. Please see additional comments per my attending physician, if indicated. History of Present Illness Reason for Consultation: abnormal renal CT imaging Requesting Physician: abnormal renal CT imaging Attending Physician: Constantin Marquez MD, PhD, [facility] History of Present Illness 63yo M with PMHx COPD whom presented to ED in acute respiratory distress, underwent emergency intubation and bronchoscopy. He has since been extubated and seems to be progressing well. We were consulted for evaluation of abnormal findings on CT imaging. CT reveals two areas that require attention: R kidney with concern for infact vs small cyst within interpole and exophytic high density subcentimeter lesion at the upper pole the R kidney. No hydronephrosis. Ureters nondistended. stable and nonobstructing punctate stones to bilateral kidneys. Pt was sitting up in chair, eating breakfast when evaluated. No family members at bedside. He has never previously been evaluated by urologist, denies any urologic issues or concerns. Does not take any meds for BPH, unsure if he has had PSA screening in the past. Denies family hx of bladder, kidney or prostate cancer. Reports one episode of hematuria many years ago, self-limiting and never evaluated. Feels he may have had kidney stones in the past, but his PCP gave him a "pill that resolved it". Allergies Allergy/AdvReac Type Severity Reaction Status Date / Time Penicillins Allergy Mild HIVES Verified 12/07/18 07:38 Home Medications Home Medications Medication Instructions Recorded Confirmed Type chlorthalidone 25 mg PO DAILY 07/25/18 12/07/18 History digoxin 0.25 mcg PO PM 07/25/18 12/07/18 History diltiazem HCl 300 mg PO DAILY 07/25/18 12/07/18 History ipratropium-albuterol 3 ml INHALATION BID 07/25/18 12/07/18 History lisinopril 10 mg PO DAILY 07/25/18 12/07/18 History lovastatin 10 mg PO DAILY 07/25/18 12/07/18 History mometasone-formoterol 2 puff INHALATION BID 07/25/18 12/07/18 History rivaroxaban 20 mg PO PM 07/25/18 12/07/18 History potassium chloride 10 meq PO DAILY #7 cap 11/29/18 12/07/18 Rx prednisone 10 mg PO DAILY #42 tab 11/29/18 12/07/18 Rx tiotropium bromide [Spiriva with 1 puff INHALATION QAM 30 Days #30 11/29/18 Rx HandiHaler] inha Patient History Medical History Atrial fibrillation (Chronic) Arrhythmia COPD (chronic obstructive pulmonary disease) HTN (hypertension) Hemorrhoids Hyperlipidemia Kidney stones Family History Father Heart attack Social History Current Living Situation: Spouse Other Information That Helps Us Care for You: No Feels Safe at Home: Yes Smoking Status: Former smoker Do You Dip or Chew Tobacco: No Second Hand Exposure: No Tobacco Cessation Education Requested by Patient: No Hx Alcohol Use: No Hx Substance Use: No Beliefs That Will Affect Care: None Communication Ability: Effective Review of Systems Constitutional: no fever and no chills Eyes: no problem reported Ear, Nose, Mouth, Throat: no ear pain Respiratory: + cough and + hemoptysis Cardiovascular: no chest pain Gastrointestinal: no abdominal pain Musculoskeletal: no problem reported Integumentary: no rash Neurologic: no problem reported Psychiatric: no hopelessness Endocrine: no fatigue Physical Exam 2 Vital Signs (Past 24 Hours): Last Vital Signs Temp 36.5 C 12/09/18 03:02 Pulse 61 12/09/18 05:01 Resp 24 12/09/18 05:01 BP 116/61 12/09/18 05:01 Pulse Ox 95 12/09/18 05:01 Constitutional: no acute distress Eyes: no nystagmus ENMT: Ears: no hearing impairment Neck: trachea midline Respiratory: no respiratory distress Cardiovascular: Vessels: no JVD Gastrointestinal (Abdomen): Inspection/Auscultation: abdomen not distended Percussion/Palpation: abdomen soft Musculoskeletal: Head/Neck/Chest: normocephalic Skin: no rashes, warm and dry Neurologic: awake; not confused Psychiatric: Orientation: alert and oriented x 3
--- NOTE | 2018-12-09 07:41 | Critical Care Progress Note ---
Date of Service December 09, 2018 Assessment & Plan (1) Hemoptysis: 63-year-old male was admitted on 07 December 2018 for hemoptysis. 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 No known acute issues. Off sedation. Pulm: Admitted for hemoptysis, underwent emergent dual lumen intubation and bronchoscopy. Recent hospitalization for COPD exacerbation (home on steroid taper) and right-sided pneumonia (home on PO antibiotics). CT chest notes right -sided parenchymal infiltrate and potential LLL post-obstructive issue. Underwent repeat bronchoscopy with thoracic surgery, concern for LLL mass, see related notes. Has albuterol prn available. 30Nov repeat bronchoscopy noted tracheomalacia with near collapse (see related note). Extubated , on BiPAP. - May benefit from an ENT consult to evaluate his nose as an outpatient. CVS: PMH permanent A. fib, on diltiazem, digoxin, and (at home) Xarelto. PMH HTN and HLD, on lisinopril and lovastatin as well. Does have prolonged QTc at 459. ID: Diagnosed with CAP during -29 Nov 2018 hospitalization, discharged on azithromycin and cefdinir. Also was influenza A positive, completed Tamiflu course. Repeat flu negative. Presently afebrile with WBC 26. Negative procalcitonin and nasal MRSA. Checking for legionella. BCx and bronchial Cx pending. Discontinuing all antibiotics today Endo: No known DM or thyroid issues. On ICU hyperglycemia protocol. Renal/Lytes: Cr normal. Hypomagnesemia and hypokalemia being corrected. Nephrolithiasis on CT a/p. -Per urology will obtain renal ultrasound and follow-up as outpatient GI: Tolerating regular diet discontinue Protonix. Heme: Start heparin infusion today as it can be easily discontinued consider starting Xarelto tomorrow DVT prophy: Heparin infusion, Lovenox DVT prophylaxis was given yesterday Lines: PIV Code status: Full code. PT/OT: Consulted Disposition: Stable for downgrade out of ICU transition to remote telemetry (2) COPD (chronic obstructive pulmonary disease): (3) Pneumonia: (4) Lung mass: (5) Atrial fibrillation: (6) Hypertension: (7) Hyperlipemia: (8) Hypocalcemia: (9) Hypomagnesemia: Subjective Sitting up in chair, tolerating breakfast. Desires catheter to be discontinued today. No chest pain no significant shortness of breath, coughing up dark colored sputum no bright red blood. Physical Exam 2 Vital Signs (Past 24 Hours): Last Vital Signs Temp 36.5 C 12/09/18 03:02 Pulse 61 12/09/18 05:01 Resp 24 12/09/18 05:01 BP 116/61 12/09/18 05:01 Pulse Ox 95 12/09/18 05:01 General: Alert. nontoxic. Skin: Warm, dry, Head: Atraumatic Ears, nose, mouth and throat: airway patent Cardiovascular: Normal peripheral perfusion Respiratory: no respiratory distress Gastrointestinal: Non distended Musculoskeletal: No deformity Results & Data Laboratory Results 12/09/18 12/09/18 12/09/18 Range/Units 04:33 04:33 00:16 WBC 15.92 H (4.8-10.8) K/uL RBC 3.62 L (4.7-6.1) M/uL Hgb 11.2 L (14.0-18.0) g/dL Hct 34.0 L (42-52) % MCV 93.9 (80-100) fL MCH 30.9 (25-34) pg MCHC 32.9 (32-36) g/dL RDW Std Deviation 48.3 H (36.4-46.3) fL RDW Coeff of Dimple 14.2 (11.5-14.5) % Plt Count 217 (130-400) K/uL MPV 9.0 (7.4-10.4) fL Immature Gran % (Auto) 1.4 % Neut % (Auto) 75.8 % Lymph % (Auto) 14.4 % Coal % (Auto) 7.5 % Eos % (Auto) 0.8 % Baso % (Auto) 0.1 % Immature Gran # (Auto) 0.23 H (0.00-0.02) K/uL Neut # (Auto) 12.06 H (1.4-6.5) K/uL Lymph # (Auto) 2.30 (1.2-3.4) K/uL Coal # (Auto) 1.20 H (0.11-0.59) K/uL Eos # (Auto) 0.12 (0-0.5) K/uL Baso # (Auto) 0.01 (0-0.2) K/uL Sodium 137 (136-145) mmol/L Potassium 3.4 L (3.5-5.1) mmol/L Chloride 104 (98-107) mmol/L Carbon Dioxide 29 (21-32) mmol/L Anion Gap 4.0 (3-11) BUN 19 H (7-18) mg/dl Creatinine 0.75 (0.6-1.4) mg/dl Est Cr Clr Drug Dosing 126.7 ml/min Est GFR ( Amer) 114.8 Est GFR (Non-Af Amer) 99.0 BUN/Creatinine Ratio 26.0 H (10-20) Glucose 90 (70-99) mg/dl POC Glucose (70-99) Calcium 7.9 L (8.5-10.1) mg/dl Phosphorus 1.7 L (2.5-4.9) mg/dl Magnesium 2.1 (1.8-2.4) mg/dl Troponin I 0.048 H* (0-0.045) ng/ml 12/08/18 12/08/18 12/08/18 Range/Units 16:30 12:01 10:39 WBC (4.8-10.8) K/uL RBC (4.7-6.1) M/uL Hgb (14.0-18.0) g/dL Hct (42-52) % MCV (80-100) fL MCH (25-34) pg MCHC (32-36) g/dL RDW Std Deviation (36.4-46.3) fL RDW Coeff of Dimple (11.5-14.5) % Plt Count (130-400) K/uL MPV (7.4-10.4) fL Immature Gran % (Auto) % Neut % (Auto) % Lymph % (Auto) % Coal % (Auto) % Eos % (Auto) % Baso % (Auto) % Immature Gran # (Auto) (0.00-0.02) K/uL Neut # (Auto) (1.4-6.5) K/uL Lymph # (Auto) (1.2-3.4) K/uL Coal # (Auto) (0.11-0.59) K/uL Eos # (Auto) (0-0.5) K/uL Baso # (Auto) (0-0.2) K/uL Sodium (136-145) mmol/L Potassium (3.5-5.1) mmol/L Chloride (98-107) mmol/L Carbon Dioxide (21-32) mmol/L Anion Gap (3-11) BUN (7-18) mg/dl Creatinine (0.6-1.4) mg/dl Est Cr Clr Drug Dosing ml/min Est GFR ( Amer) Est GFR (Non-Af Amer) BUN/Creatinine Ratio (10-20) Glucose (70-99) mg/dl POC Glucose 96 (70-99) Calcium (8.5-10.1) mg/dl Phosphorus (2.5-4.9) mg/dl Magnesium (1.8-2.4) mg/dl Troponin I 0.049 H* 0.032 (0-0.045) ng/ml _ (1) Atrial fibrillation Atrial fibrillation type: (2) Pneumonia Aspiration pneumonia type: Laterality: right Lung location: lower lobe of lung Pneumonia type: due to influenza A virus Qualified Code(s): J11.00 - Influenza due to unidentified influenza virus with unspecified type of pneumonia
--- NOTE | 2018-12-09 08:23 | Critical Care Progress Note ---
Date of Service December 09, 2018 Duplicate note in error Assessment & Plan (1) Hemoptysis: (2) COPD (chronic obstructive pulmonary disease): (3) Pneumonia: (4) Lung mass: (5) Atrial fibrillation: (6) Hypertension: (7) Hyperlipemia: (8) Hypocalcemia: (9) Hypomagnesemia: Physical Exam 2 Vital Signs (Past 24 Hours): Last Vital Signs Temp 36.5 C 12/09/18 03:02 Pulse 61 12/09/18 05:01 Resp 24 12/09/18 05:01 BP 116/61 12/09/18 05:01 Pulse Ox 95 12/09/18 05:01 _ (1) Atrial fibrillation Atrial fibrillation type: (2) Pneumonia Aspiration pneumonia type: Laterality: right Lung location: lower lobe of lung Pneumonia type: due to influenza A virus Qualified Code(s): J11.00 - Influenza due to unidentified influenza virus with unspecified type of pneumonia
[2018-12-09] MEDS ORDERED: POTASSIUM PHOSPHATE 9 MMOL in SODIUM CHLORIDE 0.9% 250 ML IV ONE (09:30)
--- NOTE | 2018-12-09 09:35 | Ultrasound Report ---
US renal/blad retro comp HISTORY: 63 years-old Male R renal abnormality on CT 8 mm indeterminate lesion of the superior pole right kidney described on comparison CT COMPARISON: CT abdomen and pelvis 12/07/2018, CT abdomen and pelvis 08/03/2015. TECHNIQUE: Multiple real-time sonographic images of the kidneys and urinary bladder were obtained ass essing grayscale appearance and color flow FINDINGS: Limited study secondary to patient positioning and condition. Right kidney measures 13.1 cm in length. Nonobstructing calculi of the inferior pole right kidney red emonstrated measuring up to 4 mm. No right-sided hydronephrosis. Hypoechoic lesion of the anterior in terpolar right kidney measuring 1.4 x 1.0 x 0.9 cm demonstrates a thin internal septation without int ernal flow. The previously described subcentimeter suspicious lesion about the superior pole right ki dney is not definitively seen based on patient positioning and body habitus. Left kidney measures 11.3 cm in length. Previously described calculi of the inferior pole left kidney not definitively seen. No suspicious mass lesions or hydronephrosis about the left kidney. Partially decompressed bladder is unremarkable. IMPRESSION: 1. Previously described subcentimeter suspicious lesion of the superior pole right kidney is not iden tified secondary to patient positioning and body habitus. Continued follow-up recommended. 2. Hypoechoic 1.3 cm lesion within internal septation about the interpolar right kidney is suggestive of a mildly complex renal cyst. 3. Right nephrolithiasis without ureteral calculi identified. 4. Previously noted left nephrolithiasis not identified by ultrasound. The above report was generated using voice recognition software. It may contain grammatical, syntax o r spelling errors. Electronically signed by: Brain Urrutia M.D. 12/09/2018 9:33 AM
[2018-12-09] MEDS: Heparin IV Standard *NO* Bolus IV SCH ×2 (10:00→10:09)
[2018-12-09] MEDS: LISINOPRIL 10 MG TAB PO SCH ×2 (10:01→10:31)
[2018-12-09] MEDS: LOVASTATIN 20 MG TAB PO SCH (10:04)
[2018-12-09 11:10] LABS: Basophils # (auto) 0.01 K/uL (0-0.2); Basophils % (auto) 0.1 %; Eosinophils # (auto) 0.13 K/uL (0-0.5); Eosinophils % (auto) 0.8 %; Hematocrit (blood only) 35.1 % (42-52); Hemoglobin 11.6 g/dL (14.0-18.0); Immature Granulocytes # (auto) 0.27 K/uL (0.00-0.02); Immature Granulocytes % (auto) 1.7 %; Lymphocytes # (auto) 2.15 K/uL (1.2-3.4); Lymphocytes % (auto) 13.4 %; Mean Corpuscular Volume 93.9 fL (80-100); Mean Platelet Volume 8.8 fL (7.4-10.4); Monocytes # (auto) 1.01 K/uL (0.11-0.59); Monocytes % (auto) 6.3 %; Neutrophils # (auto) 12.51 K/uL (1.4-6.5); Neutrophils % (auto) 77.7 %; Platelet Count 214 K/uL (130-400); RDW Coefficient of Variation 14.1 % (11.5-14.5); Red Blood Count 3.74 M/uL (4.7-6.1); White Blood Count 16.08 K/uL (4.8-10.8)
[2018-12-09 11:19] LABS: INR 1.1 (0.9-1.1); Partial Thromboplastin Ratio 0.9; Partial Thromboplastin Time 24.5 Seconds (21.0-31.0); Prothrombin Time 10.7 Seconds (9.0-12.0)
[2018-12-09] MEDS ORDERED: VANCOMYCIN TROUGH ONE (11:30)
[2018-12-09] MEDS: HEPARIN SODIUM/DEXTROSE 25,000 UNITS/500 ML BAG IV SCH (12:09)
[2018-12-09] MEDS: TIOTROPIUM BROMIDE 5 PUFF/90 MCG INH INH SCH (14:59)
--- NOTE | 2018-12-09 15:24 | Hospitalist Progress Note ---
Date of Service December 09, 2018 Assessment & Plan (1) Hemoptysis: (2) Pneumonia: (3) Atrial fibrillation: (4) COPD (chronic obstructive pulmonary disease): (5) Hypertension: (6) DVT prophylaxis: (7) Acute respiratory failure: (8) Lung mass: 63yo M w/ hx of COPD and afib admitted on December 07, 2018 with hemoptysis, acute respiratory failure. Was intubated and extubated and bronchoscopy was done on the day of admission, currently is on BiPAP machine, Acute respiratory failure, etiology unknown, possible mild COPD, less likely secondary to pneumonia Possible no pneumonia Pulmonary mass, Hemoptysis: Possibly due to endobronchial malignancy vs. spontaneous from pneumonia CT chest on 12/07 shows infiltratative changes in the RML and RLL. S/P bronc, ICU team has stop antibiotic and plan to watch if has fevers, continue current medication include no antibiotic, but continue nebulizer treatment, and oxygen support, Chest surgeon and ICU team service input appreciated, Permanent afib. On diltiazem and digoxin for rate control. Xarelto for anticoagulation prior to admission, Currently on heparin drip will be switched to Xarelto if condition continues to be stable Hold Xarelto DuoNebs PRN hx fo Hypertension: Stable, Okay to transfer to telemetry, potassium and phosphorous anemia is replaced Patient is a full code, GI DVT prophylaxis covered Subjective Up and walk, still cough up with dark blood sputum generally feeling okay, afebrile, is on nasal cannula oxygen, as before sentence, Review of Systems Constitutional: Positive weakness, or fatigue Respiratory: + cough, sputum, wheezing, hemoptysis Cardiac: No chest pain, No orthopnea, Abdomen: No pain, No nausea, No vomiting, No diarrhea, No constipation, No GI bleeding Musculoskeletal: No joint pain, No muscle pain, No swelling, : No dysuria, No urinary frequency, No incontinence, No hematuria Neurologic: No paralysis, No weakness, No numbness/tingling, Psychiatric: No depression symptoms, No anhedonism, No anxiety, Heme: No abnormal bleeding/bruising, No clotting problems, No swollen lymph nodes, No night sweats Skin: No rash, No itch, No new/changing skin lesions, No color change, No bleeding Physical Exam 2 Vital Signs (Past 24 Hours): Last Vital Signs Temp 36.8 C 12/09/18 12:00 Pulse 96 H 12/09/18 12:01 Resp 24 12/09/18 12:01 BP 128/70 12/09/18 12:01 Pulse Ox 95 12/09/18 12:01 Physical Exam: General Appearance: General he looks much better, conversational, feeling weak, WD/WN, no apparent distress, Eyes: normal inspection, PERRL, EOMI, sclerae normal ENT: normal ENT inspection, hearing grossly normal, pharynx normal Neck: supple, no adenopathy, thyroid normal, no JVD, no carotid bruits, trachea midline Respiratory/Chest: chest non-tender, decreased breath sounds, occasional wheezing, no real , no respiratory distress, no accessory muscle use, occasional rales, Cardiovascular: regular rate, rhythm, no JVD, no murmur Abdomen: normal bowel sounds, non tender, soft, no organomegaly, Extremities: normal range of motion, non-tender, normal inspection, Trace pedal edema, no calf tenderness, joint has no limited range of motion, capillary refill is normal, no cyanosis clubbing Neurologic/Psychiatric: early years teacher II-XII nml as tested, no motor/sensory deficits, alert, normal mood/affect, oriented x 3 Skin: normal color, warm/dry, no rash Lymphatic: no adenopathy Results & Data Laboratory Results Laboratory Results - last 24 hr 12/08/18 12/09/18 12/09/18 16:30 00:16 04:33 WBC 15.92 H RBC 3.62 L Hgb 11.2 L Hct 34.0 L MCV 93.9 MCH 30.9 MCHC 32.9 RDW Std Deviation 48.3 H RDW Coeff of Dimple 14.2 Plt Count 217 MPV 9.0 Immature Gran % (Auto) 1.4 Neut % (Auto) 75.8 Lymph % (Auto) 14.4 Forrest % (Auto) 7.5 Eos % (Auto) 0.8 Baso % (Auto) 0.1 Immature Gran # (Auto) 0.23 H Neut # (Auto) 12.06 H Lymph # (Auto) 2.30 Forrest # (Auto) 1.20 H Eos # (Auto) 0.12 Baso # (Auto) 0.01 PT INR APTT PTT Ratio Sodium Potassium Chloride Carbon Dioxide Anion Gap BUN Creatinine Est Cr Clr Drug Dosing Est GFR ( Amer) Est GFR (Non-Af Amer) BUN/Creatinine Ratio Glucose Calcium Phosphorus Magnesium Troponin I 0.049 H* 0.048 H* 12/09/18 12/09/18 12/09/18 04:33 08:07 11:00 WBC RBC Hgb Hct MCV MCH MCHC RDW Std Deviation RDW Coeff of Dimple Plt Count MPV Immature Gran % (Auto) Neut % (Auto) Lymph % (Auto) Forrest % (Auto) Eos % (Auto) Baso % (Auto) Immature Gran # (Auto) Neut # (Auto) Lymph # (Auto) Forrest # (Auto) Eos # (Auto) Baso # (Auto) PT 10.7 INR 1.1 APTT 24.5 PTT Ratio 0.9 Sodium 137 Potassium 3.4 L Chloride 104 Carbon Dioxide 29 Anion Gap 4.0 BUN 19 H Creatinine 0.75 Est Cr Clr Drug Dosing 126.7 Est GFR ( Amer) 114.8 Est GFR (Non-Af Amer) 99.0 BUN/Creatinine Ratio 26.0 H Glucose 90 Calcium 7.9 L Phosphorus 1.7 L Magnesium 2.1 Troponin I 0.031 12/09/18 11:00 WBC 16.08 H RBC 3.74 L Hgb 11.6 L Hct 35.1 L MCV 93.9 MCH 31.0 MCHC 33.0 RDW Std Deviation 48.0 H RDW Coeff of Dimple 14.1 Plt Count 214 MPV 8.8 Immature Gran % (Auto) 1.7 Neut % (Auto) 77.7 Lymph % (Auto) 13.4 Forrest % (Auto) 6.3 Eos % (Auto) 0.8 Baso % (Auto) 0.1 Immature Gran # (Auto) 0.27 H Neut # (Auto) 12.51 H Lymph # (Auto) 2.15 Forrest # (Auto) 1.01 H Eos # (Auto) 0.13 Baso # (Auto) 0.01 PT INR APTT PTT Ratio Sodium Potassium Chloride Carbon Dioxide Anion Gap BUN Creatinine Est Cr Clr Drug Dosing Est GFR ( Amer) Est GFR (Non-Af Amer) BUN/Creatinine Ratio Glucose Calcium Phosphorus Magnesium Troponin I Microbiology 12/07/18 Unknown Bronch Wash,Right Upper Lobe Acid Fast Bacilli Smear - Final 12/07/18 Unknown Bronch Wash,Right Upper Lobe Gram Stain - Final 12/07/18 Unknown Bronch Wash,Right Upper Lobe Bronchoalveolar Lavage Culture - Final Moderate normal nic. 12/07/18 07:57 Blood Blood Culture - Preliminary No growth to date. 12/07/18 13:26 Blood Blood Culture - Preliminary No growth to date. 12/07/18 13:19 Blood Blood Culture - Preliminary No growth to date. _ (1) Pneumonia Aspiration pneumonia type: Laterality: right Lung location: lower lobe of lung Pneumonia type: due to influenza A virus Qualified Code(s): J11.00 - Influenza due to unidentified influenza virus with unspecified type of pneumonia (2) Atrial fibrillation Atrial fibrillation type:
--- NOTE | 2018-12-09 15:28 | ENT Consultation ---
Date of Consultation December 09, 2018 Assessment & Plan (1) Hemoptysis: Comprehensive head and neck exam and fiberoptic laryngoscopy and nasal endoscopy normal. No otolaryngology source of hemoptysis identified on examination today. Patient reassured his laryngeal and hypopharyngeal ecchymosis is from his intubation and will resolve spontanenously. Also reassured his tongue base mucous retention cyst is not the source of his hemoptysis and no intervention required at this time. Will sign off. History of Present Illness Attending Physician: Constantin Marquez MD, PhD, [facility] 63 yo male admitted for hemoptysis. Came to the ED 12/07/18 at 0700 after started to experience hemoptysis at home around 0200. States it started spontaneously. Is on anticoagulation for his Afib. He underwent bronchoscopy with no identifiable source noted by Dr. Santana. He was intubated and spent a few days in the ICU. Was subsequently extubated and transferred to the floor. Dr. Santana asked me to evaluate his upper airway. Patient denies any recent history of epistaxis. Prior to admission he denies any sore throat, change to voice, dysphagia, odynophagia. Does have history of smoking ( 2ppd for 20 yrs) but quit several months ago. No other signs or symptoms. Allergies Allergy/AdvReac Type Severity Reaction Status Date / Time Penicillins Allergy Mild HIVES Verified 12/07/18 07:38 Home Medications Home Medications Medication Instructions Recorded Confirmed Type chlorthalidone 25 mg PO DAILY 07/25/18 12/07/18 History digoxin 0.25 mcg PO PM 07/25/18 12/07/18 History diltiazem HCl 300 mg PO DAILY 07/25/18 12/07/18 History ipratropium-albuterol 3 ml INHALATION BID 07/25/18 12/07/18 History lisinopril 10 mg PO DAILY 07/25/18 12/07/18 History lovastatin 10 mg PO DAILY 07/25/18 12/07/18 History mometasone-formoterol 2 puff INHALATION BID 07/25/18 12/07/18 History rivaroxaban 20 mg PO PM 07/25/18 12/07/18 History potassium chloride 10 meq PO DAILY #7 cap 11/29/18 12/07/18 Rx prednisone 10 mg PO DAILY #42 tab 11/29/18 12/07/18 Rx tiotropium bromide [Spiriva with 1 puff INHALATION QAM 30 Days #30 11/29/18 Rx HandiHaler] inha Patient History Medical History Atrial fibrillation (Chronic) Arrhythmia COPD (chronic obstructive pulmonary disease) HTN (hypertension) Hemorrhoids Hyperlipidemia Kidney stones Family History Father Heart attack Social History Current Living Situation: Spouse Other Information That Helps Us Care for You: No Feels Safe at Home: Yes Smoking Status: Former smoker Do You Dip or Chew Tobacco: No Second Hand Exposure: No Tobacco Cessation Education Requested by Patient: No Hx Alcohol Use: No Hx Substance Use: No Beliefs That Will Affect Care: None Communication Ability: Effective Review of Systems Constitutional: as per Subjective / HPI Physical Exam 2 Vital Signs (Past 24 Hours): Last Vital Signs Temp 36.8 C 12/09/18 12:00 Pulse 96 H 12/09/18 12:01 Resp 24 12/09/18 12:01 BP 128/70 12/09/18 12:01 Pulse Ox 95 12/09/18 12:01 Physical Exam: PROCEDURE: Fiberoptic laryngoscopy was performed. Nasal cavities normal bilaterally. Nasopharynx normal. Tongue base with a right sided mucous retention cyst but otherwise normal. There is ecchymosis of the bilateral AE folds and right false cord, likely from his intubation. Glottis normal appearing. There is some old blood noted in the trachea on exam today. Post cricoid space normal without mass or lesion. Vocal cord mobility normal. No paresis or paralysis. Constitutional: WD/WN, vitals as above well developed Eyes: PERRL, conjunctivae normal, anicteric sclerae ENMT: external ear and nose normal, oropharynx normal Bilateral anterior rhinoscopy normal. Neck: trachea midline, no thyromegaly Respiratory: normal respiratory effort, lungs clear to auscultation Skin: no rashes, warm and dry Neurologic: PERRL, EOMI, accommodation nl, no face palsy, no dysarthria CN' s II-XI intact bilaterally Lymphatic: no cervical or axillary lymphadenopathy
--- NOTE | 2018-12-09 15:50 | Progress Note ---
DATE: 12/09/2018 Mr. Chavarria was seen today. He looks much better. He is sitting up in bed eating his breakfast. He has had no further hemoptysis, although he does have occasional blood streaked sputum. I discussed this case with Dr. Kevin Neff from otolaryngology who performed a bedside endoscopy and did not see any evidence of bleeding from his upper aerodigestive tract. We are going to get gastroenterology to see him about possible upper endoscopy to make sure there is not an esophageal etiology.
[2018-12-09 18:36] LABS: Partial Thromboplastin Ratio 1.3; Partial Thromboplastin Time 34.3 Seconds (21.0-31.0)
[2018-12-09] MEDS ORDERED: HEPARIN IV BOLUS 7,000 UNITS in SYRINGE 0 ML IV ONE (19:15)
[2018-12-09] MEDS: DIGOXIN 0.25 MG TAB PO SCH (20:15)
[2018-12-10] MEDS: HEPARIN SODIUM/DEXTROSE 25,000 UNITS/500 ML BAG IV SCH (01:37)
[2018-12-10 02:07] LABS: Hematocrit (blood only) 32.5 % (42-52); Hemoglobin 10.8 g/dL (14.0-18.0); Mean Corpuscular Hgb Conc 33.2 g/dL (32-36); Mean Corpuscular Volume 93.1 fL (80-100); RDW Standard Deviation 47.5 fL (36.4-46.3); Red Blood Count 3.49 M/uL (4.7-6.1); White Blood Count 14.52 K/uL (4.8-10.8)
[2018-12-10 02:08] LABS: Basophils # (auto) 0.01 K/uL (0-0.2); Basophils % (auto) 0.1 %; Eosinophils # (auto) 0.19 K/uL (0-0.5); Eosinophils % (auto) 1.3 %; Immature Granulocytes # (auto) 0.22 K/uL (0.00-0.02); Immature Granulocytes % (auto) 1.5 %; Lymphocytes # (auto) 2.21 K/uL (1.2-3.4); Lymphocytes % (auto) 15.2 %; Mean Platelet Volume 9.2 fL (7.4-10.4); Monocytes % (auto) 6.9 %; Neutrophils # (auto) 10.89 K/uL (1.4-6.5); Platelet Count 223 K/uL (130-400)
[2018-12-10 02:24] LABS: BUN Creatinine Ratio 21.5 (10-20); Calcium 8.3 mg/dl (8.5-10.1); Creatinine Clr Calc Pharmacy 96.8 ml/min; Est GFR (African American) 97.3; Est GFR (Non-African American) 83.9; Magnesium 1.8 mg/dl (1.8-2.4); Potassium 3.4 mmol/L (3.5-5.1)
[2018-12-10 02:26] LABS: Phosphorus 2.2 mg/dl (2.5-4.9)
[2018-12-10 02:28] LABS: Partial Thromboplastin Ratio 2.5
[2018-12-10 02:29] LABS: Partial Thromboplastin Time 66.2 Seconds (21.0-31.0)
[2018-12-10] MEDS ORDERED: POTASSIUM CHLORIDE 20 MEQ TABCR PO STA (08:06)
[2018-12-10 08:12] LABS: Partial Thromboplastin Ratio 2.4
[2018-12-10 08:16] LABS: Partial Thromboplastin Time 61.3 Seconds (21.0-31.0)
[2018-12-10] MEDS: LISINOPRIL 10 MG TAB PO SCH (08:25)
[2018-12-10] MEDS: LOVASTATIN 20 MG TAB PO SCH (08:25)
[2018-12-10] MEDS: dilTIAZem HCL 300 MG CAPCR PO SCH (08:25)
[2018-12-10] MEDS: TIOTROPIUM BROMIDE 5 PUFF/90 MCG INH INH SCH (08:26)
--- NOTE | 2018-12-10 10:51 | Progress Note ---
DATE: 12/10/2018 Mr. Chavarria was seen today. He feels great. He states he would like to "know what the hell is going on" with his bleeding. At this point, I would recommend that he had a GI evaluation for an upper endoscopy. I do not think this need to be done in the hospital; however, it is important to note that this patient have a life-threatening hemoptysis and we are still not quite sure where this bleeding came from. I will see him in the office and repeat a CT scan on him in the near future. ABI
[2018-12-10] MEDS ORDERED: RIVAROXABAN 20 MG TAB PO SCH (12:00)
--- NOTE | 2018-12-10 12:21 | Consultation Report ---
DATE OF CONSULTATION: 12/10/2018 GI CONSULT NOTE REASON FOR EVALUATION: Hemoptysis and possible GI bleed. HISTORY OF PRESENT ILLNESS: The patient is a 63-year-old who presents to the hospital on December 07 with the acute onset of significant hemoptysis. The patient does have underlying COPD and atrial fibrillation on Xarelto. The patient states he was coughing up large amounts of blood and felt like he was drowning and blood ended up coming to the Emergency Room where he was intubated to protect his airway. He had an emergency bronchoscopy in the Emergency Room which revealed a blood clot in his lung, was not clear whether this was a result of pneumonia or a mass or some vascular malformation. He was started on antibiotics for possible pneumonia, but never developed a fever or significant leukocytosis and the antibiotics were subsequently stopped. The bleeding seemed to subside and he was extubated and his bleeding is improving. He is reporting no hemoptysis today. His Xarelto has been on hold. At some point, he will need to be re-bronchoscoped and there is a concern about an alternative potential source for the bleeding possibly in his GI tract. The patient denies any abdominal pain, hematemesis, nausea, previous ulcer disease or visible blood in his stool. He is not taking any aspirin or nonsteroidals. PAST MEDICAL HISTORY: Remarkable for AFib on diltiazem, digoxin and Xarelto, he has got COPD, hypertension. ALLERGIES: PENICILLIN. MEDICATIONS: Per list. FAMILY HISTORY: Positive for heart attack, coronary disease. SOCIAL HISTORY: The patient is . He is a former smoker. No alcohol. REVIEW OF SYSTEMS: Positive for concern about where his bleeding is coming from. Remainder is negative. PHYSICAL EXAMINATION: GENERAL: The patient is overweight, in no acute distress. VITAL SIGNS: Blood pressure is 164/83, pulse 96. HEENT: Airway shows to have a few tolowa dee-ni' teeth, but he has got several missing teeth. He has partial plates, but they are not in. NECK: Very thick. LUNGS: Clear. HEART: Showed an irregularly irregular rhythm. ABDOMEN: Soft and nontender. IMPRESSION AND PLAN: The patient has hemoptysis of unclear etiology with underlying atrial fibrillation and chronic obstructive pulmonary disease. He does not have any GI symptoms or obvious risk factors for an ulcer. At this point, I would recommend continued evaluation of his hemoptysis. Once that has been clarified, if there is still a question about a potential GI source for bleeding, we could pursue an EGD as an outpatient, but I seriously doubt that he has a GI source for bleeding. We will follow the patient as needed.
--- NOTE | 2018-12-10 13:11 | Urology Progress Note ---
Date of Service December 10, 2018 Assessment & Plan (1) Lesion of right [place] kidney: 63yo M with acute respiratory compromise, seems to be progression well. Renal US reveals small R renal complex cyst, nonobstructing stone. No hydronephrosis or clearly visible solid masses. No intervention required at this time. Thank you for the consultation. We will allow for patient to continue to recover from critical illness and f/u as outpatient with Dr. Yost in 3-4 weeks. Appt made by our office. Subjective Patient sitting on side of bed at time of evaluation. Offers no new complaints or issues from perspective. Upon further investigation, pt was previously evaluated by Dr. Cowan in 2016 for hematuria and uric acid stones. Previously treated with polycitra and urocitk. No longer taking. Previous cystoscopy with biopsy in 2016, benign. No dysplasia or carcinoma. Review of Systems All systems reviewed & are unremarkable except as noted in HPI & below Respiratory: + cough and + hemoptysis Physical Exam 2 Vital Signs (Past 24 Hours): Last Vital Signs Temp 36.5 C 12/10/18 12:16 Pulse 63 12/10/18 12:16 Resp 20 12/10/18 12:16 BP 121/68 12/10/18 12:16 Pulse Ox 91 12/10/18 12:16 Physical Exam: A&Ox3 RRR, supplemental O2 intact abs obese, soft psych: ornery but cooperative
[2018-12-10 14:59] LABS: iSTAT Allen Test Pass; iSTAT Arterial Blood Gas HCO3 30 meg/L (19-24); iSTAT Carbon Dioxide 31 mEq/l (24-31); iSTAT FiO2 35 %
--- NOTE | 2018-12-10 16:25 | Hospitalist Progress Note ---
Date of Service December 10, 2018 Assessment & Plan (1) Hemoptysis: (2) Pneumonia: (3) Atrial fibrillation: (4) COPD (chronic obstructive pulmonary disease): (5) Hypertension: (6) DVT prophylaxis: (7) Acute respiratory failure: (8) Lung mass: 63yo M w/ hx of COPD and afib admitted on December 07, 2018 with hemoptysis, acute respiratory failure. Was intubated and extubated and bronchoscopy was done on the day of admission, was transiently on BiPAP machine, has transferred to [facility] floor from ICU for 2 days Acute respiratory failure, etiology unknown, possible mild COPD, less likely secondary to pneumonia Possible no pneumonia Pulmonary mass, Hemoptysis: Possibly due to endobronchial malignancy vs. spontaneous from pneumonia CT chest on 12/07 shows infiltratative changes in the RML and RLL. S/P bronc, ICU team has stop antibiotic and plan to watch if has fevers, patient has been stable and improving , no fever no chills leukocytosis has been improving, continue current medication include no antibiotic, but continue nebulizer treatment, and oxygen support, We will add Mucinex for better cough off of the sputum, The etiology of hemoptysis is unknown, chest surgeon recommend GI evaluation, which has been requested and patient possible outpatient follow-up Permanent afib. On diltiazem and digoxin for rate control. Xarelto for anticoagulation prior to admission, Was transiently on heparin drip, switch back to Xarelto DuoNebs PRN hx fo Hypertension: Stable, Renal mass, urology saw the patient, Renal US reveals small R renal complex cyst, nonobstructing stone. No hydronephrosis or clearly visible solid masses. No intervention required at this time. need to f/u as outpatient with Dr. Yost in 3-4 weeks. Appt made by office. Patient is a full code, GI DVT prophylaxis covered Subjective Up and walk, still cough up with dark blood sputum , however is improving, the amount is much less, generally feeling okay, afebrile, is on nasal cannula oxygen, as before Review of Systems Constitutional: Positive weakness, or fatigue Respiratory: + cough, sputum, wheezing, hemoptysis, very difficult to cough up Cardiac: No chest pain, No orthopnea, Abdomen: No pain, No nausea, No vomiting, No diarrhea, No constipation, No GI bleeding Musculoskeletal: No joint pain, No muscle pain, No swelling, : No dysuria, No urinary frequency, No incontinence, No hematuria Neurologic: No paralysis, No weakness, No numbness/tingling, Psychiatric: No depression symptoms, No anhedonism, No anxiety, Heme: No abnormal bleeding/bruising, No clotting problems, No swollen lymph nodes, No night sweats Skin: No rash, No itch, No new/changing skin lesions, No color change, No bleeding Physical Exam 2 Vital Signs (Past 24 Hours): Last Vital Signs Temp 36.6 C 12/10/18 15:28 Pulse 61 12/10/18 15:28 Resp 18 12/10/18 15:28 BP 136/76 12/10/18 15:28 Pulse Ox 99 12/10/18 15:28 Physical Exam: General Appearance: General he looks much better, conversational, feeling weak, WD/WN, no apparent distress, Eyes: normal inspection, PERRL, EOMI, sclerae normal ENT: normal ENT inspection, hearing grossly normal, pharynx normal Neck: supple, no adenopathy, thyroid normal, no JVD, no carotid bruits, trachea midline Respiratory/Chest: chest non-tender, decreased breath sounds, still having occasional wheezing, no real , no respiratory distress, no accessory muscle use , occasional rales, Cardiovascular: regular rate, rhythm, no JVD, no murmur Abdomen: normal bowel sounds, non tender, soft, no organomegaly, Extremities: normal range of motion, non-tender, normal inspection, Trace pedal edema, no calf tenderness, joint has no limited range of motion, capillary refill is normal, no cyanosis clubbing Neurologic/Psychiatric: public policy manager II-XII nml as tested, no motor/sensory deficits, alert, normal mood/affect, oriented x 3 Skin: normal color, warm/dry, no rash Lymphatic: no adenopathy Results & Data Laboratory Results Laboratory Results - last 24 hr 12/07/18 12/08/18 12/08/18 07:54 05:00 06:01 WBC RBC Hgb Hct MCV MCH MCHC RDW Std Deviation RDW Coeff of Dimple Plt Count MPV Immature Gran % (Auto) Neut % (Auto) Lymph % (Auto) [place] % (Auto) Eos % (Auto) Baso % (Auto) Immature Gran # (Auto) Neut # (Auto) Lymph # (Auto) [place] # (Auto) Eos # (Auto) Baso # (Auto) APTT PTT Ratio Sample Site R Radial POC pH 7.43 POC pCO2 45 POC pO2 70 L POC HCO3 30 H POC Total CO2 31 POC Base Excess 6.0 H POC ABG O2 Sat 94.0 Bao Test Pass O2 Delivery Device Ventilator POC O2 Rate 22 Minute Ventilation 13.3 POC FiO2 35 Tidal Volume 650 PEEP 5 Sodium Potassium Chloride Carbon Dioxide Anion Gap BUN Creatinine Est Cr Clr Drug Dosing Est GFR ( Amer) Est GFR (Non-Af Amer) BUN/Creatinine Ratio Glucose Calcium Phosphorus Magnesium Urine Legionella Ag NOT DETECTED Crossmatch See Detail 12/09/18 12/10/18 12/10/18 18:07 01:49 01:49 WBC 14.52 H RBC 3.49 L Hgb 10.8 L Hct 32.5 L MCV 93.1 MCH 30.9 MCHC 33.2 RDW Std Deviation 47.5 H RDW Coeff of Dimple 14.0 Plt Count 223 MPV 9.2 Immature Gran % (Auto) 1.5 Neut % (Auto) 75.0 Lymph % (Auto) 15.2 [place] % (Auto) 6.9 Eos % (Auto) 1.3 Baso % (Auto) 0.1 Immature Gran # (Auto) 0.22 H Neut # (Auto) 10.89 H Lymph # (Auto) 2.21 [place] # (Auto) 1.00 H Eos # (Auto) 0.19 Baso # (Auto) 0.01 APTT 34.3 H 66.2 H* PTT Ratio 1.3 2.5 Sample Site POC pH POC pCO2 POC pO2 POC HCO3 POC Total CO2 POC Base Excess POC ABG O2 Sat Bao Test O2 Delivery Device POC O2 Rate Minute Ventilation POC FiO2 Tidal Volume PEEP Sodium Potassium Chloride Carbon Dioxide Anion Gap BUN Creatinine Est Cr Clr Drug Dosing Est GFR ( Amer) Est GFR (Non-Af Amer) BUN/Creatinine Ratio Glucose Calcium Phosphorus Magnesium Urine Legionella Ag Crossmatch 12/10/18 12/10/18 01:49 07:36 WBC RBC Hgb Hct MCV MCH MCHC RDW Std Deviation RDW Coeff of Dimple Plt Count MPV Immature Gran % (Auto) Neut % (Auto) Lymph % (Auto) [place] % (Auto) Eos % (Auto) Baso % (Auto) Immature Gran # (Auto) Neut # (Auto) Lymph # (Auto) [place] # (Auto) Eos # (Auto) Baso # (Auto) APTT 61.3 H* PTT Ratio 2.4 Sample Site POC pH POC pCO2 POC pO2 POC HCO3 POC Total CO2 POC Base Excess POC ABG O2 Sat Bao Test O2 Delivery Device POC O2 Rate Minute Ventilation POC FiO2 Tidal Volume PEEP Sodium 139 Potassium 3.4 L Chloride 106 Carbon Dioxide 28 Anion Gap 5.0 BUN 21 H Creatinine 0.97 Est Cr Clr Drug Dosing 96.8 Est GFR ( Amer) 97.3 Est GFR (Non-Af Amer) 83.9 BUN/Creatinine Ratio 21.5 H Glucose 117 H Calcium 8.3 L Phosphorus 2.2 L Magnesium 1.8 Urine Legionella Ag Crossmatch Microbiology 12/07/18 Unknown Bronch Wash,Right Upper Lobe Acid Fast Bacilli Smear - Final _ (1) Pneumonia Aspiration pneumonia type: Laterality: right Lung location: lower lobe of lung Pneumonia type: due to influenza A virus Qualified Code(s): J11.00 - Influenza due to unidentified influenza virus with unspecified type of pneumonia (2) Atrial fibrillation Atrial fibrillation type:
[2018-12-10] MEDS: DIGOXIN 0.25 MG TAB PO SCH (21:26)
[2018-12-10] MEDS: guaiFENesin 600 MG TABCR PO SCH (21:27)
[2018-12-11] MEDS: ALBUT/IPRATROP 3MG/0.5MG NEB 3 ML VIAL NEB SCH ×2 (09:36→18:53)
[2018-12-11] MEDS: LOVASTATIN 20 MG TAB PO SCH (09:39)
[2018-12-11] MEDS: guaiFENesin 600 MG TABCR PO SCH ×2 (09:39→20:19)
[2018-12-11] MEDS: dilTIAZem HCL 300 MG CAPCR PO SCH (09:40)
[2018-12-11] MEDS: LISINOPRIL 10 MG TAB PO SCH (09:40)
[2018-12-11] MEDS: TIOTROPIUM BROMIDE 5 PUFF/90 MCG INH INH SCH (09:40)
--- NOTE | 2018-12-11 10:49 | Consultation Report ---
DATE OF CONSULTATION: 12/11/2018 PULMONARY CONSULTATION TIME: 8:40 a.m. REPORT OF CONSULTATION: The patient was seen in room 253. He is a 63-year-old male who is known to me from outpatient care. He has a history of COPD as well as obstructive sleep apnea. He had a pneumonia in 2017. This was associated with some hemoptysis in small quantities that persisted for about 2 weeks. He had a right middle lobe infiltrate, which cleared. The patient has been on long-term anticoagulation. This is because of his history of atrial fibrillation. He has had some shortness of breath issues dating back to 2012. He has had a very long history of smoking between 1 and 2 packs per day for 45 years, although he states he has not smoked at all in the past 2 months. The patient came to the Emergency Room on 11/28/2018 with symptoms of shortness of breath and cough with flu-like symptoms. He was felt to have a right lower lobe pneumonia at that time. He was in the hospital for a couple of days and then subsequently discharged. During that hospital stay, he initially had Levaquin and then was switched to azithromycin and Rocephin. At discharge, he was given azithromycin and cefdinir. 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 with a gurgling in his chest. He began expectorating blood. He estimates that he coughed up chunks of blood 20-30 times before ultimately coming to the ER approximately 7:00 a.m. He developed increasing shortness of breath. He was sent to Radiology for a CAT scan, but when he had to lie down for the CAT scan, he could not breathe. He states he felt like he was going to . Subsequently, he sat up. A chest x-ray was obtained. Back in the ER, he was expectorating more blood. The phys assistant team was consulted. They intubated the patient with a dual lumen endotracheal tube. Bronchoscopy was done first by Dr. Lundbreg and then subsequently by Dr. Santana. The major finding from Dr. Santana's report is that he found an occlusion of the right upper lobe bronchus with a large thrombus. He was unable to remove this with forceps or a basket. Ultimately he used a cryoprobe and pulled out a cast of the airways, which was blood. No definite masses were seen. The patient was maintained on the ventilator for a period of time and then he was readily extubated. He has persisted with small amounts of what appears to be old blood. The bronchial washings have not revealed any definitive organism and cytologies were negative. The patient has been on Xarelto for an extended period of time due to chronic atrial fibrillation. The Xarelto has been restarted. Because no definite source of bleeding actively was found, ENT was consulted. They did not find any evidence of bleeding in the upper airway. GI was consulted to help exclude bleeding from the GI tract. Apparently their opinion was it was not likely that the blood was coming from the GI tract. The patient believes the blood is from his lungs. He does not think he vomited anything. He is not aware of any nose bleeds. The only GI issue he has had recently is that he typically drinks at least moderate quantities of beer and he has been finding that after just 2 beers, if he drinks more than that, he has been getting some nausea. He denies a history of peptic ulcer disease. Currently the patient is feeling pretty well. As noted, he is still coughing small quantities of blood mixed with mucus. He does not feel significantly short of breath. PAST SURGICAL HISTORY: 1. Cardioversion. 2. Oral surgery. 3. Left knee surgery for removal of a piece of metal with infection. PAST MEDICAL HISTORY: 1. Respiratory failure in 02/2017, associated with cardiac arrest. 2. Obstructive sleep apnea - severe with initial apnea-hypopnea index 51. 3. COPD exacerbation, treated as outpatient in 04/2018. 4. Atrial fibrillation. 5. Coronary artery disease. 6. Aortic regurg. 7. Hyperlipidemia. 8. Hypertension. 9. Nephrolithiasis. 10. Questionable abnormality in kidneys. 11. Perirectal abscess in 07/2018. SOCIAL HISTORY: Tobacco: None for 2 months, previously 1-2 packs per day for 45 years. ETOH - 24 ounces of beer per day. FAMILY HISTORY: Positive for AL. 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 ALLERGIES: PENICILLIN. REVIEW OF SYSTEMS: Negative except for the complaints noted in the history of present illness. Ten systems reviewed. MEDICATIONS AT HOME: 1. Chlorthalidone 25 mg daily. 2. Digoxin 0.25 mg daily. 3. Diltiazem 300 mg daily. 4. DuoNeb 2-4 times per day. 5. Lisinopril 10 mg daily. 6. Lovastatin 10 mg daily. 7. Mometasone formoterol 2 puffs b.i.d. 8. Potassium chloride 10 mEq daily. 9. Prednisone - dose uncertain. 10. Rivaroxaban 20 mg daily. 11. Tiotropium 1 puff daily. PHYSICAL EXAMINATION: GENERAL: The patient is a 63-year-old male who was cooperative, alert and oriented. He was in no distress at rest. Weight is 115.7 pounds. BMI is 39.9. HEENT: Pupils were reactive. Nares were clear. Mouth exam shows teeth to be in poor repair. He has a Mallampati grade 2. NECK: Large neck is noted. No lymph nodes were palpable. VITAL SIGNS: Temperature was 36.8. He has not had any significant fevers since admission. HEART: Cardiac rate is 58 per minute. The rhythm is irregularly irregular. Blood pressure 106/62. CHEST: Lung monique revealed mild wheeze bilaterally on expiration. Respiratory rate was 18. Saturation 97% on 3 liters nasal cannula. ABDOMEN: Soft. Bowel sounds were normal. There was no tenderness to palpation or definite mass. EXTREMITIES: Showed no cyanosis or clubbing. +1 edema was noted bilaterally. LABORATORY DATA: White count at the time of admission was 26.04. This has steadily improved and yesterday the white count was down to 14.52. Hemoglobin yesterday was 10.8 and had been 15.3 upon admission. Platelets are 223,000. Arterial blood gas done 12/07/2018 showed a pH of 7.16, pCO2 86 and pO2 of 97. This was on mechanical ventilation. Serial blood gases were done. The most recent on 12/08/2018 shows a pH of 7.43, pCO2 45, pO2 70 and that was also on the ventilator. Electrolytes done yesterday showed sodium 139, potassium 3.4, chloride 106, bicarb 28. BUN 21 with a creatinine 0.97. Troponins were mildly elevated at 0.049. Stools for occult blood were positive as of 12/10/2018. In light of the large amount of blood the patient was bringing up that would not be unexpected even with a source from the lungs. Urine legionella antigen was negative. Mycoplasma titers were pending. The patient did have a flu test positive back on 11/28/2018, positive for flu type A. As noted, the bronchial washings have shown no growth. AFB smear was negative. Fungal smear was negative as well. Cytology from bronch was negative. There were some atypical bronchial epithelium with numerous neutrophils noted from the right upper lobe washings. Left lower lobe was negative for malignancy. Biopsy with the cryo showed consistent with massive hemoptysis. No tumor cells were seen. IMPRESSIONS: 1. Massive hemoptysis. 2. Chronic obstructive pulmonary disease. 3. Recent pneumonia and influenza for chronic anticoagulation. 4. Obstructive sleep apnea. COMMENTS AND RECOMMENDATIONS: Regarding the hemoptysis, my feeling is it did originated in the lungs. The CAT scan and x-rays were reviewed. The CAT scan revealed fairly extensive infiltrates involving right upper lobe, right middle lobe and both lower lobes. This may well be related to bleeding with of course inability to exclude other causes. The rivaroxaban will continue to be a risk factor. Consideration could be given to a changed to Coumadin. This would potentially have the advantage of being able to be readily reversed if he would have a massive hemoptysis again. In addition, one could adjust the dose to keep the INR at the lower level of acceptable. This may need to be considered by his physicians who manage the AFib. Clearly if he would have another significant bleed, I would not go back to rivaroxaban, but would switch to Coumadin. Regarding the COPD, he has wheezes. He is not on the bronchodilator medication he is getting at home. I am going to restart the neb treatments on a regular basis rather than p.r.n. He states he has not received any neb treatments. Regarding the pulmonary infiltrates, he likely ultimately needs a CAT scan, but would wait a couple of months. I also believe he should have repeat bronchoscopy when he is totally stable and has not brought up any blood for a period of time, so that the airways could be more readily assessed to assure that there is not an endobronchial tumor. Regarding the sleep apnea, he is not tolerating BiPAP well. He has CPAP at home which he does not do great with, but he does get 4-5 hours usage per night. He is on auto CPAP at home, but I do not believe we have those capabilities here. We will switch to CPAP and see how he does. His auto CPAP is set between 6 and 15. We will try the CPAP at 10 and see how it goes for his tolerance. I would assume the patient may be able to be discharged in 24-48 hours if all goes well and he is stable.
[2018-12-11] MEDS ORDERED: VECURONIUM BROMIDE 10 MG VIAL IV ONE (13:25)
[2018-12-11] MEDS ORDERED: KETAMINE HCL INJ 50 MG/ML 10 ML VIAL IV ONE (13:25)
--- NOTE | 2018-12-11 15:13 | Hospitalist Progress Note ---
Date of Service December 11, 2018 Assessment & Plan (1) Hemoptysis: (2) Pneumonia: (3) Atrial fibrillation: (4) COPD (chronic obstructive pulmonary disease): (5) Hypertension: (6) DVT prophylaxis: (7) Acute respiratory failure: (8) Lung mass: 63yo M w/ hx of COPD and afib admitted on December 07, 2018 with hemoptysis, acute respiratory failure. Was intubated and extubated and bronchoscopy was done on the day of admission, was transiently on BiPAP machine, has transferred to [facility] floor from ICU f, today found bronch has Aspergillus species Acute respiratory failure, etiology unknown, possible Aspergillus species infection Diflucan started, infectious disease consulted, pathology surgeon and pulmonology input appreciated mild COPD, less likely secondary to pneumonia Possible no pneumonia Pulmonary mass, Hemoptysis: Other differential diagnosis include endobronchial malignancy vs. spontaneous from pneumonia CT chest on 12/07 shows infiltratative changes in the RML and RLL. S/P bronc, ICU team has stop antibiotic and plan to watch if has fevers, patient has been stable and improving , no fever no chills leukocytosis has been improving, continue nebulizer treatment, and oxygen support, Continue Mucinex for better cough off of the sputum, Permanent afib. On diltiazem and digoxin for rate control. Xarelto for anticoagulation prior to admission, Discussed with patient in detail about the risk and benefit of Xarelto, Xarelto has no reverse agent if has emergency bleeding, Patient willing to switch over to Coumadin, will closely monitor Coumadin level while on Diflucan, has have nursing staff of Coumadin teaching and management, discussed with pharmacist will use Lovenox for the bridging of Coumadin We will need to have close monitoring of Coumadin level and have setting up of the Coumadin clinic after discharge hx fo Hypertension: Stable, Renal mass, urology saw the patient, Renal US reveals small R renal complex cyst , nonobstructing stone. No hydronephrosis or clearly visible solid masses. No intervention required at this time. need to f/u as outpatient with Dr. Yost in 3-4 weeks. Appt made by office. Patient is a full code, GI DVT prophylaxis covered H&P reviewed and will have him more input from infectious disease Subjective Up and walk, still cough up with dark blood sputum , the amount is quite the same, generally feeling okay, afebrile, is on nasal cannula oxygen, as before Review of Systems Constitutional: Positive weakness, or fatigue Respiratory: + cough, sputum, wheezing, hemoptysis, very difficult to cough up Cardiac: No chest pain, No orthopnea, Abdomen: No pain, No nausea, No vomiting, No diarrhea, No constipation, No GI bleeding Musculoskeletal: No joint pain, No muscle pain, No swelling, : No dysuria, No urinary frequency, No incontinence, No hematuria Neurologic: No paralysis, No weakness, No numbness/tingling, Psychiatric: No depression symptoms, No anhedonism, No anxiety, Heme: No abnormal bleeding/bruising, No clotting problems, No swollen lymph nodes, No night sweats Skin: No rash, No itch, No new/changing skin lesions, No color change, No bleeding Physical Exam 2 Vital Signs (Past 24 Hours): Last Vital Signs Temp 36.7 C 12/11/18 12:34 Pulse 106 H 12/11/18 12:34 Resp 20 12/11/18 12:34 BP 114/67 12/11/18 12:34 Pulse Ox 95 12/11/18 12:34 Physical Exam: General Appearance: General he looks much better, conversational, feeling weak, WD/WN, no apparent distress, Eyes: normal inspection, PERRL, EOMI, sclerae normal ENT: normal ENT inspection, hearing grossly normal, pharynx normal Neck: supple, no adenopathy, thyroid normal, no JVD, no carotid bruits, trachea midline Respiratory/Chest: chest non-tender, decreased breath sounds, still having occasional wheezing, no real , no respiratory distress, no accessory muscle use , occasional rales, Cardiovascular: regular rate, rhythm, no JVD, no murmur Abdomen: normal bowel sounds, non tender, soft, no organomegaly, Extremities: normal range of motion, non-tender, normal inspection, Trace pedal edema, no calf tenderness, joint has no limited range of motion, capillary refill is normal, no cyanosis clubbing Neurologic/Psychiatric: rn homecare II-XII nml as tested, no motor/sensory deficits, alert, normal mood/affect, oriented x 3 Skin: normal color, warm/dry, no rash Lymphatic: no adenopathy Results & Data Laboratory Results Laboratory Results - last 24 hr 12/10/18 17:36 Stool Occult Bld Scrn Positive H Microbiology 12/07/18 Unknown Bronch Wash,Right Upper Lobe Fungal Smear - Final 12/07/18 Unknown Bronch Wash,Right Upper Lobe Fungal Culture - Preliminary Aspergillus species Yeast- ident to follow 12/07/18 Unknown Bronch Wash,Right Upper Lobe Acid Fast Bacilli Smear - Final 12/07/18 Unknown Bronch Wash,Right Upper Lobe Acid Fast Bacilli Culture - Preliminary No Acid-Fast Bacilli Isolated - Report 1, Additional Report to Follow. 12/07/18 Unknown Bronch Wash,Right Upper Lobe Gram Stain - Final 12/07/18 Unknown Bronch Wash,Right Upper Lobe Bronchoalveolar Lavage Culture - Final Moderate normal nic. _ (1) Pneumonia Aspiration pneumonia type: Laterality: right Lung location: lower lobe of lung Pneumonia type: due to influenza A virus Qualified Code(s): J11.00 - Influenza due to unidentified influenza virus with unspecified type of pneumonia (2) Atrial fibrillation Atrial fibrillation type:
--- NOTE | 2018-12-11 15:16 | Surgery Progress Note ---
Date of Service December 11, 2018 Assessment & Plan (1) Hemoptysis: -pt. required emergent bronchoscopy by Dr. Santana: -large clot evacuated but no obvious source of bleeding noted -ENT evaluation did not reveal source of bleeding -GI has seen but feels EGD should be deferred until pulmonary causes of bleeding further evaluated -cultures have been reviewed and today at approx 2:30 pm one of the bronchial washes from this admission did show rare Apsergillus: -discussed with attending thoracic surgeon as well as pulmonary and this may be cause of hemoptysis -ID consulted and recommended starting voriconozole with oral dosing felt to be adequate -discussed with pharmacy dosing and 200 mg bid to be initial dose with adjustments made after formal consult by ID -the above was discussed with hospitalist service Subjective Pt. notes his breathing is fine. No CP. He has not had any further gross hemoptysis, but continues tpo have some dark material in sputum that looks like old blood. Physical Exam 2 Vital Signs (Past 24 Hours): Last Vital Signs Temp 36.7 C 12/11/18 12:34 Pulse 106 H 12/11/18 12:34 Resp 20 12/11/18 12:34 BP 114/67 12/11/18 12:34 Pulse Ox 95 12/11/18 12:34 Constitutional: well developed and well nourished; no acute distress Respiratory: normal respiratory effort; no respiratory distress and no labored breathing BS have a slight decrease at bases
[2018-12-11] MEDS ORDERED: WARFARIN SOD 5 MG TAB PO ONE (16:00)
[2018-12-11] MEDS: VORICONAZOLE 200 MG TABLET PO SCH ×2 (16:09→20:19)
[2018-12-11] MEDS: PANTOprazole 40 MG TAB PO SCH (16:09)
[2018-12-11] MEDS: ENOXAPARIN INJ 120 MG/0.8 ML SYR SQ SCH (16:12)
[2018-12-11] MEDS ORDERED: ACETAMINOPHEN 325 MG TAB PO PRN (19:32)
[2018-12-11] MEDS ORDERED: SIMETHICONE 40 MG/0.6 ML 30ML PO PRN (19:32)
[2018-12-11] MEDS: DIGOXIN 0.25 MG TAB PO SCH (20:18)
[2018-12-11] MEDS: ALUMINUM/MAGNESIUM SUSP 30 ML UDC PO PRN (20:35)
--- NOTE | 2018-12-11 20:43 | XRay Report ---
XR KUB CLINICAL HISTORY: 63 years-old Male presenting with abd pain. TECHNIQUE: Single supine view of the abdomen was obtained. COMPARISON: CT from 12/07/2018 and plain radiograph from 01/23/2016. FINDINGS: Moderate stool burden predominantly in the right colon. Mild gaseous distention of small bowel. No gr oss pneumoperitoneum allowing for limited image quality with portable supine technique and body habit us. The bilateral renal calculi evident on recent CT are not radiographically apparent. Degenerative changes of the spine. Lung bases clear. IMPRESSION: 1. Extremely limited image quality limiting diagnostic sensitivity the exam. Moderate stool burden i n the right colon could be compatible with constipation in the upper upper clinical setting. Electronically signed by: Anshul Hurt M.D. 12/11/2018 8:42 PM
[2018-12-12] MEDS: ENOXAPARIN INJ 120 MG/0.8 ML SYR SQ SCH ×2 (05:03→17:03)
[2018-12-12] MEDS: ALBUT/IPRATROP 3MG/0.5MG NEB 3 ML VIAL NEB SCH ×2 (07:29→18:51)
[2018-12-12 07:39] LABS: INR 1.1 (0.9-1.1); Prothrombin Time 11.5 Seconds (9.0-12.0)
[2018-12-12 07:43] LABS: BUN Creatinine Ratio 15.3 (10-20); Calcium 8.6 mg/dl (8.5-10.1); Est GFR (African American) 102.3; Est GFR (Non-African American) 88.3; Potassium 3.9 mmol/L (3.5-5.1)
--- NOTE | 2018-12-12 08:23 | Infectious Disease Consult ---
Date of Consultation December 12, 2018 Assessment & Plan (1) Pulmonary aspergillosis invasive type: will continue with voriconazole, duration to be determined, will monitor response on outpatient basis. will need routine follow up and serial imaging/ labs while on voriconazole. suspect this is cause for bleeding, infiltrates, routine and afb cultures negative. will plan to follow in office post d/c, no contraindication to d/c from ID standpoint when otherwise stable. History of Present Illness Attending Physician: Constantin Marquez MD, PhD, [facility] pt admitted after he awoke suddenly and several episodes of hemoptysis at home. underwent emergent bronch with thoracic surgery and large clots removed. ct chest also revelaed right sided infiltrates with underlying empysema. pt uses cpap at home for last 3 years. 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 no other episodes of hemoptysis noted. none this admission. Blood cultures from admission negative to date, Broch culture negative, afb smear and initial culture negative, fungal culture now growing Aspergillus. spoke with surgery yesterday when culture became + and pt was started on po voriconazole. tolearting well. Remains with leukocytosis but improved, intially 29, 14 yesterday. most recent cxr still showing b/l infiltrates. On my exam today, he is oob to chair, on RA. states he is to be d/c to home later today, no sob, no cough, no bleeding, still some pain at right chest with deep inspiration, no n/v/d/abd pain, states he is constipated. no gu symptoms. Allergies Allergy/AdvReac Type Severity Reaction Status Date / Time Penicillins Allergy Mild HIVES Verified 12/07/18 07:38 Home Medications Home Medications Medication Instructions Recorded Confirmed Type chlorthalidone 25 mg PO DAILY 07/25/18 12/07/18 History digoxin 0.25 mcg PO PM 07/25/18 12/07/18 History diltiazem HCl 300 mg PO DAILY 07/25/18 12/07/18 History ipratropium-albuterol 3 ml INHALATION BID 07/25/18 12/07/18 History lisinopril 10 mg PO DAILY 07/25/18 12/07/18 History lovastatin 10 mg PO DAILY 07/25/18 12/07/18 History mometasone-formoterol 2 puff INHALATION BID 07/25/18 12/07/18 History rivaroxaban 20 mg PO PM 07/25/18 12/07/18 History potassium chloride 10 meq PO DAILY #7 cap 11/29/18 12/07/18 Rx prednisone 10 mg PO DAILY #42 tab 11/29/18 12/07/18 Rx tiotropium bromide [Spiriva with 1 puff INHALATION QAM 30 Days #30 11/29/18 Rx HandiHaler] inha Patient History Medical History Atrial fibrillation (Chronic) Arrhythmia COPD (chronic obstructive pulmonary disease) HTN (hypertension) Hemorrhoids Hyperlipidemia Kidney stones Family History Father Heart attack Social History Current Living Situation: Spouse Other Information That Helps Us Care for You: No Feels Safe at Home: Yes Smoking Status: Former smoker Do You Dip or Chew Tobacco: No Second Hand Exposure: No Tobacco Cessation Education Requested by Patient: No Hx Alcohol Use: No Hx Substance Use: No Beliefs That Will Affect Care: None Communication Ability: Effective Review of Systems all remaining ros reviewed and are negative. Physical Exam 2 Vital Signs (Past 24 Hours): Last Vital Signs Temp 36.8 C 12/12/18 04:17 Pulse 84 12/12/18 07:33 Resp 18 12/12/18 04:17 BP 94/56 L 12/12/18 04:17 Pulse Ox 94 12/12/18 04:17 Constitutional: WD/WN, vitals as above Eyes: PERRL, conjunctivae normal, anicteric sclerae ENMT: external ear and nose normal, oropharynx normal Neck: normal visual inspection Respiratory: normal respiratory effort, lungs clear to auscultation Auscultation: + diminished lung sounds Cardiovascular: RRR, no murmur, no edema Gastrointestinal (Abdomen): normal bowel sounds, soft, nontender, no hepatosplenomegaly Musculoskeletal: no cyanosis or clubbing, extremities motor strength 5/5 Skin: no rashes, warm and dry Psychiatric: A+Ox3, euthymic affect Results & Data Laboratory Results Microbiology 12/07/18 Unknown Bronch Wash,Right Upper Lobe Fungal Smear - Final 12/07/18 Unknown Bronch Wash,Right Upper Lobe Fungal Culture - Preliminary Aspergillus fumigatus Yeast- ident to follow 12/07/18 Unknown Bronch Wash,Right Upper Lobe Acid Fast Bacilli Smear - Final 12/07/18 Unknown Bronch Wash,Right Upper Lobe Acid Fast Bacilli Culture - Preliminary No Acid-Fast Bacilli Isolated - Report 1, Additional Report to Follow. 12/07/18 Unknown Bronch Wash,Right Upper Lobe Gram Stain - Final 12/07/18 Unknown Bronch Wash,Right Upper Lobe Bronchoalveolar Lavage Culture - Final Moderate normal nic. 12/07/18 07:57 Blood Blood Culture - Preliminary No growth to date. 12/07/18 13:26 Blood Blood Culture - Preliminary No growth to date. 12/07/18 13:19 Blood Blood Culture - Preliminary No growth to date.
[2018-12-12 09:35] LABS: Folate (Folic Acid) 9.31 ng/ml (>5.38)
[2018-12-12] MEDS: guaiFENesin 600 MG TABCR PO SCH ×2 (09:51→20:35)
[2018-12-12] MEDS: TIOTROPIUM BROMIDE 5 PUFF/90 MCG INH INH SCH (09:52)
[2018-12-12] MEDS: LISINOPRIL 10 MG TAB PO SCH (09:52)
[2018-12-12] MEDS: dilTIAZem HCL 300 MG CAPCR PO SCH (09:52)
[2018-12-12] MEDS: VORICONAZOLE 200 MG TABLET PO SCH ×2 (09:52→20:34)
[2018-12-12] MEDS: PANTOprazole 40 MG TAB PO SCH (09:52)
[2018-12-12] MEDS: ALUMINUM/MAGNESIUM SUSP 30 ML UDC PO PRN ×2 (09:59→20:34)
--- NOTE | 2018-12-12 10:46 | Progress Note ---
DATE: 12/12/2018 Mr. Chavarria was seen today on 12/12/2018. He is on room air with excellent saturations, 96%. We did grow Aspergillus out from his bronchial washings. While this could be a contaminant or colonization, I do feel better treating something rather than simply putting him back on Xarelto and sending him out. Dr. Raymond Gregory's consult was appreciated. The finding of Aspergillus in his bronchial washings makes me feel a bit better about foregoing any GI workup given his lack of symptoms. He can be discharged from our standpoint when the primary service agrees.
--- NOTE | 2018-12-12 13:56 | Progress Note ---
DATE: 12/12/2018 PULMONARY PROGRESS NOTE TIME: 12:55 p.m. SUBJECTIVE: The patient is feeling pretty well. He has not coughed up any fresh blood. He just had small amounts of dark sputum. His breathing has been quite comfortable. OBJECTIVE: GENERAL: The patient is comfortable at rest. VITAL SIGNS: Temperature is 36.7. HEART: Rate 82 per minute. Rhythm regular. Blood pressure 108/66. LUNGS: Lung monique were clear. Respiratory rate 20. Saturation 94% on room air. EXTREMITIES: Showed no cyanosis, clubbing or edema. The culture of bronchial washings from the right upper lobe is showing Aspergillus fumigates. In light of the severe hemoptysis, this could reflect invasive Aspergillus. Infectious disease was consulted and they have started him on voriconazole. This is 200 mg b.i.d. Yesterday, the patient was changed to Coumadin. Thus, he will need to go home with Lovenox for a few days. The patient states he is very fearful of needles and he cannot give himself shots, but he says his will do it. Electrolytes today were normal. BUN and creatinine were 14 and 0.93. Blood sugar 105. He has not had a repeat CBC since 12/10. IMPRESSION: 1. Massive hemoptysis. 2. Invasive aspergillosis. 3. Chronic obstructive pulmonary disease. 4. Recent pneumonia and influenza. 5. Obstructive sleep apnea, treated with auto CPAP. COMMENTS AND RECOMMENDATIONS: I agree with the plans as undertaken. Hopefully, the patient will be discharged tomorrow. He is supposed to follow up with me in the office. I encouraged him to wear his CPAP nightly. We will see again in the hospital if requested.
[2018-12-12] MEDS: WARFARIN SOD 5 MG TAB PO SCH (15:53)
--- NOTE | 2018-12-12 17:50 | Hospitalist Progress Note ---
Date of Service December 12, 2018 Assessment & Plan (1) Hemoptysis: (2) Pneumonia: (3) Atrial fibrillation: (4) COPD (chronic obstructive pulmonary disease): (5) Hypertension: (6) DVT prophylaxis: (7) Acute respiratory failure: (8) Lung mass: 63yo M w/ hx of COPD and afib admitted on December 07, 2018 with hemoptysis, acute respiratory failure. Was intubated and extubated and bronchoscopy was done on the day of admission, was transiently on BiPAP machine, has transferred to [facility] floor from ICU, yesterday found bronch has Aspergillus species Acute respiratory failure, etiology unknown, mild COPD, less likely secondary to pneumonia Possible no pneumonia Pulmonary mass, Hemoptysis: CT chest on 12/07 shows infiltratative changes in the RML and RLL. S/P bron, ICU team has stop antibiotic and plan to watch if has fevers, patient has been stable and improving , no fever no chills leukocytosis has been improving, continue nebulizer treatment, and oxygen support, Continue Mucinex for better cough off of the sputum, possible Aspergillus species infection with bronch samples studies Id on the case, cont voriconazole, per note: duration to be determined, will monitor response on outpatient basis. will need routine follow up and serial imaging/labs while on voriconazole, need to follow with ID in office post d/c, Permanent afib. On diltiazem and digoxin for rate control. Xarelto for anticoagulation prior to admission, Discussed with patient in detail about the risk and benefit of Xarelto, Xarelto has no reverse agent if has emergency bleeding, Patient willing to switch over to Coumadin, had nursing staff of Coumadin teaching and management, discussed with pharmacist will use Lovenox for the bridging of Coumadin, has requested nursing staff to teach patient to give Lovenox injection by himself, prescription for checking the co-pay for Lovenox was given to child welfare caseworker hx fo Hypertension: Stable, Renal mass, urology saw the patient, Renal US reveals small R renal complex cyst , nonobstructing stone. No hydronephrosis or clearly visible solid masses. No intervention required at this time. need to f/u as outpatient with Dr. Yost in 3-4 weeks. Appt made by office. Patient is a full code, GI DVT prophylaxis covered Could be discharged to home tomorrow, need to make sure Lovenox co-pay checked by CM, and he can continue when he is at home Lovenox will be discontinued when INR more than 2, tomorrow morning lab ordered Subjective Up and walk, cont cough up with dark blood sputum , the amount is quite the same, generally feeling okay, afebrile, Review of Systems Constitutional: negative weakness, or fatigue Respiratory: + cough, sputum, -wheezing, +hemoptysis, Cardiac: No chest pain, No orthopnea, Abdomen: No pain, No nausea, No vomiting, No diarrhea, No constipation, No GI bleeding Musculoskeletal: No joint pain, No muscle pain, No swelling, : No dysuria, No urinary frequency, No incontinence, No hematuria Neurologic: No paralysis, No weakness, No numbness/tingling, Psychiatric: No depression symptoms, No anhedonism, No anxiety, Heme: No abnormal bleeding/bruising, No clotting problems, No swollen lymph nodes, No night sweats Skin: No rash, No itch, No new/changing skin lesions, No color change, No bleeding Physical Exam 2 Vital Signs (Past 24 Hours): Last Vital Signs Temp 37.2 C 12/12/18 15:38 Pulse 95 H 12/12/18 15:51 Resp 20 12/12/18 15:38 BP 105/64 12/12/18 15:51 Pulse Ox 93 12/12/18 15:38 Physical Exam: General Appearance: General he looks much better, conversational, feeling weak, WD/WN, no apparent distress, Eyes: normal inspection, PERRL, EOMI, sclerae normal ENT: normal ENT inspection, hearing grossly normal, pharynx normal Neck: supple, no adenopathy, thyroid normal, no JVD, no carotid bruits, trachea midline Respiratory/Chest: chest non-tender, decreased breath sounds, still having occasional wheezing, no real , no respiratory distress, no accessory muscle use , occasional rales, Cardiovascular: regular rate, rhythm, no JVD, no murmur Abdomen: normal bowel sounds, non tender, soft, no organomegaly, Extremities: normal range of motion, non-tender, normal inspection, Trace pedal edema, no calf tenderness, joint has no limited range of motion, capillary refill is normal, no cyanosis clubbing Neurologic/Psychiatric: salesperson surgical appliances II-XII nml as tested, no motor/sensory deficits, alert, normal mood/affect, oriented x 3 Skin: normal color, warm/dry, no rash Lymphatic: no adenopathy Results & Data Laboratory Results Laboratory Results - last 24 hr 12/12/18 12/12/18 12/12/18 06:55 06:55 06:55 PT 11.5 INR 1.1 Sodium 139 Potassium 3.9 Chloride 104 Carbon Dioxide 28 Anion Gap 6.0 BUN 14 Creatinine 0.93 Est Cr Clr Drug Dosing 101.0 Est GFR ( Amer) 102.3 Est GFR (Non-Af Amer) 88.3 BUN/Creatinine Ratio 15.3 Glucose 105 H Calcium 8.6 Vitamin B12 579 Folate 9.31 Microbiology 12/07/18 Unknown Bronch Wash,Right Upper Lobe Fungal Smear - Final 12/07/18 Unknown Bronch Wash,Right Upper Lobe Fungal Culture - Preliminary Aspergillus fumigatus Yeast not Buffy albicans 12/07/18 Unknown Bronch Wash,Right Upper Lobe Acid Fast Bacilli Smear - Final 12/07/18 Unknown Bronch Wash,Right Upper Lobe Acid Fast Bacilli Culture - Preliminary No Acid-Fast Bacilli Isolated - Report 1, Additional Report to Follow. _ (1) Pneumonia Aspiration pneumonia type: Laterality: right Lung location: lower lobe of lung Pneumonia type: due to influenza A virus Qualified Code(s): J11.00 - Influenza due to unidentified influenza virus with unspecified type of pneumonia (2) Atrial fibrillation Atrial fibrillation type:
[2018-12-12] MEDS: DIGOXIN 0.25 MG TAB PO SCH (20:37)
[2018-12-13] MEDS: ENOXAPARIN INJ 120 MG/0.8 ML SYR SQ SCH (05:13)
[2018-12-13] MEDS: ALBUT/IPRATROP 3MG/0.5MG NEB 3 ML VIAL NEB SCH (06:58)
[2018-12-13 07:37] LABS: INR 1.3 (0.9-1.1); Prothrombin Time 13.3 Seconds (9.0-12.0)
[2018-12-13 07:55] LABS: BUN Creatinine Ratio 14.9 (10-20); Calcium 8.4 mg/dl (8.5-10.1); Est GFR (African American) 105.1; Est GFR (Non-African American) 90.6; Potassium 4.2 mmol/L (3.5-5.1)
[2018-12-13] MEDS: guaiFENesin 600 MG TABCR PO SCH (08:16)
[2018-12-13] MEDS: VORICONAZOLE 200 MG TABLET PO SCH (08:16)
[2018-12-13] MEDS: PANTOprazole 40 MG TAB PO SCH (08:16)
[2018-12-13] MEDS: dilTIAZem HCL 300 MG CAPCR PO SCH (08:16)
--- NOTE | 2018-12-13 08:45 | Hospitalist Progress Note ---
Date of Service December 13, 2018 Assessment & Plan (1) Hemoptysis: - Hold anticoagulation, Ct surgery and pulmonary medicine feel maybe due to invasive aspergillosis while on anticoagulation, xarelto held (2) Pneumonia: CT chest on 12/07 showed infiltratative changes in the RML and RLL. possible aspergillosis (3) Atrial fibrillation: Permanent afib. On diltiazem and digoxin for rate control. Xarelto for anticoagulation.(ON HOLD) (4) COPD (chronic obstructive pulmonary disease): - Will continue home inhalers as able with intubation. - DuoNebs PRN (5) Hypertension: On chlorthalidone and lisinopril as outpatient. - Monitor BP and use IV PRN meds until extubated. (6) DVT prophylaxis: SCDs - Active hemoptysis (7) Acute respiratory failure: (8) Lung mass: 63yo M w/ hx of COPD and afib admitted on December 07, 2018 with hemoptysis, acute respiratory failure. Was intubated and extubated and bronchoscopy was done on the day of admission, was transiently on BiPAP machine, bronchoscopy has Aspergillus species Acute respiratory failure, secondary to fungal pneumonia and hemoptysis mild COPD, Hemoptysis: CT chest on 12/07 shows infiltratative changes in the RML and RLL. S/P bronc,possible Aspergillus species infection with bronch samples studies Id on the case, cont voriconazole, per note: duration to be determined, will monitor response on outpatient basis. will need routine follow up and serial imaging/labs while on voriconazole, need to follow with ID in office post d/c, Permanent afib. On diltiazem and digoxin for rate control. Xarelto for anticoagulation prior to admission, Discussed with patient in detail about the risk and benefit of Xarelto, Xarelto has no reverse agent if has emergency bleeding, Patient willing to switch over to Coumadin, had nursing staff of Coumadin teaching and management, As per up to Date "In patients with nonvalvular atrial fibrillation (AF) without a prior history of thromboembolism, the risk of a thromboembolic event during the several days typically required to achieve therapeutic anticoagulation with warfarin is very low. Thus, it is reasonable for outpatients to initiate warfarin without bridging." hx of Hypertension: Stable, Renal mass, urology saw the patient, Renal US reveals small R renal complex cyst , nonobstructing stone. No hydronephrosis or clearly visible solid masses. No intervention required at this time. need to f/u as outpatient with Dr. Yost in 3-4 weeks. Appt made by office. Patient is a full code, GI DVT prophylaxis covered Physical Exam 2 Vital Signs (Past 24 Hours): Last Vital Signs Temp 36.7 C 12/13/18 07:10 Pulse 59 L 12/13/18 07:10 Resp 20 12/13/18 07:10 BP 102/64 12/13/18 07:10 Pulse Ox 95 12/13/18 07:10 _ (1) Pneumonia Aspiration pneumonia type: Laterality: right Lung location: lower lobe of lung Pneumonia type: due to influenza A virus Qualified Code(s): J11.00 - Influenza due to unidentified influenza virus with unspecified type of pneumonia (2) Atrial fibrillation Atrial fibrillation type:
[2018-12-13] MEDS: TIOTROPIUM BROMIDE 5 PUFF/90 MCG INH INH SCH (08:59)
[2018-12-13] MEDS ORDERED: LISINOPRIL 5 MG TAB PO SCH (09:00)
[2018-12-13] MEDS: WARFARIN SOD 5 MG TAB PO SCH (15:46)
--- NOTE | 2018-12-13 16:42 | Discharge Summary ---
Date of Service December 13, 2018 Admission HPI Per Admitting Provider 63yo M w/ hx of COPD and afib who presented this morning to the ED with hemoptysis. Was recently hospitalized for COPD exacerbation / pneumonia and was discharged on levofloxacin and steroid taper. Overnight, per report, the patient had bright red blood hemoptysis and came to the ED. CXR showed RUL infiltrate. He was sent for CT chest, but decompensated while lying flat and was intubated for airway protection. He received a bronch in the ED with Dr. Lundberg, and a repeat bronch with Dr. Santana. Per report, there is a mass vs. large clot burden in the airway. He will remain intubated pending resolution of his hemoptysis. No ROS is able to be completed due to intubation and sedation. 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 Vital signs as documented. Head exam is unremarkable. normocephalic, atraumatic Neck is without jugular venous distension, thyromegaly, or lymphademopathy Lungs are clear to auscultation and percussion. Cardiac exam reveals Rhythm is regular. First and second heart sounds normal. Abdominal exam reveals normal bowel sounds, no masses, no organomegaly Discharge Data Allergies Allergy/AdvReac Type Severity Reaction Status Date / Time Penicillins Allergy Mild HIVES Verified 12/07/18 07:38 Consultations 12/07/18 11:21 ED Decision to Admit Stat 12/07/18 12:54 Consult Case Management - Discharge Planning Routine 12/07/18 12:57 Consult Mortuary Operations Manager Routine Consult Thoracic Surgery Routine 12/08/18 09:33 Consult Urology Routine 12/09/18 10:42 Consult Otolaryngology (Head and Neck) Routine 12/10/18 11:30 Consult Gastroenterology Routine 12/10/18 16:30 Consult Pulmonology Routine 12/11/18 14:57 Consult Infectious Diseases Routine Procedures Performed Operation Date: 12/07/18 12:00 <No data on this case meets the specified criteria> Ordered Studies 12/07/18 08:18 CT abd pelvis IV con only Stat 12/07/18 11:14 CT chest w con Stat 12/09/18 07:53 US renal/blad retro comp Routine Hospital Course (1) Hemoptysis: - Ct surgery and pulmonary medicine feel maybe due to invasive aspergillosis while on anticoagulation, xarelto sstopped and will be on coumadin with outpt checks thru pcp 63yo M w/ hx of COPD and afib admitted on December 07, 2018 with hemoptysis, acute respiratory failure. Was intubated and extubated and bronchoscopy was done on the day of admission, was transiently on BiPAP machine, bronchoscopy has Aspergillus species Acute respiratory failure, secondary to fungal pneumonia and hemoptysis mild COPD, Hemoptysis: CT chest on 12/07 shows infiltratative changes in the RML and RLL. S/P bronc,possible Aspergillus species infection with bronch samples studies Id on the case, cont voriconazole, per note: duration to be determined, will monitor response on outpatient basis. will need routine follow up and serial imaging/labs while on voriconazole, need to follow with ID in office post d/c, Permanent afib. On diltiazem and digoxin for rate control. Xarelto for anticoagulation prior to admission, Discussed with patient in detail about the risk and benefit of Xarelto, Xarelto has no reverse agent if has emergency bleeding, Patient willing to switch over to Coumadin, had nursing staff of Coumadin teaching and management, As per up to Date "In patients with nonvalvular atrial fibrillation (AF) without a prior history of thromboembolism, the risk of a thromboembolic event during the several days typically required to achieve therapeutic anticoagulation with warfarin is very low. Thus, it is reasonable for outpatients to initiate warfarin without bridging." hx of Hypertension: Stable, Renal mass, urology saw the patient, Renal US reveals small R renal complex cyst , nonobstructing stone. No hydronephrosis or clearly visible solid masses. No intervention required at this time. need to f/u as outpatient with Dr. Yost in 3-4 weeks. Appt made by office. (2) Pneumonia: CT chest on 12/07 showed infiltratative changes in the RML and RLL. 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 On diltiazem and digoxin for rate control. coumadin is subtherapeutic for anticoaguation, will continue (4) COPD (chronic obstructive pulmonary disease): - Will continue home inhalers as able with intubation. - Nilam (5) Hypertension: On chlorthalidone and lisinopril as outpatient. (6) DVT prophylaxis: SCDs - (7) Acute respiratory failure: Total Time Total Time Spent Total Time Spent (In Minutes): greater than 30 minutes were required to prepare discharge Discharge Plan Discharge Items Patient Disposition: Home - Self-Care Reason For Visit: HEMOPTYSIS Discharge Diagnosis: aspergillosis lung infection, coughing up blood Condition: Fair Discharge Goals: Decrease discomfort, Diagnostic testing and Improve disease control Activity: As commented below Activity Comment: increase gradually as tolerated Non-emergency contact: Primary Care Provider and Mobile Marketing Manager Call non-emergency contact if: you have any medication questions Follow-up/Referrals: Mary Cai MD, PhD [Pathologist] - 12/16/18 10:45 am (Please, follow up at [facility] with Dr. Mary Cai on December 16 at 11:00 am (arrive at 10:45 am ). *This clinic is located at the rear of [facility]. Park behind the hospital in [address] and enter via [facility]. If you need to change this appointment, call the office at [phone].) Shemar Garcia DO [Physician] - 12/21/18 11:00 am (Please, follow up at [facility] Pulmonology Office with Dr. Garcia on ThursdayDecember 21 at 11:00 am. *This office is located in [address] of [facility] building next to this [facility]. If you need to change this appointment, call the office a [phone].) Felicita Hernández CRNP [Primary Care Provider] - 12/17/18 11:00 am (Please, follow up with Felicita RICHMOND on ThursdayDecember 17 at 11:00 am. *If you need to change this appointment, call the office at [phone].) Nidhi Ruiz DO [Physician] - Diet: Regular Other Ambulatory Orders: Prothrombin Time INR (Timed) Timeframe: 3 Days Location: Determined by Patient Ordered By: Ivan Echeverria Provider Instructions: please have your blood thinner checked 12/15 and 12/18 and 12/21, after that as per your primary care provider Prescriptions: New voriconazole 200 mg tablet 200 mg PO Q12H Qty: 30 RF: 0 warfarin [Jantoven] 5 mg tablet 5 mg PO DAILY Qty: 30 RF: 0 Continue ipratropium-albuterol 0.5 mg-3 mg(2.5 mg base)/3 mL solution for nebulization 3 ml Inhalation BID RF: 0 diltiazem HCl 300 mg capsule,extended release 24 hr 300 mg PO DAILY RF: 0 chlorthalidone 25 mg tablet 25 mg PO DAILY RF: 0 digoxin 250 mcg tablet 0.25 mcg PO PM RF: 0 lisinopril 10 mg tablet 10 mg PO DAILY RF: 0 mometasone-formoterol 200-5 mcg/actuation HFA aerosol inhaler 2 puff Inhalation BID RF: 0 tiotropium bromide [Spiriva with HandiHaler] 18 mcg Capsule, W/Inhalation Device 1 puff Inhalation QAM 30 Days Qty: 30 RF: 0 potassium chloride 10 mEq capsule, extended release 10 meq PO DAILY Qty: 7 RF: 0 Discontinued lovastatin 10 mg tablet 10 mg PO DAILY RF: 0 rivaroxaban 20 mg tablet 20 mg PO PM RF: 0 prednisone 10 mg tablet 10 mg PO DAILY Qty: 42 RF: 0 Stand-Alone Forms: [facility] Discharge Orders: Discharge Order (Routine); Ordered 12/13/18 Ordered By: Ivan Hanks Admission Data Admit Date/Time: 12/07/18 11:35 Attending Provider: Ivan Hanks Admit Provider: Jason Shelton Primary Care Provider: Felicita Hernández I Other Providers: Yosi Lundberg ; Jason Shelton ; Shemar Santana ; Gagandeep Cowan ; Kevin Neff ; Raymond Gregory ; Shemar Garcia ; Nidhi Ruiz ; Constantin Marquez Service: Medical Other Interventions: Discharge Summary Assessment (RN) Last Done: 12/13/18 15:33 DC Date/Time DO NOT enter until pt leaves facility: 12/13/18 16:00
[2018-12-16 14:09] LABS: Mycoplasma pneumoniae Ab, IgG 2.37 (<=0.90)
== END 2018-12-13 16:00 | disposition home or self-care (01) | DRG 853 ==
LOC: ED 07:14 → 1E 11:35 → SUATTDRO 11:35 → 1E 12:06 → 2W 12-09 14:18

== ENCOUNTER 2025-07-06 18:33 | Inpatient (IN) ==
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
[2025-07-06 19:02] LABS: Base Excess VBG 6.0 mEq/L; HCO3 VBG 33 mmol/L; Oxygen Saturation VBG 62.3 %; PCO2 VBG 59 mmHg (38-50); PO2 VBG 37 mmHg; pH VBG 7.36 (7.36-7.41)
[2025-07-06 19:06] LABS: Hematocrit (blood only) 49.8 % (42.0-52.0); Hemoglobin 16.9 g/dl (14.0-18.0); Immature Granulocytes # (auto) 0.06 K/uL (0.01-0.20); Immature Granulocytes % (auto) 0.5 %; Mean Corpuscular Hemoglobin 29.9 pg (25.0-34.0); Mean Corpuscular Volume 88.0 fL (80.0-100.0); Platelet Count 248 K/uL (130-400); RDW Standard Deviation 45.7 fL (36.4-46.3); Red Blood Count 5.66 M/uL (4.70-6.10); White Blood Count 11.14 K/ul (4.8-10.8)
[2025-07-06] MEDS: ALBUT/IPRATROP 3MG/0.5MG NEB 3 ML VIAL NEB STA ×2 (19:10→21:16)
--- NOTE | 2025-07-06 19:12 | XRay Report ---
Chest radiograph, one view History: Chest pain Comparison: 05/26/2025 Findings: Single AP view of the chest performed. No focal consolidation or pleural effusion. No pneumothorax. The cardiomediastinal silhouette is within normal limits. Normal pulmonary vascularity. No evidence for lymphadenopathy. No visualized bony or soft tissue abnormality. Impression: Normal chest radiograph Electronically signed by Narciso Portillo 07-06-2025 7:12 PM
[2025-07-06 19:26] LABS: Alanine Aminotransferase 15.0 U/L (7-52); Albumin Globulin Ratio 1.4 (0.9-2); Alkaline Phosphatase 81.0 U/L (34-104); Anion Gap 6.0 (3-11); Bilirubin,Total 0.7 mg/dl (0.2-1.0); Blood Urea Nitrogen 15.0 mg/dl (6-23); Calcium 10.0 mg/dl (8.6-10.3); Carbon Dioxide 33.0 mmol/L (21-32); Chloride 104.0 mmol/L (98-107); Creatinine Clr Calc Pharmacy 105.5 ml/min; Globulin 3.1 gm/dl (2.5-4.0); Glucose 90.0 mg/dl (70-99(Fasting)); Potassium 3.8 mmol/L (3.5-5.1); Sodium 143.0 mmol/L (136-145); Total Protein 7.3 gm/dl (6.0-8.3)
[2025-07-06 19:35] LABS: INR 1.9 (0.9-1.1); Prothrombin Time 19.8 Seconds (9.0-12.0)
[2025-07-06 20:03] LABS: Chlamydia pneumoniae PCR Not Detected (NotDetected); Coronavirus 229E PCR Not Detected (NotDetected); Coronavirus CoV-2 (COVID19)PCR Not Detected (NotDetected); Coronavirus HKU1 PCR Not Detected (NotDetected); Coronavirus NL63 PCR Not Detected (NotDetected); Coronavirus OC43PCR Not Detected (NotDetected); Human Metapneumovirus PCR Not Detected (NotDetected); Parainfluenza Virus 1 PCR Not Detected (NotDetected); Parainfluenza Virus 2 PCR Not Detected (NotDetected); Parainfluenza Virus 3 PCR Not Detected (NotDetected); Parainfluenza Virus 4 PCR Not Detected (NotDetected); Respiratory Syncytial VirusPCR Not Detected (NotDetected); Rhinovirus/Enterovirus PCR Not Detected (NotDetected)
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
[2025-07-06] MEDS: AZITHROMYCIN 500 MG/255 ML BAG IV SCH (22:12)
[2025-07-06] MEDS ORDERED: ACETAMINOPHEN 325 MG TAB PO PRN (23:27)
[2025-07-06] MEDS ORDERED: POLYETHYLENE (MIRALAX) 17 GM PACK PO PRN (23:27)
[2025-07-07] MEDS: ENOXAPARIN INJ 40 MG/0.4 ML SYR SQ SCH (00:39)
[2025-07-07] MEDS: guaiFENesin 600 MG TABCR PO SCH (01:22)
[2025-07-07] MEDS ORDERED: methylPREDNISolone 10 mg/mL (For Ped Dose < 7mg) IV SCH (07:00)
--- NOTE | 2025-07-07 07:33 | Hospitalist Progress Note ---
Date of Service July 07, 2025 Assessment & Plan (1) Acute exacerbation of chronic bronchitis: (2) Slow transit constipation: (3) Abdominal pain: (4) Left renal mass: Plan In summary this is a 70-year-old male admitted initially for acute respiratory failure with hypoxia secondary to a COPD exacerbation without evidence of an infectious process. With regard to the patient's COPD exacerbation, they have markedly improved in the morning of 07/07. We will continue with regular inhaler therapies as well as as needed rescue therapies, nonpharmacologic pulmonary toilet therapy, as well as additional pharmacologic interventions detailed below Continue ceftriaxone 2 g IV daily for 3 days through 07/09 Continue prednisone 40 mg p.o. daily for total 5-day course through 07/11 The patient was found in the outpatient setting to have a left renal mass concerning for possible malignancy given his atypical cystic nature; it was recommended on his most recent imaging study to pursue magnetic resonance imaging of this lesion; given the patient's microscopic hematuria presentation, his nonspecific left upper quadrant abdominal pain which is ipsilateral to the patient's mass, and the potential for malignancy, we will pursue his imaging during his hospitalization Pending MR abdomen with and without contrast, renal protocol The patient describes difficulty moving their bowels for extended period time however the past several days has had notable questionable melanotic stools; an occult stool was obtained today which does not show any evidence of occult colonic bleeding; we will continue with routine supportive care at this time Patient is chronically anticoagulated with warfarin; patient's goal INR is in the range of 2.0-3.0; at the time of admission his INR was 1.9, I would not make any significant adjustment to his warfarin regimen at this time with this sl ightly out of range measure; he is on steroid therapy here during his hospitalization so this is not an established medication that interacts with action of warfarin nor its metabolism; he was transitioned off of azithromycin as these medications are known to interact and have an effect on INR metabolism Admission and Anticipated Discharge Date Admission Date: July 06, 2025 Subjective Mr. Alexander is a 70-year-old male who was admitted to [facility] on 07/06 due to suspected COPD exacerbation. No acute overnight events; the patient's breathing has improved today, though he still notes a exertional dyspnea. He feels that intermittent episodes of a bdominal pain that have been progressively increasing in frequency primarily in the left upper quadrant had led to his precipitated COPD exacerbation due to increased abdominal distress. He also notes progressive issues with constipation and having small pellet sized firm stools for several weeks which in the past 3 to 4 days have become dark black, with a slightly foul odor. He denies any dangelo hematochezia, bloody stool, or more typical melanotic stool. He has had a recent colonoscopy within the past 6 months that did not reveal any pathology concerning for malignancy. Review of Systems Review of Systems: Review of constitutional, cardiovascular, pulmonary, gastrointestinal, genitourinary systems was unremarkable except for those findings detailed in the patient's subjective above Physical Exam Physical Exam: General: Adult male in no acute distress Vital Signs: Reviewed HEENT: Pupils equally round reactive to light; extraocular motion intact; moist mucous membranes Neck: No notable JVD at rest Pulmonary: Symmetrically reduced chest wall excursion secondary to body habitus; end expiratory wheezing present throughout all lung monique Cardiovascular: Regular rate and rhythm without murmurs, rubs, or gallops; S1 and S2 normal; trace bilateral lower extremity edema Gastrointestinal: Protuberant, somewhat firm; tender to palpation in the left upper quadrant, without tenderness elicited in the remaining abdomen nor any tenderness elicited with percussion; the patient's abdomen is tympanic with percussion; no acute peritoneal findings Results & Data Results & Data Vital Signs (Past 12 Hours) Vital Signs Temp Pulse Pulse Resp BP BP Pulse Ox 07/07/25 02:22 78 07/07/25 02:06 07/07/25 02:06 36.4 C L 85 18 121/78 92 07/06/25 23:39 71 18 126/64 91 07/06/25 22:00 54 L 22 107/88 07/06/25 21:30 59 L 23 114/71 07/06/25 21:00 56 L 136/95 07/06/25 20:30 68 21 155/120 H 97 07/06/25 20:03 71 28 H 149/98 H 95 O2 Del Method O2 Flow Rate 07/07/25 02:22 07/07/25 02:06 Nasal Cannula 3 07/07/25 02:06 Nasal Cannula 3 07/06/25 23:39 Nasal Cannula 3 07/06/25 22:00 07/06/25 21:30 07/06/25 21:00 07/06/25 20:30 07/06/25 20:03 Laboratory Results CBC was unremarkable; INR at admission was slightly below the patient's goal, measuring 1.9; BMP was notable for slightly elevated carbon dioxide, this is chronic; urinalysis reveals trace urine protein, trace urine ketones, microscopic hematuria with 3-5 red blood cells per high-power field; occult stool negative Diagnostic Findings Reassessment of the patient's lungs with a PA and lateral chest film was obtained, there is no acute cardiovascular nor pulmonary process at play PG Care Time/CCT Total # of Minutes Spent Total Time Spent with Patient: Total time spent is greater than 50% in coordination of care (as documented) at patient's floor/unit and/or counseling patient: Coding Level of Care Code 15460 SUB INP/OBS CARE 2/35MIN Diagnoses Acute exacerbation of chronic bronchitis J20.9; J42 Slow transit constipation K59.01 Left upper quadrant abdominal pain R10.12 Abdominal location: left upper quadrant Left renal mass N28.89 (3) Abdominal pain Abdominal location: left upper quadrant Qualified Code(s): R10.12 - Left upper quadrant pain
[2025-07-07] MEDS: ALBUT/IPRATROP 3MG/0.5MG NEB 3 ML VIAL NEB SCH (07:36)
[2025-07-07 07:59] LABS: Hematocrit (blood only) 46.5 % (42.0-52.0); Hemoglobin 16.1 g/dl (14.0-18.0); Mean Corpuscular Hemoglobin 30.3 pg (25.0-34.0); Mean Corpuscular Volume 87.4 fL (80.0-100.0); Platelet Count 223 K/uL (130-400); RDW Standard Deviation 44.7 fL (36.4-46.3); Red Blood Count 5.32 M/uL (4.70-6.10); White Blood Count 9.34 K/ul (4.8-10.8)
[2025-07-07 08:17] LABS: Anion Gap 6.0 (3-11); Blood Urea Nitrogen 17.0 mg/dl (6-23); Calcium 9.5 mg/dl (8.6-10.3); Carbon Dioxide 34.0 mmol/L (21-32); Chloride 103.0 mmol/L (98-107); Creatinine Clr Calc Pharmacy 106.9 ml/min; Glucose 136.0 mg/dl (70-99(Fasting)); Magnesium 1.7 mg/dl (1.7-2.4); Potassium 3.8 mmol/L (3.5-5.1); Sodium 143.0 mmol/L (136-145)
[2025-07-07 08:18] LABS: Immature Granulocytes # (auto) 0.05 K/uL (0.01-0.20); Immature Granulocytes % (auto) 0.5 %
--- NOTE | 2025-07-07 08:45 | XRay Report ---
XR chest 2V PA/lateral HISTORY: 70 years-old Male Reassess for CAP acute shortness of breath COMPARISON: 07/06/2025, 05/26/2025 TECHNIQUE: PA and lateral views of the chest FINDINGS: Cardiomediastinal and hilar silhouettes are unchanged. Ill-defined lingular opacities are again noted which are similar to the 05/26/2025 study. No pneumothorax, large pleural effusion or overt pulmonary edema. Chronic mid left clavicular fracture deformity. Bones appear grossly intact. IMPRESSION: Mild ill-defined lingular opacities are again noted, favoring atelectasis/scarring. Pneum onia considered less likely. ACT 112: Negative or not required by law. The above report was generated using voice recognition software. It may contain grammatical, syntax o r spelling errors. Electronically signed by: Natan Urrutia M.D. 07/07/2025 8:43 AM
[2025-07-07] MEDS ORDERED: CHLORTHALIDONE 25 MG TAB PO SCH (09:00)
[2025-07-07] MEDS: UMECLIDINIUM/VILANTEROL 62.5/25MCG 7 PUFFS/INHALER INH SCH (09:08)
[2025-07-07] MEDS: ROSUVASTATIN CALCIUM 20 MG TAB PO SCH (09:10)
[2025-07-07] MEDS: POTASSIUM CHLORIDE CRTAB 20 MEQ TABCR PO SCH (09:10)
[2025-07-07] MEDS: cefTRIAXone SODIUM 2,000 MG/50 ML BAG IV SCH (09:11)
[2025-07-07 12:59] LABS: Appearance Urine Clear (Clear); Bacteria Urine Automated None Seen (None Seen); Cast Urine Automated 0-2 /lpf (0-2); Epithelial Cell Urine Auto 0-2 /hpf (0-2); Glucose Urine UA Negative (Negative); WBC Urine Automated 0-5 /hpf (0-5)
[2025-07-07] MEDS: POLYETHYLENE (MIRALAX) 17 GM PACK PO SCH (16:15)
[2025-07-07] MEDS: WARFARIN SOD 2 MG TAB PO SCH (16:16)
[2025-07-07] MEDS: DIGOXIN 0.125 MG TAB PO SCH (16:17)
[2025-07-07] MEDS: GADOBUTROL 65ML VIAL IV ONE (17:55)
--- NOTE | 2025-07-07 18:48 | Magnetic Resonance Report ---
Clinical history: Suspected renal cell carcinoma Technique: Multiple magnetic resonance images were obtained of the abdomen before and after the administration of 10 cc of Gadavist intravenous gadolinium contrast. Due to scanner malfunction, all postcontrast series could not be obtained. T2-weighted images were also not provided Comparison is made to the abdominal CT dated 05/25/2025 and the prior MRI dated 11/23/2024 Findings: This examination is limited by motion artifact. There is a small 7 mm cyst in the left hepatic lobe. No definite liver mass lesion is identified. There is no sign of cirrhosis or significant fatty infiltration. The portal and hepatic veins are patent. The gallbladder appears unremarkable. No bile duct dilatation is noted. The pancreatic duct is of normal caliber. There is no sign of acute pancreatitis. No definite pancreatic mass lesion is seen The spleen is of normal size. No focal splenic lesion is evident. The adrenal glands appear unremarkable. There is a 2.7 cm round lesion of mixed high and intermediate T1 signal intensity in the mid left kidney, which measured 1.7 cm 11/23/2024. No obvious enhancement is seen. There is a 1.4 cm cyst in the mid left kidney and there is a 1 cm right renal cyst. There are smaller apparent renal cysts bilaterally. There is no hydronephrosis The visualized aorta is of normal caliber. No adenopathy is seen. No ascites or pleural effusions are noted. No definite abnormality of the abdominal wall musculature is identified. No hernia is seen. There is number scoliosis and degenerative disc disease Impression: 1. Limited examination as all sequences could not be obtained, as well as motion artifact 2. Interval increase in size of a 2.7 cm complex left renal lesion. There is no clear enhancement, though evaluation was suboptimal. This is likely a benign proteinaceous or hemorrhagic cyst but is indeterminate in nature. A follow-up renal protocol abdominal CT or MRI with and without contrast could be obtained in 3 months. Correlation with ultrasound may also be useful 3. Hepatic and bilateral renal cysts ACT 112: Positive. There are findings on this exam that require communication between the performing entity and the patient following Patient Test Result Information Act ([place] ACT 112) guidelines. Electronically signed by Hussein Sim 07-07-2025 6:48 PM
--- NOTE | 2025-07-08 06:10 | Electrocardiogram Report ---
Test Reason : Blood Pressure : */* mmHG Vent. Rate : 58 BPM Atrial Rate : * BPM P-R Int : * ms QRS Dur : 162 ms QT Int : 406 ms P-R-T Axes : * 187 62 degrees QTcB Int : 398 ms Atrial fibrillation with slow ventricular response Right bundle branch block Abnormal ECG When compared with ECG of 22-Apr-2025 11:38, Vent. rate has decreased by 37 bpm Minimal criteria for Inferior infarct are no longer Present Confirmed by Raúl Gibson ([id number]) on 07/08/2025 6:10:20 AM Referred By: REFERRED SELF Confirmed By: Raúl Gibson
--- NOTE | 2025-07-08 07:13 | Hospitalist Progress Note ---
Date of Service July 08, 2025 Assessment & Plan Admission and Anticipated Discharge Date Admission Date: July 06, 2025 Results & Data Results & Data Vital Signs (Past 12 Hours) Vital Signs Temp Pulse Pulse Resp BP BP Pulse Ox 07/08/25 03:47 36.9 C 76 16 121/69 95 07/07/25 23:20 36.8 C 73 18 130/72 92 07/07/25 21:46 63 07/07/25 20:20 07/07/25 19:53 77 17 92 07/07/25 19:40 36.8 C 77 18 119/68 93 O2 Del Method O2 Flow Rate 07/08/25 03:47 Room Air 07/07/25 23:20 Oxymask 4 07/07/25 21:46 07/07/25 20:20 Room Air, Nasal Cannula 3 07/07/25 19:53 Room Air 07/07/25 19:40 Room Air PG Care Time/CCT Total # of Minutes Spent Total Time Spent with Patient: Total time spent is greater than 50% in coordination of care (as documented) at patient's floor/unit and/or counseling patient: Coding
[2025-07-08 07:22] LABS: Hematocrit (blood only) 44.2 % (42.0-52.0); Hemoglobin 15.2 g/dl (14.0-18.0); Mean Corpuscular Hemoglobin 30.6 pg (25.0-34.0); Mean Corpuscular Volume 89.1 fL (80.0-100.0); Platelet Count 230 K/uL (130-400); RDW Standard Deviation 46.3 fL (36.4-46.3); Red Blood Count 4.96 M/uL (4.70-6.10); White Blood Count 18.97 K/ul (4.8-10.8)
[2025-07-08 07:41] LABS: Anion Gap 4.0 (3-11); Blood Urea Nitrogen 27.0 mg/dl (6-23); Calcium 9.1 mg/dl (8.6-10.3); Carbon Dioxide 35.0 mmol/L (21-32); Chloride 103.0 mmol/L (98-107); Creatinine Clr Calc Pharmacy 100.6 ml/min; Glucose 131.0 mg/dl (70-99(Fasting)); Magnesium 1.8 mg/dl (1.7-2.4); Potassium 4.3 mmol/L (3.5-5.1); Sodium 142.0 mmol/L (136-145)
[2025-07-08 07:53] LABS: Immature Granulocytes # (auto) 0.16 K/uL (0.01-0.20); Immature Granulocytes % (auto) 0.8 %
[2025-07-08 08:32] VITALS: TEMP 97.5
[2025-07-08] MEDS: predniSONE 20 MG TAB PO SCH (09:02)
[2025-07-08 10:50] VITALS: RESP 18; O2SAT 90
[2025-07-08 12:13] VITALS: BP 130/72; PULSE 90
--- NOTE | 2025-07-09 07:48 | Discharge Summary ---
Discharge Summary Date of Service July 08, 2025 Principal Dx & Hospital Course #1 = Principal Diagnosis (1) Acute exacerbation of chronic bronchitis: (2) Slow transit constipation: (3) Abdominal pain: (4) Left renal mass: Plan In summary this is a 70-year-old male admitted initially for acute respiratory failure with hypoxia secondary to a COPD exacerbation without evidence of an infectious process. With regard to the patient's COPD exacerbation they markedly improved in the morning of 07/07. They were continued with regular inhaler therapies as well as as needed rescue therapies, nonpharmacologic pulmonary toilet therapy, as well as additional pharmacologic interventions detailed below Continue ceftriaxone 2 g IV daily for 3 days through 07/09 Continue prednisone 40 mg p.o. daily for total 5-day course through 07/11 The patient was found in the outpatient setting to have a left renal mass concerning for possible malignancy given his atypical cystic nature; it was recommended on his most recent imaging study to pursue magnetic resonance imaging of this lesion; given the patient's microscopic hematuria presentation, his nonspecific left upper quadrant abdominal pain which is ipsilateral to the patient's mass, and the potential for malignancy, we will pursue his imaging during his hospitalization MR abdomen with renal protocol revealed interval increase in size of the previously seen mass; patient reports they are established with subspecialist providers in the outpatient setting for potential diagnostic testing The patient describes difficulty moving their bowels for extended period time however the past several days has had notable questionable melanotic stools; an occult stool was obtained today which does not show any evidence of occult colonic bleeding. After further discussion, he reports taking large volumes of Peptobismol prior to his admission and which preceded his darkened stools. Bismuth is likely the cause of his qualitative stool changes. Patient is chronically anticoagulated with warfarin; patient's goal INR is in the range of 2.0-3.0; at the time of admission his INR was 1.9, I would not make any significant adjustment to his warfarin regimen at this time with this slightly out of range measure; he is on steroid therapy here during his hospitalization and this is not an established medication that interacts with action of warfarin nor its metabolism; he was transitioned off of azithromycin as these medications are known to interact and have an effect on INR metabolism Notes For Next Care Provider Medication Changes From Visit Continue prednisone 40 mg p.o. daily through 07/11 Recommend one capful of miralax daily with adjustment every 3-4 days by one half capful to maintain 1-2 easily passed bowel movements daily Admission HPI Per Admitting Provider The patient is a 70-year-old male with a past medical history including obesity, hypertension, CAD, chronic atrial fibrillation, aortic regurgitation, atrial flutter, hyperlipidemia, COPD, tobacco abuse, MARTÍNEZ and GERD. He presents to the emergency department with acute onset of shortness of breath over the past 24 hours. He continued to smoke 1 pack/day. He reports that he has some generalized abdominal discomfort for a long time, and no one stable to find out the reason why. In the emergency department he received a DuoNeb x 2, Solu- Medrol 25 mg IV, patient referred for evaluation for admission Discharge Exam General: Adult male in no acute distress Vital Signs: Reviewed HEENT: Pupils equally round reactive to light; extraocular motion intact; moist mucous membranes Neck: No notable JVD at rest Pulmonary: Symmetrically reduced chest wall excursion secondary to body habitus; reduced but present expiratory wheezing present throughout all lung monique Cardiovascular: Regular rate and rhythm without murmurs, rubs, or gallops; S1 and S2 normal; trace bilateral lower extremity edema Gastrointestinal: Protuberant, somewhat firm; without tenderness; the patient's abdomen is less tympanic with percussion; no acute peritoneal findings Discharge Plan Discharge Items Patient Disposition: Home - Self-Care Reason For Visit: COPD EXACERBATION Discharge Diagnosis: Acute exacerbation of chronic bronchitis Condition on Discharge: Good Activity: Per Instructions section Non-emergency contact: Primary Care Provider Call non-emergency contact if: you have any medication questions, your symptoms worsen and you have a fever Follow-up/Referrals: Yosi Ibarra DO [Primary Care Provider] - 07/13/25 11:30 am Diet: Low Fat Fluids: 1800ml (7 cups) Addtl Attending Provider Instructions: You were admitted to [facility] for an acute exacerbation of your chronic bronchitis without an associated pneumonia. There was rapid improvement with your pulmonary symptoms and findings after initiation of antibiotics and steroid therapies; the pace improvement and lack of imaging finding consistent with a consolidative pneumonia speaks against a bacterial exacerbation specifically, thus no antibiotics will be continued at discharge. We will send you on a continued steroid burst to reduce persistent inflammatory changes and reduce the risk of recurrent hospitalization over the next several days. You were also noting significant abdominal pain and difficulty passing your stools. You also had described significantly dark black stools without tarry change; an occult stool assessing for any blood was negative however with recent increased use of Pepto-Bismol, this is likely the culprit as the bismuth present and this medication does cause darkening of stool. Given your persistent constipation we discussed starting MiraLAX 1 capful in 8 ounces of noncarbonated nondairy fluid once daily to be increased by one half capful or decrease by one half capful every 3 to 4 days in order to maintain an easily passed soft bowel movement as you see needed. If necessary, a prescription will be sent for a bowel stimulant to facilitate bowel movements if you continue to have difficulty after several days of initiating MiraLAX therapy. During your hospitalization an MRI of the abdomen with specific focus to the genitourinary system was performed due to persistent microscopic hematuria which revealed interval increase in a previously seen complex left renal lesion; there is recommendation to continue to follow this in the outpatient setting with either a abdominal CT or MRI with and without contrast; it may also be reasonable, after further discussion with your primary care physician, to establish with a urologist to review the serial imaging has been obtained over the past several years to determine the necessity for biopsy. Thank you for choosing [facility] as your healthcare provider. Pending Studies at Discharge: No Stand-Alone Forms: My [facility], Smoking Cessation Medications and DC Order Prescriptions: New polyethylene glycol 3350 [Miralax] 17 gram Powder In Packet 17 g PO DAILY 30 Days Qty: 30 0RF prednisone 20 mg Tablet 40 mg PO DAILY 3 Days Qty: 6 0RF warfarin 3 mg Tablet 3 mg PO Th@1600 30 Days Qty: 5 0RF bisacodyl 5 mg tablet,delayed release (DR/EC) 5 mg PO HS PRN (Reason: constipation refractory to daily miralax) Qty: 14 0RF Continued albuterol sulfate 90 mcg/actuation HFA aerosol inhaler 2 puff INH Q4H PRN (Reason: shortness of breath or wheezing) Qty: 54 3RF ipratropium bromide 0.02 % solution 2.5 ml inhalation Q4H PRN (Reason: shortness of breath or wheezing) Qty: 1350 3RF Rx Instructions: Mix with one vial of Albuterol nebulizer solution every 4 hours as needed lisinopril 10 mg tablet 10 mg PO QAM Qty: 90 3RF rosuvastatin 20 mg tablet 20 mg PO QAM Qty: 90 3RF digoxin 125 mcg (0.125 mg) tablet 125 mcg PO QAM Qty: 90 3RF warfarin 2 mg tablet 2 mg PO .COMPLEX Qty: 96 2RF Hold Instructions: Resume on 01/26/25. Rx Instructions: 3mg q Th, 2mg x 6 days or UD per [facility] orally use as directed potassium chloride 20 mEq tablet extended release 20 meq PO QAM Qty: 90 3RF umeclidinium-vilanterol [Anoro Ellipta] 62.5-25 mcg/actuation blister with device 1 inh inhalation QAM diltiazem HCl 300 mg capsule,extended release 24 hr 300 mg PO QAM chlorthalidone 25 mg tablet 25 mg PO QAM polyethylene glycol 3350 [Miralax] 17 gram/dose powder 17 g PO DAILY PRN (Reason: Constipation) Discharge Orders: Discharge Order (Routine); Ordered 07/08/25 Ordered By: Faraz Mcdonough/Other Patient Handouts: What to Know When Taking�Warfarin, COPD Quit Smoking, Discharge Instructions: COPD Admission Data Admit Date/Time: 07/06/25 20:31 Attending Provider: Faraz Dasilva Admit Provider: Jesus Lim Primary Care Provider: Yosi Ibarra Other Providers: Jesus iLm Other Interventions: Discharge Summary Assessment (RN) Last Done: 07/08/25 12:10 Hospital Stay Data Consultations 07/06/25 20:16 ED Decision to Admit Stat Diagnostic Imagining Performed 07/07/25 15:40 MR abdomen wo/w con Urgent Pending Results Patient Have Any Pending Studies at Discharge: No Discharge Instructions Given to Patient (Per Discharging Provider) You were admitted to [facility] for an acute exacerbation of your chronic bronchitis without an associated pneumonia. There was rapid improvement with your pulmonary symptoms and findings after initiation of antibiotics and steroid therapies; the pace improvement and lack of imaging finding consistent with a consolidative pneumonia speaks against a bacterial exacerbation specifically, thus no antibiotics will be continued at discharge. We will send you on a continued steroid burst to reduce persistent inflammatory changes and reduce the risk of recurrent hospitalization over the next several days. You were also noting significant abdominal pain and difficulty passing your stools. You also had described significantly dark black stools without tarry change; an occult stool assessing for any blood was negative however with recent increased use of Pepto-Bismol, this is likely the culprit as the bismuth prese nt and this medication does cause darkening of stool. Given your persistent constipation we discussed starting MiraLAX 1 capful in 8 ounces of noncarbonated nondairy fluid once daily to be increased by one half capful or decrease by one half capful every 3 to 4 days in order to maintain an easily passed soft bowel movement as you see needed. If necessary, a prescription will be sent for a bowel stimulant to facilitate bowel movements if you continue to have difficulty after several days of initiating MiraLAX therapy. During your hospitalization an MRI of the abdomen with specific focus to the genitourinary system was performed due to persistent microscopic hematuria which revealed interval increase in a previously seen complex left renal lesion; there is recommendation to continue to follow this in the outpatient setting with either a abdominal CT or MRI with and without contrast; it may also be reasonable, after further discussion with your primary care physician, to establish with a urologist to review the serial imaging has been obtained over the past several years to determine the necessity for biopsy. Thank you for choosing [facility] as your healthcare provider. Total Time Total Time Spent Total Time Spent (In Minutes): I personally spent 70 minutes coordinating the patient's care today including chart review, personal imaging review, discussion of the patient's plan of care at bedside as well as physical exam Coding Level of Care Code 26155 INP/OBS DISCH >30 MIN Diagnoses Acute exacerbation of chronic bronchitis J20.9; J42 Slow transit constipation K59.01 Left upper quadrant abdominal pain R10.12 Abdominal location: left upper quadrant Left renal mass N28.89
[2025-07-13] MEDS ORDERED: WARFARIN SOD 3 MG TAB PO SCH (16:00)
== END 2025-07-08 12:30 | disposition home or self-care (01) | DRG 190 ==
LOC: ED 18:33 → SUATTDRO 20:31 → EDINP 20:31 → 2N 23:27